=== PATIENT | female | born 1965 | race Caucasian/White ===

== ENCOUNTER 2018-03-17 14:06 | Observation (INO) | payer OTHER, SELFPAY ==
[2018-03-17] VITALS (10 sets, daily range): BP systolic 113–127; BP diastolic 68–92; PULSE 62–658; RESP 16–23; TEMP 36.7–36.9; O2SAT 95–100; BMI 34.1; BMI 33.5
--- NOTE | 2018-03-17 14:37 | EKG12_ITS ---
Test Reason : NEURO Blood Pressure : / mmHG Vent. Rate : 066 BPM Atrial Rate : 066 BPM P-R Int : 174 ms QRS Dur : 080 ms QT Int : 436 ms P-R-T Axes : 068 025 052 degrees QTc Int : 457 ms Sinus rhythm with occasional Premature ventricular complexes Otherwise normal ECG Confirmed by HUMA JENKINS, MARKIE ([id number]), senior technical editor KARIS CONTRERAS ([id number]) on 03/20/2018 12:54:19 PM Referred By: KENDRICK Confirmed By:MARKIE FINN MD
--- NOTE | 2018-03-17 14:37 | CT_ITS ---
STUDY: CT BRAIN WITHOUT CONTRAST REASON FOR EXAM: Female, 52 years old. Paresthesia and numbness of the left face. RADIATION DOSAGE (If Supplied By Facility): CTDIvol = ( 44.99 ) mGy, DLP = ( 745.49 ) mGycm TECHNIQUE: Transaxial CT imaging of the brain was performed without administration of intravenous contrast material. Individualized dose optimization techniques were used for this CT. COMPARISON: None. FINDINGS: Normal soft tissue structures. Normal calvarium. Normal size ventricles and extra-axial spaces for the patient's age. Normal white matter tracts of the cerebral hemispheres. Normal basal ganglia and thalami. Normal brainstem. Normal cerebellum. There is no intracranial hemorrhage. There are no findings of an acute ischemic infarction. Normal visualized paranasal sinuses. CT/Brain/Head without Contrast IMPRESSION: Normal unenhanced CT scan of the brain. Electronically Signed: Trip Barnhart MD at 15:14 EDT , Service support ,
--- NOTE | 2018-03-17 14:41 | NURSING ---
NO OLD EKGS
--- NOTE | 2018-03-17 14:54 | ED.VISSUMM ---
- ER Visit Summary Date of Service: 03/17/18 Chief Complaint: Paresthesia left side History of Present Illness: The patient is a 52 F who presents with left-sided numbness that started 1 hour prior to presentation. Total duration 10 minutes. She states the top her foot began to tingle then her entire left side began to tingle. She was concerned she may follow walk to a chair. She states her leg felt large. She did not use her left arm to determine if there was problems with coordination or weakness. She does not believe she had a foot drop or was dragging her left leg. There was no change in her voice. She had no difficulty swallowing or breathing. She denied headache. She does have history of migraine headaches. She had no nausea or vomiting. She denied double vision, blurred vision or loss of vision. She denies any cardiac respiratory symptoms. She denies any urologic symptoms. Past history of hypertension and migraine headaches Physical Examination: Vital signs are essentially unremarkable. BMI is 34.1. Head is atraumatic normocephalic. Pupils are equal round reactive. Extraocular muscles are intact. TMs are pearly white with landmarks noted. Nares patent with no drainage. Posterior pharynx without erythema or exudate. Uvula is midline. There is no dysphonia or dysphasia. Trachea is midline. There is no stridor with auscultation of the neck. Heart is regular without murmur, gallop or rub. S1 and S2 are normal. Lungs are clear to auscultation with good movement of air bilaterally. Abdomen is soft nontender. Patient is alert and oriented ?3. Motor is 5 over 5. Sensory is intact. DTRs are symmetric with no clonus or Babinski sign. Cranial 2 through 12 are intact. Cerebellar testing is normal. NIH is 0. Test Results: EEG revealed a sinus rhythm rate of 66 with premature ventricular beats. CT of the head reviewed by me interpreted radiologist as negative. CBC electro panel unremarkable. Coags are pending. Emergency Department Course and Treatment: Stroke alert was not activated since patient's symptoms are resolved and NIH is 0. Stroke order set was initiated. This may represent an atypical migraine versus a TIA. Patient was informed inpatient hospitalization for would initiate workup and she will require expedited workup to determine cause of her numbness. Treatment Plan: The hospitalist was paged for 23 observation for further workup to determine if this is a TIA versus atypical migraine. Disposition: 23 hour observation PCU Impression: Left-sided paresthesia uncertain etiology This note was generated with [employer] dictation software. It may contain incorrect words, spelling, and punctuation that were not noted in review of the chart prior to signing ED Disposition - Plan for ED Patient: Chief Complaint: Neuro S/Sx Referrals: Avel Temple MD [NON-STAFF] -
[2018-03-17 15:04] LABS: Anion Gap 7 (5-15); BUN 16 mg/dL (7-18); BUN/Creat Ratio 16.8 RATIO (10-20); Calcium,Total 9.5 mg/dL (8.5-10.1); Chloride 103 mmol/L (98-107); Creatinine, Serum 0.95 mg/dL (0.55-1.02); EST Glomerular Filtration Rate 66 mL/min (>60); Est Glom Filt Rate - Afr Amer 80 mL/min (>60); Estimated Creatinine Clearance 53.46 ml/min; Glucose 86 mg/dL (74-106); Potassium 3.6 mmol/L (3.5-5.1); Sodium Level 140 mmol/L (136-145)
[2018-03-17 15:09] LABS: Absolute Lymphocyte Count 3.05 X10^3/ul (0.83-4.51); Absolute Neutrophil Count 5.6 X10^3/uL (2.0-7.7); Basophil# 0.07 X10^3/uL; Basophil% 0.7 % (0-1); Hematocrit 41.5 % (37-47); Hemoglobin 13.8 g/dl (12.0-15.0); Lymphocyte # 3.05 X10^3/ul (4.0); Lymphocyte % 31.8 % (19-41); Mean Corp Hgb Conc 33.3 g/gl (32-36); Mean Corpuscular Hgb 30.3 pg (27.0-32.0); Mean Corpuscular Volume 91.2 fL (81-99); Mean Platelet Vol. 11.2 fl (6.2-12.0); Monocyte# 0.76 X10^3/uL; Monocyte% 7.9 % (0-10); Neutrophil % 58.5 % (47-70); Platelet Count 229 K/mm3 (150-450); RBC Distribution Width CV 12.8 % (11.6-14.6); RBC Distribution Width SD 42.1 fl (35.1-43.9); Red Blood Count 4.55 M/mm3 (4.2-5.4); White Blood Count 9.6 K/mm3 (4.4-11.0)
[2018-03-17 15:10] LABS: POSITIVE COUNT NO; POSITIVE DIFFERENTIAL NO; POSITIVE MORPHOLOGY NO
[2018-03-17 15:26] LABS: Bedside Glucose 84 mg/dL (70-110)
[2018-03-17 15:28] LABS: Prothrombin Time (Protime)PT. 13.2 SECONDS (11.7-14.9)
[2018-03-17 15:29] LABS: Partial Thromboplast Time 30.3 Seconds (24.1-36.2)
--- NOTE | 2018-03-17 15:31 | NURSING ---
DR MARKS STATES TO DISCONTINUE NIH'S. NIH SCORE IS 0, PT HAS NOT HAD SYMPTOMS SINCE BEFORE ARRIVAL.
--- NOTE | 2018-03-17 15:32 | NURSING ---
DR ENEIDA MARKS
--- NOTE | 2018-03-17 15:52 | PCM.HP.STD ---
Problem List (1) Left sided numbness Status: Acute (2) Migraine Status: Chronic (3) HTN (hypertension) Status: Chronic (4) Mitral valve prolapse Status: Chronic History of Present Illness Date of Admission: 03/17/18 Chief Complaint: left sided numbness The patient is a 52 year old F who was in her normal state of health today and then experienced left-sided numbness. The numbness involved her left arm leg. Sat down on a bench and felt that she could not sense her left buttocks on the bench. Last about an hour resolved completely. Patient does have a history of migraines but was having no headache when this occurred. Patient has never had any symptoms such as this in the past. Patient presented to the emergency room and was evaluated. Patient had an NIH score of 0. Patient is being admitted for further neurologic evaluation to see if this was a stroke or TIA. 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: No pertinent DEPUTY INSURANCE COMMISSIONER history Smoking Status: Never smoker Tobacco Use: Non-smoker Alcohol: Occasional Drugs: None - *Family History Maternal History Items: Stroke Paternal History Items: Heart Disease Review of Systems Constitutional: Denies: Anorexia, Chills, Fever Eyes: Denies: Blurred vision, Double vision HEENT: Denies: Head Aches, Sinus Congestion, Sinus Drainage Cardiovascular: Denies: Chest Pain, Palpitations Respiratory: Denies: Cough, Shortness of breath at rest, Sputum production Gastrointestinal: Denies: Abdominal Pain, Nausea, Vomiting Musculoskeletal: Denies: Joint Pain, Joint Tenderness Skin: Denies: Rash, Wounds Neurological: Reports: Numbness - on left, now resolved.. Denies: Focal weakness, Tingling Psychiatric: Denies: Anxiety, Depression Hematologic/ Lymphatic: Denies: Easy Bruising, Easy Bleeding, Hx of blood clot VTE Information - Inpt Only VTE Present on Admission: No VTE Pharm Prophylaxis ordered?: Yes Patient Problems: Active and Suspected Problems Left sided numbness (Acute) - Physical Exam General: Alert, Cooperative, No apparent distress HEENT: Atraumatic, PERRLA, EOMI, Normocephalic Oral: Moist Mucosa, No Gingival or Mucosal Lesions/ Ulcerations Neck: No Nodes, Thyroid Normal Size and Texture Lungs: Clear to auscultation, Normal air movement, No rhonchi, No wheeze Cardiovascular: Regular rate, Regular Rhythm, Normal S1, Normal S2, - - 2/6 HSM at apex Abdomen: Bowel Sounds Present, Soft, Non Tender, Non-Distended Extremities: No edema, No Calf Tenderness Skin: No rashes, No breakdown Musculoskeletal: No Tenderness to Palpation of Joints or Extremities, No Muscle Wasting Neurological: Cranial nerves II-XII grossly intact, Neuro grossly intact, Motor Exam 5/5 strength throughout Psych/Mental Status: Normal Affect, Appropriate, - - did become tearful Vital Signs Temp Pulse Resp BP Pulse Ox 36.9 C 65 20 H 123/92 H 97 03/17/18 14:08 03/17/18 15:07 03/17/18 15:07 03/17/18 15:07 03/17/18 15:07 Oxygen Delivery Method Room Air Weight: 82.6 kg Body Mass Index (BMI) 34.1 Finger Stick Blood Glucose 84 Laboratory Tests Past 24 Hrs 03/17/18 03/17/18 03/17/18 14:45 14:45 14:45 WBC 9.6 RBC 4.55 Hgb 13.8 Hct 41.5 MCV 91.2 MCH 30.3 MCHC 33.3 RDW 12.8 RDW Differential 42.1 Plt Count 229 MPV 11.2 Immature Gran % (Auto) 0.100 Neut % (Auto) 58.5 Lymph % (Auto) 31.8 [place] % (Auto) 7.9 Eos % (Auto) 1.0 Baso % (Auto) 0.7 Absolute Neuts (auto) 5.6 Absolute Lymphs (auto) 3.05 Total Counted Not Reportable PT Pending INR Pending APTT Pending Sodium 140 Potassium 3.6 Chloride 103 Carbon Dioxide 30.0 Anion Gap 7 BUN 16 Creatinine 0.95 Estim Creat Clear Calc 53.46 Est GFR (MDRD) Af Amer 80 Est GFR (MDRD) Non-Af 66 BUN/Creatinine Ratio 16.8 Glucose 86 Calcium 9.5 POC Glucose 03/17/18 14:46 POC Glucose 84 Clinical Impression(s) from Imaging Studies Brain CT 03/17/18 14:37 IMPRESSION: Normal unenhanced CT scan of the brain. Electronically Signed: Trip Barnhart MD at 15:14 EDT , Service support , Assessment/Plan Active and Suspected Problems Left sided numbness (Acute) 1. Left-sided weakness Concern is to rule out a TIA or stroke and patient will be admitted to have an MRI of the brain, MRA of the head neck, echocardiogram and neurology evaluation. Patient will additionally have a bedside swallow evaluation when she passes that the patient may resume a diet at this point. Patient does have a history of migraines the patient was having no headache at this time. Patient never had any atypical features such as this either with her migraines. 2. DVT prophylaxis with Lovenox Code Visit OBSV E&M: 62519 Initial observation care L3
--- NOTE | 2018-03-17 15:55 | NURSING ---
Sumeet LT SIDED NUMBNESS ENEIDA
--- NOTE | 2018-03-17 15:58 | HP.PCM_ITS ---
Problem List (1) Left sided numbness Status: Acute (2) Migraine Status: Chronic (3) HTN (hypertension) Status: Chronic (4) Mitral valve prolapse Status: Chronic History of Present Illness Date of Admission: 03/17/18 Chief Complaint: left sided numbness The patient is a 52 year old F who was in her normal state of health today and then experienced left-sided numbness. The numbness involved her left arm leg. Sat down on a bench and felt that she could not sense her left buttocks on the bench. Last about an hour resolved completely. Patient does have a history of migraines but was having no headache when this occurred. Patient has never had any symptoms such as this in the past. Patient presented to the emergency room and was evaluated. Patient had an NIH score of 0. Patient is being admitted for further neurologic evaluation to see if this was a stroke or TIA. [] Past Medical History Past Medical History (Chronic Problems): Chronic Problems Migraine (Chronic) HTN (hypertension) (Chronic) Mitral valve prolapse (Chronic) Allergies amoxicillin Allergy (Verified 03/17/18 14:30) Itching Home Medications: Ambulatory Orders Medication Instructions Recorded Ascorbic Acid [Vitamin C] 500 mg PO DAILY 03/17/18 Butalbital/Aspirin/Caffeine 1 cap PO BID PRN 03/17/18 [Cicjqsitzh-YCH-Zcycwtvd Cap] Losartan Potassium [Losartan 25 mg DAILY 03/17/18 Potassium] Psychiatric History: No pertinent psych hx MANAGER ACTION History: No pertinent MANAGER ACTION history Smoking Status: Never smoker Tobacco Use: Non-smoker Alcohol: Occasional Drugs: None - *Family History Maternal History Items: Stroke Paternal History Items: Heart Disease Review of Systems Constitutional: Denies: Anorexia, Chills, Fever Eyes: Denies: Blurred vision, Double vision HEENT: Denies: Head Aches, Sinus Congestion, Sinus Drainage Cardiovascular: Denies: Chest Pain, Palpitations Respiratory: Denies: Cough, Shortness of breath at rest, Sputum production Gastrointestinal: Denies: Abdominal Pain, Nausea, Vomiting Musculoskeletal: Denies: Joint Pain, Joint Tenderness Skin: Denies: Rash, Wounds Neurological: Reports: Numbness - on left, now resolved.. Denies: Focal weakness, Tingling Psychiatric: Denies: Anxiety, Depression Hematologic/ Lymphatic: Denies: Easy Bruising, Easy Bleeding, Hx of blood clot VTE Information - Inpt Only VTE Present on Admission: No VTE Pharm Prophylaxis ordered?: Yes Patient Problems: Active and Suspected Problems Left sided numbness (Acute) - Physical Exam General: Alert, Cooperative, No apparent distress HEENT: Atraumatic, PERRLA, EOMI, Normocephalic Oral: Moist Mucosa, No Gingival or Mucosal Lesions/ Ulcerations Neck: No Nodes, Thyroid Normal Size and Texture Lungs: Clear to auscultation, Normal air movement, No rhonchi, No wheeze Cardiovascular: Regular rate, Regular Rhythm, Normal S1, Normal S2, - - 2/6 HSM at apex Abdomen: Bowel Sounds Present, Soft, Non Tender, Non-Distended Extremities: No edema, No Calf Tenderness Skin: No rashes, No breakdown Musculoskeletal: No Tenderness to Palpation of Joints or Extremities, No Muscle Wasting Neurological: Cranial nerves II-XII grossly intact, Neuro grossly intact, Motor Exam 5/5 strength throughout Psych/Mental Status: Normal Affect, Appropriate, - - did become tearful Vital Signs Temp Pulse Resp BP Pulse Ox 36.9 C 65 20 H 123/92 H 97 03/17/18 14:08 03/17/18 15:07 03/17/18 15:07 03/17/18 15:07 03/17/18 15:07 Oxygen Delivery Method Room Air Weight: 82.6 kg Body Mass Index (BMI) 34.1 Finger Stick Blood Glucose 84 Laboratory Tests Past 24 Hrs 03/17/18 03/17/18 03/17/18 14:45 14:45 14:45 WBC 9.6 RBC 4.55 Hgb 13.8 Hct 41.5 MCV 91.2 MCH 30.3 MCHC 33.3 RDW 12.8 RDW Differential 42.1 Plt Count 229 MPV 11.2 Immature Gran % (Auto) 0.100 Neut % (Auto) 58.5 Lymph % (Auto) 31.8 [place] % (Auto) 7.9 Eos % (Auto) 1.0 Baso % (Auto) 0.7 Absolute Neuts (auto) 5.6 Absolute Lymphs (auto) 3.05 Total Counted Not Reportable PT Pending INR Pending APTT Pending Sodium 140 Potassium 3.6 Chloride 103 Carbon Dioxide 30.0 Anion Gap 7 BUN 16 Creatinine 0.95 Estim Creat Clear Calc 53.46 Est GFR (MDRD) Af Amer 80 Est GFR (MDRD) Non-Af 66 BUN/Creatinine Ratio 16.8 Glucose 86 Calcium 9.5 POC Glucose 03/17/18 14:46 POC Glucose 84 Clinical Impression(s) from Imaging Studies Brain CT 03/17/18 14:37 IMPRESSION: Normal unenhanced CT scan of the brain. Electronically Signed: Trip Barnhart MD at 15:14 EDT , Service support , Assessment/Plan Active and Suspected Problems Left sided numbness (Acute) 1. Left-sided weakness * Concern is to rule out a TIA or stroke and patient will be admitted to have an MRI of the brain, MRA of the head neck, echocardiogram and neurology evaluation. Patient will additionally have a bedside swallow evaluation when she passes that the patient may resume a diet at this point. Patient does have a history of migraines the patient was having no headache at this time. Patient never had any atypical features such as this either with her migraines. 2. DVT prophylaxis with Lovenox Code Visit OBSV E&M: 16385 Initial observation care L3
--- NOTE | 2018-03-17 16:01 | CHAPLAIN ---
Type of Pastoral Visit ___ Initial Visit ___ Follow-up Visit ___ On-call Visit ___ General Patient Visit ___ Spiritual Assessment ___ Family Conference ___ Bereavement ___ Rapid Response ___ Code Blue _x__ Other (describe below) Pastoral Care Referral From _x__ Patient ___ Family ___ Nurse ___ Physician ___ Roll Forming Machine Set Up Operator ___ Poundmaster ___ Other (describe below) Sacrament/Intervention ___ Active listening ___ Anointing ___ Taoism ___ Bereavement ___ Communion ___ Gloria exploration ___ ___ Life review _x__ Prayer ___ Reconciliation ___ Sacrament of Sick _x__ Supportive presence ___ Wedding ___ Other (describe below) Pastoral Comments while rounding in the ED, 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
--- NOTE | 2018-03-17 16:38 | MRI_ITS ---
STUDY: MRI BRAIN WITH AND WITHOUT CONTRAST REASON FOR EXAM: Female, 52 years old. Numbness and tingling of left side TECHNIQUE: Standardized multiplanar fat and water weighted pulse sequences were obtained. 7 ml of Gadavist contrast material was administered intravenously for the contrast portion of the examination. COMPARISON: None. FINDINGS: Normal size of the ventricles and extra-axial spaces for the patient's age. There are a couple of tiny punctate white matter densities but no significant white matter ischemic changes or evidence for acute infarct.. Normal bilateral basal ganglia. Normal thalami. There is no extra-axial fluid accumulation. Normal flow voids within the major intracranial circulation suggesting patency by spin echo criteria. Normal venous enhancement. There is no enhancing intra-axial or extra-axial abnormality. Normal sella turcica, pituitary gland, infundibular stalk, optic chiasm and hypothalamus. Normal tectal plate and pineal gland. Normal midbrain, dominguez and medulla. Normal cerebellum. Normal basal cisterns. Normal bilateral temporal bones. Normal bilateral internal auditory canals. No demonstrated orbital abnormality, within the constraints of a routine brain study. Mild bilateral mucosal thickening greater on the left Normal calvarium and skull base. Normal visualized soft tissue structures. Normal visualized upper cervical spine. MRI/Brain W/WO Contrast IMPRESSION: Minimal nonspecific white matter changes. No evidence for acute infarct No abnormal enhancing lesion Electronically Signed: Basil Pillai MD at 20:22 EDT , Service support ,
--- NOTE | 2018-03-17 16:38 | MRI_ITS ---
STUDY: MRA NECK WITH AND WITHOUT CONTRAST REASON FOR EXAM: Female, 52 years old. Numbness and tingling in left foot TECHNIQUE: 3-D iyai-rd-vklqek (TOF) imaging was performed in an 1.5 T MRI scanner. 7 ml of Gadavist was administered for the contrast enhanced images. COMPARISON: None. FINDINGS: RIGHT CAROTID ARTERIES: Normal right common carotid artery (CCA). Normal right common carotid bulb. Normal origin of the right internal carotid (ICA) artery without a hemodynamically significant stenosis. Normal visualized cervical portion of the right internal carotid artery. Normal origin of the right external carotid artery (ECA). LEFT CAROTID ARTERIES: Normal left common carotid artery (CCA). Normal left common carotid bulb. Normal origin of the left internal carotid (ICA) artery without a hemodynamically significant stenosis. Normal visualized cervical portion of the left internal carotid artery. Normal origin of the left external carotid artery (ECA). VERTEBRAL ARTERIES: Right vertebral is dominant and normal in caliber There is diffuse narrowing of the left vertebral consistent with normal variant MRI/MRA Neck WITH and W/O Contrast IMPRESSION: Normal bilateral cervical carotid and vertebral arteries. Electronically Signed: Basil Pillai MD at 20:09 EDT , Service support ,
--- NOTE | 2018-03-17 16:38 | MRI_ITS ---
STUDY: MRA OF THE HEAD WITHOUT CONTRAST REASON FOR EXAM: Female, 52 years old. Numbness and tingling in left foot TECHNIQUE: 3-D wvhz-gd-ivjaly (TOF) imaging was performed with MIPs. The study was performed unenhanced. COMPARISON: None. FINDINGS: Normal bilateral petrous carotid arteries. Normal right cavernous carotid artery with a normal supraclinoid bifurcation. Normal left cavernous carotid artery with a normal supraclinoid bifurcation. Normal right A1 segments of the anterior cerebral artery. Normal left A1 segments of the anterior cerebral artery. Normal intact anterior communicating artery (ACOM). Normal bilateral A2 segments of the anterior cerebral arteries. Normal right M1 and M2 segments of the middle cerebral arteries, with a normal M1 bifurcation. Normal left M1 and M2 segments of the middle cerebral arteries, with a normal M1 bifurcation. Normal right posterior communicating artery (PCOM). Left posterior communicating artery not visualized consistent with normal variant. The right vertebral is dominant and normal caliber. There is diffuse narrowing of the distal left vertebral. Normal basilar artery with a normal basilar bifurcation. The visualized bilateral superior cerebellar (SCA) arteries are normal. Normal bilateral P1, P2 and visualized P3 segments of the posterior cerebral arteries. There is no demonstrated aneurysm of the [place]. There is no major vessel occlusion or hemodynamically significant stenosis. There is no demonstrated abnormality of the visualized brain. MRI/MRA Head ONLY without Contrast IMPRESSION: Diffusely narrowed left vertebral. No significant stenosis or occlusive thrombus in the vessels comprising the [place] Electronically Signed: Basil Pillai MD at 20:07 EDT , Service support ,
--- NOTE | 2018-03-17 16:38 | ECHOD_ITS ---
Reason For Study: TIA/CVA Procedure This was a 2D Doppler, Color Flow transthoracic echocardiogram. Exam performed portable in patient room. Left Ventricle Normal size and thickness. The estimated ejection fraction is 65 %. Normal diastology for age. No regional wall motion abnormalities noted. Right Ventricle Normal size and thickness. Normal systolic function. Atria Normal left atrium. Normal right atrium. Normal atrial septum. Mitral Valve The mitral valve is structurally normal. No prolapse or stenosis seen. Tricuspid Valve Normal tricuspid valve. Trivial tricuspid valve insufficiency. Right ventricular systolic pressure estimated to be 44 mmHg. Mild pulmonary hypertension. Aortic Valve Trisinus/trileaflet aortic valve. Moderate focal aortic valve thickening. Moderate diffuse aortic valve thickening. Moderate restriction of the aortic valve. Moderate aortic stenosis. Peak aortic valve gradient 57 mmHg. Mean aortic valve gradient 31 mmHg. Calculated aortic valve area (continuity equation) is 0.84 cm2. Trivial aortic valve insufficiency. Pulmonic Valve Normal pulmonic valve. Great Vessels Normal aortic root. Normal arch. Normal inferior vena cava. Inferior vena cava collapse with sniff. Pericardium/Pleural No pericardial effusion. Medication Performed a rapid injection of agitated mix of 9 cc saline and 1cc air to assess for atrial septal defect. MMode/2D Measurements & Calculations LVIDd: 4.8 cm IVSd: 1.1 cm LVOT diam: 2.0 cm LVIDs: 3.0 cm LVPWd: 1.0 cm LVOT area: 3.0 cm2 RVDd: 3.0 cm FS: 37.7 % Ao root diam: 3.0 cm LAV(MOD-bp): 52.9 ml LA A4 area: 18.0 cm2 LA dimension: 3.7 cm LAV(MOD-bp) Indexed: 29.4 ml/m2 LAV(MOD-sp2): 50.6 ml LAV(MOD-sp4): 53.9 ml RA A4 area: 14.7 cm2 Doppler Measurements & Calculations MV E max art: 90.4 cm/sec Lat Peak E' Art: 11.7 cm/sec Med Peak E' Art: 9.1 cm/sec MV A max art: 64.7 cm/sec E/E' lat: 7.7 E/E' med: 9.9 MV E/A: 1.4 Ao V2 max: 376.6 cm/sec AI max art: 373.1 cm/sec LV V1 max: 105.8 cm/sec Ao max P.7 mmHg AI max P.8 mmHg LV V1 max P.5 mmHg Ao V2 mean: 263.8 cm/sec AI dec slope: 210.1 cm/sec2 LV V1 mean P.2 mmHg Ao mean P.6 mmHg AI P1/2t: 520.2 msec LV V1 mean: 70.5 cm/sec Ao V2 VTI: 83.7 cm LV V1 VTI: 23.0 cm DULCE(I,D): 0.83 cm2 DULCE(V,D): 0.85 cm2 SV(LVOT): 69.6 ml PA V2 max: 116.6 cm/sec TR max art: 271.8 cm/sec TR max P.5 mmHg Interpretation Summary The estimated ejection fraction is 65 %. Normal diastology for age. Right ventricular systolic pressure estimated to be 44 mmHg. Mild pulmonary hypertension. Trivial aortic valve insufficiency. Moderate aortic stenosis. Compared to echo report dated 05/16/2016, LV function has remained the same, Aortic gradient and stenosis have slightly worsened and RVSP has increased from 28 to 44 mm Hg. Ordering Physician: Mars Kapoor Performed By: Telma Tran RDCS, RVT
[2018-03-17] MEDS: Aspirin 325 MG Tablet PO (17:58)
--- NOTE | 2018-03-17 22:47 | NURSING ---
Pt refusing loxenox. SCD's applied.
[2018-03-18] VITALS (7 sets, daily range): BP systolic 103–120; BP diastolic 63–84; PULSE 63–83; RESP 16–18; TEMP 36.6–36.9; O2SAT 95–97
[2018-03-18 05:39] LABS: Cholesterol 148 mg/dL (200); High Density Lipoprotein 50 mg/dL; Triglycerides 56 mg/dL; Very Low Density Lipoprotein 11 mg/dL (5-40)
[2018-03-18 09:50] LABS: Erythrocyte Sedimentation Rate 6 mm/hr (0-30)
[2018-03-18] MEDS: Aspirin 81 MG TAB.CHEW PO (10:21)
[2018-03-18] MEDS: Losartan Potassium 25 MG Tablet PO (10:21)
[2018-03-18] MEDS: 0.9% NaCl Peripheral Flush Adult/Peds IV (10:22)
--- NOTE | 2018-03-18 11:33 | PCM.DC ---
- Discharge Diagnoses Current Active Problems: Current Active and Chronic Problems Left sided numbness (Acute) Migraine (Chronic) HTN (hypertension) (Chronic) Mitral valve prolapse (Chronic) You will use the following diet at home:: Calorie/Carbohydrate Controlled (specify 1200, 1400, etc) - 1800 helena / day, Cardiac - <2 g sodium Your food should be the consistency of: Regular Your liquids should be the consistency of: Regular/Thin Discharge Activity: Return to Normal Activity Allergies/Adverse Reactions: Allergies amoxicillin Allergy (Verified 03/17/18 14:30) Itching Medications to take at Discharge Ascorbic Acid [Vitamin C] 500 mg PO DAILY 03/17/18 Butalbital/Aspirin/Caffeine [Vgjqczuwws-MLU-Akbkpeyb Cap] 1 cap PO BID PRN 03/17/18 Losartan Potassium 25 mg PO DAILY 03/17/18 Aspirin [Aspirin, Baby] 81 mg PO DAILY@0800 tab.chew 03/18/18 Atorvastatin Calcium 40 mg PO DAILY #30 tab 03/18/18 The following prescriptions were given: Atorvastatin Calcium 40 mg PO DAILY #30 tab Primary Care Physician: Avel Temple MD [NON-STAFF] - Please follow up with your Primary Care Physician in: 1-2 weeks Please Follow Up With: Viviane Khan MD When: 2 weeks Proposed Discharge Date: 03/18/18
--- NOTE | 2018-03-18 12:37 | PCM.DC.SUM ---
Discharge Date and Diagnosis - Problem List Patient Problems: Active and Suspected Problems Left sided numbness (Acute) Date of Admission: 03/17/18 Date of Discharge: 03/18/18 - Primary Discharge Diagnosis Active and Suspected Problems TIA moderate aortic stenosis mild pulmonary htn hx migraine HTN Obesity - Secondary Discharge Diagnosis Chronic Problems Migraine (Chronic) HTN (hypertension) (Chronic) Mitral valve prolapse (Chronic) Hospital Course and Treatment Imaging Results: Echo: Interpretation Summary The estimated ejection fraction is 65 %. Normal diastology for age. Right ventricular systolic pressure estimated to be 44 mmHg. Mild pulmonary hypertension. Trivial aortic valve insufficiency. Moderate aortic stenosis. Compared to echo report dated 05/16/2016, LV function has remained the same, Aortic gradient and stenosis have slightly worsened and RVSP has increased from [address]/Brain/Head without Contrast IMPRESSION: Normal unenhanced CT scan of the brain. MRI/Brain W/WO Contrast IMPRESSION: Minimal nonspecific white matter changes. No evidence for acute infarct No abnormal enhancing lesion MRI/MRA Head ONLY without Contrast IMPRESSION: Diffusely narrowed left vertebral. No significant stenosis or occlusive thrombus in the vessels comprising the [place] MRI/MRA Neck WITH and W/O Contrast IMPRESSION: Normal bilateral cervical carotid and vertebral arteries. Eveline/Erin -neuro Operations: None Procedures: 2-D Echocardiogram Summary of Care Provided: Physical exam on day of discharge: General: Resting comfortably NAD Psych: A/Ox3 normal affect HEENT: PEARRLA AT NC Neck: Supple NT CV: RRR no t/r/g/h, 3 out of 6 systolic murmur best heard over the left sternal border position to radiating loudly into the left side of the neck. Resp: CTA Abd: [id number] Soft NT no guarding or rigidity Ext: DP2+= no edema Skin: W/D normal turgor Lymph/Heme: No active bleeding or adenopathy Neuro: CN2-12 intact Hospital course: The patient is a 52 year old F with a hx of HTN, MVP, obesity, and migraine who presented to the ER with left sided numbness suddenly down the left aimee numbness in the left side of the buttocks. The symptoms lasted for about an hour and then spontaneously resolved. No headache reported. She was admitted with concern for TIA/Stroke. CT brain was negative, followed by negative MRI brain, MRA head and neck. Neuro was consulted. Echo showed moderate , mild pulmonary HTN. Mitral valve was reported normal. She had no further symptoms after discharge. she was placed on Asa and statin, and advised to follow up with her PCP and with neurology. She was discharged home in stable condition. This patient was seen by Dionisio Frank PA-C under the supervision of Doctor Kareem. [] Discharge Diet: Low fat/ Low Cholesterol, 1800 Calorie Control Diet, 2000 mg Sodium Diet Discharge Activity: Return to Normal Activity Home Medications: Medications to take at Discharge Ascorbic Acid [Vitamin C] 500 mg PO DAILY 03/17/18 Butalbital/Aspirin/Caffeine [Pblyfmabgo-QYJ-Xjmjydjk Cap] 1 cap PO BID PRN 03/17/18 Losartan Potassium 25 mg PO DAILY 03/17/18 Aspirin [Aspirin, Baby] 81 mg PO DAILY@0800 tab.chew 03/18/18 Atorvastatin Calcium 40 mg PO DAILY #30 tab 03/18/18 Following Prescrptions Were Given to Patient: Atorvastatin Calcium 40 mg PO DAILY #30 tab Primary Care Physician: Avel Temple MD [NON-STAFF] - Please follow up with your Primary Care Physician in: 1-2 weeks Please Follow Up With: Viviane Khan MD When: 2 weeks Disposition: Home Minutes spent on discharge:: 35 Patient Condition:: Stable Medical Necessity - Tobacco Use Smoking Status: Never smoker Tobacco Use: Non-smoker Meaningful Use Info Meaningful Use Diagnoses (Choose all that apply): None applicable
--- NOTE | 2018-03-18 12:44 | DS.PCM_ITS ---
Discharge Date and Diagnosis - Problem List Patient Problems: Active and Suspected Problems Left sided numbness (Acute) Date of Admission: 03/17/18 Date of Discharge: 03/18/18 - Primary Discharge Diagnosis Active and Suspected Problems TIA moderate aortic stenosis mild pulmonary htn hx migraine HTN Obesity - Secondary Discharge Diagnosis Chronic Problems Migraine (Chronic) HTN (hypertension) (Chronic) Mitral valve prolapse (Chronic) Hospital Course and Treatment Imaging Results: Echo: Interpretation Summary The estimated ejection fraction is 65 %. Normal diastology for age. Right ventricular systolic pressure estimated to be 44 mmHg. Mild pulmonary hypertension. Trivial aortic valve insufficiency. Moderate aortic stenosis. Compared to echo report dated 05/16/2016, LV function has remained the same, Aortic gradient and stenosis have slightly worsened and RVSP has increased from [address]/Brain/Head without Contrast IMPRESSION: Normal unenhanced CT scan of the brain. MRI/Brain W/WO Contrast IMPRESSION: Minimal nonspecific white matter changes. No evidence for acute infarct No abnormal enhancing lesion MRI/MRA Head ONLY without Contrast IMPRESSION: Diffusely narrowed left vertebral. No significant stenosis or occlusive thrombus in the vessels comprising the [place] MRI/MRA Neck WITH and W/O Contrast IMPRESSION: Normal bilateral cervical carotid and vertebral arteries. Eveline/Erni -neuro Operations: None Procedures: 2-D Echocardiogram Summary of Care Provided: Physical exam on day of discharge: General: Resting comfortably NAD Psych: A/Ox3 normal affect HEENT: [place] AT NC Neck: Supple NT CV: RRR no t/r/g/h, 3 out of 6 systolic murmur best heard over the left sternal border position to radiating loudly into the left side of the neck. Resp: CTA Abd: [id number] Soft NT no guarding or rigidity Ext: DP2+= no edema Skin: W/D normal turgor Lymph/Heme: No active bleeding or adenopathy Neuro: CN2-12 intact Hospital course: The patient is a 52 year old F with a hx of HTN, MVP, obesity, and migraine who presented to the ER with left sided numbness suddenly down the left aimee numbness in the left side of the buttocks. The symptoms lasted for about an hour and then spontaneously resolved. No headache reported. She was admitted with concern for TIA/Stroke. CT brain was negative, followed by negative MRI brain, MRA head and neck. Neuro was consulted. Echo showed moderate , mild pulmonary HTN. Mitral valve was reported normal. She had no further symptoms after discharge. she was placed on Asa and statin, and advised to follow up with her PCP and with neurology. She was discharged home in stable condition. This patient was seen by Dionisio Frank PA-C under the supervision of Doctor Kareem. [] Discharge Diet: Low fat/ Low Cholesterol, 1800 Calorie Control Diet, 2000 mg Sodium Diet Discharge Activity: Return to Normal Activity Home Medications: Medications to take at Discharge Ascorbic Acid [Vitamin C] 500 mg PO DAILY 03/17/18 Butalbital/Aspirin/Caffeine [Ezlmxedxne-TFJ-Bzmfcioo Cap] 1 cap PO BID PRN 03/17 Losartan Potassium 25 mg PO DAILY 03/17/18 Aspirin [Aspirin, Baby] 81 mg PO DAILY@0800 tab.chew 03/18/18 Atorvastatin Calcium 40 mg PO DAILY #30 tab 03/18/18 Following Prescrptions Were Given to Patient: Atorvastatin Calcium 40 mg PO DAILY #30 tab Primary Care Physician: Avel Temple MD [NON-STAFF] - Please follow up with your Primary Care Physician in: 1-2 weeks Please Follow Up With: Viviane Khan MD When: 2 weeks Disposition: Home Minutes spent on discharge:: 35 Patient Condition:: Stable Medical Necessity - Tobacco Use Smoking Status: Never smoker Tobacco Use: Non-smoker Meaningful Use Info Meaningful Use Diagnoses (Choose all that apply): None applicable
--- NOTE | 2018-03-18 12:45 | PCM.CONS.GEN ---
Problem List (1) Left sided numbness Status: Acute (2) Migraine Status: Chronic Qualifiers: Migraine type: with aura Status migrainosus presence: without status migrainosus Intractability: not intractable Qualified Code(s): G43.109 - Migraine with aura, not intractable, without status migrainosus Reason for Consult Date of Consultation: 03/18/18 Reason for Consultation: Left sided numbness History of Present Illness: The patient is a 52 year old CF with PMH HTN, Migraine admitted with left sided numbness. Per patient she was at work yesterday (03/17/18), then developed sudden onset left sided numbness, started with feeling that left leg was numb then it extended to the whole left side including arm and face, lasted for about 10 minutes, without any speech disturbances, or facial droop, focal motor weakness. Denies any BEASLEY. Per patient she does have infrequent migraine BEASLEY, which are generalized, may last hours if she does not take ibuprofen, may need analgesics about 3-4 times a month (takes Fioricet), has associated visual floaters and flash of bright light in front of the eyes, usually gets her migraine HAs during the first day of her period but may get migraine HAs otherwise also, gets it about 1-2 times a month. MRI brain and MRA head/neck done on admission reported normal. LDL 87, TTE-showed EF 65%, normal LA size. Was not on ASA at home. [] Past Medical History Past Medical History (Chronic Problems): Chronic Problems Migraine (Chronic) HTN (hypertension) (Chronic) Mitral valve prolapse (Chronic) Allergies amoxicillin Allergy (Verified 03/17/18 14:30) Itching Home Medications: Ambulatory Orders Medication Instructions Recorded Ascorbic Acid [Vitamin C] 500 mg PO DAILY 03/17/18 Butalbital/Aspirin/Caffeine 1 cap PO BID PRN 03/17/18 [Mlahridbkz-HXO-Livbgtwr Cap] Losartan Potassium 25 mg PO DAILY 03/17/18 Aspirin [Aspirin, Baby] 81 mg PO DAILY@0800 tab.chew 03/18/18 Atorvastatin Calcium 40 mg PO DAILY #30 tab 03/18/18 Psychiatric History: No pertinent psych 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 Smoking Status: Never smoker Tobacco Use: Non-smoker Alcohol: Occasional Drugs: None - *Family History Maternal History Items: Stroke Paternal History Items: Heart Disease Review of Systems Constitutional: Reports: - - complete ROS negative except as documented in HPI Patient Problems: Active and Suspected Problems Left sided numbness (Acute) - Physical Exam General: Alert, Oriented x3, Cooperative HEENT: Atraumatic, PERRLA, EOMI, Normocephalic Neck: Supple, No JVD, Negative Carotid Bruits Lungs: Clear to auscultation, Normal air movement Cardiovascular: Regular rate, No murmurs Abdomen: Bowel Sounds Present, Soft, Non Tender Extremities: No edema, Capillary Refill Less than 3 Seconds Skin: No rashes, No breakdown Musculoskeletal: No Tenderness to Palpation of Joints or Extremities Neurological: Cranial nerves II-XII grossly intact, Deep Tendon Reflexes 2+/4 and Symmetrical, Neuro grossly intact, Motor Exam 5/5 strength throughout, Sensory exam intact to light touch and pain, Coordination normal, - - Fundus not visualized, NIHSS 0 Psych/Mental Status: Normal Affect, Appropriate Vital Signs Temp Pulse Resp BP Pulse Ox 98.3 F 72 16 120/84 H 97 03/18/18 08:00 03/18/18 08:00 03/18/18 08:00 03/18/18 08:00 03/18/18 08:00 Oxygen Delivery Method Room Air Weight: 81.2 kg Body Mass Index (BMI) 33.5 Intake and Output for Last 24 Hours 03/16/18 03/17/18 03/18/18 23:59 23:59 23:59 Intake Total 180 / 180 480 / 480 Balance 180 / 180 480 / 480 Laboratory Tests Past 24 Hrs 03/18/18 03/18/18 05:05 05:05 ESR 6 Triglycerides 56 Cholesterol 148 LDL Cholesterol 87 VLDL Cholesterol 11 HDL Cholesterol 50 Assessment/Plan Active and Suspected Problems Left sided numbness (Acute) The patient is a 52 year old CF with PMH HTN, Migraine admitted with left sided numbness. Per patient she was at work yesterday (03/17/18), then developed sudden onset left sided numbness, started with feeling that left leg was numb then it extended to the whole left side including arm and face, lasted for about 10 minutes, without any speech disturbances, or facial droop, focal motor weakness. Denies any BEASLEY. Per patient she does have infrequent migraine BEASLEY, which are generalized, may last hours if she does not take ibuprofen, may need analgesics about 3-4 times a month (takes Fioricet), has associated visual floaters and flash of bright light in front of the eyes, usually gets her migraine HAs during the first day of her period but may get migraine HAs otherwise also, gets it about 1-2 times a month. MRI brain and MRA head/neck done on admission reported normal. LDL 87, TTE-showed EF 65%, normal LA size. Was not on ASA at home. Impression Possible Complicated Migraine vs ? TIA Plan -MRI brain and MRA head/neck reviewed -On ASA -TTE-EF 65%, normal LA size, -LDL-87, started on statins -Await Hba1c -Avoid triptans for BEASLEY -Stroke risk factors discussed, stroke education provided -GI/DVT prophylaxis -PT/OT -Follow up with Neurology as outpatient in 2 weeks. -Please call with questions if any -Thank you for allowing us to participate in patient's care and management I spent 60 minutes taking history, doing physical examination, reviewing medical records, coordinating care and counseling the patient. Code Visit Inpatient E&M: 02063 Init Hosp L3
--- NOTE | 2018-03-18 12:56 | CON.PCM_ITS ---
Problem List (1) Left sided numbness Status: Acute (2) Migraine Status: Chronic Qualifiers: Migraine type: with aura Status migrainosus presence: without status migrainosus Intractability: not intractable Qualified Code(s): G43.109 - Migraine with aura, not intractable, without status migrainosus Reason for Consult Date of Consultation: 03/18/18 Reason for Consultation: Left sided numbness History of Present Illness: The patient is a 52 year old CF with PMH HTN, Migraine admitted with left sided numbness. Per patient she was at work yesterday (03/17/18), then developed sudden onset left sided numbness, started with feeling that left leg was numb then it extended to the whole left side including arm and face, lasted for about 10 minutes, without any speech disturbances, or facial droop, focal motor weakness. Denies any BEASLEY. Per patient she does have infrequent migraine BEASLEY, which are generalized, may last hours if she does not take ibuprofen, may need analgesics about 3-4 times a month (takes Fioricet), has associated visual floaters and flash of bright light in front of the eyes, usually gets her migraine HAs during the first day of her period but may get migraine HAs otherwise also, gets it about 1-2 times a month. MRI brain and MRA head/neck done on admission reported normal. LDL 87, TTE-showed EF 65%, normal LA size. Was not on ASA at home. [] Past Medical History Past Medical History (Chronic Problems): Chronic Problems Migraine (Chronic) HTN (hypertension) (Chronic) Mitral valve prolapse (Chronic) Allergies amoxicillin Allergy (Verified 03/17/18 14:30) Itching Home Medications: Ambulatory Orders Medication Instructions Recorded Ascorbic Acid [Vitamin C] 500 mg PO DAILY 03/17/18 Butalbital/Aspirin/Caffeine 1 cap PO BID PRN 03/17/18 [Tndveprael-OUX-Kxbfdqgl Cap] Losartan Potassium 25 mg PO DAILY 03/17/18 Aspirin [Aspirin, Baby] 81 mg PO DAILY@0800 tab.chew 03/18/18 Atorvastatin Calcium 40 mg PO DAILY #30 tab 03/18/18 Psychiatric History: No pertinent psych 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 Smoking Status: Never smoker Tobacco Use: Non-smoker Alcohol: Occasional Drugs: None - *Family History Maternal History Items: Stroke Paternal History Items: Heart Disease Review of Systems Constitutional: Reports: - - complete ROS negative except as documented in HPI Patient Problems: Active and Suspected Problems Left sided numbness (Acute) - Physical Exam General: Alert, Oriented x3, Cooperative HEENT: Atraumatic, PERRLA, EOMI, Normocephalic Neck: Supple, No JVD, Negative Carotid Bruits Lungs: Clear to auscultation, Normal air movement Cardiovascular: Regular rate, No murmurs Abdomen: Bowel Sounds Present, Soft, Non Tender Extremities: No edema, Capillary Refill Less than 3 Seconds Skin: No rashes, No breakdown Musculoskeletal: No Tenderness to Palpation of Joints or Extremities Neurological: Cranial nerves II-XII grossly intact, Deep Tendon Reflexes 2+/4 and Symmetrical, Neuro grossly intact, Motor Exam 5/5 strength throughout, Sensory exam intact to light touch and pain, Coordination normal, - - Fundus not visualized, NIHSS 0 Psych/Mental Status: Normal Affect, Appropriate Vital Signs Temp Pulse Resp BP Pulse Ox 98.3 F 72 16 120/84 H 97 03/18/18 08:00 03/18/18 08:00 03/18/18 08:00 03/18/18 08:00 03/18/18 08:00 Oxygen Delivery Method Room Air Weight: 81.2 kg Body Mass Index (BMI) 33.5 Intake and Output for Last 24 Hours 03/16/18 03/17/18 03/18/18 23:59 23:59 23:59 Intake Total 180 / 180 480 / 480 Balance 180 / 180 480 / 480 Laboratory Tests Past 24 Hrs 03/18/18 03/18/18 05:05 05:05 ESR 6 Triglycerides 56 Cholesterol 148 LDL Cholesterol 87 VLDL Cholesterol 11 HDL Cholesterol 50 Assessment/Plan Active and Suspected Problems Left sided numbness (Acute) The patient is a 52 year old CF with PMH HTN, Migraine admitted with left sided numbness. Per patient she was at work yesterday (03/17/18), then developed sudden onset left sided numbness, started with feeling that left leg was numb then it extended to the whole left side including arm and face, lasted for about 10 minutes, without any speech disturbances, or facial droop, focal motor weakness. Denies any BEASLEY. Per patient she does have infrequent migraine BEASLEY, which are generalized, may last hours if she does not take ibuprofen, may need analgesics about 3-4 times a month (takes Fioricet), has associated visual floaters and flash of bright light in front of the eyes, usually gets her migraine HAs during the first day of her period but may get migraine HAs otherwise also, gets it about 1-2 times a month. MRI brain and MRA head/neck done on admission reported normal. LDL 87, TTE-showed EF 65%, normal LA size. Was not on ASA at home. Impression Possible Complicated Migraine vs ? TIA Plan -MRI brain and MRA head/neck reviewed -On ASA -TTE-EF 65%, normal LA size, -LDL-87, started on statins -Await Hba1c -Avoid triptans for BEASLEY -Stroke risk factors discussed, stroke education provided -GI/DVT prophylaxis -PT/OT -Follow up with Neurology as outpatient in 2 weeks. -Please call with questions if any -Thank you for allowing us to participate in patient's care and management I spent 60 minutes taking history, doing physical examination, reviewing medical records, coordinating care and counseling the patient. Code Visit Inpatient E&M: 11777 Init Hosp L3
[2018-03-18 13:11] LABS: Hemoglobin A1c 5.1 % (4.2-6.3)
== END 2018-03-18 11:33 | disposition home or self-care (01) ==
LOC: ED 15:07 → PCU 15:59
PROVIDERS: Psychiatry & Neurology Neurology; Emergency Provider Emergency Medicine; Family Provider Student in an Organized Health Care Education/Training Program; PCP Student in an Organized Health Care Education/Training Program; Visit Provider Family Medicine
DX: R20.2 Paresthesia of skin (principal); R20.0 Anesthesia of skin; I10 Essential (primary) hypertension; E66.9 Obesity, unspecified; Z68.33 Body mass index [BMI] 33.0-33.9, adult; Z71.3 Dietary counseling and surveillance; G43.909 Migraine, unspecified, not intractable, without status migrainosus; I27.20 Pulmonary hypertension, unspecified; I35.0 Nonrheumatic aortic (valve) stenosis; Z79.899 Other long term (current) drug therapy; R53.1 Weakness
CPT/HCPCS: 36415; 70450; 70544; 70549; 70553; 80048; 80061; 82962; 83036; 85025; 85610; 85652; 85730; 93005; 93306; 99218; 99285; A9585; A4216; G0378

== ENCOUNTER 2020-05-22 06:36 | Day surgery (SDC) | payer OTHER, SELFPAY ==
[2020-05-11 13:48] VITALS: BMI 33.5
[2020-05-17 19:06] LABS: Probe Check PASS; Specimen Processing Control PASS
[2020-05-22] VITALS (7 sets, daily range): BP systolic 94–123; BP diastolic 63–71; PULSE 41–57; RESP 16–18; TEMP 36.1–36.7; O2SAT 95–100; BMI 35.6
--- NOTE | 2020-05-22 | EGD_PTH ---
PATIENT: CAROLIN BRITO LOC: EN U#:[id number] AGE/SX: 55/F ROOM: RE05/22/[address]: Dr. J Luis Messer MD : 1965 BED: DIS: 05/22/2020 SPEC #: [id number] RECD: 05/22/20 10:44 STATUS: BRENT REWale #: [id number] RODRIGUEZ: 05/22/20 00:[address]: J Luis Messer DEPT: SURGICAL PATHOLOGY RECD BY: Ellis Ricsk ENTERED: 05/22/20 10:44 SP TYPE: EGD BIOPSY OT DR: Dr. Yani Kemp, DO Tissues: A - Duodenum, NOS B - Gastric mucous membrane C - COLON BIOPSY D - Ileum, NOS Procedures: Surgery Specimen Level IV HEADER OPERATION: Colonoscopy, EGD ([facility] [place]) PRE-OP DIAGNOSIS: Abdomen pain, bloating, heartburn TISSUE SUBMITTED: A - Duodenum biopsy, B - Antrum biopsy for histo and H. pylori, C - Random colonic biopsy, D - Terminal ileum biopsy MICROSCOPIC DIAGNOSIS A. Duodenal biopsy: A fragment of small intestinal mucosa, no pathologic diagnosis. B. Antrum, biopsy: A fragment of gastric mucosa with minimal chronic inflammation. See comment. C. Colon, random biopsy: Fragments of colonic mucosa, no pathologic diagnosis. D. Terminal ileum, biopsy: Fragments of small intestinal mucosa, no pathologic diagnosis. SJ:nicanor 05/23/20 COMMENT B. The results of immunohistochemistry for Helicobacter pylori will be reported separately ([id number]). MICROSCOPIC DESCRIPTION Slides are reviewed. GROSS DESCRIPTION A - Received in fixative is one container labeled with the patient's name and designated duodenal biopsy. The specimen consists of one irregular fragment of light rojas soft tissue that measures 0.4 x 0.2 x 0.1 cm. The specimen is totally submitted in one cassette. B - Received in fixative is one container labeled with the patient's name and designated antrum biopsy. The specimen consists of one irregular fragment of light rojas soft tissue that measures 0.4 x 0.2 x 0.1 cm. The specimen is totally submitted in one cassette. C - Received in fixative is one container labeled with the patient's name and designated random colonic biopsy. The specimen consists of multiple irregular fragments of light rojas soft tissue that in aggregate measure 1.2 x 0.7 x 0.1 cm. The specimen is totally submitted in one cassette. D - Received in fixative is one container labeled with the patient's name and designated terminal ileum biopsy. The specimen consists of two irregular fragments of light rojas soft tissue that in aggregate measure 1 x 0.5 x 0.1 cm. The specimen is totally submitted in one cassette. / SJ:rg 05/22/20 TC:3 CPT: 29634 x4
[2020-05-22] MEDS: Lactated Ringers 1,000 ML 100 ML IV (07:28)
--- NOTE | 2020-05-22 07:30 | IMM_PTH ---
PATIENT: CAROLIN BRITO LOC: EN U#:[id number] AGE/SX: 55/F ROOM: RE05/22/[address]: Dr. J Luis Messer MD : 1965 BED: DIS: 05/22/2020 SPEC #: [id number] RECD: 05/22/20 11:15 STATUS: BRENT REQ #: [id number] RODRIGUEZ: 05/22/20 07:[address]: J Luis Messer DEPT: IMMUNOHISTOCHEMISTRY RECD BY: Mariah Santo ENTERED: 05/22/20 11:15 SP TYPE: IMMUNO OTHR DR: Dr. Yani Kemp, DO Tissues: B - Stomach, NOS Procedures: H Pylori (initial) PHYSICIAN & INSTITUTION [place] [id number] SPECIMEN INFORMATION: Tissue Source: B - Antrum biopsy Clinical Info: Abdomen pain, diarrhea, bloating, heartburn Specimen Number: [id number] CPT code: 54398 METHODOLOGY: Deparaffinized sections of prefer/formalin-fixed tissue or PAP/DQ stained slides are incubated with monoclonal/polyclonal antibodies/oligonucleotide probes. Localization is made via biotin free immunoperoxidase method. Appropriate controls are performed and reacted as expected. Results on target cell population are indicated in the following table: RESULTS: ANTIBODY / CLONE RESULT Block B H Pylori (polyclonal) negative These tests were developed and their performance characteristics determined by [facility]. They may not have been cleared or approved by the U.S. Food and Drug Administration. The FDA has determined that such clearance or approval is not necessary. INTERPRETATION: B. Antrum biopsy: Negative for Helicobacter pylori organisms. SJ:nicanor 05/23/20
--- NOTE | 2020-05-22 07:34 | PCM.HP.BLA ---
History and Physical Date of Admission: 05/22/20 [facility] [address] [place], [place] [id number] Date of Service: 05/22/20 MR#: [id number] Acct: [id number] Name: CAROLIN BRITO Rep #: [id number] : 1965 Provider: Dr. 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[employer] Required: No Is patient in pain?: No (LUQ pain on and off) Allergies amoxicillin Allergy (Verified 05/11/20 13:46) Itching Medications Ascorbic Acid [Vitamin C] 500 mg PO DAILY 03/17/18 [History Confirmed 05/11/20] Losartan Potassium 25 mg PO DAILY 03/17/18 [History Confirmed 05/11/20] famotidine 20 mg tablet 20 mg PO ONCE tab 05/11/20 [History Confirmed 05/11/20] rizatriptan 5 mg disintegrating tablet 5 mg TRANSLINGUAL tab 05/11/20 [History Confirmed 05/11/20] [facility] Medical History Indigestion (Acute) Nausea (Acute) Diarrhea (Acute) Acid reflux (Acute) Suspected sleep apnea (Acute) Abdominal bloating (Acute) LUQ abdominal pain (Acute) Surgical History Hx of tubal ligation (Acute) Family History Mother Arthritis Osteoporosis CVA (cerebral vascular accident) Father Lung cancer Heart disease Sister Lung cancer Bleeding disorder Social History (Updated 05/11/20 @ 15:[address] J Luis Messer MD) Smoking Status: Never smoker HPI HPI HPI: CAROLIN BRITO, is a 55 F who presents to the office today for Evaluation of abdominal pain and bloating. Patient has been experiencing left upper quadrant abdominal pain for quite some time. She is also been having abdominal bloating and some looser stools. She has been having difficulty with heartburn and has been placed on Pepcid with improvement in both the heartburn and the looser stools. She feels as if there is a mass in her left upper quadrant of her abdomen. She has not noticed any rectal bleeding she has not had any coffee-ground emesis. She has had no imaging other than an ultrasound which showed a dental mild ptosis of the gallbladder itself. The common bile duct measured 5 mm. And there was no cholelithiasis and otherwise no wall thickening. She has had a sister who had either ovarian or uterine cancer and of metastatic disease rather rapidly. To date she has not had any imaging such as a CT scan or HIDA scan and she has had no endoscopies.She is not experiencing any fevers or chills. 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 She does not smoke herself. ROS General General: Yes weight change; no appetite, fatigue, colon cancer, breast cancer or weakness HEENT HEENT: No difficulty swallowing, eye injury, eye surgery, swollen glands or hoarseness Endo Endocrine: No thyroid disease, diabetes mellitus, thyroid cancer, Hair loss, heat intolerance or cold intolerance Skin Skin: No rash or changing moles Musc Musculoskeletal: No back problems, arthritis, rheumatoid arthritis, gout or joint pain Cardio Cardiovascular: Yes murmur and high blood pressure; no pacemaker, heart disease, atrial fibrillation, heart attack, heart stent, palpitations, shortness of breat with exertion or chest pain Psych Psychiatric: No depression, anxiety or hearing voices Resp Respiratory: No shortness of breath, Yes sleep apnea, No cough, No COPD, No asthma, No emphysema, No wheezing Gastro Gastrointestinal: Yes abdominal pain, Yes nausea or vomiting, Yes diarrhea, No constipation, No blood in stool, No acid reflux, No hemorrhoids, No ulcers, No gallbladder problem, No black,tarry stools Jah Hematologic: No blood thinners, No blood disorders, No bleeding, No anemia, No blood clots Neuro Neurologic: No weakness Exam Const General: no acute distress, well developed, well hydrated Orientation: oriented to person, oriented to place, oriented to time [facility] Head: normocephalic, atraumatic Ears: external ears normal Mouth: moist mucous membranes Eyes Sclera: sclerae normal Pupils: normal by confrontation Neck Neck: no lymphadenopathy noted Neck mass: No Thyroid: thyroid normal, symmetrical Chest Chest palpation & inspection: normal inspection of the chest Resp Effort & Inspection: normal respiratory effort Auscultation: clear to auscultation bilaterally Percussion: percussion normal Cardio Rate: regular rate Rhythm: regular rhythm Heart Sounds: murmur GI Inspection: obesity Palpation: soft, no hepatosplenomegaly, no masses, nontender Rectal Exam: other Other: Rectal exam deferred. Extrem General: normal to inspection, no clubbing, cyanosis or edema Assessment & Plan Problems 1. Left upper quadrant abdominal pain R10.12 2. Abdominal bloating R14.0 3. Diarrhea, unspecified type R19.7 4. Heartburn R12 Plan Believe the patient needs to have a CAT scan of the abdomen and pelvis with both IV and p.o. contrast. This would be primarily to make sure she does not have anything obvious either in her spleen or something significant like metastatic ovarian or uterine cancer. After this she will need to have both an upper and lower endoscopy with random colon biopsies as well as biopsies in the stomach for H. pylori. If all of these exams are negative and at some point we can have to think about removal of her gallbladder with regards to her abdominal bloating. Orders Orders: Abdomen/Pelvis WITH Contrast Today R10.9 Coding Level of Care Code Off vis,new,level 3 Diagnoses Left upper quadrant abdominal pain R10.12 Abdominal bloating R14.0 Diarrhea, unspecified type R19.7 ??Diarrhea type: unspecified type Heartburn R12 I have re-examined the patient. There are no clinical changes since date of exam.
--- NOTE | 2020-05-22 08:12 | OP.CCLET_ITS ---
05/22/2020 Yani Kemp Re : Upper GI endoscopy procedure for Jia Pickett Dear Justo This procedure was performed on Friday, May 22, 2020. My impressions and recommendations are as follows: Impressions : - Normal esophagus. - Gastritis. Biopsied. - Normal examined duodenum. Biopsied. Recommendations : - Await pathology results. - Repeat upper endoscopy in 1 year for surveillance. - Return to my office in 1 week. - Continue present medications. My findings are described in the full procedure note, which is enclosed. If I can be of further assistance, please feel free to contact me at Doctor phone number(s): , Fax: [phone], Work: . Sincerely, MD J Luis Pulliam MD 05/22/2020 8:11:40 AM This report has been signed electronically.
--- NOTE | 2020-05-22 08:12 | OP.EGD_ITS ---
Patient Name: Jia Pickett Procedure Date: 05/22/2020 7:10 AM Date of : 1965 Age: 55 Procedure: Upper GI endoscopy Indications: Abdominal pain in the left upper quadrant, Heartburn, Abdominal bloating, Diarrhea Providers: J Luis Messer MD Referring MD: Yani Kemp Medicines: See the Anesthesia note for documentation of the administered medications Patient Profile: This is a 55 year old female. Refer to note in patient chart for documentation of history and physical. Complications: No immediate complications. Procedure: Pre-Anesthesia Assessment: - Prior to the procedure, a History and Physical was performed, and patient medications and allergies were reviewed. The patient's tolerance of previous anesthesia was also reviewed. The risks and benefits of the procedure and the sedation options and risks were discussed with the patient. All questions were answered, and informed consent was obtained. Prior Anticoagulants: The patient has taken no previous anticoagulant or antiplatelet agents. ASA Grade Assessment: II - A patient with mild systemic disease. After reviewing the risks and benefits, the patient was deemed in satisfactory condition to undergo the procedure. After obtaining informed consent, the endoscope was passed under direct vision. Throughout the procedure, the patient's blood pressure, pulse, and oxygen saturations were monitored continuously. The Endoscope was introduced through the mouth, and advanced to the second part of duodenum. The upper GI endoscopy was accomplished without difficulty. The patient tolerated the procedure well. Scope In: 7:48:04 AM Scope Out: 7:50:32 AM Total Procedure Duration Time 0 hours 2 minutes 28 seconds Findings: The examined esophagus was normal. Localized minimal inflammation characterized by erythema was found in the prepyloric region of the stomach. Biopsies were taken with a cold forceps for Helicobacter pylori testing. The examined duodenum was normal. Biopsies for histology were taken with a cold forceps for evaluation of celiac disease. Impression: - Normal esophagus. - Gastritis. Biopsied. - Normal examined duodenum. Biopsied. Recommendation: - Await pathology results. - Repeat upper endoscopy in 1 year for surveillance. - Return to my office in 1 week. - Continue present medications. Procedure Code(s): --- Professional --- 61782, Esophagogastroduodenoscopy, flexible, transoral; with biopsy, single or multiple Diagnosis Code(s): --- Professional --- K29.70, Gastritis, unspecified, without bleeding R10.12, Left upper quadrant pain R12, Heartburn R14.0, Abdominal distension (gaseous) R19.7, Diarrhea, unspecified CPT copyright 2017 [employer]. All rights reserved. The codes documented in this report are preliminary and upon cupola charger review may be revised to meet current compliance requirements. MD J Luis Pulliam MD 05/22/2020 8:11:40 AM This report has been signed electronically. Number of Addenda: 0 Note Initiated On: 05/22/2020 7:10 AM
--- NOTE | 2020-05-22 08:17 | OP.COLON_ITS ---
Patient Name: Jia Pickett Procedure Date: 05/22/2020 7:51 AM Date of : 1965 Age: 55 Procedure: Colonoscopy Indications: Abdominal pain in the left upper quadrant, Clinically significant diarrhea of unexplained origin Providers: J Luis Messer MD Referring MD: Yani Kemp Medicines: See the Anesthesia note for documentation of the administered medications Patient Profile: This is a 55 year old female. Refer to note in patient chart for documentation of history and physical. Last Colonoscopy: none. The patient's first colonoscopy is today. Complications: No immediate complications. Procedure: Pre-Anesthesia Assessment: - Prior to the procedure, a History and Physical was performed, and patient medications and allergies were reviewed. The patient's tolerance of previous anesthesia was also reviewed. The risks and benefits of the procedure and the sedation options and risks were discussed with the patient. All questions were answered, and informed consent was obtained. Prior Anticoagulants: The patient has taken no previous anticoagulant or antiplatelet agents. ASA Grade Assessment: II - A patient with mild systemic disease. After reviewing the risks and benefits, the patient was deemed in satisfactory condition to undergo the procedure. After I obtained informed consent, the scope was passed under direct vision. Throughout the procedure, the patient's blood pressure, pulse, and oxygen saturations were monitored continuously. The adult colonoscope was introduced through the anus and advanced to 5 cm into the ileum. The colonoscopy was technically difficult and complex due to a tortuous colon. Successful completion of the procedure was aided by withdrawing and reinserting the scope. The patient tolerated the procedure well. The quality of the bowel preparation was good. Scope In: 7:53:04 AM Scope Withdrawal Time 0 hours 7 minutes 14 seconds Scope Out: 8:07:58 AM Total Procedure Duration Time 0 hours 14 minutes 54 seconds Findings: The terminal ileum appeared normal. Biopsies were taken with a cold forceps for histology. The colon (entire examined portion) appeared normal. Biopsies for histology were taken with a cold forceps from the entire colon for evaluation of microscopic colitis. The exam was otherwise without abnormality on direct and retroflexion views. Impression: - The examined portion of the ileum was normal. Biopsied. - The entire examined colon is normal. Biopsied. - The examination was otherwise normal on direct and retroflexion views. Patient did have an extremely tortuous sigmoid colon. It took quite a bit of time to get through this area. Recommendation: - Discharge patient to home. - Resume previous diet. - Continue present medications. - Await pathology results. - Repeat colonoscopy in 10 years for surveillance. - Return to my office in 1 week. Procedure Code(s): --- Professional --- 26675, Colonoscopy, flexible; with biopsy, single or multiple Diagnosis Code(s): --- Professional --- R10.12, Left upper quadrant pain R19.7, Diarrhea, unspecified CPT copyright 2017 [employer]. All rights reserved. The codes documented in this report are preliminary and upon gaming investigator review may be revised to meet current compliance requirements. MD J Luis Pulliam MD 05/22/2020 8:17:07 AM This report has been signed electronically. Number of Addenda: 0 Note Initiated On: 05/22/2020 7:51 AM
--- NOTE | 2020-05-22 08:17 | OP.CCLET_ITS ---
05/22/2020 Yani Kemp Re : Colonoscopy procedure for Jia Pickett Dear Sheets This procedure was performed on Friday, May 22, 2020. My impressions and recommendations are as follows: Impressions : - The examined portion of the ileum was normal. Biopsied. - The entire examined colon is normal. Biopsied. - The examination was otherwise normal on direct and retroflexion views. Patient did have an extremely tortuous sigmoid colon. It took quite a bit of time to get through this area. Recommendations : - Discharge patient to home. - Resume previous diet. - Continue present medications. - Await pathology results. - Repeat colonoscopy in 10 years for surveillance. - Return to my office in 1 week. My findings are described in the full procedure note, which is enclosed. If I can be of further assistance, please feel free to contact me at Doctor phone number(s): , Fax: [phone], Work: . Sincerely, MD J Luis Pulliam MD 05/22/2020 8:17:07 AM This report has been signed electronically.
== END 2020-05-22 09:39 | disposition home or self-care (01) ==
LOC: EN 06:37 → AC 06:38
PROVIDERS: Anesthesiology; PCP Family Medicine; Referring Provider Family Medicine; Visit Provider Surgery
PROC: 0DJD8ZZ Inspection of Lower Intestinal Tract, Via Natural or Artificial Opening Endoscopic (ICD-10-PCS; CPT 45378; principal; 2020-05-22 07:25)
DX: K29.70 Gastritis, unspecified, without bleeding (principal); Z11.59 Encounter for screening for other viral diseases; I10 Essential (primary) hypertension; K21.9 Gastro-esophageal reflux disease without esophagitis; G43.909 Migraine, unspecified, not intractable, without status migrainosus; Z79.899 Other long term (current) drug therapy
CPT/HCPCS: 43239; 45380; 87635; 88305; 88342; G2023; J7120; J1610; U0003

== ENCOUNTER → 2020-05-24 12:56 | Outpatient (CLI) | payer OTHER, SELFPAY ==
[2020-05-11 13:48] VITALS: BMI 33.5
[2020-05-22 07:12] VITALS: BMI 35.6
--- NOTE | 2020-05-24 12:57 | CT_ITS ---
STUDY: CT ABDOMEN AND PELVIS WITH CONTRAST REASON FOR EXAM: Female, 55 years old. EPIGASTRIC PAIN, INDIGESTION X 6-7 MO. NO N/V/D/C. RADIATION DOSAGE (If Supplied By Facility): CTDIvol = ( 14.04 ) mGy, DLP = ( 1086.23 ) mGycm TECHNIQUE: Transaxial images were obtained from the dome of the diaphragm to the symphysis pubis with oral contrast. Oral and amp; IV Readi-CAT and amp; 100mL Isovue-300 was administered. Sagittal and coronal images were reconstructed. Individualized dose optimization techniques were used for this CT. COMPARISON: None. FINDINGS: Minimal increased linear markings at the lung bases suggestive of atelectasis. The visualized portions of the heart are within normal limits. Normal liver. Normal gallbladder and extrahepatic biliary system. Normal spleen. Normal pancreas. Normal bilateral adrenal glands. Normal right kidney. Normal left kidney. Normal visualized stomach. Normal small intestine. Small lymph nodes are seen in the mesentery in the right lower quadrant is suggestive of mesenteric adenitis. Normal colon. The appendix is visualized and appears normal. Normal abdominal aorta. Normal inferior vena cava. There is borderline retroperitoneal lymphadenopathy with enlarged nodes no greater than 10mm in the short axis diameter. Normal urinary bladder. There is a 2.4 cm x 2.7 cm cyst in the right ovary. A dominant follicle measuring 8.5 mm is seen in the left ovary. There is a small umbilical hernia containing fat. Normal osseous structures. CT/Abdomen/Pelvis WITH Contrast IMPRESSION: Right ovarian cyst. Findings suggestive of mesenteric adenitis. Electronically Signed: Bruce Patiño, at 15:43 EDT , Service support ,
== END ==
PROVIDERS: PCP Family Medicine; Referring Provider Physician Assistant; Visit Provider Physician Assistant
DX: R10.9 Unspecified abdominal pain (principal)
CPT/HCPCS: 74177; Q9967

== ENCOUNTER → 2023-05-22 | Outpatient (CLI) | payer OTHER, SELFPAY ==
[2023-05-22 10:06] LABS: ALB/GLOB Ratio 0.8 RATIO (0.9-2.4); AST(SGOT) 27 U/L (15-37); Alanine Aminotransfer ALT/SGPT 39 U/L (13-56); Albumin, Serum 3.6 g/dL (3.2-5.0); Alkaline Phosphatase 87 U/L (45-117); Anion Gap 3 (5-15); BUN 16 mg/dL (7-18); BUN/Creat Ratio 15.2 RATIO (10-20); Calcium,Total 9.7 mg/dL (8.5-10.1); Chloride 108 mmol/L (98-107); Creatinine, Serum 1.05 mg/dL (0.55-1.02); EST Glomerular Filtration Rate 58 mL/min (>60); Est Glom Filt Rate - Afr Amer 70 mL/min (>60); Globulin 4.3 g/dL (2.2-4.2); Glucose 98 mg/dL (74-106); Lipase 37 U/L (13-75); Potassium 4.5 mmol/L (3.5-5.1); Protein, Total 7.9 g/dL (6.4-8.2); Sodium Level 139 mmol/L (136-145)
[2023-05-22 10:27] LABS: Insulin 12.3 mU/L (2.6-37.6)
[2023-05-22 10:41] LABS: Hemoglobin A1c 5.2 % (3.8-5.6)
== END | disposition home or self-care (01) ==
LOC: LAB 08:59
PROVIDERS: PCP Nurse Practitioner Family; Referring Provider Nurse Practitioner Family; Visit Provider Nurse Practitioner Family
DX: R63.8 Other symptoms and signs concerning food and fluid intake (principal); R73.9 Hyperglycemia, unspecified
CPT/HCPCS: 36415; 80053; 83036; 83525; 83690

== ENCOUNTER → 2023-10-01 | Outpatient (CLI) | payer OTHER, SELFPAY ==
[2023-10-01 09:37] LABS: Bacteria 0 SEEN /hpf (None Seen); Mucous, Urine 0 SEEN /hpf (<or=2+); Red Blood Cells-Urine 0 SEEN /hpf (0-5); Squamous Epithelial Cells - UA 0 SEEN /hpf (5-10)
[2023-10-01 09:52] LABS: Color, Urine Yellow (Yellow); Glucose, Dipstick Normal (Normal); Ketone-Dipstick Negative (Negative); Leukocyte Esterase-Dipstick 25 /ul (Negative); Nitrite-Dipstick Negative (Negative); Occult Blood-Urine Negative /ul (Negative); Protein-Dipstick 15 mg/dl (Negative); Urine Bilirubin Dipstick Negative (Negative); Urine Clarity Sl. Cloudy (Clear); Urine Urobilinogen Normal (Normal)
[2023-10-01 10:02] LABS: White Blood Cells 0-5 SEEN /hpf (0-5)
== END | disposition home or self-care (01) ==
LOC: LAB 09:34
PROVIDERS: PCP Nurse Practitioner Family; Visit Provider Nurse Practitioner Family
DX: R35.0 Frequency of micturition (principal)
CPT/HCPCS: 36415; 81001

== ENCOUNTER → 2024-01-17 | Outpatient (CLI) | payer OTHER, SELFPAY ==
--- OUTSIDE RECORDS SUMMARY | 2024-01-17 10:02 | XMS RPT_ITS | CCD ---
Author Name Unknown Address [address] [place] [address] Organization [facility] Care Team Providers Care Driver Name Role Phone Queden SALES WAREHOUSE DRIVER.Usha ARAGON Primary Care Provider Stanton, Alexandro Caballero Attending Unavaila ble Queden, Usha Caballero Primary Care Unavaila ble Queden SALES WAREHOUSE DRIVER.Usha ARAGON Primary Care Provider MATTHEW THIBODEAUXTNY CHELITA Referring Unavailable QUEDEN, USHA CHELITA Primary Care Unavailable QUEDEN, USHA CHELITA Referring Unavailable QUEDEN, USHA CHELITA Primary Care Unavailable Queden SALES WAREHOUSE DRIVER-Usha ARAGON Primary Care Provid er DIANNA NARANJO Attending Unavailable QUEDEN, USHA A Primary Care Unavailable HERNANOURSOHAIL RAY Attending Unavail able QUEDEN, USHA A Referring Unavailable QUEDEN, USHA A Primary Care Unavailable QUEDEN, USHA A Referring Unavailable QUEDEN, USHA A Primary Care Unavailable SOHAIL SCHERER Attending Unavail able QUEDEN, USHA A Primary Care Unavailable QUEDEN, USHA A Referring Unavailable QUEDEN, USHA A Primary Care Unavailable JS PINEDA Attending Unavailable QUEDEN, USHA A Referring Unavailable QUEDEN, USHA A Primary Care Unavailable QUEDEN, USHA A Attending Unavailable QUEDEN, USHA A Referring Unavailable GERALDO MATIAS Attending Unavailable SELF Referring Unavailable QUEDEN, USHA A Primary Care Unavailable QUEDEN, USHA A Primary Care Unavailable QUEDEN, USHA A Referring Unavailable Allergies Allergy Classification Reported Allergen(s) Allergy Type Date of Onset Reaction(s) Facility (20 sources) Amoxicillin; Translations: [AMOXICILLIN] Drug Allergy 7 Itching [facility] Work Phone: (1 source) ALLERGIES NOT ON FILE; Translations: [ALLERGIES NOT ON FILE] Propensity to adverse reactions (disorder) [facility] Medications Current Medications Medication Drug Class(es) Dates Sig (Normalized) Sig (Original) perflutren lipid microspheres 1.3 mL in NaCl (PF) 0.9% 10 mL injection (DEFINITY) (17 sources) Start: 12-10-2022 End: 03-10-2024 perflutren lipid microspheres 1.3 mL in NaCl (PF) 0.9% 10 mL injection (DEFINITY) 125 ml sodium chloride 9 mg/ml prefilled syringe (17 sources) Start: 12-10-2022 End: 03-10-2024 sodium chloride 0.9 % (flush) 10 mL (BD POSIFLUSH) traMADol hydrochloride 50 mg oral tablet (3 sources) Opioid Agonist Start: 05-19-2023 End: 05-26-2023 take 1 tablet by mouth every eight hours as needed for pain traMADol (ULTRAM) 50 mg tablet Indications: RUQ pain Take 1 tablet by mouth every 8 hours as needed for pain for up to 7 days. 21 tablet 0 05/19/2023 05/26/2023 Active Completed/Discontinued Medications Medication Drug Class(es) Dates Sig (Normalized) Sig (Original) Apple Cider Vinegar (20 sources) Start: 02-22-2023 APPLE CIDER VINEGAR ORAL Problems Active Problems Problem Classification Problem Date Documented Date Episodic/Chronic Administrative/social admission (1 source) Dietary counseling and surveillance; Translations: [Dietary counseling and surveillance] Onset: 12-29-2023 Episodic Biliary tract disease (20 sources) Cholangiectasis; Translations: [Other specified diseases of biliary tract] Onset: 10-01-2020 10-02-2020 Chronic Cardiac and circulatory congenital anomalies (11 sources) Bicuspid aortic valve; Translations: [Congenital insufficiency of aortic valve] Onset: 07-11-2023 07-11-2023 Chronic Conditions associated with dizziness or vertigo (20 sources) Meniere's disease; Translations: [Meniere's disease, unspecified ear] 05-13-2017 Chronic Disorders of lipid metabolism (20 sources) Hypercholesterolemia; Translations: [Pure hypercholesterolemia, unspecified] Onset: 06-27-2015 04-14-2020 Chronic Essential hypertension (20 sources) Essential hypertension; Translations: [Essential (primary) hypertension] Onset: 01-13-2017 Chronic Genitourinary symptoms and ill-defined conditions (3 sources) Increased frequency of urination; Translations: [Frequency of micturition] Onset: 12-31-2023 09-23-2023 Episodic Headache; including migraine (20 sources) Migraine; Translations: [Migraine, unspecified, not intractable, without status migrainosus] Onset: 04-14-2020 10-02-2020 Chronic Heart valve disorders (20 sources) Aortic stenosis, non-rheumatic ; Translations: [Nonrheumatic aortic (valve) stenosis] Onset: 05-13-2017 05-13-2017 Chronic Nonspecific chest pain (13 sources) Chest pain; Translations: [Chest pain, unspecified] Onset: 12-12-2022 Episodic Nutritional deficiencies (20 sources) Vitamin D deficiency; Translations: [Vitamin D deficiency, unspecified] Onset: 10-12-2021 10-12-2021 Chronic Other nervous system disorders (20 sources) H/O: migraine; Translations: [Personal history of other diseases of the nervous system and sense organs] 03-12-2019 Episodic Other nutritional; endocrine; and metabolic disorders (20 sources) Obese class I; Translations: [Obesity, unspecified] Onset: 03-27-2018 10-02-2020 Chronic Other nutritional; endocrine; and metabolic disorders (20 sources) Obese class II; Translations: [Obesity, unspecified] Onset: 10-12-2021 10-12-2021 Chronic Other nutritional; endocrine; and metabolic disorders (1 source) Body mass index 30+ - obesity; Translations: [Body mass index (BMI) 35.0-35.9, adult] 12-29-2023 Chronic Other nutritional; endocrine; and metabolic disorders (2 sources) Obesity, unspecified; Translations: [Class 2 obesity] Onset: 10-12-2021 Chronic Other nutritional; endocrine; and metabolic disorders (1 source) Body mass index (BMI) 35.0-35.9, adult; Translations: [Body mass index (BMI) of 35.0-35.9 in adult] Onset: 12-29-2023 Chronic Other nutritional; endocrine; and metabolic disorders (1 source) Failure to lose weight; Translations: [Other symptoms and signs concerning food and fluid intake] Episodic Other screening for suspected conditions (not mental disorders or infectious disease) (2 sources) Encounter for screening mammogram for malignant neoplasm of breast; Translations: [Encounter for screening mammogram for malignant neoplasm of breast] Onset: 08-25-2023 Episodic Residual codes; unclassified (2 sources) Family history of malignant neoplasm of ovary; Translations: [Family history of malignant neoplasm of ovary] Episodic Residual codes; unclassified (1 source) Postmenopausal state; Translations: [Asymptomatic menopausal state] Episodic Residual codes; unclassified (1 source) Viral syndrome; Translations: [Other general symptoms and signs] 12-31-2023 Episodic Residual codes; unclassified (1 source) Generalized aches and pains; Translations: [Pain, unspecified] 12-31-2023 Episodic Residual codes; unclassified (1 source) Pain, unspecified; Translations: [Body aches] Onset: 12-31-2023 Episodic Residual codes; unclassified (1 source) Other general symptoms and signs; Translations: [Flu-like symptoms] Onset: 12-31-2023 Episodic Past or Other Problems Problem Classification Problem Date Documented Date Episodic/Chronic Abdominal pain (4 sources) Right upper quadrant pain; Translations: [Right upper quadrant pain] Onset: 07-16-2023 Episodic Allergic reactions (20 sources) Inflammatory dermatosis; Translations: [Dermatitis, unspecified] Onset: 03-27-2018 03-27-2018 Episodic Biliary tract disease (5 sources) Polyp of gallbladder; Translations: [Cholesterolosis of gallbladder] Onset: 08-07-2023 07-16-2023 Episodic Calculus of urinary tract (20 sources) Kidney stone; Translations: [Calculus of kidney] Onset: 11-14-2022 11-14-2022 Episodic Cancer of cervix (20 sources) Atypical squamous cells of undetermined significance on cervical Papanicolaou smear; Translations: [Atypical squamous cells of undetermined significance on cytologic smear of cervix (ASC-US)] Onset: 06-27-2015 04-14-2020 Episodic Diabetes mellitus without complication (2 sources) Hyperglycemia; Translations: [Hyperglycemia, unspecified] Onset: 05-19-2023 Episodic Heart valve disorders (20 sources) Heart murmur; Translations: [Cardiac murmur, unspecified] Onset: 06-27-2015 04-14-2020 Episodic Other aftercare (20 sources) Patient encounter status; Translations: [Other long wall mining machine helper (current) drug therapy] Onset: 06-27-2015 04-14-2020 Episodic Other circulatory disease (20 sources) History of clinical finding in subject; Translations: [Personal history of other diseases of the circulatory system] Onset: 01-13-2017 01-13-2017 Episodic Other nervous system disorders (20 sources) Numbness; Translations: [Anesthesia of skin] Onset: 04-14-2020 04-14-2020 Episodic Other nutritional; endocrine; and metabolic disorders (1 source) Other symptoms and signs concerning food and fluid intake; Translations: [Unable to lose weight] Onset: 05-19-2023 Episodic Other skin disorders (20 sources) Disseminated superficial actinic porokeratosis; Translations: [Disseminated superficial actinic porokeratosis (DSAP)] Onset: 10-12-2021 10-12-2021 Episodic Viral infection (20 sources) Disease caused by 2019-nCoV; Translations: [COVID-19] Onset: 10-02-2020 10-02-2020 Episodic Results Test Name Value Interpretation Reference Range Facil ity Vital Signs Date Time Vital Sign Value Performing Clinician Faci lity 12-31-2023 14:05-0500 Body height 154.9 cm Geraldo Matias APRN.CNP Work Phone: [facility] 12-31-2023 14:05-0500 Body temperature 100.9 [degF] Geraldo Matias APRN.CNP Work Phone: [facility] 12-31-2023 14:05-0500 Body weight 85.28 kg Geraldo Matias APRN.CNP Work Phone: [facility] 12-31-2023 14:05-0500 Diastolic blood pressure 70 mm[Hg] Geraldo Matias APRN.CNP Work Phone: [facility] 12-31-2023 14:05-0500 Heart rate 89 /min Geraldo Matias APRN.CNP Work Phone: [facility] 12-31-2023 14:05-0500 Respiratory rate 18 /min Geraldo Matias APRN.CNP Work Phone: [facility] 12-31-2023 14:05-0500 SaO2% (BldA) [Mass fraction] 95 % Geraldo Matias SALES WAREHOUSE DRIVER.SURFACE GRINDER Work Phone: [facility] 12-31-2023 14:05-0500 Systolic blood pressure 110 mm[Hg] Geraldo Matias SALES WAREHOUSE DRIVER.SURFACE GRINDER Work Phone: [facility] 12-29-2023 13:45-0500 Body height 154.9 cm Dianna Naranjo MD Work Phone: [facility] 12-29-2023 13:45-0500 Body weight 86.18 kg Dianna Naranjo MD Work Phone: [facility] 07-16-2023 10:46-0400 Body height 154.9 cm Sohail Scherer MD Work Phone: [facility] 07-16-2023 10:46-0400 Body weight 83.46 kg Sohail Scherer MD Work Phone: [facility] 07-16-2023 10:46-0400 Diastolic blood pressure 67 mm[Hg] Sohail Scherer MD Work Phone: [facility] 07-16-2023 10:46-0400 Heart rate 75 /min Sohail Scherer MD Work Phone: [facility] 07-16-2023 10:46-0400 Respiratory rate 18 /min Sohail Scherer MD Work Phone: [facility] 07-16-2023 10:46-0400 Systolic blood pressure 120 mm[Hg] Sohail Scherer MD Work Phone: [facility] 07-11-2023 09:20-0400 Body height 154.9 cm Js Pineda MD Work Phone: [facility] 07-11-2023 09:20-0400 Body weight 84.37 kg Js Pineda MD Work Phone: [facility] 07-11-2023 09:20-0400 Diastolic blood pressure 82 mm[Hg] Js Pineda MD Work Phone: [facility] 07-11-2023 09:20-0400 Heart rate 63 /min Js Pineda MD Work Phone: [facility] 07-11-2023 09:20-0400 Respiratory rate 18 /min Js Pineda MD Work Phone: [facility] 07-11-2023 09:20-0400 SaO2% (BldA) [Mass fraction] 99 % Js Pineda MD Work Phone: [facility] 07-11-2023 09:20-0400 Systolic blood pressure 122 mm[Hg] Js Pineda MD Work Phone: [facility] 05-19-2023 15:58-0400 Body height 156.2 cm Usha Queden SALES WAREHOUSE DRIVER.SURFACE GRINDER Work Phone: [facility] 05-19-2023 15:58-0400 Body temperature 98.2 [degF] Usha Queden SALES WAREHOUSE DRIVER.SURFACE GRINDER Work Phone: [facility] 05-19-2023 15:58-0400 Body weight 87.09 kg Usha Queden SALES WAREHOUSE DRIVER.SURFACE GRINDER Work Phone: [facility] 05-19-2023 15:58-0400 Diastolic blood pressure 74 mm[Hg] Usha Queden SALES WAREHOUSE DRIVER.SURFACE GRINDER Work Phone: [facility] 05-19-2023 15:58-0400 Heart rate 74 /min Usha Queden SALES WAREHOUSE DRIVER.SURFACE GRINDER Work Phone: [facility] 05-19-2023 15:58-0400 Respiratory rate 18 /min Usha Queden SALES WAREHOUSE DRIVER.SURFACE GRINDER Work Phone: [facility] 05-19-2023 15:58-0400 SaO2% (BldA) [Mass fraction] 94 % Usha Queden SALES WAREHOUSE DRIVER.SURFACE GRINDER Work Phone: [facility] 05-19-2023 15:58-0400 Systolic blood pressure 120 mm[Hg] Usha Queden SALES WAREHOUSE DRIVER.SURFACE GRINDER Work Phone: [facility] 12-10-2022 10:18-0500 Body height 156.2 cm Usha Queden SALES WAREHOUSE DRIVER.SURFACE GRINDER Work Phone: [facility] 12-10-2022 10:18-0500 Body temperature 98.2 [degF] Usha Queden SALES WAREHOUSE DRIVER.SURFACE GRINDER Work Phone: [facility] 12-10-2022 10:18-0500 Body weight 87.09 kg Usha Queden SALES WAREHOUSE DRIVER.SURFACE GRINDER Work Phone: [facility] 12-10-2022 10:18-0500 Diastolic blood pressure 70 mm[Hg] Usha Queden SALES WAREHOUSE DRIVER.SURFACE GRINDER Work Phone: [facility] 12-10-2022 10:18-0500 Heart rate 64 /min Usha Queden SALES WAREHOUSE DRIVER.SURFACE GRINDER Work Phone: [facility] 12-10-2022 10:18-0500 Respiratory rate 18 /min Usha Queden SALES WAREHOUSE DRIVER.SURFACE GRINDER Work Phone: [facility] 12-10-2022 10:18-0500 SaO2% (BldA) [Mass fraction] 95 % Usha Queden SALES WAREHOUSE DRIVER.SURFACE GRINDER Work Phone: [facility] 12-10-2022 10:18-0500 Systolic blood pressure 126 mm[Hg] Usha Queden SALES WAREHOUSE DRIVER.SURFACE GRINDER Work Phone: [facility] 12-06-2022 11:32-0500 Body height 156.2 cm Harman Lopez MD Work Phone: [facility] 12-06-2022 11:32-0500 Body weight 83.92 kg Harman Lopez MD Work Phone: [facility] 12-06-2022 11:32-0500 Diastolic blood pressure 82 mm[Hg] Harman Lopez MD Work Phone: [facility] 12-06-2022 11:32-0500 Systolic blood pressure 134 mm[Hg] Harman Lopez MD Work Phone: [facility] 06-17-2022 09:44-0400 Body height 155.6 cm Live Short MD Work Phone: [facility] 06-17-2022 09:44-0400 Body temperature 97.3 [degF] Live Short MD Work Phone: [facility] 06-17-2022 09:44-0400 Body weight 83.92 kg Live Short MD Work Phone: [facility] 06-17-2022 09:44-0400 Diastolic blood pressure 76 mm[Hg] Live Short MD Work Phone: [facility] 06-17-2022 09:44-0400 Heart rate 76 /min Live Short MD Work Phone: [facility] 06-17-2022 09:44-0400 Respiratory rate 16 /min Live Short MD Work Phone: [facility] 06-17-2022 09:44-0400 SaO2% (BldA) [Mass fraction] 97 % Live Short MD Work Phone: [facility] 06-17-2022 09:44-0400 Systolic blood pressure 133 mm[Hg] Live Short MD Work Phone: [facility] Encounters Encounter Date Encounter Type Care Provider Facility Start: 01-01-2024 Telephone encounter Usha Thibodeaux SALES WAREHOUSE DRIVER.SURFACE GRINDER Work Phone: [facility] Procedures Date Procedure Procedure Detail Performing Clinician Start: 12-31-2023 Urnls dip stick/tabl et rgnt auto w/o microscopy Geraldo Matias SALES WAREHOUSE DRIVER.SURFACE GRINDER Work Phone: Start: 09-09-2023 BI TRANSFER OF OUTSI DE FILMS USHA THIBODEAUX Start: 09-09-2023 End: 09-09-2023 Study Interpretation of outside study Usha Thibodeaux SALES WAREHOUSE DRIVER-SURFACE GRINDER Work Phone: Start: 08-25-2023 BI MAMMO BILATERAL SCREENING TOMOSYNTHESIS USHA THIBODEAUX Start: 08-25-2023 End: 08-25-2023 Mammography Usha Thibodeaux APRN-SURFACE GRINDER Work Phone: Start: 08-07-2023 Hepatobil syst imag inc gb w/pharma intervenj Sohail Scherer MD Work Phone: Start: 07-11-2023 Ecg routine ecg w/le ast 12 lds w/i&r Js Pineda MD Work Phone: Start: 12-18-2022 Echo tthrc r-t 2d w/wom-mode compl spec&colr d Usha Thibodeaux APRN.SURFACE GRINDER Work Phone: Start: 12-06-2022 Urnls dip stick/tabl et rgnt auto w/o microscopy Harman Lopez MD Work Phone: Start: 05-14-2022 End: 05-14-2022 Screening mammography bi 2-view breast inc cad Live Short MD Work Phone: Start: 10-13-2021 Lipid 1996 panel - S janee or Plasma [facility] Work Phone: Start: 03-14-2021 Adult depression scr eening assessment Usha Thibodeaux APRN.SURFACE GRINDER Work Phone: Start: 04-13-2019 Mammography Usha medel APRN.SURFACE GRINDER Work Phone: Plan of Treatment Date Care Activity Detail Author Start: 06-17-2027 HPV TESTING HPV TESTING [facility] Start: 06-17-2027 PAP TESTING PAP TESTING [facility] Start: 06-17-2027 Screening for malign ant neoplasm of cervix [facility] Start: 10-13-2026 Lipid 1996 panel - S janee or Plasma Lipid Screening [facility] Start: 10-13-2026 Lipid panel Lipid Screening [facility] Start: 10-13-2026 LIPID SCREEN LIPID SCREEN [facility] Start: 05-13-2026 DTaP/Tdap/Td Vaccine s (3 - Td or Tdap) DTaP/Tdap/Td Vaccines (3 - Td or Tdap) [facility] Start: 05-13-2026 Urine microalbumin profile [facility] Start: 12-10-2025 DIABETES SCREEN DIABETES SCREEN [facility] Start: 12-10-2025 Diabetes Screening Diabetes Screenin g [facility] Start: 11-15-2025 DIABETES SCREEN DIABETES SCREEN [facility] Start: 05-02-2025 COLORECTAL CANCER SCREENING COLORECTAL CANCER SCREENING [facility] Immunizations Immunization Date Immunization Notes Care Provider Fa cility 05-13-2016 tetanus toxoid, redu la diphtheria toxoid, and acellular pertussis vaccine, adsorbed Usha Queden SALES WAREHOUSE DRIVER.SURFACE GRINDER Work Phone: [facility] 11-24-2013 tetanus toxoid, redu la diphtheria toxoid, and acellular pertussis vaccine, adsorbed Usha Queden SALES WAREHOUSE DRIVER.SURFACE GRINDER Work Phone: [facility] Payers Date Payer Category Payer Unknown RACQUEL GUERRA OSIEL [id number] 2020-Present [phone] [address] [place] [address] [facility] [id number] 2020 Unknown [id number] 2020 Unknown [id number] 1967 Unknown [id number] 1967 Unknown [id number] 1967 Unknown [id number] 1967 Unknown [id number] Social History Date Type Detail Facility Start: 01-13-2017 End: 11-14-2022 Tobacco smoking status NHIS Never smoked tobacco [facility] Work Phone: Start: 01-13-2017 End: 11-14-2022 Tobacco use and exposure Smokeless tobacco non-user [facility] Work Phone: Start: 10-12-2021 End: 12-31-2023 Alcohol intake Current drinker of alcohol (finding) [facility] Start: 10-29-2020 End: 10-12-2021 Alcohol intake [facility] Work Phone: Start: 03-14-2021 History SDOH Alcohol Frequency 4 [facility] Start: 03-14-2021 History SDOH Alcohol Std Drinks 1 [facility] Start: 03-14-2021 History SDOH Social Connections Phone 3 [facility] Start: 03-14-2021 History SDOH Physical Activity MPS 2 [facility] Start: 03-14-2021 History SDOH Financial 5 [facility] Start: 03-14-2021 Education 16 [facility] Start: 1965 Sex Assigned At Not on file [facility] Start: 04-02-2022 End: 08-25-2023 Exposure to SARS-CoV-2 (event) Not sure [facility] Start: 11-14-2022 Alcohol Comment daily, a glass of red wine [facility] Start: 10-29-2020 End: 05-19-2023 Tobacco use panel [facility] Work Phone: Adult Depression Screening Assessment 0 [facility] Work Phone: Do you belong to any clubs or organizations such as mosque groups, unions, fraternal or athletic groups, or school groups? Yes [facility] Are you now , , , , never or living with a partner? [facility] How often to you hav e a drink containing alcohol? 2-3 time sa week [facility] How many standard dr inks containing alcohol do you have on a typical day? 1 or 2 [facility] How often do you hav e 6 or more drinks on 1 occasion? Never [facility] Do you feel stress - tense, restless, nervous, or anxious, or unable to sleep at night because your mind is troubled all the time - these days [OSQ] Only a little [facility] (I/We) worried wheth er (my/our) food would run out before (I/we) got money to buy more. Never true [facility] In the past 12 month s, was there a time when you were not able to pay the mortgage or rent on time? No [facility] Tobacco smoking stat us COIS Tobacco smoking consumption unknown [facility] Work Phone: Medical Equipment Procedure Code Equipment Code Equipment Origin al Text Equipment Identifier Dates Stent Bard Inlay 6fr 2 Pigtail Curve Blue Hydrophilic 24cm Ureteral - [id number] Start: 11-29-2022 Clinical Notes 04-06-2018 to 01-01-2024 Telephone Encounter - Huong Anders MA - 01/01/2024 4:17 PM ESTTelephone Encounter - Huong Anders MA - 01/01/2024 4:16 PM ESTPatient Geraldo Basilio APRN.CNP - 12/31/2023 2:27 PM EST Note Date & Type Note Facility 01-01-2024 Miscellaneous Notes Called pt let her know the results and to make sure she stays well hydrated. Huong Anders MA ----- Message from Geraldo Matias APRN.SURFACE GRINDER sent at 01/01/2024 4:11 PM EST ----- Pt tested positive for flu A Please review symptom relief measures and to stay hydrated. If worsening symptoms go to ER. documented in this encounter [facility] 12-31-2023 Note HNO ID: [id number] Author: GERALDO MATIAS APRN.MAHESH Service: ? Author Type: Nurse Practitioner Type: Progress Notes Filed: 12/31/2023 15:00 Note Text: This note was created using NoteWriter. Subjective Jia Pickett is a 58 year old female patient of RECEIVING [employer] Queden here today for acute visit for complaints of fever, body aches, cough, loss of appetite. PMH HTN, HLD, migraines, meniere's, fatigue. Pt reports symptoms started Friday with body aches, fatigue, and coughing. Reports fever, chills since Friday. Reports her hips hurt. Dry heaves Friday and this am. She reports taking tylenol 2-3x/yesterday and once so far today. She is drinking 40+ oz of water a day. She has not been eating. Decreased appetite. Denies sick contacts. She has not had flu or RSV vaccines. ALLERGIES Allergen Reactions Amoxicillin Itching Current Outpatient Medications Medication Sig Dispense Refill Milk Thistle 500 mg cap aspirin 325 mg cap VITAMIN B COMPLEX ORAL Take by mouth once daily. APPLE CIDER VINEGAR ORAL losartan (COZAAR) 25 mg tablet Take 1 tablet by mouth once daily. 30 tablet 11 folic acid 800 mcg tablet rizatriptan (MAXALT SECURITY OFFICER SUPERVISOR) 5 mg disintegrating tablet Take 1 tablet by mouth once daily as needed for migraine headache (see administration instructions). May repeat in 2 hours if needed 12 tablet 0 FISH OIL-DHA-EPA ORAL Take by mouth. Current Facility-Administered Medications Medication Dose Route Frequency Provider Last Rate Last Admin perflutren lipid microspheres 1.3 mL in NaCl (PF) 0.9% 10 mL injection (DEFINITY) INTRAVENOUS DIRECTED PRN Usha Thibodeaux, SALES WAREHOUSE DRIVER.MAHESH sodium chloride 0.9 % (flush) 10 mL (BD POSIFLUSH) 10 mL INTRAVENOUS DIRECTED PRN Usha Thibodeaux, SALES WAREHOUSE DRIVER.SURFACE GRINDER ACTIVE PROBLEM LIST History of Cardiac Murmur History of Migraine Meniere Disease Nonrheumatic Aortic (Valve) Stenosis Essential Hypertension Dermatitis Atypical Squamous Cells of Undetermined Significance (Ascus) On Papanicolaou Smear of Cervix Encounter for Long-Term (Current) Use of Medications Hypercholesteremia Migraine Numbness Mitral Valve Prolapse Common Bile Duct Dilatation Covid-19 Obesity, Class II, Bmi 35-39.9 Dsap (Disseminated Superficial Actinic Porokeratosis) Vitamin D Deficiency Kidney Stone Bicuspid Aortic Valve PAST MEDICAL HISTORY Diagnosis Date Aortic valve stenosis, etiology of cardiac valve disease unspecified Cardiac murmur DSAP (disseminated superficial actinic porokeratosis) Gallbladder polyp Hypertension Meniere disease history of Migraine menstrual influenced PAST SURGICAL HISTORY Procedure Laterality Date REMOVE KIDNEY STONE 11/2022 TUBAL LIGATION HX Social History Tobacco Use Smoking status: Never Smokeless tobacco: Never Vaping Use Vaping Use: Never used Substance Use Topics Alcohol use: Yes Alcohol/week: 3.0 standard drinks of alcohol Types: 2 Standard drinks or equivalent, 1 Glasses of Wine (5oz) per week Comment: daily, a glass of red wine Drug use: No Family History Problem Relation Age of Onset Cancer Mother COPD Mother Heart Father 55 4 vessel CABG Cancer Father lung, mets to spine Cancer Sister 58 ovarian with mets to liver, kidney, lung Diabetes Paternal Grandmother Review of Systems Constitutional: Positive for activity change, appetite change, chills, fatigue and fever. HENT: Negative for congestion, ear pain, postnasal drip, sinus pressure, sinus pain, sore throat, tinnitus and trouble swallowing. Crackling right ear Respiratory: Positive for cough and wheezing. Negative for chest tightness and shortness of breath. Occasional wheezing Rib cage hurts. Cardiovascular: Negative for chest pain and palpitations. Gastrointestinal: Positive for vomiting. Negative for abdominal pain, diarrhea and nausea. Dry heaves Genitourinary: Positive for frequency. Negative for difficulty urinating, dyspareunia and hematuria. Musculoskeletal: Positive for arthralgias and myalgias. See HPI Skin: Negative for rash. Neurological: Positive for headaches. Negative for dizziness. Objective BP 110/70 (BP Site: Left Arm, BP Position: Sitting, BP Cuff Size: Regular Adult) Pulse 89 Temp (!) 38.3 ?C (100.9 ?F) (Oral) Resp 18 Ht 154.9 cm (5' 1 ) Wt 85.3 kg (188 lb) LMP 05/07/2021 (Within Weeks) SpO2 95% BMI 35.52 kg/m? Physical Exam Vitals and nursing note reviewed. Constitutional: General: She is not in acute distress. Appearance: Normal appearance. She is not ill-appearing, toxic-appearing or diaphoretic. HENT: Head: Normocephalic and atraumatic. Right Ear: Tympanic membrane, ear canal and external ear normal. Left Ear: Tympanic membrane, ear canal and external ear normal. Nose: No congestion or rhinorrhea. Mouth/Throat: Mouth: Mucous membranes are moist. Pharynx: No oropharyngeal exudate or posterior oropharyngeal erythema. Eyes: Conjunctiva/s (more content not included)... [facility] 12-31-2023 Instructions Geraldo Matias APRN.SURFACE GRINDER - 12/31/2023 2:48 PM EST Patient information: Flu (The Basics) What is the flu? -- The flu is an infection that can cause fever, cough, body aches, and other symptoms. There are different forms of the flu, including the seasonal flu, the [id number] pandemic H1N1 flu (also called the swine flu), and the bird flu. All forms of the flu are caused by viruses. The medical term for the flu is influenza. What is a flu pandemic? -- A flu pandemic is when a new strain of a flu virus spreads to many people in different parts of the world. Pandemic flu strains sometimes cause more severe symptoms than seasonal flu viruses (which infect some people every year). The most recent flu pandemic was in and was caused by an H1N1 flu or swine flu virus. In the past, flu pandemics have been caused by other flu strains, such as strains of the bird flu. Bird flu (also known as kolby flu ) is a severe form of the flu that is caused by a strain of a flu virus that first infected birds. What are the most common flu symptoms? -- All forms of the flu can cause: ?Fever (temperature higher than 100 F or 37.8 C) ?Cough ?Headache or body aches Less common symptoms are sore throat and a runny nose. Is the flu dangerous? -- It can be. Most people get over the flu on their own, without any lasting problems. But some people need to go to the hospital because of the flu. And some people even from it. This is because the flu can cause a serious lung infection called pneumonia. That's why it's important to keep from getting the flu in the first place. Is there a test for flu? -- Yes. There are tests for the flu. In most cases, your doctor can tell if you have the flu by your symptoms. But in some cases - for example, if you are at risk for having other problems caused by the flu - your doctor might do a test for flu. How can I protect myself from the flu? -- You can: ?Wash your hands often with soap and water, or use alcohol hand rubs ?Stay away from people you know are sick ?Get the flu vaccine every year - There are a few different kinds of flu vaccine. Your doctor can help you decide which vaccine is best for you. What should I do if I get the flu? -- If you think you have the flu, stay home, rest, and drink plenty of fluids. You can also take acetaminophen (sample brand name: Tylenol) to relieve fever and aches. Do not give aspirin or medicines that contain aspirin to children younger than 18. In children, aspirin can cause a serious problem called Shira syndrome. Most people with the flu get better on their own within 1 to 2 weeks. But you should call your doctor or nurse if you: ?Have trouble breathing or are short of breath ?Feel pain or pressure in your chest or belly ?Get suddenly dizzy ?Feel confused ?Have severe vomiting Take your child to the doctor if he or she: ?Starts breathing fast or has trouble breathing ?Starts to turn blue or purple ?Is not drinking enough fluids ?Will not wake up or will not interact with you ?Is so unhappy that he or she does not want to be held ?Gets better from the flu but then gets sick again with a fever or cough ?Has a fever with a rash If you decide to go to a walk-in clinic or a hospital because of the flu, tell someone right away why you are there. The staff might ask you to wear a mask or to wait someplace where you are less likely to spread your infection. Whether or not you see a doctor or nurse, you should stay home while you are sick with the flu. Do not go to work or school until your fever has been gone for at least 24 hours, without taking fever-reducing medicine, such as acetaminophen. If you work in a healthcare setting taking care of patients, you might need to stay home longer if you are still coughing. Also, always cover your mouth and nose with the inside of your elbow when you cough or sneeze. Can the flu be treated? -- Yes, people with the flu can get medicines called antiviral medicines. These medicines can help people avoid some of the problems caused by the flu. Not every person with the flu needs an antiviral medicine, but some people do. Your doctor or nurse will decide if you need an antiviral medicine. Antibiotics DO NOT WORK on the flu. What if I am ? -- The flu can be very dangerous for women. If you are , it is very important that you get the flu vaccine. You should also avoid taking care of anyone who has the flu. If you are , call your doctor or nurse right away if: ?You might have been near someone with the flu. ?You think you might be coming down with the flu. In women, the symptoms of the flu can get worse very quickly. The flu can even cause trouble breathing or lead to of the woman or her baby. That is why it is so important that you talk to doctor or nurse as soon as you notice any of the flu symptoms listed above. You will need an antiviral medicine if you are and have the flu. Information obtained from [employer] documented in this encounter [facility] 12-31-2023 History of Presen t illness Narrative This note was created using [employer]. Subjective Jia Pickett is a 58 year old female patient of [facility] here today for acute visit for complaints of fever, body aches, cough, loss of appetite. PMH HTN, HLD, migraines, meniere's, fatigue. Pt reports symptoms started Friday with body aches, fatigue, and coughing. Reports fever, chills since Friday. Reports her hips hurt. Dry heaves Friday and this am. She reports taking tylenol 2-3x/yesterday and once so far today. She is drinking 40+ oz of water a day. She has not been eating. Decreased appetite. Denies sick contacts. She has not had flu or RSV vaccines. ALLERGIES Allergen Reactions Amoxicillin Itching Current Outpatient Medications Medication Sig Dispense Refill Milk Thistle 500 mg cap aspirin 325 mg cap VITAMIN B COMPLEX ORAL Take by mouth once daily. APPLE CIDER VINEGAR ORAL losartan (COZAAR) 25 mg tablet Take 1 tablet by mouth once daily. 30 tablet 11 folic acid 800 mcg tablet rizatriptan (MAXALT SECURITY OFFICER SUPERVISOR) 5 mg disintegrating tablet Take 1 tablet by mouth once daily as needed for migraine headache (see administration instructions). May repeat in 2 hours if needed 12 tablet 0 FISH OIL-DHA-EPA ORAL Take by mouth. 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) On Papanicolaou Smear of Cervix Encounter for Long-Term (Current) Use of Medications Hypercholesteremia Migraine Numbness Mitral Valve Prolapse Common Bile Duct Dilatation Covid-19 Obesity, Class II, Bmi 35-39.9 Dsap (Disseminated Superficial Actinic Porokeratosis) Vitamin D Deficiency Kidney Stone Bicuspid Aortic Valve PAST MEDICAL HISTORY Diagnosis Date Aortic valve stenosis, etiology of cardiac valve disease unspecified Cardiac murmur DSAP (disseminated superficial actinic porokeratosis) Gallbladder polyp Hypertension Meniere disease history of Migraine menstrual influenced PAST SURGICAL HISTORY Procedure Laterality Date REMOVE KIDNEY STONE 11/2022 TUBAL LIGATION HX Social History Tobacco Use Smoking status: Never Smokeless tobacco: Never Vaping Use Vaping Use: Never used Substance Use Topics Alcohol use: Yes Alcohol/week: 3.0 standard drinks of alcohol Types: 2 Standard drinks or equivalent, 1 Glasses of Wine (5oz) per week Comment: daily, a glass of red wine Drug use: No Family History Problem Relation Age of Onset Cancer Mother COPD Mother Heart Father 55 4 vessel CABG Cancer Father lung, mets to spine Cancer Sister 58 ovarian with mets to liver, kidney, lung Diabetes Paternal Grandmother Review of Systems Constitutional: Positive for activity change, appetite change, chills, fatigue and fever. HENT: Negative for congestion, ear pain, postnasal drip, sinus pressure, sinus pain, sore throat, tinnitus and trouble swallowing. Crackling right ear Respiratory: Positive for cough and wheezing. Negative for chest tightness and shortness of breath. Occasional wheezing Rib cage hurts. Cardiovascular: Negative for chest pain and palpitations. Gastrointestinal: Positive for vomiting. Negative for abdominal pain, diarrhea and nausea. Dry heaves Genitourinary: Positive for frequency. Negative for difficulty urinating, dyspareunia and hematuria. Musculoskeletal: Positive for arthralgias and myalgias. See HPI Skin: Negative for rash. Neurological: Positive for headaches. Negative for dizziness. Objective BP 110/70 (BP Site: Left Arm, BP Position: Sitting, BP Cuff Size: Regular Adult) Pulse 89 Temp (!) 38.3 C (100.9 F) (Oral) Resp 18 Ht 154.9 cm (5' 1 ) Wt 85.3 kg (188 lb) LMP 05/07/2021 (Within Weeks) SpO2 95% BMI 35.52 kg/m Physical Exam Vitals and nursing note reviewed. Constitutional: General: She is not in acute distress. Appearance: Normal appearance. She is not ill-appearing, toxic-appearing or diaphoretic. HENT: Head: Normocephalic and atraumatic. Right Ear: Tympanic membrane, ear canal and external ear normal. Left Ear: Tympanic membrane, ear canal and external ear normal. Nose: No congestion or rhinorrhea. Mouth/Throat: Mouth: Mucous membranes are moist. Pharynx: No oropharyngeal exudate or posterior oropharyngeal erythema. Eyes: Conjunctiva/sclera: Conjunctivae normal. Cardiovascular: Rate and Rhythm: Normal rate and regular rhythm. Pulses: Normal pulses. Heart sounds: Murmur heard. Pulmonary: Effort: Pulmonary effort is normal. No accessory muscle usage or respiratory distress. Breath sounds: Normal breath sounds. No decreased air movement. No decreased breath sounds, wheezing, rhonchi or rales. Abdominal: General: Bowel sounds are normal. Palpations: Abdomen is soft. Tenderness: There is no abdominal tenderness. Musculoskeletal: Right lower leg: No edema. Left lower leg: No edema. Neurological: Mental Status: She is alert and oriented to person, place, and time. Psychiatric: Mood and Affect: Mood normal. Behavior: Behavior normal. Thought Content: Thought content normal. Judgment: Judgment normal. Office Visit on 12/31/2023 Component Date Value Ref Range Status GLUCOSE UA (POCT) 12/31/2023 Negative Negative mg/dL Final BILIRUBIN UA (POCT) 12/31/2023 Negative Negative Final KETONE UA (POCT) 12/31/2023 40 (A) Negative mg/dL Final SPECIFIC GRAVITY UA (POCT) 12/31/2023 1.020 1.005 - 1.030 Final HEMOGLOBIN/BLOOD UA (POCT) 12/31/2023 Trace-intact (A) Negative Final PH UA (POCT) 12/31/2023 5.5 4.5 - 8.0 Final PROTEIN UA (POCT) 12/31/2023 Trace (A) Negative mg/dL Final UROBILINOGEN UA (POCT) 12/31/2023 0.2 Normal E.U./dL Final NITRITE UA (POCT) 12/31/2023 Negative Negative Final LEUKOCYTES UA (POCT) 12/31/2023 Negative Negative Final COLOR UA (POCT) 12/31/2023 Yellow Final CLARITY UA (POCT) 12/31/2023 Clear Final ASSESSMENT/PLAN: 1. Flu-like symptoms - ICD9: 780.99, ICD10: R68.89 (primary diagnosis) - acute, probable Flu. Exam unremarkable. No concerning findings. Swab obtained for FLU, RSV and COVID. Instructed to drink Pedialyte or Gatorade for electrolyte replacements. Continue tylenol as needed for body aches and fever. - call or go to ER if symptoms persist or worsen - COVID & INFLUENZA A/B & RSV NAAT, ROUTINE 2. Body aches - ICD9: 780.96, ICD10: R52 - See above - COVID & INFLUENZA A/B & RSV NAAT, ROUTINE 3. Urinary frequency - ICD9: 788.41, ICD10: R35.0 acute - UA positive for hematuria and proteinuria - Patient education for prevention given - UA DIP B/O - UA DIP, URINE (POC) Geraldo Matias APRN.SURFACE GRINDER documented in this encounter [facility] 12-29-2023 Note HNO ID: [id number] Author: DIANNA NARANJO MD Service: ? Author Type: Physician Type: Progress Notes Filed: 12/30/2023 08:31 Note Text: Dianna Naranjo MD [address], [address] Operations Manager Assistant Center - Fourth Floor [place] [phone] This Team Access Model visit is a virtual visit. It required patient-provider interaction for the medical decision making as documented below. Consent was obtained to complete today's distance health visit. I have communicated my name and active licensure. The patient's identity and physical location were verified at the time of this visit. Either the patient or their legal district sales representative has been informed of the risks and benefits of -- and alternatives to -- treatment through a remote evaluation and consents to proceed with the evaluation remotely. SUBJECTIVE: Jia Pickett is a 58 year old female with has a past medical history of Aortic valve stenosis, etiology of cardiac valve disease unspecified, Cardiac murmur, DSAP (disseminated superficial actinic porokeratosis), Gallbladder polyp, Hypertension, Meniere disease, and Migraine. of presents on December 29, 2023 for medical evaluation of Non-Surgical Metabolic Weight Management . Discussed extensively regarding bariatric surgery option but patient is [id number]} interested in bariatric surgery. Age at onset - mid adult years. Rate of weight gain is described as gradual over years. -- since monopause (53) She has gained 20 lbs or so --Family history positive for obesity in the patient?s patient. She considers ideal weight to be 170 lbs Previous treatments include self-directed dieting. Detox meals: veg /and rice Lifestyle Factors: Diet: Do you think that you have a healthy diet? No. Overall characterization of present diet:Structured. How have you tried to lose weight in the past? Yes. Exercise: Do you exercise ? Yes/ treadmill : 2-3.2 speed Are you able to walk up a flight of stairs or a small hill? Yes Patient's functional capacity is >4 METS. The composite complication rate of , unstable angina, ND, DVT, PE, renal failure, and stroke occurred in 16.6% of severely obese patients whose peak oxygen consumption was < 15.8 mL/kg/min but in only 2.8% of those whose cardiorespiratory fitness was >/= 15.8 mL/kg/min. By convention, 1 MET is considered equivalent to the consumption of 3.5 ml O2?kg-1?min-1 (or 3.5 ml of oxygen per kilogram of body mass per minute) and is roughly equivalent to the expenditure of 1 kcal per kilogram of body weight per hour. Eating Pattern: Water : with lemon Breakfast: 7:15 am fruits/ toast / 2 eggs 4 oz of grape fruits juice Coffee / with milk Snacks:10:30 am : apple / tortilla with humus Lunch:12:30-1 spinach salad /tuna/ hard boiled eggs Snack: home made oatmeal bars Dinner: 6 pm : roasted sweet potatoes/ veggies Snack:denies Alcohol :keep it to minimum Bedtime Sleeps: Wake up: Sleep: Duration: > 6 hours:Yes Falls asleep like a champ Wakes up to urinate : 2-3 times Sleep apnea screen: S-snore:Yes. T-feel tired, fatigued, daytime sleepiness: No. O-observed patient stop breathing during sleep:No. P-does patient have, or being treated for high blood pressure:Yes. B-is BMI >35:Yes. A-Age >50: Yes N-Neck circumference >15.75 inches:No G-Male gender:No Stop Bang score: 4. Recommended getting sleep study Chest pain, SOB, or [place]: No Stress test: no History of eating disorders: denies Associated medical conditions: hypertension Associated medications: none Cardiovascular risk factors: obesity and sedentary life style Current Outpatient Medications on File Prior to Visit Medication Sig aspirin 325 mg cap fluocinonide-emollient (LIDEX-E) 0.05 % cream Apply to affected area once daily. VITAMIN B COMPLEX ORAL Take by mouth once daily. APPLE CIDER VINEGAR ORAL cholesterol 2% lovastatin 2% topical cream (CPD) Apply to affected area three times daily. losartan (COZAAR) 25 mg tablet Take 1 tablet by mouth once daily. BIOTIN ORAL (Patient not taking: Reported on 07/11/2023) cyanocobalamin, vitamin B-12, (B-12 COMPLIANCE) 1,000 mcg/mL kit folic acid 800 mcg tablet multivitamin (DAILY VITAMIN ORAL) VITAMIN D3-VITAMIN K2, MK4, ORAL (Patient not taking: Reported on 07/11/2023) rizatriptan (MAXALT SECURITY OFFICER SUPERVISOR) 5 mg disintegrating tablet Take 1 tablet by mouth once daily as needed for migraine headache (see administration instructions). May repeat in 2 hours if needed FISH OIL-DHA-EPA ORAL Take by mouth. phenazopyridine (PYRIDIUM) 200 mg tablet Take 1 tablet by mouth three times daily as needed. tamsulosin (FLOMAX) 0.4 mg Take 1 capsule by mouth daily at bedtime. dicyclomine (BENTYL) 10 mg capsule Take 1 capsule by mouth four times daily as needed (abdominal cramping). for fourteen(14) days (Patient not taking: Reported on 08/25/2023) (more content not included)... [facility] 12-29-2023 Instructions Dianna Naranjo MD - 12/29/2023 2:39 PM EST Images from the original note were not included. TRYING TO LOSE WEIGHT? Your Body mass index is 35.9 kg/m . (Target BMI: 19-25) A person with a BMI between 25 and 29.9 is considered overweight A person with a BMI of 30 or greater is considered to be obese SETTING A WEIGHT LOSS GOAL: Last 5 Encounter Wt Readings: Date: Wt: 12/29/2023 86.2 kg (190 lb) 08/25/2023 86.6 kg (191 lb) 07/16/2023 83.5 kg (184 lb) 07/11/2023 84.4 kg (186 lb) 05/19/2023 87.1 kg (192 lb) Lose 10% of body weight over six months, about 1-2 lbs per week LIFESTYLE CHANGES -- The goals of lifestyle changes are to help you change your eating habits, become more active, and be more aware of how much you eat and exercise, helping you to make healthier choices. This can be broken down into three steps: 1. Triggers to eat -- Determining what triggers you to eat involves figuring out what foods you eat and where and when you eat. To figure out what triggers you to eat, keep a record for a few days of everything you eat, the places where you eat, how often you eat, and the emotions you were feeling when you ate. For some people, the trigger is related to a certain time of day or night. For others, the trigger is related to a certain place, like sitting at a desk working. 2. Eating -- You can change your eating habits by breaking the chain of events between the trigger for eating and eating itself. There are many ways to do this. For instance, you can: Limit where you eat to a few places (eg, dining room) Restrict the number of utensils (eg, only a fork) used for eating Drink a sip of water between each bite Chew your food a certain number of times Get up and stop eating every few minutes 3. What happens after you eat -- Rewarding yourself for good eating behaviors can help you to develop better habits. This is not a reward for weight loss; instead, it is a reward for changing unhealthy behaviors. Do not use food as a reward. Some people find money, clothing, or personal care (eg, a hair cut, manicure, or massage) to be effective rewards. Treat yourself immediately after making better eating choices to reinforce the value of the good behavior. You need to have clear behavior goals, and you must have a time frame for reaching your goals. Reward small changes along the way to your final goal. Other factors that contribute to successful weight loss -- Establish a mattie system -- Having a friend or family member available to provide support and reinforce good behavior is very helpful. The support person needs to understand your goals. Learn to be strong -- Learning to be strong when tempted by food is an important part of losing weight. As an example, you will need to learn how to say no and continue to say no when urged to eat at parties and social gatherings. Develop strategies for events before you go, such as eating before you go or taking low-calorie snacks and drinks with you. Develop a support system -- Having a support system is helpful when losing weight. This is why many commercial groups are successful. Family support is also essential; if your family does not support your efforts to lose weight, this can slow your progress or even keep you from losing weight. Positive thinking -- People often have conversations with themselves in their head; these conversations can be positive or negative. If you eat a piece of cake that was not planned, you may respond by thinking, Oh, you stupid idiot, you've blown your diet! and as a result, you may eat more cake. A positive thought for the same event could be, Well, I ate cake when it was not on my plan. Now I should do something to get back on track. A positive approach is much more likely to be successful than a negative one. Reduce stress -- Although stress is a part of everyday life, it can trigger uncontrolled eating in some people. It is important to find a way to get through these difficult times without eating or by eating low-calorie food, like raw vegetables. It may be helpful to imagine a relaxing place that allows you to temporarily escape from stress. With deep breaths and closed eyes, you can imagine this relaxing place for a few minutes. Self-help programs -- Self-help programs like Weight Watchers , Overeaters Anonymous , and Take Off Pounds Sensibly (TOPS) work for some people. As with all weight loss programs, you are most likely to be successful with these plans if you make long-term changes in how you eat. CHOOSING A DIET -- A calorie is a unit of energy found in food. Your body needs calories to function. The goal of any diet is to burn up more calories than you eat. How quickly you lose weight depends upon several factors, such as your age, gender, and starting weight. Older people have a slower metabolism than young people, so they lose weight more slowly. Men lose more weight than women of similar height and weight when dieting because they use more energy. People who are extremely overweight lose weight more quickly than those who are only mildly overweight. How many calories do I need? -- You can estimate the number of calories you need per day based upon your current (or target) weight, gender, and activity level for women and for men. In general, it is best to choose foods that contain enough protein, carbohydrates, essential fatty acids, and vitamins. Try not to drink alcohol or drinks with added sugar, and most sweets (candy, cakes, cookies), since they rarely contain important nutrients. Portion-controlled diets -- One simple way to diet is to buy packaged foods, like frozen low-calorie meals or meal-replacement canned drinks. A typical meal plan for 1000 to 1500 calories per day may include: A meal-replacement drink or breakfast bar for breakfast A meal-replacement drink or a frozen low-calorie (250 to 350 calories) meal for lunch A frozen low-calorie meal or other prepackaged, calorie-controlled meal, along with extra vegetables for dinner Low-fat diet -- To reduce the amount of fat in your diet, you can: Eat low-fat foods. Low-fat foods are those that contain less than 30 percent of calories from fat. Fat is listed on the food facts label Count fat grams. For a 1500 calorie diet, this would mean about 45 g or fewer of fat per day. Low-carbohydrate diet -- Low- and ufpy-ahw-eyhtcgydxeun diets (eg, Atkins diet, Kwanji diet) have become popular ways to lose weight quickly. With a mcin-rwx-bjiujnvlhrve diet, you eat between 0 and 60 grams of carbohydrates per day (a standard diet contains 200 to 300 grams of carbohydrates) With a low-carbohydrate diet, you eat between 60 and 130 grams of carbohydrates per day Carbohydrates are found in fruits, vegetables, and grains (including breads, rice, pasta, and cereal), alcoholic beverages, and in dairy products. Meat and fish do not contain carbohydrates. Side effects of lxnd-wke-fotbagebvwgq diets can include constipation, headache, bad breath, muscle cramps, diarrhea, and weakness. Mediterranean diet -- The term Mediterranean diet refers to a way of eating that is common in olive-growing regions around the [place] Sea. Although there is some variation in Mediterranean diets, there are some similarities. Most Mediterranean diets include: A high level of monounsaturated fats (from olive or canola oil, walnuts, pecans, almonds) and a low level of saturated fats (from butter) A high amount of vegetables, fruits, legumes, and grains (7 to 10 servings of fruits and vegetables per day) A moderate amount of milk and dairy products, mostly in the form of cheese. Use low-fat dairy products (skim milk, fat-free yogurt, low-fat cheese). A relatively low amount of red meat and meat products. Substitute fish or poultry for red meat. For those who drink alcohol, a modest amount (mainly as red wine) may help to protect against cardiovascular disease. A modest amount is up to one (4 ounce) glass per day for women and up to two glasses per day for men. Which diet is best? -- No one diet is best for weight loss. Any diet will help you to lose weight if you stick with the diet. Therefore, it is important to choose a diet that includes foods you like. Fad diets -- Fad diets often promise quick weight loss (more than 1 to 2 pounds per week) and may claim that you do not need to exercise or give up favorite foods. Some fad diets cost a lot of money, because you have to pay for seminars or pills. Fad diets generally lack any scientific evidence that they are safe and effective, but instead rely on before and after photos or testimonials. Diets that sound too good to be true usually are. These plans are a waste of time and money and are not recommended. A doctor, nurse, or metals analyst can help you find a safe and effective way to lose weight and keep it off. Adapted from [facility] My opinion 3 hour Rule: -last meal /snack 3 hours before sleeping ,but mostly try to be done by 7 pm --eat Rich Breakfast, high in protein hard boiled eggs/protein drinks - At least 3 hours break between each meals ,except water --sleep 7 hours at night , that means going to bed early -- drink only water ( no soda or juices) /no Alcohol consumption --cut down on coffee consumption if consuming high amounts Website :You can visit to web site for low carb recipe information as well as visual guide to low carb food: Https://www.dietdoctor.[employer]/ ( visual guide for low carb diet) Limit carb consumption to 80- 100 grams per day. Goals: formal exercise 2-5 x/week as tolerated, start with 10 mins/day to goal of 30 minutes ( -- for exercise, you should shoot for a goal of >150 min per week initially. Depending at what level you are starting, that may seem like an unachievable task. However, the best plan is to just begin to walk or bike or do another activity that you like and track your steps per day. You do not need to pay attention to the time, but you do need to try to increase your exercise every 3 weeks. Other strength exercises, using light weights or training bands may also be useful, especially when combined with regular aerobic exercise. Studies have shown that >200min per week is best to maintain weight loss, so that would be the overall end goal.) Have 3 meals a day-protein source with each meal (structured meal planning) Food journal daily and bring it to all appointments If you want you can REPLACE one of your meals with a liquid meal or frozen meal. This is easy to start and may help with your weight. 1. Liquid meal replacement (Boost, Ensure) 2. Frozen meal (Healthy Choice, Lean Cuisine - sodium under 650mg, can always add veggies to the meal) 3. Powdered protein (Premier Protein) or meal replacement (I like a plant based meal replacement called [employer] Nutrition - can mix w froz berries and almond milk) -- IN GENERAL - suggestions based on important of our sleep cycle called circadian rhythm and its influence on our gut microbiota and overall health tragetory 1) EAT MOST OF YOUR FOOD IN AM AND EARLY PM 2) NO EATING AT NIGHT 3) EXERCISE DURING DAY 4) BE CONSISTENT WITH MEAL STRUCTURE ie Meals at same time during the day. -- keep record of your food intake - it is easier for us to understand your eating habits and food preferences, looking into the amounts of protein, carbs, and fat in your diet. Good examples of apps to track calories are Manifest, LOSE IT. Some patient have found FOODUCATE to help with decisions around food, however choose apps that best suits you. Topiramate (toe pyre a mate) - Please start topiramate as discussed. Take one tablet (25mg) every night and increase to 2 tablets at night (50MG) after 2 weeks if there is no change in your appetite, cravings or weight. -- You can take it at night at first (because of potential sleepiness side effects), but earlier around dinner after you have started the medication for a few days. You also may be able to take it in the morning if easier. -- We may increase the dose to 3 tablets (75mg) a few weeks later if there is no change with 50mg and continue to increase the medication in this way (usually no more than 150mg). But it is best to contact me after 1 month to discuss continued increases of the medication. -- Please see the handout to review the potential side effects and to explain this further -Also discussed that when on topiramate , I would recommend using 2 different kind if control methods, Due to several anomaly( if female in reproductive age group) --no while on this medications --pt Agrees and verbalizes understanding. What are the common names? Topamax Why is this medication prescribed? Topiramate is an anti-epileptic medications which has been approved by the FDA for patients 10 years of age or older for treatment of seizures. However, topiramate also has other uses such as the treatment of migraines. It also causes decrease in appetite and weight loss. The mechanism of weight loss is thought to be through inhibition of mitochondrial enzymes involved in energy expenditure and metabolism. Topiramate may work by helping you feel less hungry, less driven to eat, more satisfied with less food. However while phentermine and topiramate in combination are approved by FDA for long-term treatment of obesity, topiramate as stand alone pharmacotherapy has not been approved for this purpose. Has been used in treatment of obesity as an off label, as discussed during your visit. What special precautions should I follow? --Recommended appropriate and consistent control method in women to prevent conception while taking topiramate.(recommended at least 2 methods of contraception as at times it can decrease the effectiveness of oral control pills) --(women in child bearing age ) I strongly recommend discontinue the use of medication prior to conception as the medication may be linked to anomalies and not safe to utilize during . Before having topiramate prescribed, tell your doctor and pharmacist: If you have allergies to any component of topiramate If you are , plan to become , are breast-feeding, or if you become while taking topiramate What are the warnings and precautions for this medication? Immediately discontinue the medicine and seek medical help if you have severe cognitive/neuropsychiatric adverse symptoms or eye symptoms. Cognitive/neuropsychiatric adverse events: symptoms may include confusion, psychomotor slowing, difficulty with concentration/attention, difficulty with memory, speech or language problems, particularily word-finding difficulties, somnolence or fatigue Acute myopia and secondary angle closure glaucoma, usually within 1 month of starting treatment: symptoms may include blurred vision, redness and/or pain in the eye Oligohydrosis (decrease sweating) and hyperthermia (elevation in body temperature) Increase in suicidal behavior or ideation Metabolic acidosis, non-gap hyperchloremic (decreased serum bicarbonate below normal levels) resulting in hyperventilation or fatigue Kidney stones Paresthesias (numbness or tingling in hands or feet) Ataxia Dizziness Increase in urination frequency Drug interactions. Use of monamine oxidase inhibitors (MAOI s), valproic acid, Caution use with dehydration or diarrheal illness, hepatic or renal impairment In case of emergency/overdose In case of overdose, call your local poison control center at or call local emergency services at [phone]. What other information should I know? Keep all appointments with your doctor and the laboratory. Do not let anyone else take your medication. Topiramate use needs to be monitored closely. Prescriptions may be refilled only a limited number of times. Keep a written list of all of your prescription and nonprescription (sxrw-uxa-xmnvxnf) medicines, in addition to vitamins, minerals, or other dietary supplements. How should I monitor while on this medication? Your doctor will check your baseline kidney function and electrolytes prior to starting this medication, then periodically. Continue to improve your dietary and physical activity habits as the combination works best while on this medication. Start out by taking the medication at bedtime as it can cause fatigue and sleepiness. Be sure to eat regular meals. Less hunger does not make it appropriate to skip meals. Make sure to have an eye exam, including the pressure in your eyes (intra-ocular pressure), once a year. What should I do if I forget a dose? Skip the missed dose and continue your regular dosing schedule the next day. Do not take a double dose to make up for a missed one. 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 Monthly visits will no longer be required. -- Please start phentermine low dose (1/2 tablet) in the morning everyday as discussed. We can adjust the dose if needed, that is if you are feeling some side effects you can either stop all together or decrease to 1/4 tablet. But we can review its effect when you return. Per [place] Medical Board: patient need to demonstrate 5% weight loss over 12 weeks and to monitor her blood pressure closely and report any elevations of 140/90 and to keep a log of her blood pressure. -- Please monitor your blood pressure (either purchase BP cuff, or go to pharmacy to check your BP at a local pharmacy). Please avoid any stimulants (in the form of caffeinated beverages like coffee, tea, sports drinks) and caution with decongestants. -- -- Phentermine is not safe during . ? Phentermine (fen ter meen) What are the common names? Adipex-P, Ionamin Why is this medication prescribed? Phentermine was approved by the FDA in 1959 for short term weight loss. It works by decreasing appetite. Phentermine is absorbed by the body and travels to the appetite center of the brain. It works by helping you feel less hungry, less driven to eat, more satisfied with less food. I ve heard about fen-phen. Will phentermine affect my heart? The two drug combination fenfluramine/phentermine, usually called fen-phen, became popular in the early as a diet pill. However, it was withdrawn by the FDA in late 1996 after studies which showed that fenfluramine can cause fatal pulmonary hypertension and heart valve problems. Phentermine is not a combination medication and does not contain the compound fenfluramine. What special precautions should I follow? Before having phentermine prescribed, tell your doctor and pharmacist: If you have allergies to any component of phentermine If you are , plan to become , are breast-feeding, or if you become while taking phentermine What are the absolute contraindications? Stroke or Transient Ischemic Attacks Cardiac arrhythmias or Atrial fibrillation Coronary artery disease Seizure Disorder Uncontrolled blood pressure Angina Congestive Heart Failure Valvular Heart Disease or primary pulmonary hypertension Drug interactions. Use of monamine oxidase inhibitors (MAOI s) What are the side effects of phentermine? Immediately discontinue the medicine and seek medical help if you have severe symptoms such as chest pain, shortness of breath, feeling faint, ability to think clearly, eye pain or other visual symptoms: Palpitations (strong or rapid heartbeat) Difficulty sleeping or falling asleep Elevated blood pressure Dry mouth Anxiety or agitation Getting a stimulant/or hyper effect or jitteriness-(Usually goes away after a few days or weeks) Glaucoma In case of emergency/overdose In case of overdose, call your local poison control center at or call local emergency services at [phone]. What other information should I know? Keep all appointments with your doctor and the laboratory. Do not let anyone else take your medication. Phentermine is a controlled substance. It is FDA approved for up to 3 months. Prescriptions may be refilled only a limited number of times. Keep a written list of all of your prescription and nonprescription (htyx-znj-blobwnn) medicines, in addition to vitamins, minerals, or other dietary supplements. If you are taking the extended-release (long-acting) tablets, do not split, chew, or crush them tablet. There are some tablets that can be crushed and mixed with food Alcohol can make the side effects of phentermine worse How should I monitor while on this medication? Please check your blood pressure (BP) and resting pulse weekly (twice a week in the first 2 weeks). If the BP is over 140/90 (either one), or if the resting pulse is over 96 per minute (count for 10 seconds and multiply by 6), then stop the medication and call your doctor. Continue to improve your dietary and physical activity habits as the combination works best while on this medication. Start out by taking the medication in the morning at least 30 minutes prior to meals. If the effect seems to wear off by dinner time, try taking it later in the morning, but taking too late may result in trouble falling asleep. Be sure to eat regular meals. Less hunger does not make it appropriate to skip meals. Monitor your caffeine intake and use of decongestants as they may worsen the effects of phentermine Make sure to have an eye exam, including the pressure in your eyes (intra-ocular pressure), once a year. What should I do if I forget a dose? Skip the missed dose and continue your regular dosing schedule the next day. Do not take a double dose to make up for a missed one. Sources [facility] Consumer Medication Info: http://www.ncbi.nlm.nih.gov/pubm edhealth/UBV3615626/ AMA patient handouts: http://www.amaassn.org/ama1/pub/ upload/mm/433/phrxsurgery.pdf Drugs.com: http://www.drugs.com/pro/phenter mine.html documented in this encounter [facility] 12-29-2023 History of Presen t illness Narrative Images from the original note were not included. Dianna Naranjo MD [facility] [address], [address] Operations Manager Assistant Center [facility] [place], [place] [address] This Team Access Model visit is a virtual visit. It required patient-provider interaction for the medical decision making as documented below. Consent was obtained to complete today's distance health visit. I have communicated my name and active licensure. The patient's identity and physical location were verified at the time of this visit. Either the patient or their legal district sales representative has been informed of the risks and benefits of -- and alternatives to -- treatment through a remote evaluation and consents to proceed with the evaluation remotely. SUBJECTIVE: Jia Pickett is a 58 year old female with has a past medical history of Aortic valve stenosis, etiology of cardiac valve disease unspecified, Cardiac murmur, DSAP (disseminated superficial actinic porokeratosis), Gallbladder polyp, Hypertension, Meniere disease, and Migraine. of presents on December 29, 2023 for medical evaluation of Non-Surgical Metabolic Weight Management . Discussed extensively regarding bariatric surgery option but patient is [id number]} interested in bariatric surgery. Age at onset - mid adult years. Rate of weight gain is described as gradual over years. -- since monopause (53) She has gained 20 lbs or so --Family history positive for obesity in the patient s patient. She considers ideal weight to be 170 lbs Previous treatments include self-directed dieting. Detox meals: veg /and rice Lifestyle Factors: Diet: Do you think that you have a healthy diet? No. Overall characterization of present diet:Structured. How have you tried to lose weight in the past? Yes. Exercise: Do you exercise ? Yes/ treadmill : 2-3.2 speed Are you able to walk up a flight of stairs or a small hill? Yes Patient's functional capacity is >4 METS. The composite complication rate of , unstable angina, ND, DVT, PE, renal failure, and stroke occurred in 16.6% of severely obese patients whose peak oxygen consumption was < 15.8 mL/kg/min but in only 2.8% of those whose cardiorespiratory fitness was >/= 15.8 mL/kg/min. By convention, 1 MET is considered equivalent to the consumption of 3.5 ml O2 kg-1 min-1 (or 3.5 ml of oxygen per kilogram of body mass per minute) and is roughly equivalent to the expenditure of 1 kcal per kilogram of body weight per hour. Eating Pattern: Water : with lemon Breakfast: 7:15 am fruits/ toast / 2 eggs 4 oz of grape fruits juice Coffee / with milk Snacks:10:30 am : apple / tortilla with humus Lunch:12:30-1 spinach salad /tuna/ hard boiled eggs Snack: home made oatmeal bars Dinner: 6 pm : roasted sweet potatoes/ veggies Snack:denies Alcohol :keep it to minimum Bedtime Sleeps: Wake up: Sleep: Duration: > 6 hours:Yes Falls asleep like a champ Wakes up to urinate : 2-3 times Sleep apnea screen: S-snore:Yes. T-feel tired, fatigued, daytime sleepiness: No. O-observed patient stop breathing during sleep:No. P-does patient have, or being treated for high blood pressure:Yes. B-is BMI >35:Yes. A-Age >50: Yes N-Neck circumference >15.75 inches:No G-Male gender:No Stop Bang score: 4. Recommended getting sleep study Chest pain, SOB, or [place]: No Stress test: no History of eating disorders: denies Associated medical conditions: hypertension Associated medications: none Cardiovascular risk factors: obesity and sedentary life style Current Outpatient Medications on File Prior to Visit Medication Sig aspirin 325 mg cap fluocinonide-emollient (LIDEX-E) 0.05 % cream Apply to affected area once daily. VITAMIN B COMPLEX ORAL Take by mouth once daily. APPLE CIDER VINEGAR ORAL cholesterol 2% lovastatin 2% topical cream (CPD) Apply to affected area three times daily. losartan (COZAAR) 25 mg tablet Take 1 tablet by mouth once daily. BIOTIN ORAL (Patient not taking: Reported on 07/11/2023) cyanocobalamin, vitamin B-12, (B-12 COMPLIANCE) 1,000 mcg/mL kit folic acid 800 mcg tablet multivitamin (DAILY VITAMIN ORAL) VITAMIN D3-VITAMIN K2, MK4, ORAL (Patient not taking: Reported on 07/11/2023) rizatriptan (MAXALT SECURITY OFFICER SUPERVISOR) 5 mg disintegrating tablet Take 1 tablet by mouth once daily as needed for migraine headache (see administration instructions). May repeat in 2 hours if needed FISH OIL-DHA-EPA ORAL Take by mouth. phenazopyridine (PYRIDIUM) 200 mg tablet Take 1 tablet by mouth three times daily as needed. tamsulosin (FLOMAX) 0.4 mg Take 1 capsule by mouth daily at bedtime. dicyclomine (BENTYL) 10 mg capsule Take 1 capsule by mouth four times daily as needed (abdominal cramping). for fourteen(14) days (Patient not taking: Reported on 08/25/2023) ascorbic acid (VITAMIN C ORAL) Take by mouth. (Patient not taking: Reported on 07/11/2023) Current Facility-Administered Medications on File Prior to Visit Medication perflutren lipid microspheres 1.3 mL in NaCl (PF) 0.9% 10 mL injection (DEFINITY) sodium chloride 0.9 % (flush) 10 mL (BD POSIFLUSH) ALLERGIES Allergen Reactions Amoxicillin Itching PAST MEDICAL HISTORY Diagnosis Date Aortic valve stenosis, etiology of cardiac valve disease unspecified Cardiac murmur DSAP (disseminated superficial actinic porokeratosis) Gallbladder polyp Hypertension Meniere disease history of Migraine menstrual influenced PAST SURGICAL HISTORY Procedure Laterality Date REMOVE KIDNEY STONE 11/2022 TUBAL LIGATION HX Any problems with anesthesia with the above surgeries: NA FAMILY HISTORY Problem Relation Age of Onset Cancer Mother COPD Mother Heart Father 55 4 vessel CABG Cancer Father lung, mets to spine Cancer Sister 58 ovarian with mets to liver, kidney, lung Diabetes Paternal Grandmother Social History Tobacco Use Smoking status: Never Smokeless tobacco: Never Vaping Use Vaping Use: Never used Substance Use Topics Alcohol use: Yes Alcohol/week: 3.0 standard drinks of alcohol Types: 2 Standard drinks or equivalent, 1 Glasses of Wine (5oz) per week Comment: daily, a glass of red wine Drug use: No Review of Systems Constitutional: Positive for malaise/fatigue. HENT: Negative for congestion and tinnitus. Eyes: Negative for blurred vision. Respiratory: Negative for cough and shortness of breath. Cardiovascular: Negative for chest pain, palpitations, orthopnea and leg swelling. Gastrointestinal: Negative for heartburn, nausea and vomiting. Genitourinary: Negative for dysuria and frequency. Kidney stone once in oct 2022 Musculoskeletal: Positive for joint pain. Negative for back pain. Neurological: Negative for weakness. Psychiatric/Behavioral: The patient is nervous/anxious. The patient does not have insomnia. Has done counseling for anxiety that has helped No previous history of pancreatitis No personal or family history of medullary thyroid cancer No Family history of MEN syndrome Father : [address]pass 56 OBJECTIVE: Ht 154.9 cm (5' 1 ) Wt 86.2 kg (190 lb) LMP 05/07/2021 (Within Weeks) BMI 35.90 kg/m BMI = Body mass index is 35.9 kg/m . Physical Exam Constitutional:. --no issues with communication during visit and demonstrates understanding via appropriate interaction, verbalizing understanding ans she consented for this visit visit encounter HEENT: Normocephalic and atraumatic. Eyes: Conjunctiva appear normal. No scleral icterus. Hearing: Is grossly intact. Neck: Range of motion appears normal. Thyroid: appears symmetric and not enlarged. Pulmonary/Chest: Effort normal. Psychiatric: Mood, memory, affect and judgment normal. Neurological: alert and oriented to person, place, and time. ASSESSMENT/PLAN: 1. Class 2 obesity - ICD9: 278.00, ICD10: E66.9 (primary diagnosis) -Weight is increasing Discussed behavior and pharmacological interventions. Jia has been struggling with increasing weight gain despite making positive changes. Today we discussed several medication options. Due to recent kidney stones I am holding off on topiramate. She does have a history of bicuspid valve with aortic stenosis has seen finance business partner and has been cleared. She has METS over 4. We may consider small dose of phentermine in near future. Also recommended labs. She refuses to be on metformin --May consider Wellbutrin with naltrexone for craving control. 2. Vitamin D deficiency - ICD9: 268.9, ICD10: E55.9 Continue supplement 3. Essential hypertension - ICD9: 401.9, ICD10: I10 - Improving control - Recommend home blood pressure monitoring, to bring results to next visit - Encouraged sodium restriction, DASH or Mediterranean diet - Recommend regular aerobic exercise 4. Dietary counseling and surveillance - ICD9: V65.3, ICD10: Z71.3 Reviewed principles of energy metabolism, caloric intake and expenditure, and rationale for treatment program. Also reinforced need for reduced calorie, low fat diet and increased physical activity. 5. Body mass index (BMI) of 35.0-35.9 in adult - ICD9: V85.35, ICD10: Z68.35 -- counseled in length ,recommended Low carb /low sugar diet --managing maladaptive eating behaviors and adding resistance exercise. Continue low carb diet, weights/cardio exercise and increase NEAT. 6. Bicuspid aortic valve - ICD9: 746.4, ICD10: Q23.1 Has seen finance business partner. Recommend follow-up with them. Dianna Naranjo MD Reviewed principles of energy metabolism, caloric intake and expenditure, and rationale for treatment program. Also reinforced need for reduced calorie, low fat diet and increased physical activity. Dianna Naranjo MD History Review: I have reviewed and modified as needed, the following during this visit: Allergies, Past Medical History, Past Surgical History, Past Family History, Past Social History. Counseling Visit 32 minutes for preventive counseling/IBT : including reviewing chart and finishing my notes Screening for obesity completed during initial plan of care. Patient was competent and alert at the time that counseling was provided. 5a's reviewed: Assess- I assessed behavioral health risk/factors affecting --- Asked about/assess behavioral health risk(s) and factors affecting choice of behavior change goals Discussed today in length regarding avoiding sweetened beverages including juice. Recommended to avoid snacking and grazing in between meals. Discussed increasing protein and fiber intake with each meals. --Sugary drinks Advise: clear, specific, personalized behavior change advice. -I gave very clear, specific, and personalized behavior change adviced, including information about personal health harms and benefits. Recommended add 60 to 70 ounces of plain water or lemon water Advised to get at least 60-80 g of protein daily. Next Agree: Agree: Patient agrees with selected appropriate treatment goals and methods to change behavior Assist:provided IBT w self-help, handouts, teaching skills and support Using behavior change techniques with self-help and Counseling in achieving Goals. Also discussed supplementing with adjunctive medical treatments when appropriate. Arrange- follow up scheduled, Handouts given to patient My opinion -- 3 hour Rule -last meal /snack 3 hours before sleeping ,try to be done by 7 pm --eat Rich Breakfast - At Least 3 hours break between each meals ,except water --sleep 7 hours at night , that means going to bed early -- drink only water ( no soda or juices) /no Alcohol consumption --cut down on coffee consumption if consuming high amounts Website :You can visit to web site for low carb recipe information as well as visual guide to low carb food: [employer] Limit carb consumption to 80- 100 grams per day. Goals: formal exercise 2-5 x/week as tolerated, start with 10 mins/day to goal of 30 minutes Have 3 meals a day-protein source with each meal (structured meal planning) Food journal daily and bring it to all appointments -- IN GENERAL - suggestions based on important of our sleep cycle called circadian rhythm and its influence on our gut microbiota and overall health tragetory 1) EAT MOST OF YOUR FOOD IN AM AND EARLY PM 2) NO EATING AT NIGHT 3) EXERCISE DURING DAY 4) BE CONSISTENT WITH MEAL STRUCTURE ie Meals at same time during the day. -- keep record of your food intake - it is easier for us to understand your eating habits and food preferences, looking into the amounts of protein, carbs, and fat in your diet. Good examples of apps to track calories are [employer], LOSE IT. Some patient have found FOODUCATE to help with decisions around food, however choose apps that best suits you. -- for exercise, you should shoot for a goal of >150 min per week initially. Depending at what level you are starting, that may seem like an unachievable task. However, the best plan is to just begin to walk or bike or do another activity that you like and track your steps per day. You do not need to pay attention to the time, but you do need to try to increase your exercise every 3 weeks. Other strength exercises, using light weights or training bands may also be useful, especially when combined with regular aerobic exercise. Studies have shown that >200min per week is best to maintain weight loss, so that would be the overall end goal. -- One option we discussed is to REPLACE one of your meals with a liquid meal or frozen meal. This is easy to start and may help with your weight. 1. Liquid meal replacement (Boost, Ensure) 2. Frozen meal (Healthy Choice, Lean Cuisine - sodium under 650mg, can always add veggies to the meal) 3. Powdered protein (Premier Protein) or meal replacement (I like a plant based meal replacement called [employer] Nutrition - can mix w froz berries and almond milk) This note was partially generated using M-Audio voice recognition system, and there may be some incorrect words, spellings, and punctuation that were not noted in checking the note before saving documented in this encounter [facility] 10-14-2023 Miscellaneous Notes Patient is requesting results from her blood work that she completed at [facility], she is having them fax it. I will keep an eye out for the fax Joel Servin MA documented in this encounter [facility] 08-25-2023 Note HNO ID: [id number] Author: Sohail Scherer MD Service: ? Author Type: Physician Type: Progress Notes Filed: 08/25/2023 5:48 PM Note Text: Jia Pickett is a 58 year old female who is here for evaluation after recent HIDA scan. She is doing well. She has not had any abdominal pain. Her HIDA scan showed a normal ejection fraction of 68%. ALLERGIES Allergen Reactions Amoxicillin Itching Current Outpatient Medications Medication Sig aspirin 325 mg cap fluocinonide-emollient (LIDEX-E) 0.05 % cream Apply to affected area once daily. VITAMIN B COMPLEX ORAL Take by mouth once daily. APPLE CIDER VINEGAR ORAL cholesterol 2% lovastatin 2% topical cream (CPD) Apply to affected area three times daily. losartan (COZAAR) 25 mg tablet Take 1 tablet by mouth once daily. cyanocobalamin, vitamin B-12, (B-12 COMPLIANCE) 1,000 mcg/mL kit folic acid 800 mcg tablet multivitamin (DAILY VITAMIN ORAL) rizatriptan (MAXALT SECURITY OFFICER SUPERVISOR) 5 mg disintegrating tablet Take 1 tablet by mouth once daily as needed for migraine headache (see administration instructions). May repeat in 2 hours if needed FISH OIL-DHA-EPA ORAL Take by mouth. phenazopyridine (PYRIDIUM) 200 mg tablet Take 1 tablet by mouth three times daily as needed. tamsulosin (FLOMAX) 0.4 mg Take 1 capsule by mouth daily at bedtime. BIOTIN ORAL (Patient not taking: Reported on 07/11/2023) VITAMIN D3-VITAMIN K2, MK4, ORAL (Patient not taking: Reported on 07/11/2023) dicyclomine (BENTYL) 10 mg capsule Take 1 capsule by mouth four times daily as needed (abdominal cramping). for fourteen(14) days (Patient not taking: Reported on 08/25/2023) ascorbic acid (VITAMIN C ORAL) Take by mouth. (Patient not taking: Reported on 07/11/2023) Current Facility-Administered Medications Medication Dose Route Frequency perflutren lipid microspheres 1.3 mL in NaCl (PF) 0.9% 10 mL injection (DEFINITY) INTRAVENOUS DIRECTED PRN sodium chloride 0.9 % (flush) 10 mL (BD POSIFLUSH) 10 mL INTRAVENOUS DIRECTED PRN PHYSICAL EXAM: BP 109/75 Pulse 73 Ht 5' 1 (1.55m) Wt 191 lb (86.6kg) LMP 05/07/2021 BMI 36.11 kg/(m2). General Appearance: Well appearing, alert, in no acute distress, well-hydrated, well nourished.. Assessment: Gallbladder polyp (primary encounter diagnosis) Obesity, class ii, bmi 35-39.9 Plan: ASSESSMENT/PLAN: 1. Gallbladder polyp - ICD9: 575.6, ICD10: K82.4 (primary diagnosis) No surgical intervention necessary for the gallbladder at this time. Follow-up the polyp with a repeat ultrasound in 6 months. Call sooner for any issues or concerns. - US ABD RIGHT UPPER QUADRANT 2. Obesity, Class II, BMI 35-39.9 - ICD9: 278.00, ICD10: E66.9 Patient expressed interest in weight loss. - CONSULT TO [facility]ESITY MEDIC[facility] Medical Decision Making: Problems: Low: Stable chronic illness Data: Unique test result(s) reviewed: 1 Unique test(s) ordered: 1 Risk: Low: Low risk from testing/treatment Medical Decision Making Level: 3 - Low Sohail Scherer M.D., F.A.C.S. [facility] 07-16-2023 Note HNO ID: [id number] Author: Sohail Scherer MD Service: ? Author Type: Physician Type: Progress Notes Filed: 07/17/2023 12:44 PM Note Text: Jia Pickett is a 58 year old White female who presents with complaints of gallbladder polyp. Possible biliary disease. She has been having some abdominal pain which happens every other day. She states the pain does go to her back at times. When she had COVID she states that the pain fairly significantly but it resolves. She recently had a ultrasound which revealed a 4 mm polyp. She denies any food making the pain worse. She states sometimes she will just wake up with the pain. She states she does not eat a whole lot of fatty foods does not really noted any correlation with food intake. She is taking supplements such as super enzymes and ox bile to help. PAST MEDICAL HISTORY Diagnosis Date Aortic valve stenosis, etiology of cardiac valve disease unspecified Cardiac murmur DSAP (disseminated superficial actinic porokeratosis) Gallbladder polyp Hypertension Meniere disease history of Migraine menstrual influenced PAST SURGICAL HISTORY Procedure Laterality Date REMOVE KIDNEY STONE 11/2022 TUBAL LIGATION HX Social History Tobacco Use Smoking status: Never Smokeless tobacco: Never Vaping Use Vaping Use: Never used Substance Use Topics Alcohol use: Yes Alcohol/week: 2.5 standard drinks of alcohol Types: 2 Standard drinks or equivalent, 1 Glasses of Wine (5oz) per week Comment: daily, a glass of red wine Drug use: No FAMILY HISTORY Problem Relation Age of Onset Cancer Mother COPD Mother Heart Father 55 4 vessel CABG Cancer Father lung, mets to spine Cancer Sister 58 ovarian with mets to liver, kidney, lung Diabetes Paternal Grandmother ALLERGIES Allergen Reactions Amoxicillin Itching Current Outpatient Medications Medication Sig fluocinonide-emollient (LIDEX-E) 0.05 % cream Apply to affected area once daily. VITAMIN B COMPLEX ORAL Take by mouth once daily. APPLE CIDER VINEGAR ORAL cholesterol 2% lovastatin 2% topical cream (CPD) Apply to affected area three times daily. losartan (COZAAR) 25 mg tablet Take 1 tablet by mouth once daily. cyanocobalamin, vitamin B-12, (B-12 COMPLIANCE) 1,000 mcg/mL kit multivitamin (DAILY VITAMIN ORAL) rizatriptan (MAXALT SECURITY OFFICER SUPERVISOR) 5 mg disintegrating tablet Take 1 tablet by mouth once daily as needed for migraine headache (see administration instructions). May repeat in 2 hours if needed FISH OIL-DHA-EPA ORAL Take by mouth. phenazopyridine (PYRIDIUM) 200 mg tablet Take 1 tablet by mouth three times daily as needed. tamsulosin (FLOMAX) 0.4 mg Take 1 capsule by mouth daily at bedtime. dicyclomine (BENTYL) 10 mg capsule Take 1 capsule by mouth four times daily as needed (abdominal cramping). for fourteen(14) days (Patient taking differently: Take 10 mg by mouth four times daily as needed (abdominal cramping). PRN) BIOTIN ORAL (Patient not taking: Reported on 07/11/2023) folic acid 800 mcg tablet VITAMIN D3-VITAMIN K2, MK4, ORAL (Patient not taking: Reported on 07/11/2023) ascorbic acid (VITAMIN C ORAL) Take by mouth. (Patient not taking: Reported on 07/11/2023) Current Facility-Administered Medications Medication Dose Route Frequency perflutren lipid microspheres 1.3 mL in NaCl (PF) 0.9% 10 mL injection (DEFINITY) INTRAVENOUS DIRECTED PRN sodium chloride 0.9 % (flush) 10 mL (BD POSIFLUSH) 10 mL INTRAVENOUS DIRECTED PRN REVIEW OF SYSTEMS PAIN ASSESSMENT: Negative for pain, history of chronic pain, or current treatment for a chronic pain condition. GENERAL: No weight loss, malaise or fevers NECK: Negative for lumps, goiter, pain and significant neck swelling RESPIRATORY: Negative for cough, hemoptysis, wheezing, COPD, dyspnea or shortness of breath CARDIOVASCULAR: Negative for chest pain, leg swelling, hypertension, CHF or palpitations GI: See HPI : No history of dysuria, frequency or incontinence MUSCULOSKELETAL: Negative for joint pain or swelling, back pain or muscle pain HEMATOLOGY/LYMPHOLOGY: Negative for prolonged bleeding, bruising easily or swollen nodes ENDOCRINE: Negative for cold or heat intolerance, polyuria, polydipsia and goiter PHYSICAL EXAM: BP 120/67 Pulse 75 Resp 18 Ht 5' 1 (1.55m) Wt 184 lb (83.5kg) LMP 05/07/2021 BMI 34.78 kg/(m2). General Appearance: Well appearing, alert, in no acute distress, well-hydrated, well nourished. and Obese. Abdomen: Normal abdominal exam, Abdomen soft, non-tender. Bowel sounds normal. No masses, organomegaly. Assessment: Gallbladder polyp (primary encounter diagnosis) Ruq pain Obesity, class ii, bmi 35-39.9 Cholecystitis Plan: ASSESSMENT/PLAN: 1. Gallbladder polyp - ICD9: 575.6, ICD10: K82.4 (primary diagnosis) Symptoms do not appear to be consistent with biliary disease. However, we will obtain a HIDA scan with CCK to evaluate eje (more content not included)... [facility] 07-16-2023 History of Presen t illness Narrative Jia Pickett is a 58 year old White female who presents with complaints of gallbladder polyp. Possible biliary disease. She has been having some abdominal pain which happens every other day. She states the pain does go to her back at times. When she had COVID she states that the pain fairly significantly but it resolves. She recently had a ultrasound which revealed a 4 mm polyp. She denies any food making the pain worse. She states sometimes she will just wake up with the pain. She states she does not eat a whole lot of fatty foods does not really noted any correlation with food intake. She is taking supplements such as super enzymes and ox bile to help. PAST MEDICAL HISTORY Diagnosis Date Aortic valve stenosis, etiology of cardiac valve disease unspecified Cardiac murmur DSAP (disseminated superficial actinic porokeratosis) Gallbladder polyp Hypertension Meniere disease history of Migraine menstrual influenced PAST SURGICAL HISTORY Procedure Laterality Date REMOVE KIDNEY STONE 11/2022 TUBAL LIGATION HX Social History Tobacco Use Smoking status: Never Smokeless tobacco: Never Vaping Use Vaping Use: Never used Substance Use Topics Alcohol use: Yes Alcohol/week: 2.5 standard drinks of alcohol Types: 2 Standard drinks or equivalent, 1 Glasses of Wine (5oz) per week Comment: daily, a glass of red wine Drug use: No FAMILY HISTORY Problem Relation Age of Onset Cancer Mother COPD Mother Heart Father 55 4 vessel CABG Cancer Father lung, mets to spine Cancer Sister 58 ovarian with mets to liver, kidney, lung Diabetes Paternal Grandmother ALLERGIES Allergen Reactions Amoxicillin Itching Current Outpatient Medications Medication Sig fluocinonide-emollient (LIDEX-E) 0.05 % cream Apply to affected area once daily. VITAMIN B COMPLEX ORAL Take by mouth once daily. APPLE CIDER VINEGAR ORAL cholesterol 2% lovastatin 2% topical cream (CPD) Apply to affected area three times daily. losartan (COZAAR) 25 mg tablet Take 1 tablet by mouth once daily. cyanocobalamin, vitamin B-12, (B-12 COMPLIANCE) 1,000 mcg/mL kit multivitamin (DAILY VITAMIN ORAL) rizatriptan (MAXALT SECURITY OFFICER SUPERVISOR) 5 mg disintegrating tablet Take 1 tablet by mouth once daily as needed for migraine headache (see administration instructions). May repeat in 2 hours if needed FISH OIL-DHA-EPA ORAL Take by mouth. phenazopyridine (PYRIDIUM) 200 mg tablet Take 1 tablet by mouth three times daily as needed. tamsulosin (FLOMAX) 0.4 mg Take 1 capsule by mouth daily at bedtime. dicyclomine (BENTYL) 10 mg capsule Take 1 capsule by mouth four times daily as needed (abdominal cramping). for fourteen(14) days (Patient taking differently: Take 10 mg by mouth four times daily as needed (abdominal cramping). PRN) BIOTIN ORAL (Patient not taking: Reported on 07/11/2023) folic acid 800 mcg tablet VITAMIN D3-VITAMIN K2, MK4, ORAL (Patient not taking: Reported on 07/11/2023) ascorbic acid (VITAMIN C ORAL) Take by mouth. (Patient not taking: Reported on 07/11/2023) Current Facility-Administered Medications Medication Dose Route Frequency perflutren lipid microspheres 1.3 mL in NaCl (PF) 0.9% 10 mL injection (DEFINITY) INTRAVENOUS DIRECTED PRN sodium chloride 0.9 % (flush) 10 mL (BD POSIFLUSH) 10 mL INTRAVENOUS DIRECTED PRN REVIEW OF SYSTEMS PAIN ASSESSMENT: Negative for pain, history of chronic pain, or current treatment for a chronic pain condition. GENERAL: No weight loss, malaise or fevers NECK: Negative for lumps, goiter, pain and significant neck swelling RESPIRATORY: Negative for cough, hemoptysis, wheezing, COPD, dyspnea or shortness of breath CARDIOVASCULAR: Negative for chest pain, leg swelling, hypertension, CHF or palpitations GI: See HPI : No history of dysuria, frequency or incontinence MUSCULOSKELETAL: Negative for joint pain or swelling, back pain or muscle pain HEMATOLOGY/LYMPHOLOGY: Negative for prolonged bleeding, bruising easily or swollen nodes ENDOCRINE: Negative for cold or heat intolerance, polyuria, polydipsia and goiter PHYSICAL EXAM: BP 120/67 Pulse 75 Resp 18 Ht 5' 1 (1.55m) Wt 184 lb (83.5kg) LMP 05/07/2021 BMI 34.78 kg/(m^2). General Appearance: Well appearing, alert, in no acute distress, well-hydrated, well nourished. and Obese. Abdomen: Normal abdominal exam, Abdomen soft, non-tender. Bowel sounds normal. No masses, organomegaly. Assessment: Gallbladder polyp (primary encounter diagnosis) Ruq pain Obesity, class ii, bmi 35-39.9 Cholecystitis Plan: ASSESSMENT/PLAN: 1. Gallbladder polyp - ICD9: 575.6, ICD10: K82.4 (primary diagnosis) Symptoms do not appear to be consistent with biliary disease. However, we will obtain a HIDA scan with CCK to evaluate ejection fraction and response to the CCK. Follow-up after study. 2. RUQ pain - ICD9: 789.01, ICD10: R10.11 As above 3. Obesity, Class II, BMI 35-39.9 - ICD9: 278.00, ICD10: E66.9 Stable 4. Cholecystitis - ICD9: 575.10, ICD10: K81.9 - NM HEPATOBILIARY W EF AND/OR RX Medical Decision Making: Problems: Moderate: New problem with uncertain prognosis Data: Unique test result(s) reviewed: 1 Unique test(s) ordered: 1 Risk: Low: Low risk from testing/treatment Medical Decision Making Level: 3 - Low Sohail Scherer M.D., F.A.C.S. documented in this encounter [facility] 07-16-2023 Instructions Sohail Scherer MD - 07/16/2023 11:33 AM EDT Thank you for coming to see me today. It is my pleasure to take care of you. If you have any questions regarding your visit, please don't hesitate to contact us. documented in this encounter [facility] 07-11-2023 Note HNO ID: [id number] Author: Js Pineda MD Service: ? Author Type: Physician Type: Progress Notes Filed: 07/11/2023 1:23 PM Note Text: Cardiology Ambulatory Clinic Note PCP: Usha Thibodeaux APRN.SURFACE GRINDER Chief Complaint Patient presents with: CARD New Patient Consult: Aortic valve stenosis HISTORY OF PRESENT ILLNESS: Ms. Pickett is a 58 year old female referred to cardiology clinic for aortic valve stenosis Pertinent medical history Bicuspid aortic valve with moderate to severe stenosis Hypertension Obesity BMI 35 Jia was found to have cardiac murmur long time ago. She had an echo in 2016 that showed bicuspid valve with mild to moderate stenosis. 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 Most recent echo in November 2022 showed preserved LVEF with severe aortic stenosis, DULCE 0.6, PG 86, MG 49, DI 0.26, visually valve seems to be moderately stenosed. Jia is asymptomatic from cardiac standpoint. She is without any anginal pain or dyspnea with exertion. She walks regularly for 3 miles without any issues. She is without leg swelling, orthopnea or PND. Is without lightheadedness or dizziness. PAST MEDICAL HISTORY Diagnosis Date Aortic valve stenosis, etiology of cardiac valve disease unspecified Cardiac murmur DSAP (disseminated superficial actinic porokeratosis) Gallbladder polyp Hypertension Meniere disease history of Migraine menstrual influenced PAST SURGICAL HISTORY Procedure Laterality Date REMOVE KIDNEY STONE 11/2022 TUBAL LIGATION HX FAMILY HISTORY Problem Relation Age of Onset Cancer Mother COPD Mother Heart Father 55 4 vessel CABG Cancer Father lung, mets to spine Cancer Sister 58 ovarian with mets to liver, kidney, lung Diabetes Paternal Grandmother Social History Tobacco Use Smoking status: Never Smokeless tobacco: Never Vaping Use Vaping Use: Never used Substance Use Topics Alcohol use: Yes Alcohol/week: 2.5 standard drinks of alcohol Types: 2 Standard drinks or equivalent, 1 Glasses of Wine (5oz) per week Comment: daily, a glass of red wine Drug use: No ALLERGIES Allergen Reactions Amoxicillin Itching Medications: Current Outpatient Medications Medication Sig Dispense Refill fluocinonide-emollient (LIDEX-E) 0.05 % cream Apply to affected area once daily. VITAMIN B COMPLEX ORAL Take by mouth once daily. APPLE CIDER VINEGAR ORAL cholesterol 2% lovastatin 2% topical cream (CPD) Apply to affected area three times daily. losartan (COZAAR) 25 mg tablet Take 1 tablet by mouth once daily. 30 tablet 11 cyanocobalamin, vitamin B-12, (B-12 COMPLIANCE) 1,000 mcg/mL kit multivitamin (DAILY VITAMIN ORAL) rizatriptan (MAXALT SECURITY OFFICER SUPERVISOR) 5 mg disintegrating tablet Take 1 tablet by mouth once daily as needed for migraine headache (see administration instructions). May repeat in 2 hours if needed 12 tablet 0 FISH OIL-DHA-EPA ORAL Take by mouth. phenazopyridine (PYRIDIUM) 200 mg tablet Take 1 tablet by mouth three times daily as needed. 9 tablet 0 tamsulosin (FLOMAX) 0.4 mg Take 1 capsule by mouth daily at bedtime. 30 capsule 0 dicyclomine (BENTYL) 10 mg capsule Take 1 capsule by mouth four times daily as needed (abdominal cramping). for fourteen(14) days (Patient taking differently: Take 10 mg by mouth four times daily as needed (abdominal cramping). PRN) 30 capsule 0 BIOTIN ORAL (Patient not taking: Reported on 07/11/2023) folic acid 800 mcg tablet VITAMIN D3-VITAMIN K2, MK4, ORAL (Patient not taking: Reported on 07/11/2023) ascorbic acid (VITAMIN C ORAL) Take by mouth. (Patient not taking: Reported on 07/11/2023) Current Facility-Administered Medications Medication Dose Route Frequency Provider Last Rate Last Admin perflutren lipid microspheres 1.3 mL in NaCl (PF) 0.9% 10 mL injection (DEFINITY) INTRAVENOUS DIRECTED PRN Usha Thibodeaux APRN.CNP sodium chloride 0.9 % (flush) 10 mL (BD POSIFLUSH) 10 mL INTRAVENOUS DIRECTED PRN Usha Thibodeaux APRN.CNP REVIEW OF SYSTEMS: GENERAL: Negative for:Weight loss and Weight gain HEENT: Negative for:Nosebleeds RESPIRATORY: Negative for:Shortness of breath GASTROINTESTINAL: Negative for:Blood in stool MUSCULOSKELETAL: Negtive for: Muscle or joint pain, stiffness, Joint swelling SKIN: No rash HEMATOLOGICAL/LYMPHATIC: Negative for: Easy bruising and Easy bleeding CARDIOVASCULAR: As stated in HPI. 10 system review negative except as stated in HPI Physical Examination: Vitals:BP 122/82 Pulse 63 Resp 18 Ht 5' 1 (1.55m) Wt 186 lb (84.4kg) SpO2 99[room air]% LMP 05/07/2021 BMI 35.16 kg/(m2). BP w/Orthostatic Vitals Date and Time Orthostatic BP Orthostatic Pulse BP Pulse BP Position BP Site BP Cuff Size 07/11/23919 -- -- 122/82 63 Sitting Left Arm Large Adult Peak Flow Date and Time PF Resp 07/11/23919 -- 18 Last 2 Encounter Wt Readings: Date: Wt: (more content not included)... [facility] 07-11-2023 History of Presen t illness Narrative Cardiology Ambulatory Clinic Note PCP: Usha Thibodeaux APRN.CNP Chief Complaint Patient presents with: CARD New Patient Consult: Aortic valve stenosis HISTORY OF PRESENT ILLNESS: Ms. Pickett is a 58 year old female referred to cardiology clinic for aortic valve stenosis Pertinent medical history Bicuspid aortic valve with moderate to severe stenosis Hypertension Obesity BMI 35 Jia was found to have cardiac murmur long time ago. She had an echo in 2016 that showed bicuspid valve with mild to moderate stenosis. 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 Most recent echo in November 2022 showed preserved LVEF with severe aortic stenosis, DULCE 0.6, PG 86, MG 49, DI 0.26, visually valve seems to be moderately stenosed. Jia is asymptomatic from cardiac standpoint. She is without any anginal pain or dyspnea with exertion. She walks regularly for 3 miles without any issues. She is without leg swelling, orthopnea or PND. Is without lightheadedness or dizziness. PAST MEDICAL HISTORY Diagnosis Date Aortic valve stenosis, etiology of cardiac valve disease unspecified Cardiac murmur DSAP (disseminated superficial actinic porokeratosis) Gallbladder polyp Hypertension Meniere disease history of Migraine menstrual influenced PAST SURGICAL HISTORY Procedure Laterality Date REMOVE KIDNEY STONE 11/2022 TUBAL LIGATION HX FAMILY HISTORY Problem Relation Age of Onset Cancer Mother COPD Mother Heart Father 55 4 vessel CABG Cancer Father lung, mets to spine Cancer Sister 58 ovarian with mets to liver, kidney, lung Diabetes Paternal Grandmother Social History Tobacco Use Smoking status: Never Smokeless tobacco: Never Vaping Use Vaping Use: Never used Substance Use Topics Alcohol use: Yes Alcohol/week: 2.5 standard drinks of alcohol Types: 2 Standard drinks or equivalent, 1 Glasses of Wine (5oz) per week Comment: daily, a glass of red wine Drug use: No ALLERGIES Allergen Reactions Amoxicillin Itching Medications: Current Outpatient Medications Medication Sig Dispense Refill fluocinonide-emollient (LIDEX-E) 0.05 % cream Apply to affected area once daily. VITAMIN B COMPLEX ORAL Take by mouth once daily. APPLE CIDER VINEGAR ORAL cholesterol 2% lovastatin 2% topical cream (CPD) Apply to affected area three times daily. losartan (COZAAR) 25 mg tablet Take 1 tablet by mouth once daily. 30 tablet 11 cyanocobalamin, vitamin B-12, (B-12 COMPLIANCE) 1,000 mcg/mL kit multivitamin (DAILY VITAMIN ORAL) rizatriptan (MAXALT SECURITY OFFICER SUPERVISOR) 5 mg disintegrating tablet Take 1 tablet by mouth once daily as needed for migraine headache (see administration instructions). May repeat in 2 hours if needed 12 tablet 0 FISH OIL-DHA-EPA ORAL Take by mouth. phenazopyridine (PYRIDIUM) 200 mg tablet Take 1 tablet by mouth three times daily as needed. 9 tablet 0 tamsulosin (FLOMAX) 0.4 mg Take 1 capsule by mouth daily at bedtime. 30 capsule 0 dicyclomine (BENTYL) 10 mg capsule Take 1 capsule by mouth four times daily as needed (abdominal cramping). for fourteen(14) days (Patient taking differently: Take 10 mg by mouth four times daily as needed (abdominal cramping). PRN) 30 capsule 0 BIOTIN ORAL (Patient not taking: Reported on 07/11/2023) folic acid 800 mcg tablet VITAMIN D3-VITAMIN K2, MK4, ORAL (Patient not taking: Reported on 07/11/2023) ascorbic acid (VITAMIN C ORAL) Take by mouth. (Patient not taking: Reported on 07/11/2023) Current Facility-Administered Medications Medication Dose Route Frequency Provider Last Rate Last Admin perflutren lipid microspheres 1.3 mL in NaCl (PF) 0.9% 10 mL injection (DEFINITY) INTRAVENOUS DIRECTED PRN Usha Thibodeaux, SALES WAREHOUSE DRIVER.SURFACE GRINDER sodium chloride 0.9 % (flush) 10 mL (BD POSIFLUSH) 10 mL INTRAVENOUS DIRECTED PRN Usha Thibodeaux, SALES WAREHOUSE DRIVER.SURFACE GRINDER REVIEW OF SYSTEMS: GENERAL: Negative for:Weight loss and Weight gain HEENT: Negative for:Nosebleeds RESPIRATORY: Negative for:Shortness of breath GASTROINTESTINAL: Negative for:Blood in stool MUSCULOSKELETAL: Negtive for: Muscle or joint pain, stiffness, Joint swelling SKIN: No rash HEMATOLOGICAL/LYMPHATIC: Negative for: Easy bruising and Easy bleeding CARDIOVASCULAR: As stated in HPI. 10 system review negative except as stated in HPI Physical Examination: Vitals:BP 122/82 Pulse 63 Resp 18 Ht 5' 1 (1.55m) Wt 186 lb (84.4kg) SpO2 99[room air]% LMP 05/07/2021 BMI 35.16 kg/(m^2). BP w/Orthostatic Vitals Date and Time Orthostatic BP Orthostatic Pulse BP Pulse BP Position BP Site BP Cuff Size 08919 -- -- 122/82 63 Sitting Left Arm Large Adult Peak Flow Date and Time PF Resp 07/11/23919 -- 18 Last 2 Encounter Wt Readings: Date: Wt: 07/11/2023 186 lb (84.4 kg) 05/19/2023 192 lb (87.1 kg) General: Well appearing, appears stated age and in no acute distress. Psych: Normal Affect Eyes: No subconjunctival hemorrhage Skin: No rash, bruising Oropharynx: Mucous membranes normal Neck: no jugular venous distention, no carotid bruits. Lymph: No cervical lymphadenopathy Lungs: Clear to auscultation bilaterally, no wheezing or rhonchi. Heart: S1, S2 normal, systolic murmur over aortic area, distinctly hear S1 and S2 Extremities: No peripheral edema Neuro: Grossly nonfocal LABS: TSH 1.630 10/13/2021 Triglyceride 41 10/13/2021 HDL Cholesterol 59 10/13/2021 LDL Cholesterol 115 10/13/2021 Cholesterol, Total 182 10/13/2021 CBC: Hemoglobin (g/dL) Date Value 11/15/2022 12.6 10/03/2020 14.9 Hematocrit (%) Date Value 11/15/2022 38.4 10/03/2020 45.3 WBC (k/uL) Date Value 11/15/2022 16.49 10/03/2020 5.14 Platelet Count (k/uL) Date Value 11/15/2022 174 10/03/2020 161 BMP: Potassium (mmol/L) Date Value 12/10/2022 4.3 10/03/2020 3.8 Sodium (mmol/L) Date Value 12/10/2022 141 10/03/2020 140 Chloride (mmol/L) Date Value 12/10/2022 105 10/03/2020 106 CO2 (mmol/L) Date Value 12/10/2022 27 10/03/2020 22 Creatinine (mg/dL) Date Value 12/10/2022 1.00 10/03/2020 0.97 BUN (mg/dL) Date Value 12/10/2022 18 10/03/2020 10 Anion Gap (mmol/L) Date Value 12/10/2022 9 10/03/2020 12 Calcium (mg/dL) Date Value 10/03/2020 9.2 Calcium, Total (mg/dL) Date Value 12/10/2022 9.8 TSH: No results found for: TSHREFL Prior Cardiac Testing EK07/11/2023 Sinus rhythm with a PVC Otherwise normal EKG Echo: 11/2022 LVEF 64%, moderate LVH Severe aortic stenosis, AV 0.66, PG 86, MG 49, DI 0.26, visually moderate to severe Stress test: 1. Nondiagnostic stress EKG for ischemia due to chronotropic incompetence. 2. Below average functional capacity for age. 3. No exercise associated cardiac symptoms were noted. ASSESSMENT Bicuspid aortic valve with moderate to severe stenosis Hypertension Obesity BMI 35 I have personally reviewed prior records including images of echo from November 2022 and discussed with the patient and her . PLAN Jia is fairly asymptomatic from aortic stenosis standpoint, visually valve seems to be moderate to severely stenosed. She is walking over 3 miles regularly without issues. Recently had treadmill stress test at which was nondiagnostic due to submaximal heart rate and poor functional capacity. Mentions she is just not used to running on treadmill and could not keep up and denied any angina or dyspnea with exercise. Detailed discussion with the patient and her regarding echo findings, her symptoms and future plan of care. Since she is relatively asymptomatic at this point shared decision making was performed and she decided for watchful waiting unless she becomes symptomatic or aortic stenosis further progresses at which point I will consider further work-up and referral to CT surgery for valve replacement I will see her back in 1 year and will order repeat echo at that time to monitor for cardiac structure and function as well as valvular stenosis Return in about 1 year (around 07/11/2024). Electronically signed by Js Pineda MD. The above note was partially created using a dictation recognition software. A reasonable attempt has been made to correct any errors. documented in this encounter [facility] 07-11-2023 Nurse Note Patient complains of palpitations, and pain in her (R) arms that travel up and down at random times. documented in this encounter [facility] 06-04-2023 Miscellaneous Notes All information has been faxed. Yolanda Taylor MA cardiac testing RN Mariaa called about stress test orders. Diagnosis code was aortic stenosis. The order was for regular exercise stress test. Patient had ECHO done Usha ordered regular stress test, looks like it was for chest pain. Will change code to chest pain Please fax new orders along with last OV note to [phone] Mariaa's direct number - [phone] Gogo Hunt APRN.SURFACE GRINDER documented in this encounter [facility] 05-22-2023 Miscellaneous Notes Patient called and left a message that they need to know exactly what type of stress test this is Joel Servin MA documented in this encounter [facility] 05-20-2023 Note HNO ID: [id number] Author: RT Jessica(Ba) Service: ? Author Type: Technologist Type: Progress Notes Filed: 05/20/2023 11:32 AM Note Text: Radiology Service Progress Note PATIENT NAME: Jia Pickett DATE OF SERVICE: May 20, 2023 TIME: 11:32 AM PATIENT IDENTITY VERIFICATION COMPLETED USING TWO (2) IDENTIFIERS: Name and Date of confirmed by patient verbally. FALL SCREENING: Has the patient had 2 falls in the last year or 1 fall with injury or currently using an Ambulatory Assistive Device (Walker, Cane, Wheelchair, Crutches, etc.)? No PATIENT GENDER DATA: Female. status: : No status: NO. PATIENT RELEVANT IMPLANT DATA REVIEWED: Not Applicable RADIOLOGY DEPARTMENT: Ultrasound PERIPHERAL IV DATA: Not applicable SIGNED BY: Morelia Mccrary RDMS, GARDENIA May 20, 2023 11:32 AM [facility] 05-20-2023 History of Presen t illness Narrative Radiology Service Progress Note PATIENT NAME: Jia Pickett DATE OF SERVICE: May 20, 2023 TIME: 11:32 AM PATIENT IDENTITY VERIFICATION COMPLETED USING TWO (2) IDENTIFIERS: Name and Date of confirmed by patient verbally. FALL SCREENING: Has the patient had 2 falls in the last year or 1 fall with injury or currently using an Ambulatory Assistive Device (Walker, Cane, Wheelchair, Crutches, etc.)? No PATIENT GENDER DATA: Female. status: : No status: NO. PATIENT RELEVANT IMPLANT DATA REVIEWED: Not Applicable RADIOLOGY DEPARTMENT: Ultrasound PERIPHERAL IV DATA: Not applicable SIGNED BY: Morelia Mccrary RDMS, GARDENIA May 20, 2023 11:32 AM documented in this encounter [facility] 05-19-2023 Note HNO ID: [id number] Author: Usha Thibodeaux APRN.SURFACE GRINDER Service: ? Author Type: Nurse Practitioner Type: Progress Notes Filed: 05/20/2023 5:46 PM Note Text: CHIEF COMPLAINT: Jia Pickett is a 58 year old female who presents for abdominal pain in her RUQ that radiates around to her back on the right side that started yesterday morning. She rates it at a 5/10 currently (10/10 during an attack) and describes it as a sharp, shooting, nagging pain. She has tried taking Tylenol for her pain. She does still have her gallbladder. I reviewed past medical, surgical, social, and family histories today and updated chart. Allergies, chronic medications, and supplements were also reviewed. She reports she is having a very difficult time losing weight. She has been tracking her foods to keep her calories <1,900 a day and has been walking for an hour 5-6 times a week and hasn't lost a pound. She is very frustrated and feels there is something wrong. The history is provided by the patient. No relays draftsperson was used. Abdominal Pain This is a new problem. The current episode started yesterday. The problem occurs constantly. The problem has not changed since onset.The pain is associated with an unknown factor. The pain is located in the RUQ. The pain is at a severity of 5/10. The pain is moderate. Associated symptoms include nausea (2 weeks ago). Pertinent negatives include anorexia, fever, belching, diarrhea, flatus, hematochezia, melena, vomiting, constipation, dysuria, frequency, headaches, arthralgias and myalgias. The symptoms are aggravated by palpation and certain positions. The symptoms are relieved by sitting up and OTC medications. Past workup does not include GI consult, CT scan, ultrasound, surgery or barium enema. Her past medical history does not include PUD, gallstones, GERD, ulcerative colitis, Crohn's disease or irritable bowel syndrome. PAST MEDICAL HISTORY Diagnosis Date Cardiac murmur DSAP (disseminated superficial actinic porokeratosis) Hypertension Meniere disease history of Migraine menstrual influenced PAST SURGICAL HISTORY Procedure Laterality Date TUBAL LIGATION HX Social History Tobacco Use Smoking status: Never Smokeless tobacco: Never Vaping Use Vaping Use: Never used Substance Use Topics Alcohol use: Yes Alcohol/week: 2.5 standard drinks Types: 2 Standard drinks or equivalent, 1 Glasses of Wine (5oz) per week Comment: daily, a glass of red wine Drug use: No ALLERGIES Allergen Reactions Amoxicillin Itching Family History Problem Relation Age of Onset Cancer Mother COPD Mother Heart Father 55 4 vessel CABG Cancer Father lung, mets to spine Cancer Sister 58 ovarian with mets to liver, kidney, lung Diabetes Paternal Grandmother Current Outpatient Medications Medication Sig Dispense Refill APPLE CIDER VINEGAR ORAL cholesterol 2% lovastatin 2% topical cream (CPD) Apply to affected area three times daily. losartan (COZAAR) 25 mg tablet Take 1 tablet by mouth once daily. 30 tablet 11 BIOTIN ORAL cyanocobalamin, vitamin B-12, (B-12 COMPLIANCE) 1,000 mcg/mL kit folic acid 800 mcg tablet multivitamin (DAILY VITAMIN ORAL) VITAMIN D3-VITAMIN K2, MK4, ORAL rizatriptan (MAXALT SECURITY OFFICER SUPERVISOR) 5 mg disintegrating tablet Take 1 tablet by mouth once daily as needed for migraine headache (see administration instructions). May repeat in 2 hours if needed 12 tablet 0 FISH OIL-DHA-EPA ORAL Take by mouth. phenazopyridine (PYRIDIUM) 200 mg tablet Take 1 tablet by mouth three times daily as needed. 9 tablet 0 tamsulosin (FLOMAX) 0.4 mg Take 1 capsule by mouth daily at bedtime. 30 capsule 0 dicyclomine (BENTYL) 10 mg capsule Take 1 capsule by mouth four times daily as needed (abdominal cramping). for fourteen(14) days (Patient taking differently: Take 10 mg by mouth four times daily as needed (abdominal cramping). PRN) 30 capsule 0 ascorbic acid (VITAMIN C ORAL) Take by mouth. Current Facility-Administered Medications Medication Dose Route Frequency Provider Last Rate Last Admin perflutren lipid microspheres 1.3 mL in NaCl (PF) 0.9% 10 mL injection (DEFINITY) INTRAVENOUS DIRECTED PRN Usha Thibodeaux APRN.CNP sodium chloride 0.9 % (flush) 10 mL (BD POSIFLUSH) 10 mL INTRAVENOUS DIRECTED PRN Usha Thibodeaux APRN.MAHESH Review of Systems Constitutional: Positive for diaphoresis (2 weeks ago). Negative for appetite change, chills, fatigue, fever and unexpected weight change. Respiratory: Positive for shortness of breath (due to the pain). Negative for cough, chest tightness and wheezing. Cardiovascular: Negative for chest pain, palpitations and leg swelling. Gastrointestinal: Positive for abdominal distention, abdominal pain (RUQ) and nausea (2 weeks ago). Negative for anorexia, blood in stool, constipation, diarrhea, flatus, hematochezia, melena, rectal pain and vomiting. Genitourinary: Negative for (more content not included)... [facility] 05-19-2023 Instructions Usha Thibodeaux APRN.MAHESH - 05/19/2023 4:[address] Lynn Lanza [facility] [address] [place] [address] Appointment:[phone] [place] [address] Appointment:[phone] [place] [address] Appointment:[phone] documented in this encounter [facility] 05-19-2023 History of Presen t illness Narrative CHIEF COMPLAINT: Jia Pickett is a 58 year old female who presents for abdominal pain in her RUQ that radiates around to her back on the right side that started yesterday morning. She rates it at a 5/10 currently (10/10 during an attack) and describes it as a sharp, shooting, nagging pain. She has tried taking Tylenol for her pain. She does still have her gallbladder. I reviewed past medical, surgical, social, and family histories today and updated chart. Allergies, chronic medications, and supplements were also reviewed. She reports she is having a very difficult time losing weight. She has been tracking her foods to keep her calories <1,900 a day and has been walking for an hour 5-6 times a week and hasn't lost a pound. She is very frustrated and feels there is something wrong. The history is provided by the patient. No relays draftsperson was used. Abdominal Pain This is a new problem. The current episode started yesterday. The problem occurs constantly. The problem has not changed since onset.The pain is associated with an unknown factor. The pain is located in the RUQ. The pain is at a severity of 5/10. The pain is moderate. Associated symptoms include nausea (2 weeks ago). Pertinent negatives include anorexia, fever, belching, diarrhea, flatus, hematochezia, melena, vomiting, constipation, dysuria, frequency, headaches, arthralgias and myalgias. The symptoms are aggravated by palpation and certain positions. The symptoms are relieved by sitting up and OTC medications. Past workup does not include GI consult, CT scan, ultrasound, surgery or barium enema. Her past medical history does not include PUD, gallstones, GERD, ulcerative colitis, Crohn's disease or irritable bowel syndrome. PAST MEDICAL HISTORY Diagnosis Date Cardiac murmur DSAP (disseminated superficial actinic porokeratosis) Hypertension Meniere disease history of Migraine menstrual influenced PAST SURGICAL HISTORY Procedure Laterality Date TUBAL LIGATION HX Social History Tobacco Use Smoking status: Never Smokeless tobacco: Never Vaping Use Vaping Use: Never used Substance Use Topics Alcohol use: Yes Alcohol/week: 2.5 standard drinks Types: 2 Standard drinks or equivalent, 1 Glasses of Wine (5oz) per week Comment: daily, a glass of red wine Drug use: No ALLERGIES Allergen Reactions Amoxicillin Itching Family History Problem Relation Age of Onset Cancer Mother COPD Mother Heart Father 55 4 vessel CABG Cancer Father lung, mets to spine Cancer Sister 58 ovarian with mets to liver, kidney, lung Diabetes Paternal Grandmother Current Outpatient Medications Medication Sig Dispense Refill APPLE CIDER VINEGAR ORAL cholesterol 2% lovastatin 2% topical cream (CPD) Apply to affected area three times daily. losartan (COZAAR) 25 mg tablet Take 1 tablet by mouth once daily. 30 tablet 11 BIOTIN ORAL cyanocobalamin, vitamin B-12, (B-12 COMPLIANCE) 1,000 mcg/mL kit folic acid 800 mcg tablet multivitamin (DAILY VITAMIN ORAL) VITAMIN D3-VITAMIN K2, MK4, ORAL rizatriptan (MAXALT SECURITY OFFICER SUPERVISOR) 5 mg disintegrating tablet Take 1 tablet by mouth once daily as needed for migraine headache (see administration instructions). May repeat in 2 hours if needed 12 tablet 0 FISH OIL-DHA-EPA ORAL Take by mouth. phenazopyridine (PYRIDIUM) 200 mg tablet Take 1 tablet by mouth three times daily as needed. 9 tablet 0 tamsulosin (FLOMAX) 0.4 mg Take 1 capsule by mouth daily at bedtime. 30 capsule 0 dicyclomine (BENTYL) 10 mg capsule Take 1 capsule by mouth four times daily as needed (abdominal cramping). for fourteen(14) days (Patient taking differently: Take 10 mg by mouth four times daily as needed (abdominal cramping). PRN) 30 capsule 0 ascorbic acid (VITAMIN C ORAL) Take by mouth. Current Facility-Administered Medications Medication Dose Route Frequency Provider Last Rate Last Admin perflutren lipid microspheres 1.3 mL in NaCl (PF) 0.9% 10 mL injection (DEFINITY) INTRAVENOUS DIRECTED PRN Usha Thibodeaux APRN.MAHESH sodium chloride 0.9 % (flush) 10 mL (BD POSIFLUSH) 10 mL INTRAVENOUS DIRECTED PRN Uhsa Thibodeaux APRN.MAHESH Review of Systems Constitutional: Positive for diaphoresis (2 weeks ago). Negative for appetite change, chills, fatigue, fever and unexpected weight change. Respiratory: Positive for shortness of breath (due to the pain). Negative for cough, chest tightness and wheezing. Cardiovascular: Negative for chest pain, palpitations and leg swelling. Gastrointestinal: Positive for abdominal distention, abdominal pain (RUQ) and nausea (2 weeks ago). Negative for anorexia, blood in stool, constipation, diarrhea, flatus, hematochezia, melena, rectal pain and vomiting. Genitourinary: Negative for dysuria, frequency and urgency. Musculoskeletal: Negative for arthralgias, back pain, myalgias and neck pain. Skin: Negative for rash. Neurological: Negative for dizziness, light-headedness and headaches. BP 120/74 Pulse 74 Temp 98.2 Resp 18 Ht 5' 1.5 (1.56m) Wt 192 lb (87.1kg) SpO2 94% LMP 05/07/2021 BMI 35.70 kg/(m^2). Physical Exam Vitals and nursing note reviewed. Constitutional: General: She is in acute distress (appears uncomfortable). Appearance: She is obese. HENT: Mouth/Throat: Mouth: Mucous membranes are moist. Eyes: Pupils: Pupils are equal, round, and reactive to light. Cardiovascular: Rate and Rhythm: Normal rate and regular rhythm. Heart sounds: Normal heart sounds. Pulmonary: Effort: Pulmonary effort is normal. Breath sounds: Normal breath sounds and air entry. Abdominal: General: Bowel sounds are normal. Palpations: Abdomen is soft. There is no splenomegaly or mass. Tenderness: There is abdominal tenderness in the right upper quadrant and epigastric area. There is no guarding. Negative signs include Mohr's sign and McBurney's sign. Musculoskeletal: Cervical back: Neck supple. Skin: General: Skin is warm and dry. Findings: No rash. Neurological: Mental Status: She is alert and oriented to person, place, and time. Psychiatric: Mood and Affect: Mood is anxious. Speech: Speech is tangential. ASSESSMENT/PLAN: 1. RUQ pain - ICD9: 789.01, ICD10: R10.11 (primary diagnosis) Etiology unclear Differential Diagnosis includes GERD, PUD, Gastritis, and Gall bladder colic/cholelithiasis - Labs of CBC with Diff, CMP, and Lipase - Work up with RUQ ultrasound - Increase fiber in diet - Timbo low-fat diet - Follow up in 2 weeks or sooner if worsening of symptoms - COMP METABOLIC PANEL - LIPASE BLD - CONSULT TO GENERAL SURGERY - US ABD RIGHT UPPER QUADRANT - TRAMADOL 50 MG TABLET PDMP website checked and validated. All prescriptions have been APPROPRIATELY filled. No suspicious activity was identified. 05/19/2023 by Usha Thibodeaux APRN.CNP 2. Common bile duct dilatation - ICD9: 576.8, ICD10: K83.8 - Noted on MRI panc/christina in 2019 - CT abd in 2021 did not show any dilation 3. Unable to lose weight - ICD9: 783.9, ICD10: R63.8 - Checked TSH in November that was normal - INSULIN ASSAY BLOOD - HGB A1C 4. Elevated blood sugar - ICD9: 790.29, ICD10: R73.9 - INSULIN ASSAY BLOOD - HGB A1C New medication(s) prescribed today: Yes: Tramadol. Discussed new medication dosage, usage, goals of therapy, and side effects. Patient has been apprised of any potential drug interactions to be aware of. Patient expresses understanding. Counseling completed in adopting health behaviors such as avoiding excessive alcohol use, avoid tobacco use, improve nutrition, and engage in physical activities. Copy of written care plan, clinical summary, treatment plan, new medications, goals, and self management requirements were given to patient. Usha Thibodeaux APRN.MAHESH documented in this encounter [facility] 04-07-2023 Miscellaneous Notes Pharmacy requesting refills as follows: Last Office Visit 12/10/22. Last Refill 03/20/22. Requested Prescriptions Pending Prescriptions Disp Refills losartan (COZAAR) 25 mg tablet [Pharmacy Med Name: losartan 25 mg tablet] 30 tablet 11 Sig: Take 1 tablet by mouth once daily. Please review and advise. Joel Servin MA documented in this encounter [facility] 12-23-2022 Miscellaneous Notes Tired contacting patient NA. My chart message sent. Eva Carrera MA Please let the patient know that her Echo was abnormal. There is severe aortic stenosis (narrowing) which has advanced from her previous echo in 2017. I'm placing a referral for cardiology. I am also ordering an exercise stress test that she will have to complete at [place]. Cardiology: Dr. Guru Hathaway DO or Dr. Nick Patel [facility] [address] [place] [address] documented in this encounter [facility] documented as of this encounter (statuses as of 07/11/2023) [facility] [facility]01-19-2023 History of Past illness Narrative* Problem Noted Date Diagnosed Date Resolved Date Chest pain 12/12/2022 07/11/2023 Dermatophytosis 04/06/2018 03/12/2019 Obesity, Class I, BMI 30-34.9 E66.9 03/27/2018 07/11/2023 Viral URI with cough 03/27/2018 019 Recurrent UTI (urinary tract infection) 05/13/2017 03/12/2019 Malassezia furfur causing tinea 05/13/2017 03/12/2019 Breast lump on right side at 6 o'clock position 05/13/2017 03/12/2019 Breast pain, left 05/13/2017 03/12/2019 Irritation of left eye 05/13/201704/27 Persistent dry cough 05/13/2017 019 Hypertension, essential 05/13/2017 05/0 02/2018 Hypertension 01/13/2017 07/11/2023 Undiagnosed cardiac murmurs 06/27/2015 07/11/2023 documented as of this encounter (statuses as of 07/17/2023) [facility] History of Past illness Narrative* Problem Noted Date Diagnosed Date Resolved Date Chest pain 12/12/2022 07/11/2023 Dermatophytosis 04/06/2018 03/12/2019 Obesity, Class I, BMI 30-34.9 E66.9 03/27/2018 07/11/2023 Viral URI with cough 03/27/2018 019 Recurrent UTI (urinary tract infection) 05/13/2017 03/12/2019 Malassezia furfur causing tinea 05/13/2017 03/12/2019 Breast lump on right side at 6 o'clock position 05/13/2017 03/12/2019 Breast pain, left 05/13/2017 03/12/2019 Irritation of left eye 05/13/201704/27 Persistent dry cough 05/13/2017 019 Hypertension, essential 05/13/2017 05/0 02/2018 Hypertension 01/13/2017 07/11/2023 Undiagnosed cardiac murmurs 06/27/2015 07/11/2023 documented as of this encounter (statuses as of 08/08/2023) [facility] History of Past illness Narrative* Problem Noted Date Diagnosed Date Resolved Date Chest pain 12/12/2022 07/11/2023 Dermatophytosis 04/06/2018 03/12/2019 Obesity, Class I, BMI 30-34.9 E66.9 03/27/2018 07/11/2023 Viral URI with cough 03/27/2018 019 Recurrent UTI (urinary tract infection) 05/13/2017 03/12/2019 Malassezia furfur causing tinea 05/13/2017 03/12/2019 Breast lump on right side at 6 o'clock position 05/13/2017 03/12/2019 Breast pain, left 05/13/2017 03/12/2019 Irritation of left eye 05/13/201704/27 Persistent dry cough 05/13/2017 019 Hypertension, essential 05/13/2017 05/0 02/2018 Hypertension 01/13/2017 07/11/2023 Undiagnosed cardiac murmurs 06/27/2015 07/11/2023 documented as of this encounter (statuses as of 09/24/2023) [facility]-19[facility] History of Past illness Narrative* Problem Noted Date Diagnosed Date Resolved Date Chest pain 12/12/2022 07/11/2023 Dermatophytosis 04/06/2018 03/12/2019 Obesity, Class I, BMI 30-34.9 E66.9 03/27/2018 07/11/2023 Viral URI with cough 03/27/2018 019 Recurrent UTI (urinary tract infection) 05/13/2017 03/12/2019 Malassezia furfur causing tinea 05/13/2017 03/12/2019 Breast lump on right side at 6 o'clock position 05/13/2017 03/12/2019 Breast pain, left 05/13/2017 03/12/2019 Irritation of left eye 05/13/201704/27 Persistent dry cough 05/13/2017 019 Hypertension, essential 05/13/2017 05/0 02/2018 Hypertension 01/13/2017 07/11/2023 Undiagnosed cardiac murmurs 06/27/2015 07/11/2023 documented as of this encounter (statuses as of 10/15/2023) [facility] History of Past illness Narrative* Problem Noted Date Diagnosed Date Resolved Date Chest pain 12/12/2022 07/11/2023 Dermatophytosis 04/06/2018 03/12/2019 Obesity, Class I, BMI 30-34.9 E66.9 03/27/2018 07/11/2023 Viral URI with cough 03/27/2018 019 Recurrent UTI (urinary tract infection) 05/13/2017 03/12/2019 Malassezia furfur causing tinea 05/13/2017 03/12/2019 Breast lump on right side at 6 o'clock position 05/13/2017 03/12/2019 Breast pain, left 05/13/2017 03/12/2019 Irritation of left eye 05/13/201704/27 Persistent dry cough 05/13/2017 019 Hypertension, essential 05/13/2017 05/0 02/2018 Hypertension 01/13/2017 07/11/2023 Undiagnosed cardiac murmurs 06/27/2015 07/11/2023 documented as of this encounter (statuses as of 12/30/2023) [facility] History of Past illness Narrative* Problem Noted Date Diagnosed Date Resolved Date Chest pain 12/12/2022 07/11/2023 Dermatophytosis 04/06/2018 03/12/2019 Obesity, Class I, BMI 30-34.9 E66.9 03/27/2018 07/11/2023 Viral URI with cough 03/27/2018 019 Recurrent UTI (urinary tract infection) 05/13/2017 03/12/2019 Malassezia furfur causing tinea 05/13/2017 03/12/2019 Breast lump on right side at 6 o'clock position 05/13/2017 03/12/2019 Breast pain, left 05/13/2017 03/12/2019 Irritation of left eye 05/13/201704/27 Persistent dry cough 05/13/2017 019 Hypertension, essential 05/13/2017 05/0 02/2018 Hypertension 01/13/2017 07/11/2023 Undiagnosed cardiac murmurs 06/27/2015 07/11/2023 documented as of this encounter (statuses as of 01/01/2024) [facility]-19[facility] History of Past illness Narrative* Problem Noted Date Diagnosed Date Resolved Date Chest pain 12/12/2022 07/11/2023 Dermatophytosis 04/06/2018 03/12/2019 Obesity, Class I, BMI 30-34.9 E66.9 03/27/2018 07/11/2023 Viral URI with cough 03/27/2018 019 Recurrent UTI (urinary tract infection) 05/13/2017 03/12/2019 Malassezia furfur causing tinea 05/13/2017 03/12/2019 Breast lump on right side at 6 o'clock position 05/13/2017 03/12/2019 Breast pain, left 05/13/2017 03/12/2019 Irritation of left eye 05/13/201704/27 Persistent dry cough 05/13/2017 019 Hypertension, essential 05/13/2017 05/0 02/2018 Hypertension 01/13/2017 07/11/2023 Undiagnosed cardiac murmurs 06/27/2015 07/11/2023 documented as of this encounter (statuses as of 01/02/2024) [facility]01-17-[facility]23 Instructions* Patient Instructions* Usha Thibodeaux APRN.SURFACE GRINDER - 12/10/2022 10:32 AM EST DIETARY MANAGEMENT KIDNEY STONES URIC ACID STONES: Animal proteins: Meat, chicken, seafood Helpful foods: Fruit, vegetables CALCIUM OXALATE: Salt: Reduce salt in the diet No added salt. Calcium supplements: with meals to bind oxalate taken in the meal. Oxalate: See table below. AVOID greater than 500 mg vitamin C a day and TAKE vitamin B6 50 mg a day. FLUID: 3 to 4 quarts a day. AVOID grapefruit juice. PARTIAL LIST OF OXALATE CONTENT OF FOODS FOOD MG OF OXALATE (Serving Size in Parentheses) Spinach cooked 608 (1/2 cup) Rhubarb, frozen 570 (1/2 cup) Spinach, chopped raw 361 (1 cup) Green beans, steamed 45 (1 cup) Bran flakes 40 (1/2 cup) Peanuts 27 (1 oz) Potato, microwave 25 (1 medium) Celery 25 (1 stalk) Tea, brewed 18 (1 cup) Chocolate 16 (1 oz bar) Peanut butter 15 (1 Tbsp) White bread 4 (1 slice) Carrots raw 4 (1 carrot) Potato chips 3 (1 serving bag) White rice, steamed 3 (1 cup) Peaches, canned 1 (1/2 cup) Broccoli, steamed 1 (1/2 cup) [place] jelly 1 (1 Tbsp) Apple, raw 0.7 (1 fruit) [place] flakes 0.6 (1 cup) BONE MINERAL DENSITY PATIENT INSTRUCTIONS Bone mineral density testing measures the amount of calcium in certain parts of your bones. This information determines how strong your bones are. The test is used to detect osteoporosis, a disease in which the bone's mineral content and density are low, increasing a person's risk of fractures. Thelumbar spine (lower back) and the hip are the skeletal sites usually examined. For the test, remember that: 1. You cannot take this test if you are . 2. Eat a normal diet on the day of the test. 3. Take your medications as you normally would. 4. DO NOT take calcium supplements (such as Tums) for 24 hours before the test. 5. On the day of the test, leave valuables (jewelry or credit cards) at home. 6. The test should be performed prior to oral, rectal or IV contrast studies, or at least 7 days after any of these studies. For the test, you may be asked to wear a hospital gown. You will lie on your back, on a padded table, in a comfortable position. Generally, you can resume your usual activities immediately. documented in this encounterU[facility] Health01-17-[facility]23 History of Present illness Narrative* Usha Thibodeaux APRN.CNP - 12/10/2022 10:21 AM EST CHIEF COMPLAINT: Jia Pickett is a 57 year old female who presents for follow up for urethral stent removal. I reviewed past medical, surgical, social, and family histories today and updated chart. Allergies, chronic medications, and supplements were also reviewed. Came to the ER for flank pain on 10/25/23 and was transferred to [facility] and had lithotripsy and stent placement. She was discharged home the next day. She then had her second stent placed on 11/29/22. While she was at the surgery center the anesthesiologist asked her about her aortic stenosis and suggested she has an updated echo. She notes that recently on vacation she was walking and had pain all down the right side of her body. She sat down and it resolved in 20 minutes. Hasn't had any since then. She had a follow up with urology on 12/06/22 and had the stent removed in office. She has been doingwell since then. She has a follow up with urology again in January. Denies drinking alcohol or a lot of caffeine. She has never had a kidney stone in the past. Admits to not drinking enough water. She was also taking an OTC supplement that had calcium and magnesium in it but she has since stopped this. She is asking if she can get a bone density exam. The history is provided by the patient. No relays draftsperson was used. PAST MEDICAL HISTORY Diagnosis Date Cardiac murmur Hypertension Meniere disease history of Migraine menstrual influenced PAST SURGICAL HISTORY Procedure Laterality Date TUBAL LIGATION HX Social History Tobacco Use Smoking status: Never Smokeless tobacco: Never Vaping Use Vaping Use: Never used Substance Use Topics Alcohol use: Yes Alcohol/week: 2.5 standard drinks Types: 2 Standard drinks or equivalent, 1 Glasses of Wine (5oz) per week Comment: daily, a glass of red wine Drug use: No ALLERGIES Allergen Reactions Amoxicillin Itching Family History Problem Relation Age of Onset Cancer Mother COPD Mother Heart Father 55 4 vessel CABG Cancer Father lung, mets to spine Cancer Sister 58 ovarian with mets to liver, kidney, lung Diabetes Paternal Grandmother Current Outpatient Medications Medication Sig Dispense Refill BIOTIN ORAL cyanocobalamin, vitamin B-12, (B-12 COMPLIANCE) 1,000 mcg/mL kit folic acid 800 mcg tablet multivitamin (DAILY VITAMIN ORAL) VITAMIN D3-VITAMIN K2, MK4, ORAL FISH OIL-DHA-EPA ORAL Take by mouth. tamsulosin (FLOMAX) 0.4 mg Take 1 capsule by mouth daily at bedtime. 30 capsule 0 losartan (COZAAR) 25 mg tablet Take 1 tablet by mouth once daily. 30 tablet 11 dicyclomine (BENTYL) 10 mg capsule Take 1 capsule by mouth four times daily as needed (abdominal cramping). for fourteen(14) days (Patient taking differently: Take 10 mg by mouth four times daily as needed (abdominal cramping). PRN) 30 capsule 0 ascorbic acid (VITAMIN C ORAL) Take by mouth. TURMERIC ORAL Take by mouth. rizatriptan (MAXALT SECURITY OFFICER SUPERVISOR) 5 mg disintegrating tablet Take 1 tablet by mouth once daily as needed formigraine headache (see administration instructions). May repeat in 2 hours if needed 12 tablet 0 phenazopyridine (PYRIDIUM) 200 mg tablet Take 1 tablet by mouth three times daily as needed. (Patient not taking: Reported on 12/10/2022) 9 tablet 0 Current Facility-Administered Medications Medication Dose Route Frequency Provider Last Rate Last Admin perflutren lipid microspheres 1.3 mL in NaCl (PF) 0.9% 10 mL injection (DEFINITY) INTRAVENOUS DIRECTED PRN Usha Thibodeaux APRN.SURFACE GRINDER sodium chloride 0.9 % (flush) 10 mL (BD POSIFLUSH) 10 mL INTRAVENOUS DIRECTED PRN Usha Thibodeaux APRN.SURFACE GRINDER hydrocortisone topical cream 2.5% TOPICAL BID Yani Kemp, DO Review of Systems Constitutional: Negative for appetite change, chills, diaphoresis, fatigue, fever and unexpected weight change. HENT: Negative. Eyes: Negative for visual disturbance. Respiratory: Positive for shortness of breath. Negative for cough, chest tightness and wheezing. Cardiovascular: Positive for chest pain. Negative for palpitations and leg swelling. Gastrointestinal: Negative for abdominal pain, constipation, diarrhea, nausea and vomiting. Endocrine: Negative. Genitourinary: Negative for decreased urine volume, dysuria, flank pain, hematuria, pelvic pain andurgency. Musculoskeletal: Negative for back pain. Skin: Negative. Allergic/Immunologic: Negative. Neurological: Positive for dizziness and light-headedness. Negative for headaches. Hematological: Negative. Psychiatric/Behavioral: Negative. BP 126/70 Pulse 64 Temp 98.2 Resp 18 Ht 5' 1.5 (1.56m) Wt 192 lb (87.1kg) SpO2 95% LMP 05/07/2021 BMI 35.70 kg/(m^2). Physical Exam Vitals and nursing note reviewed. Constitutional: General: She is not in acute distress. Appearance: She is obese. HENT: Mouth/Throat: Mouth: Mucous membranes are moist. Eyes: Pupils: Pupils are equal, round, and reactive to light. Cardiovascular: Rate and Rhythm: Normal rate and regular rhythm. Heart sounds: S1 normal and S2 normal. Murmur heard. Crescendo systolic murmur is present with a grade of 1/6. Pulmonary: Effort: Pulmonary effort is normal. Breath sounds: Normal breath sounds and air entry. No decreased breath sounds, wheezing, rhonchi orrales. Musculoskeletal: Cervical back: Neck supple. Skin: General: Skin is warm and dry. Neurological: Mental Status: She is alert and oriented to person, place, and time. Psychiatric: Mood and Affect: Mood normal. Behavior: Behavior is cooperative. Cognition and Memory: Cognition normal. No visits with results within 1 Day(s) from this visit. Latest known visit with results is: Office Visit on 12/06/2022 Component Date Value Ref Range Status GLUCOSE UA (POCT) 12/06/2022 Negative Negative mg/dL Final BILIRUBIN UA (POCT) 12/06/2022 Negative Negative Final KETONE UA (POCT) 12/06/2022 Negative Negative mg/dL Final SPECIFIC GRAVITY UA (POCT) 12/06/2022 1.015 1.005 - 1.030 Final HEMOGLOBIN/BLOOD UA (POCT) 12/06/2022 Large (A) Negative Final PH UA (POCT) 12/06/2022 6.0 4.5 - 8.0 Final PROTEIN UA (POCT) 12/06/2022 100 (A) Negative mg/dL Final UROBILINOGEN UA (POCT) 12/06/2022 0.2 Normal E.U./dL Final NITRITE UA (POCT) 12/06/2022 Negative Negative Final LEUKOCYTES UA (POCT) 12/06/2022 Small (A) Negative Final COLOR UA (POCT) 12/06/2022 Yellow Final CLARITY UA (POCT) 12/06/2022 Clear Final ASSESSMENT/PLAN: 1. Calculus of kidney - ICD9: 592.0, ICD10: N20.0 (primary diagnosis) - Following urology. We discussed diet changes in office today. Increase water intake. - Check bone density - DXA-AXIAL SKELETON - PTH INTACT BLD 2. Aortic valve stenosis, etiology of cardiac valve disease unspecified - ICD9: 424.1, ICD10: I35.0 - ECHO 3. Mitral valve prolapse - ICD9: 424.0, ICD10: I34.1 - ECHO 4. History of cardiac murmur - ICD9: V12.59, ICD10: Z86.79 - ECHO 5. Chest pain, unspecified type - ICD9: 786.50, ICD10: R07.9 Chest pain of unclear etiology, patient with significant risk factor(s) of Hypertension and aortic stenosis - Reviewed previous EKG from 11/14/22 - Lab evaluation CMP and TSH - Stress testing- see orders - NM CARDIAC PERF STRESS/EXERCISE - VITAMIN D 25 HYDROXY - COMP METABOLIC PANEL - T4/THYROXINE BLOOD - T4 FREE/FREE THYROX - T3 BLD 6. Migraine without status migrainosus, not intractable, unspecified migraine type - ICD9: 346.90, ICD10: G43.909 - Med refill - RIZATRIPTAN 5 MG DISINTEGRATING TABLET 7. Asymptomatic postmenopausal status - ICD9: V49.81, ICD10: Z78.0 - DXA-AXIAL SKELETON - VITAMIN D 25 HYDROXY 8. Screening for depression - ICD9: V79.0, ICD10: Z13.31 - No risk - DEPRESSION SCREENING/ASSESSMENT New medication(s) prescribed today: None. Counseling completed in adopting health behaviors such as avoiding excessive alcohol use, avoid tobacco use, improve nutrition, and engage in physical activities. Copy of written care plan, clinical summary, treatment plan, new medications, goals, and self management requirements were given to patient. Usha Thibodeaux APRN.MAHESH documented in this encounterUc Health01-13-2023 Instructions* Patient Instructions* Harman Lopez MD - 12/06/2022 11:52 AM EST INSTRUCTIONS FROM DR. LOPEZ: Perform the Litholink/24-hour urine study when you get it in the mail and send it back in as it cantake time to get the results, so try to have it in at least 4 weeks prior to follow-up for appointment PATIENT INFORMATION: [facility] Department of Urology After your Cystoscopy You have undergone a cystoscopy. Your doctor has inserted a telescope into your urinary bladder through your urethra to view the inside of your bladder. WHAT TO EXPECT: Possible burning during urination and /or blood tinged urine. WHAT TO DO: Resume normal activity and medications. Drink 6-8 glasses of fluid each day for 3 days to help flush your urinary system. MEDICATIONS: You were given, a preventative antibiotic, prior to the procedure. WHEN TO CALL DOCTOR: IF you have a fever over 100 degrees Farenheit. IF you are unable to urinate IF your urine becomes very bloody and does not clear with drinking extra fluids. documented in this encounterUc Health01-13-2023 Procedure note* Harman Lopez MD - 12/06/2022 11:47 AM ESTProcedure(s): CYSTO W/SIMPLE REMOVAL STONE & STENT Pre-Procedure Diagnose(s): Encounter for removal of ureteral stent Post-Procedure Diagnose(s): Encounter for removal of ureteral stent CYSTOSCOPY/stent removal- PROCEDURE NOTE: Cysto/stent remove-[id number] Dx:[id number] Jia Pickett is a 57 year old female who presents for a cystoscopy and stent removal Pt ID verified with patient: yes Procedure verified with patient: cystoscopy/stent remove-yes Procedure confirmed with physician and learning support aide: yes Special equipment-cystoscope and grasping forceps UNIVERSAL PROTOCOL / SAFETY CHECKLIST Procedure to be Performed: cysto, stent remove Sign In: A Moment of CARE was completed. Personnel directly involved with the procedure wore the appropriate PPE (Personal Protective Equipment). Patient/Surrogate Stated/Verified: PATIENT VERIFIED(optional for EMERGENT procedures): Patient name, Date of , Relevant allergies, and The intended procedure Time Out Communication: Intended patient and procedure match the source documents. Consent documented and matches the intended procedure. Relevant labs, photos, and/or imaging studies have been reviewed. Correct side/site marked and visible. Medications required for procedure verified. Fire risk assessed and interventions discussed. No implant(s) inserted. Sign Out: SIGN OUT (optional for EMERGENT procedures): All specimen containers correctly labeled. All instruments, equipment, possible retained foreign bodies accounted for. Post-procedure follow-up management communicated and Plan of Care Visit completed when applicable. Harman Lopez MD The benefits, risks, alternatives of the cystoscopy procedure and personnel were discussed with thepatient. The verbal consent was obtained and the patient agrees to proceed. Procedure: The patient was placed on the procedure table in the supine/lithotomy position and prepped in the usual sterile fashion. Antibiotic was- Bactrim The cystoscope was carefully placed into the urethra. ---URETHRA: with no evidence of stricture into the bladder. ---BLADDER: The posterior, superior and lateral winters and dome of the bladder were all well visualized and the scope was retroflexed upon itself. The findings were consistent with no evidence of bladder mucosal pathology. The stent was visualized and removed from the lt side At the conclusion of the procedure, the cystoscope was removed atraumatically. The patient tolerated the procedure without complications. Patient was given standard post-procedure instructions, and was directed to complete the course of oral antibiotics and increase oral fluid intake as directed. Harman Lopez MD See progress note for plans Harman Lopez MD documented in this encounterUc Health01-13-2023 History of Present illness Narrative* Harman Lopez MD - 12/06/2022 11:33 AM EST ESTABLISHED PATIENT OFFICE VISIT PATIENT INFO: Jia Pickett 57 year old HPI 12/06/2022 CC: stone Had left ureteroscopy with laser of the stone and seen on fluoroscopy Stent removed in the office today We will do Litholink and see her back in about 8 weeks Past Urology Hx: November 14, 2022-admitted to [facility]- 57 year old female presenting as a direct admit from [place] for 1cm left proximal ureteral stone withhydronephrosis. Pt endorses left sided flank pain that began yesterday. Endorses nausea/vomiting, decreased appetite, fevers/chills. Denies dysuria, hematuria, or other significant urinary symptoms. Denies past hx of kidney stones. Work up: Febrile 100.6F, tachy 106, BP 120/72 WBC 13 LA 1.3 Cr 1.02 (BL 0.90) UA +LE, WBC, RBC, mod sarah, Hb Ucx - pending CT - 1cm left proximal urteral stone with hydronephorsis. RADS: December 06, 2022-cystoscopy with stent removal November 29, 2022-Left ureteroscopy with laser and stent-stone seen on fluoroscopy November 14, 2022-left stent with Scott November 14 2022-1.1 cm left proximal ureteral calculus Creatinine Date Value Ref Range Status 11/15/2022 0.99 (H) 0.58 - 0.96 mg/dL Final No results found for: PSA Color (no units) Date Value 11/14/2022 Yellow Clarity (no units) Date Value 11/14/2022 Cloudy Glucose, Urine Date Value 11/14/2022 Negative 05/13/2017 neg mg/dL Bilirubin, Urine (no units) Date Value 11/14/2022 Negative 05/13/2017 neg Ketones, Urine (no units) Date Value 11/14/2022 1+ 05/13/2017 neg Specific [place], Ur (no units) Date Value 11/14/2022 1.015 05/13/2017 1.000 Hemoglobin/Blood,Ur (no units) Date Value 11/14/2022 2+ 05/13/2017 mod pH, Urine (no units) Date Value 11/14/2022 7.0 05/13/2017 8.5 Protein, Urine Date Value 11/14/2022 Negative 05/13/2017 neg mg/dL Urobilinogen (no units) Date Value 11/14/2022 0.2 EU/dL Nitrites (no units) Date Value 11/14/2022 Negative 05/13/2017 neg Leuk Esterase (no units) Date Value 11/14/2022 3+ Review of Systems Constitutional: Negative. HENT: Negative. Eyes: Negative. Respiratory: Negative. Cardiovascular: Negative. Gastrointestinal: Negative. Endocrine: Negative. Genitourinary: See HPI Musculoskeletal: Negative. Skin: Negative. Allergic/Immunologic: Negative. Neurological: Negative. Hematological: Negative. Psychiatric/Behavioral: Negative. I reviewed and confirmed ROS obtained by [facility] HISTORIES PAST MEDICAL HISTORY Diagnosis Date Cardiac murmur Hypertension Meniere disease history of Migraine menstrual influenced FAMILY HISTORY Problem Relation Age of Onset Cancer Mother COPD Mother Heart Father 55 4 vessel CABG Cancer Father lung, mets to spine Cancer Sister 58 ovarian with mets to liver, kidney, lung Diabetes Paternal Grandmother SOCIAL HISTORY Social History Tobacco Use Smoking status: Never Smokeless tobacco: Never Vaping Use Vaping Use: Never used Substance Use Topics Alcohol use: Yes Alcohol/week: 2.5 standard drinks Types: 2 Standard drinks or equivalent, 1 Glasses of Wine (5oz) per week Comment: daily, a glass of red wine Drug use: No MEDICATIONS: FISH OIL-DHA-EPA ORAL^Take by mouth.^Disp: ^Rfl: losartan (COZAAR) 25 mg tablet^Take 1 tablet by mouth once daily.^Disp: 30 tablet^Rfl: 11 rizatriptan (MAXALT SECURITY OFFICER SUPERVISOR) 5 mg disintegrating tablet^Take 1 tablet by mouth once daily as needed formigraine headache (see administration instructions). May repeat in 2 hours if needed^Disp: 12 tablet^Rfl: 0 TURMERIC ORAL^Take by mouth. ^Disp: ^Rfl: phenazopyridine (PYRIDIUM) 200 mg tablet^Take 1 tablet by mouth three times daily as needed.^Disp: 9 tablet^Rfl: 0 tamsulosin (FLOMAX) 0.4 mg^Take 1 capsule by mouth daily at bedtime.^Disp: 30 capsule^Rfl: 0 atorvastatin (LIPITOR) 40 mg tablet^40 mg.^Disp: ^Rfl: htzwnln-anhzbxwx-bajkmzebbs (FIORINAL) capsule^Take by mouth.^Disp: ^Rfl: inulin-chromium picolinate (FIBER SELECT GUMMIES) 2-100 gram-mcg chew^Take by mouth.^Disp: ^Rfl: dicyclomine (BENTYL) 10 mg capsule^Take 1 capsule by mouth four times daily as needed (abdominal cramping). for fourteen(14) days^Disp: 30 capsule^Rfl: 0 (Patient taking differently: Take 10 mg by mouth four times daily as needed (abdominal cramping). PRN) APPLE CIDER VINEGAR ORAL^Take 900 mg (dosed on ampicillin) by mouth.^Disp: ^Rfl: ascorbic acid (VITAMIN C ORAL)^Take by mouth. ^Disp: ^Rfl: VITAMIN B COMPLEX ORAL^Take by mouth. ^Disp: ^Rfl: COMPOUNDED PRESCRIPTION^Apple cider vinegar with the mother - with Honey (tea) ^Disp: ^Rfl: Physical Exam Neurological: Mental Status: She is alert and oriented to person, place, and time. Risk/Benefit Discussion: I explained the options concerning surgery. I specifically explained to him the procedure, the reason for doing this, the possible complications, I explained the options . Discussed removal of stent and if still some stone present. Possibility stones may not pass and may need intervention. I advised the patient about the possible outcome and the possibility of infection post operatively. The patient expressed an understanding with regard to possible complications and outcome. FOLLOW UP (1s&1w; 3s): Return in about 8 weeks (around 01/31/2023). ASSESSMENT/PLAN: 1. Renal calculi - ICD9: 592.0, ICD10: N20.0 - SULFAMETHOXAZOLE 800 MG-TRIMETHOPRIM 160 MG TABLET - LITHOLINK CKD PROGRAM - CYSTO W/URETER STENT EXTRACT Harman Lopez Please note: This note has been produced using speech recognition software and may contain errors related to that system including grammar, punctuation, spelling, gender and words and phrases that may be inappropriate. documented in this encounterUc Health01-09-2023 Miscellaneous Notes* Telephone Encounter - Jenny Fraga - 12/02/2022 9:32 AM EST Pt was called and scheduled * Telephone Encounter - Harman Lopez MD - 11/29/2022 3:04 PM EST /p Cystoscopy, retrograde pyelograms, left ureteroscopy, laser lithotripsy, left ureteral stent placement P: cysto, stent remove next fri documented in this encounterUc Health12-30-2022 Miscellaneous Notes* Telephone Encounter - Rosamaria Rushing Cma - 11/22/2022 9:16 AM EST Patient advised, and agreed. Rosamaria Сергей Mchugh * Telephone Encounter - Rosamaria Rushing Cma - 11/22/2022 8:25 AM EST Left message for patient to return call to office. Rosamaria Сергей Mchugh * Telephone Encounter - Harman Lopez MD - 11/21/2022 1:33 PM EST Nothing else Hydration/fiber for bowels * Telephone Encounter - Rosamaria Rushing Cma - 11/20/2022 1:18 PM EST Patient c/o bloating in the abdomen. Per patient she was feeling constipated and took OTC medication, and since has had a healthy BM. Patient inquiring if bloating is common after surgery? Patient denies any other symptoms. I advised patient what to expect with stent placement. Please advise? Anything else I should be doing? Rosamaria Rushing Cma * Telephone Encounter - Harman Lopez MD - 11/20/2022 12:30 PM EST Can have blood in urine if that is what mean * Telephone Encounter - Manuel Bal MA - 11/20/2022 10:33 AM EST Pt called in saying her stomatch is blooded, she went to bathroom this morning also, she is feelingblooded Pt asking is this normal after stent put on ? Please advise Manuel Bal MA documented in this encounterUc Health12-27-2022 Miscellaneous Notes* Telephone Encounter - Joel MARTINEZ - 11/19/2022 11:04 AM EST Pt is scheduled for C&P, Lt ULL and stent with Dr Lopez at [facility] on 11/29/22 @ 1:30 (11:30 arrival). Pt given date, time, prep and arrival instructions over the phone on 11/19/22. Doculynx message Chilltimealso. Joel MARTINEZ documented in this encounterUc Health12-27-2022 History of Present illness Narrative* Shruthi Valenzuela LPN - 11/19/2022 10:25 AM EST TRANSITIONAL CARE MANAGEMENT (TCM) COMMUNITY MONITORING PROGRAM - [place] Provider Action/FYI: SUMMARY: Pt discharged from [facility] on 11/15/2022. Admitted for: abdominal pain, kidney stones Risk score: 8 Spoke with patient via telephone to discuss the following: General: overall patient is doing well, concerns with constipation. Reviewed symptom management with patient. Kidney stone: Stone remains 1cm in size, pt is aware of upcoming appointment on 11/29. Pain is manageable. Pt is ambulating and staying busy for distraction purpose. AVS: Reviewed, no further questions. Medications: taking medications without adverse reactions. Denies refills at this time. Social: Pt is able to met all needs independently. Appointment: Pt will continue with urology services and follow up with PCP as needed. Instructed pt to call the office with any questions or concerns that are not managed by urologist. Pt is thankful for call. Contact made with patient: Yes Hi my name is Shruthi Silvadori and I am calling from the [facility] on behalf of your PCP, Usha Thibodeaux APRN.SURFACE GRINDER I understand you were recently in the hospital so I am calling to check in with you to ensure you are feeling well now that you re home. Do you mind if I ask you a few questions related to your hospital stay and well-being Yes Contact with patient post discharge, spoke to patient. Patient identified by name and . Do you feel your health is BETTER, WORSE, or the SAME since leaving the hospital? Better ACTION TAKEN: Patient indicated symptoms are better or same, no action required. Continue outreach. MEDICATIONS: Many patients have questions or concerns about their medications once they are home. Do you have any questions about taking your medications or which medication you should be on? No Do you need any medication refills at this time, including any of the medications you might take only when needed? No ACTION TAKEN: No action required For RNs or Pharmacy completing outreach ONLY, was a medication review completed? N/A SOCIAL: We would like to make sure you have what you need so that your basics needs are met - including your personal safety, food, housing and medications. Would you like to speak with a social work steam plant records clerk to help give you support for any of these needs? No It can be normal to feel anxious or down during a time like this. Would you like to talk to a mental health professional about how you have been feeling? No ACTION TAKEN: No action taken DISCHARGE INTRUCTIONS: Your discharge instructions / After Visit Summary (AVS) are important in guiding you through the recovery process. Do you have any questions related to your discharge instructions? No Do you have all the necessary equipment and supplies at home? Yes ACTION TAKEN: No action required Thank you for talking with me today. I would like to help you schedule a hospital follow-up virtualor telephone visit with your PCP. This is a great way for you to connect with your provider to ensure you have safely transitioned home. If you are agreeable, I will send your request to a laboratory technologist who will contact and assist you with that appointment. This will give you an opportunity to ask any questions or address any concerns you may have with your PCP. Inform the patient that if they have any questions or concerns prior to that appointment, to call their PCP's office right away. ACTION TAKEN: No action required, patient declines appointment. Your doctor would like us to remind you of the recommendations regarding the coronavirus (Covid19) outbreak: Avoid public places as much as possible. Avoid close contact (within 6 feet) with others you don't live with, especially if they are sick. Stay home if you are sick. Wash your hands regularly for at least 20 seconds with soap and water. Wear a cloth mask in public places to help reduce community spread. Do not go to your Doctor's office unless instructed to do so. For any non- emergency symptoms, call your Doctor's office to get instructions on how to manage (we might recommend a telephone or virtualvisit). For emergency symptoms, proceed to Emergency Department as usual but inform them of cough and fever symptoms KE if present (or call on the way if possible). Shruthi Valenzuela LPN documented in this encounterUc Health12-23-2022 Miscellaneous Notes* Telephone Encounter - Joel MARTINEZ - 11/15/2022 12:12 PM EST Pt still admitted. Surgery planned for 11/29/22 due to OR availability. Will call pt once she is discharged. Joel MARTINEZ * Telephone Encounter - Harman Lopez MD - 11/14/2022 8:39 PM EST S/p cysto, lt stent P: joel Cystoscopy, retrograde pyelograms, left ureteroscopy, laser lithotripsy, left ureteral stent placement 12/04/22 at documented in this encounterUc Health12-22-2022 Miscellaneous Notes* Telephone Encounter - Yolanda Taylor MA - 11/14/2022 3:06 PM EST Patient in ER. Yolanda Taylor MA * Telephone Encounter - Yani Kemp DO - 11/14/2022 10:52 AM EST Please call pt - she may have a viral gastroenteritis, but it also may be something more serious. If she is not better by this afternoon, she may need to go to the ED Yani Kemp DO * Telephone Encounter - Joel Servin MA - 11/14/2022 9:09 AM EST Patient called stating that she is having abdominal pain that started at 2 o'clock this morning. She states that it feel like her intestine is inflamed. Its her left lower quadrant. Patient states that she has vomited once, and patient denies any change in bowel movements. Patient also hasn't takenanything. Joel Servin MA documented in this encounterUc Health07-25-2022 History and physical note * Live Short MD - 06/17/2022 9:46 AM EDT Jia Pickett is a 57 year old female who presents for annual exam. Seeing Usha Thibodeaux for routine exams. 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 Pap 3 years ago showed ASCUS with negative HPV. Repeat pap negative. Recent mammogram normal. Patient worried about family history of ovarian cancer. Patient's sister had it. Discussed lack of good screening but will add pelvic ultrasound for baseline.2 ALLERGIES Allergen Reactions Amoxicillin Itching Current Outpatient Medications Medication Sig losartan (COZAAR) 25 mg tablet Take 1 tablet by mouth once daily. atorvastatin (LIPITOR) 40 mg tablet 40 mg. mqkimsk-dgeruhcq-wywpqkxmhd (FIORINAL) capsule Take by mouth. inulin-chromium picolinate (FIBER SELECT GUMMIES) 2-100 gram-mcg chew Take by mouth. rizatriptan (MAXALT SECURITY OFFICER SUPERVISOR) 5 mg disintegrating tablet Take 1 tablet by mouth once daily as needed formigraine headache (see administration instructions). May repeat in 2 hours if needed dicyclomine (BENTYL) 10 mg capsule Take 1 capsule by mouth four times daily as needed (abdominal cramping). for fourteen(14) days (Patient taking differently: Take 10 mg by mouth four times daily as needed (abdominal cramping). PRN ) APPLE CIDER VINEGAR ORAL Take 900 mg (dosed on ampicillin) by mouth. ascorbic acid (VITAMIN C ORAL) Take by mouth. TURMERIC ORAL Take by mouth. VITAMIN B COMPLEX ORAL Take by mouth. COMPOUNDED PRESCRIPTION Apple cider vinegar with the mother - with Honey (tea) Current Facility-Administered Medications Medication Dose Route Frequency hydrocortisone topical cream 2.5% TOPICAL BID Subjective OB History No obstetric history on file. Past Gynecological History: negative PAST MEDICAL HISTORY Diagnosis Date Cardiac murmur Hypertension Meniere disease history of Migraine menstrual influenced PAST SURGICAL HISTORY Procedure Laterality Date TUBAL LIGATION HX Social History Tobacco Use Smoking status: Never Smoker Smokeless tobacco: Never Used Vaping Use Vaping Use: Never used Substance Use Topics Alcohol use: Yes Alcohol/week: 2.5 standard drinks Types: 1 Glasses of Wine (5oz) per week Drug use: No FAMILY HISTORY Problem Relation Age of Onset COPD Mother Heart Father 55 4 vessel CABG Cancer Father lung, mets to spine Diabetes Paternal Grandmother Cancer Sister 58 ovarian with mets to liver, kidney, lung Review of Symptoms Negative Objective BP 133/76 Pulse 76 Temp (Src) 97.3 (Temporal) Resp 16 Ht 5' 1.25 (1.56m) Wt 185 lb (83.9kg) SpO2 97% LMP 05/07/2021 BMI 34.66 kg/(m^2). Physical Exam - restricted to breast and pelvic exam BREAST - without masses. KENO WRITER / RUNNER: Vulva - normal, Vagina - normal - cervix parous, Pap done, Uterus - midplane, adnexa neg ASSESSMENT/PLAN: 1. Encounter for annual routine gynecological examination - ICD9: V72.31, ICD10: Z01.419 (primary diagnosis) - Completed pelvic and breast exam - Encouraged monthly BSE - Follow up for annual exam in one year. 2. Encounter for Papanicolaou smear for cervical cancer screening - ICD9: V76.2, ICD10: Z12.4 - Completed pelvic and breast exam - Encouraged monthly BSE - Follow up for annual exam in one year. 3. Family history of ovarian cancer - Pelvic ultrasound for baseline Live Short MD documented in this encounterUc Health06-21-2022 Miscellaneous Notes* Letter - Mammography Coordinator - 05/14/2022 12:31 PM EDT [address] [address] May 14, 2022 PID: [id number] Jia Pickett [address] [place] [address] Dear Alexandro HaganNieves, We are pleased to inform you that the results of your recent breast imaging exam on 05/14/2022 are normal. Early detection of cancer is very important. We also understand recommendations regarding breast cancer screening are controversial. Please discuss with your primary care provider which strategy is best for you and whether a mammogram is right for you. Your imaging studies and report will [facility] at [facility] medical [facility] and are available for your continuing care. Thank you for allowing us to help in meeting your health care needs. Sincerely, Dr. Duldey Interpreting Radiologist [facility] (Normal over 40) documented in this encounterUc Health06-21-2022 NoteHNO ID: [id number] Author: RT Becky(Ba) Service: ? Author Type: Technologist Type: Progress Notes Filed: 05/14/2022 9:38 AM Note Text: Radiology Service Progress Note PATIENT NAME: Jia Pickett DATE OF SERVICE: May 14, 2022 TIME: 9:38 AM PATIENT IDENTITY VERIFICATION COMPLETED USING TWO (2) IDENTIFIERS: Name and Date of confirmed by patient verbally. FALL SCREENING: Has the patient had 2 falls in the last year or 1 fall with injury or currently using an Ambulatory Assistive Device (Walker, Cane, Wheelchair, Crutches, etc.)? No PATIENT GENDER DATA: Female. status: : No status: N/A PATIENT RELEVANT IMPLANT DATA REVIEWED: Not Applicable RADIOLOGY DEPARTMENT: Mammography PERIPHERAL IV DATA: Not applicable SIGNED BY: JAYDEN Pena) May 14, 2022 9:38 [facility]06-21-2022 History of Present illness Narrative* RT Becky(R) - 05/14/2022 9:30 AM EDT Radiology Service Progress Note PATIENT NAME: Jia Pickett DATE OF SERVICE: May 14, 2022 TIME: 9:38 AM PATIENT IDENTITY VERIFICATION COMPLETED USING TWO (2) IDENTIFIERS: Name and Date of confirmedby patient verbally. FALL SCREENING: Has the patient had 2 falls in the last year or 1 fall with injury or currently using an Ambulatory Assistive Device (Walker, Cane, Wheelchair, Crutches, etc.)? No PATIENT GENDER DATA: Female. status: : No status: N/A PATIENT RELEVANT IMPLANT DATA REVIEWED: Not Applicable RADIOLOGY DEPARTMENT: Mammography PERIPHERAL IV DATA: Not applicable SIGNED BY: RT Becky(R) May 14, 2022 9:38 AM documented in this encounterUc Health06-13-2022 Miscellaneous Notes* Telephone Encounter - Maddy Garces RN - 05/06/2022 1:[address] Short ordered elver himself. Maddy Garces RN * Telephone Encounter - Maddy Garces RN - 05/01/2022 9:51 AM EDT Called for elver order-pended. Thanks, Maddy Garces RN documented in this encounterUc Health04-27-2022 Miscellaneous Notes* Telephone Encounter - Eva Carrera MA - 03/20/2022 8:34 AM EDT Patient requesting refills for today . She states she is going out of town Last office visit 10/12/2021 . Last refill 03/16/2021 nov none Pending Prescriptions Disp Refills LOSARTAN 25 MG TABLET 30 tablet 11 Sig: Take 1 tablet by mouth once daily. JASMIN: No Please review and advise. Eva Carrera MA documented in this encounterUc Health11-19-2021 NoteHNO ID: [id number] Author: Usha Thibodeaux APRN.SURFACE GRINDER Service: ? Author Type: Nurse Practitioner Type: Progress Notes Filed: 10/12/2021 2:16 PM Note Text: [address] [address] Date of Evaluation: 10/12/2021 Patient Name: Jia Pickett : 1965 Chief Complaint: Patient presents with: Medication Follow-up Subjective Ms. Pickett is a 56 year old female who presents with the following complaint(s): routine follow up and labs Last OV was in 2019 but she has had a few virtual visits. I reviewed past medical, surgical, social, and family histories today and updated chart. Allergies, chronic medications, and supplements were also reviewed. She reports having nagging sensation in her right flank area but it is not a pain. She noticed initially a few months ago. She denies history of kidney stones or hematuria. She would like to have her urine checked today. She isn't really having any dysuria or frequency. She also reports she was given a cream, Fluorouracil, from dermatology for spots on her arms and legs . She used it for the 2 weeks and hasn't noticed a difference. She states that dermatology is no longer under her insurance and would like to be referred to another location. Difficulty losing weight despite walking for an hour daily and eating a well rounded diet and avoiding carbs. The history is provided by the patient. No relays draftsperson was used. PAST MEDICAL HISTORY Diagnosis Date - Cardiac murmur - Hypertension - Meniere disease history of - Migraine menstrual influenced PAST SURGICAL HISTORY Procedure Laterality Date - TUBAL LIGATION HX FAMILY HISTORY Problem Relation Age of Onset - COPD Mother - Heart Father 55 4 vessel CABG - Cancer Father lung, mets to spine - Diabetes Paternal Grandmother - Cancer Sister 58 ovarian with mets to liver, kidney, lung Social History Tobacco Use - Smoking status: Never Smoker - Smokeless tobacco: Never Used Vaping Use - Vaping Use: Never used Substance Use Topics - Alcohol use: Yes Alcohol/week: 2.5 standard drinks Types: 1 Glasses of Wine (5oz) per week - Drug use: No Current Meds atorvastatin (LIPITOR) 40 mg tablet 40 mg. vzgcrxe-mmrxedgk-egdhangnwm (FIORINAL) capsule Take by mouth. inulin-chromium picolinate (FIBER SELECT GUMMIES) 2-100 gram-mcg chew Take by mouth. rizatriptan (MAXALT SECURITY OFFICER SUPERVISOR) 5 mg disintegrating tablet Take 1 tablet by mouth once daily as needed for migraine headache (see administration instructions). May repeat in 2 hours if needed losartan (COZAAR) 25 mg tablet Take 1 tablet by mouth once daily. dicyclomine (BENTYL) 10 mg capsule Take 1 capsule by mouth four times daily as needed (abdominal cramping). for fourteen(14) days APPLE CIDER VINEGAR ORAL Take 900 mg (dosed on ampicillin) by mouth. ascorbic acid (VITAMIN C ORAL) Take by mouth. TURMERIC ORAL Take by mouth. VITAMIN B COMPLEX ORAL Take by mouth. COMPOUNDED PRESCRIPTION Apple cider vinegar with the mother - with Honey (tea) Review of Systems Constitutional: Negative for appetite change, chills, diaphoresis, fatigue, fever and unexpected weight change. Respiratory: Negative for cough, chest tightness, shortness of breath and wheezing. Cardiovascular: Negative for chest pain, palpitations and leg swelling. Gastrointestinal: Positive for abdominal pain (LUQ weird feeling , not pain). Negative for constipation, diarrhea, nausea and vomiting. Genitourinary: Positive for flank pain (right side). Negative for difficulty urinating, dysuria, frequency and urgency. Musculoskeletal: Positive for arthralgias (bilateral hip pain). Negative for back pain, joint swelling, myalgias and neck pain. Skin: Positive for color change. Neurological: Positive for headaches (migraines). Negative for dizziness, syncope and light-headedness. I have confirmed and edited as necessary the chief complaint, medications, past medical, family and social histories. Objective BP 126/76 (BP Site: Right Arm, BP Position: Sitting, BP Cuff Size: Regular Adult) Pulse 69 Temp 36.7 ?C (98.1 ?F) (Oral) Ht 155.2 cm (5' 1.1 ) Wt 85.7 kg (189 lb) LMP 02/24/2020 (Exact Date) SpO2 96% BMI 35.59 kg/m? Body mass index is 35.59 kg/m?. Physical Exam Vitals and nursing note reviewed. Constitutional: Appearance: Normal appearance. She is overweight. HENT: Head: Normocephalic. Nose: Nose normal. Mouth/Throat: Mouth: Mucous membranes are moist. Pharynx: Oropharynx is clear. Eyes: General: Vision grossly intact. Conjunctiva/sclera: Conjunctivae normal. Pupils: Pupils are equal, round, and reactive to light. Neck: Thyroid: No thyromegaly. Cardiovascular: Rate and Rhythm: Normal rate and regular rhythm. Pulses: Normal pulses. Heart sounds: Normal heart sounds, S1 normal and S2 normal. N (more content not included)...[facility]07-27-2021 NoteHNO ID: [id number] Author: Jocelynn Short APRN.SURFACE GRINDER Service: ? Author Type: Nurse Practitioner Type: Progress Notes Filed: 07/03/2021 8:02 AM Note Text: Department of Dermatology Jocelynn Short APRN.SURFACE GRINDER 06/19/2021 Last visit in Dermatology: Visit date not found Objective/Assessment/Plan Achrochordon Objective Right Axilla: Fleshy, skin-colored sessile and pedunculated papules. Discussed cosmetic removal Benign nevus Objective Right Submental Area: hyperpigmented papules, with generally good symmetry and internal consistency. Overall benign-appearing. Discussed removal with plastic surgery Magallon angioma Objective Mid Back: Cheery red papules on torso Benign and observe DSAP (disseminated superficial actinic porokeratosis) (4) Objective Left Forearm - Posterior, Left Lower Leg - Anterior, Right Forearm - Posterior, Right Lower Leg - Anterior: Annular pink papules with a sharp rim of scale on bilateral upper extremities and bilateral lower extremities Recommend Efudex twice daily x2 weeks to all affected areas (bilateral arms and bilateral legs) Patient can wait until fall to start treatment Discussed treating one location at a time to decrease excessive skin irritation. Patient verbalized understanding. R/b/a for the medication(s) including possible side effects discussed and reviewed with patient. Ephelides Objective Mid Back: Densely scattered light rojas macules and small patches on all sun exposed areas. Benign and observe Multiple benign nevi Objective Mid Back: Scattered variably hyperpigmented macules and papules, with generally good symmetry and internal consistency, one to another. Overall benign-appearing. Distributed widely on the trunk and extremities. Benign and observe Onychomycosis of great toe Objective Right Foot - Anterior: Mild yellow-brown discoloration with subungual thickening. Start OTC Kersal to nail daily Keep nails trimmed and wipe with alcohol wipe once weekly. R/b/a for the medication(s) including possible side effects discussed and reviewed with patient. The nature of sun-induced photo-aging and skin cancers is discussed. Sun avoidance, protective clothing, and the use of 30-SPF sunscreens is advised. Patient is instructed to perform regular self exams. Observe for changing, symptomatic, or new skin lesions and seek care with the patient's primary care provider or with dermatology if any lesions of concern are noted. Follow-up as noted below or as needed. Jocelynn Short APRN.MAHESH Chief Complaint: Patient presents with: Full Body Skin Check Subjective and Objective HPI: Jia Pickett is a 56 year old female who presents for: Skin check. Desires: Total body skin check History of skin cancer?: No Areas of particular concern?: Yes: bilateral upper extremities and bilateral lower extremities Lesion(s): Red bumps Location(s): Bilateral arms and legs Duration: Years Symptoms: none Severity: mild Inciting factors: none Associated symptoms/previous treatments: none, just not healing Past medical history is reviewed. Medication list is reviewed. Physical Exam included: Scalp, face, ears, neck, chest, back, abdomen, bilateral upper extremities, bilateral lower extremities, buttocks, hands, feet, nails and hair The documentation for this note was completed by Kathe Hunt LPN acting as scribe for Jocelynn Short APRN.CNP. June 19, 2021 4:30 PM I agree with the Chief Complaint, ROS, and Past Histories independently gathered by the clinical learning support aide and the remaining scribed note accurately describes my personal service to the patient. Jocelynn Short APRN.CNPWayne Healthcare Main Campus05-14-2018 History of Past illness Narrative* Problem Noted Date Resolved Date Dermatophytosis 04/06/2018 03/12/2019 Viral URI with cough 03/27/2018 03/12/2019 Recurrent UTI (urinary tract infection) 05/13/20 17 03/12/2019 Malassezia furfur causing tinea 05/13/2017 03/12/2019 Breast lump on right side at 6 o'clock position 05/13/2017 03/12/2019 Breast pain, left 05/13/2017 03/12/2019 Irritation of left eye 05/13/2017 8 Persistent dry cough 05/13/2017 03/12/2019 Hypertension, essential 05/13/2017 03/27/20 18 documented as of this encounter (statuses as of 03/20/2022) [facility] History of Past illness Narrative* Problem Noted Date Resolved Date Dermatophytosis 04/06/2018 03/12/2019 Viral URI with cough 03/27/2018 03/12/2019 Recurrent UTI (urinary tract infection) 05/13/20 17 03/12/2019 Malassezia furfur causing tinea 05/13/2017 03/12/2019 Breast lump on right side at 6 o'clock position 05/13/2017 03/12/2019 Breast pain, left 05/13/2017 03/12/2019 Irritation of left eye 05/13/2017 8 Persistent dry cough 05/13/2017 03/12/2019 Hypertension, essential 05/13/2017 03/27/20 18 documented as of this encounter (statuses as of 04/19/2022) [facility] History of Past illness Narrative* Problem Noted Date Resolved Date Dermatophytosis 04/06/2018 03/12/2019 Viral URI with cough 03/27/2018 03/12/2019 Recurrent UTI (urinary tract infection) 05/13/20 17 03/12/2019 Malassezia furfur causing tinea 05/13/2017 03/12/2019 Breast lump on right side at 6 o'clock position 05/13/2017 03/12/2019 Breast pain, left 05/13/2017 03/12/2019 Irritation of left eye 05/13/2017 8 Persistent dry cough 05/13/2017 03/12/2019 Hypertension, essential 05/13/2017 03/27/20 18 documented as of this encounter (statuses as of 05/06/2022) [facility] History of Past illness Narrative* Problem Noted Date Resolved Date Dermatophytosis 04/06/2018 03/12/2019 Viral URI with cough 03/27/2018 03/12/2019 Recurrent UTI (urinary tract infection) 05/13/20 17 03/12/2019 Malassezia furfur causing tinea 05/13/2017 03/12/2019 Breast lump on right side at 6 o'clock position 05/13/2017 03/12/2019 Breast pain, left 05/13/2017 03/12/2019 Irritation of left eye 05/13/2017 8 Persistent dry cough 05/13/2017 03/12/2019 Hypertension, essential 05/13/2017 03/27/20 18 documented as of this encounter (statuses as of 05/06/2022) [facility] History of Past illness Narrative* Problem Noted Date Resolved Date Dermatophytosis 04/06/2018 03/12/2019 Viral URI with cough 03/27/2018 03/12/2019 Recurrent UTI (urinary tract infection) 05/13/20 17 03/12/2019 Malassezia furfur causing tinea 05/13/2017 03/12/2019 Breast lump on right side at 6 o'clock position 05/13/2017 03/12/2019 Breast pain, left 05/13/2017 03/12/2019 Irritation of left eye 05/13/2017 8 Persistent dry cough 05/13/2017 03/12/2019 Hypertension, essential 05/13/2017 03/27/20 18 documented as of this encounter (statuses as of 05/15/2022) [facility] History of Past illness Narrative* Problem Noted Date Resolved Date Dermatophytosis 04/06/2018 03/12/2019 Viral URI with cough 03/27/2018 03/12/2019 Recurrent UTI (urinary tract infection) 05/13/20 17 03/12/2019 Malassezia furfur causing tinea 05/13/2017 03/12/2019 Breast lump on right side at 6 o'clock position 05/13/2017 03/12/2019 Breast pain, left 05/13/2017 03/12/2019 Irritation of left eye 05/13/2017 8 Persistent dry cough 05/13/2017 03/12/2019 Hypertension, essential 05/13/2017 03/27/20 18 documented as of this encounter (statuses as of 05/16/2022) [facility] History of Past illness Narrative* Problem Noted Date Resolved Date Dermatophytosis 04/06/2018 03/12/2019 Viral URI with cough 03/27/2018 03/12/2019 Recurrent UTI (urinary tract infection) 05/13/20 17 03/12/2019 Malassezia furfur causing tinea 05/13/2017 03/12/2019 Breast lump on right side at 6 o'clock position 05/13/2017 03/12/2019 Breast pain, left 05/13/2017 03/12/2019 Irritation of left eye 05/13/2017 8 Persistent dry cough 05/13/2017 03/12/2019 Hypertension, essential 05/13/2017 03/27/20 18 documented as of this encounter (statuses as of 06/17/2022) [facility] History of Past illness Narrative* Problem Noted Date Resolved Date Dermatophytosis 04/06/2018 03/12/2019 Viral URI with cough 03/27/2018 03/12/2019 Recurrent UTI (urinary tract infection) 05/13/20 17 03/12/2019 Malassezia furfur causing tinea 05/13/2017 03/12/2019 Breast lump on right side at 6 o'clock position 05/13/2017 03/12/2019 Breast pain, left 05/13/2017 03/12/2019 Irritation of left eye 05/13/2017 8 Persistent dry cough 05/13/2017 03/12/2019 Hypertension, essential 05/13/2017 03/27/20 18 documented as of this encounter (statuses as of 07/03/2022) [facility] History of Past illness Narrative* Problem Noted Date Resolved Date Dermatophytosis 04/06/2018 03/12/2019 Viral URI with cough 03/27/2018 03/12/2019 Recurrent UTI (urinary tract infection) 05/13/20 17 03/12/2019 Malassezia furfur causing tinea 05/13/2017 03/12/2019 Breast lump on right side at 6 o'clock position 05/13/2017 03/12/2019 Breast pain, left 05/13/2017 03/12/2019 Irritation of left eye 05/13/2017 8 Persistent dry cough 05/13/2017 03/12/2019 Hypertension, essential 05/13/2017 03/27/20 18 documented as of this encounter (statuses as of 11/15/2022) [facility] History of Past illness Narrative* Problem Noted Date Resolved Date Dermatophytosis 04/06/2018 03/12/2019 Viral URI with cough 03/27/2018 03/12/2019 Recurrent UTI (urinary tract infection) 05/13/20 17 03/12/2019 Malassezia furfur causing tinea 05/13/2017 03/12/2019 Breast lump on right side at 6 o'clock position 05/13/2017 03/12/2019 Breast pain, left 05/13/2017 03/12/2019 Irritation of left eye 05/13/2017 8 Persistent dry cough 05/13/2017 03/12/2019 Hypertension, essential 05/13/2017 03/27/20 18 documented as of this encounter (statuses as of 11/17/2022) [facility] History of Past illness Narrative* Problem Noted Date Resolved Date Dermatophytosis 04/06/2018 03/12/2019 Viral URI with cough 03/27/2018 03/12/2019 Recurrent UTI (urinary tract infection) 05/13/20 17 03/12/2019 Malassezia furfur causing tinea 05/13/2017 03/12/2019 Breast lump on right side at 6 o'clock position 05/13/2017 03/12/2019 Breast pain, left 05/13/2017 03/12/2019 Irritation of left eye 05/13/2017 8 Persistent dry cough 05/13/2017 03/12/2019 Hypertension, essential 05/13/2017 03/27/20 18 documented as of this encounter (statuses as of 11/24/2022) [facility] History of Past illness Narrative* Problem Noted Date Resolved Date Dermatophytosis 04/06/2018 03/12/2019 Viral URI with cough 03/27/2018 03/12/2019 Recurrent UTI (urinary tract infection) 05/13/20 17 03/12/2019 Malassezia furfur causing tinea 05/13/2017 03/12/2019 Breast lump on right side at 6 o'clock position 05/13/2017 03/12/2019 Breast pain, left 05/13/2017 03/12/2019 Irritation of left eye 05/13/2017 8 Persistent dry cough 05/13/2017 03/12/2019 Hypertension, essential 05/13/2017 03/27/20 18 documented as of this encounter (statuses as of 11/25/2022) [facility] History of Past illness Narrative* Problem Noted Date Resolved Date Dermatophytosis 04/06/2018 03/12/2019 Viral URI with cough 03/27/2018 03/12/2019 Recurrent UTI (urinary tract infection) 05/13/20 17 03/12/2019 Malassezia furfur causing tinea 05/13/2017 03/12/2019 Breast lump on right side at 6 o'clock position 05/13/2017 03/12/2019 Breast pain, left 05/13/2017 03/12/2019 Irritation of left eye 05/13/2017 8 Persistent dry cough 05/13/2017 03/12/2019 Hypertension, essential 05/13/2017 03/27/20 18 documented as of this encounter (statuses as of 11/27/2022) [facility] History of Past illness Narrative* Problem Noted Date Resolved Date Dermatophytosis 04/06/2018 03/12/2019 Viral URI with cough 03/27/2018 03/12/2019 Recurrent UTI (urinary tract infection) 05/13/20 17 03/12/2019 Malassezia furfur causing tinea 05/13/2017 03/12/2019 Breast lump on right side at 6 o'clock position 05/13/2017 03/12/2019 Breast pain, left 05/13/2017 03/12/2019 Irritation of left eye 05/13/2017 8 Persistent dry cough 05/13/2017 03/12/2019 Hypertension, essential 05/13/2017 03/27/20 18 documented as of this encounter (statuses as of 12/06/2022) [facility] History of Past illness Narrative* Problem Noted Date Resolved Date Dermatophytosis 04/06/2018 03/12/2019 Viral URI with cough 03/27/2018 03/12/2019 Recurrent UTI (urinary tract infection) 05/13/20 17 03/12/2019 Malassezia furfur causing tinea 05/13/2017 03/12/2019 Breast lump on right side at 6 o'clock position 05/13/2017 03/12/2019 Breast pain, left 05/13/2017 03/12/2019 Irritation of left eye 05/13/2017 8 Persistent dry cough 05/13/2017 03/12/2019 Hypertension, essential 05/13/2017 03/27/20 18 documented as of this encounter (statuses as of 12/12/2022) [facility] History of Past illness Narrative* Problem Noted Date Resolved Date Dermatophytosis 04/06/2018 03/12/2019 Viral URI with cough 03/27/2018 03/12/2019 Recurrent UTI (urinary tract infection) 05/13/20 17 03/12/2019 Malassezia furfur causing tinea 05/13/2017 03/12/2019 Breast lump on right side at 6 o'clock position 05/13/2017 03/12/2019 Breast pain, left 05/13/2017 03/12/2019 Irritation of left eye 05/13/2017 8 Persistent dry cough 05/13/2017 03/12/2019 Hypertension, essential 05/13/2017 03/27/20 18 documented as of this encounter (statuses as of 12/19/2022) [facility] History of Past illness Narrative* Problem Noted Date Resolved Date Dermatophytosis 04/06/2018 03/12/2019 Viral URI with cough 03/27/2018 03/12/2019 Recurrent UTI (urinary tract infection) 05/13/20 17 03/12/2019 Malassezia furfur causing tinea 05/13/2017 03/12/2019 Breast lump on right side at 6 o'clock position 05/13/2017 03/12/2019 Breast pain, left 05/13/2017 03/12/2019 Irritation of left eye 05/13/2017 8 Persistent dry cough 05/13/2017 03/12/2019 Hypertension, essential 05/13/2017 03/27/20 18 documented as of this encounter (statuses as of 12/22/2022) [facility] History of Past illness Narrative* Problem Noted Date Resolved Date Dermatophytosis 04/06/2018 03/12/2019 Viral URI with cough 03/27/2018 03/12/2019 Recurrent UTI (urinary tract infection) 05/13/20 17 03/12/2019 Malassezia furfur causing tinea 05/13/2017 03/12/2019 Breast lump on right side at 6 o'clock position 05/13/2017 03/12/2019 Breast pain, left 05/13/2017 03/12/2019 Irritation of left eye 05/13/2017 8 Persistent dry cough 05/13/2017 03/12/2019 Hypertension, essential 05/13/2017 03/27/20 18 documented as of this encounter (statuses as of 12/23/2022) [facility] History of Past illness Narrative* Problem Noted Date Resolved Date Dermatophytosis 04/06/2018 03/12/2019 Viral URI with cough 03/27/2018 03/12/2019 Recurrent UTI (urinary tract infection) 05/13/20 17 03/12/2019 Malassezia furfur causing tinea 05/13/2017 03/12/2019 Breast lump on right side at 6 o'clock position 05/13/2017 03/12/2019 Breast pain, left 05/13/2017 03/12/2019 Irritation of left eye 05/13/2017 8 Persistent dry cough 05/13/2017 03/12/2019 Hypertension, essential 05/13/2017 03/27/20 18 documented as of this encounter (statuses as of 04/07/2023) [facility] History of Past illness Narrative* Problem Noted Date Resolved Date Dermatophytosis 04/06/2018 03/12/2019 Viral URI with cough 03/27/2018 03/12/2019 Recurrent UTI (urinary tract infection) 05/13/20 17 03/12/2019 Malassezia furfur causing tinea 05/13/2017 03/12/2019 Breast lump on right side at 6 o'clock position 05/13/2017 03/12/2019 Breast pain, left 05/13/2017 03/12/2019 Irritation of left eye 05/13/2017 8 Persistent dry cough 05/13/2017 03/12/2019 Hypertension, essential 05/13/2017 03/27/20 18 documented as of this encounter (statuses as of 05/21/2023) [facility] History of Past illness Narrative* Problem Noted Date Resolved Date Dermatophytosis 04/06/2018 03/12/2019 Viral URI with cough 03/27/2018 03/12/2019 Recurrent UTI (urinary tract infection) 05/13/20 17 03/12/2019 Malassezia furfur causing tinea 05/13/2017 03/12/2019 Breast lump on right side at 6 o'clock position 05/13/2017 03/12/2019 Breast pain, left 05/13/2017 03/12/2019 Irritation of left eye 05/13/2017 8 Persistent dry cough 05/13/2017 03/12/2019 Hypertension, essential 05/13/2017 03/27/20 18 documented as of this encounter (statuses as of 05/21/2023) [facility] History of Past illness Narrative* Problem Noted Date Resolved Date Dermatophytosis 04/06/2018 03/12/2019 Viral URI with cough 03/27/2018 03/12/2019 Recurrent UTI (urinary tract infection) 05/13/20 17 03/12/2019 Malassezia furfur causing tinea 05/13/2017 03/12/2019 Breast lump on right side at 6 o'clock position 05/13/2017 03/12/2019 Breast pain, left 05/13/2017 03/12/2019 Irritation of left eye 05/13/2017 8 Persistent dry cough 05/13/2017 03/12/2019 Hypertension, essential 05/13/2017 03/27/20 18 documented as of this encounter (statuses as of 05/23/2023) [facility] History of Past illness Narrative* Problem Noted Date Resolved Date Dermatophytosis 04/06/2018 03/12/2019 Viral URI with cough 03/27/2018 03/12/2019 Recurrent UTI (urinary tract infection) 05/13/20 17 03/12/2019 Malassezia furfur causing tinea 05/13/2017 03/12/2019 Breast lump on right side at 6 o'clock position 05/13/2017 03/12/2019 Breast pain, left 05/13/2017 03/12/2019 Irritation of left eye 05/13/2017 8 Persistent dry cough 05/13/2017 03/12/2019 Hypertension, essential 05/13/2017 03/27/20 18 documented as of this encounter (statuses as of 05/30/2023) [facility] History of Past illness Narrative* Problem Noted Date Diagnosed Date Resolved Date Dermatophytosis 04/06/2018 03/12/2019 Viral URI with cough 03/27/2018 019 Recurrent UTI (urinary tract infection) 05/13/2017 03/12/2019 Malassezia furfur causing tinea 05/13/2017 03/12/2019 Breast lump on right side at 6 o'clock position 05/13/2017 03/12/2019 Breast pain, left 05/13/2017 03/12/2019 Irritation of left eye 05/13/201704/27 Persistent dry cough 05/13/2017 019 Hypertension, essential 05/13/2017 05/0 02/2018 documented as of this encounter (statuses as of 06/05/2023) [facility] Essential hypertension Unspecified essential hypertension [facility]* Diagnosis Breast screening- Primary Breast screening, unspecified [facility] Diagnosis Encounter for screening mammogram for malignant neoplasm of breast- Primary Other screening mammogram [facility]* Diagnosis Breast screening Breast screening, unspecified [facility]* Diagnosis Encounter for annual routine gynecological examination- Primary Encounter for Papanicolaou smear for cervical cancer screening Family history of ovarian cancer Family history of malignant neoplasm of ovary [facility] Diagnosis Family history of ovarian cancer Family history of malignant neoplasm of ovary [facility] Diagnosis Renal calculi- Primary Calculus of kidney [facility] Diagnosis Calculus of kidney- Primary Aortic valve stenosis, etiology of cardiac valve disease unspecified Mitral valve prolapse Mitral valve disorders History of cardiac murmur Personal history of other diseases of circulatory system Chest pain, unspecified type Migraine without status migrainosus, not intractable, unspecified migraine type Asymptomatic postmenopausal status Screening for depression [facility] Diagnosis Aortic valve stenosis, etiology of cardiac valve disease unspecified Mitral valve prolapse Mitral valve disorders History of cardiac murmur Personal history of other diseases of circulatory system [facility] Diagnosis Aortic valve stenosis, etiology of cardiac valve disease unspecified- Primary [facility] Diagnosis Essential hypertension Unspecified essential hypertension [facility]* Diagnosis RUQ pain- Primary Abdominal pain, right upper quadrant Common bile duct dilatation Other specified disorders of biliary tract Unable to lose weight Other symptoms concerning nutrition, metabolism, and development Elevated blood sugar Other abnormal glucose [facility]* Diagnosis RUQ pain Abdominal pain, right upper quadrant [facility]* Diagnosis Chest pain, unspecified type- Primary [facility] Diagnosis Nonrheumatic aortic (valve) stenosis- Primary Essential hypertension Unspecified essential hypertension Hypercholesteremia Pure hypercholesterolemia History of cardiac murmur Personal history of other diseases of circulatory system Obesity, Class II, BMI 35-39.9 Obesity, unspecified Bicuspid aortic valve Congenital insufficiency of aortic valve [facility] Diagnosis Gallbladder polyp- Primary Cholesterolosis of gallbladder RUQ pain Abdominal pain, right upper quadrant Obesity, Class II, BMI 35-39.9 Obesity, unspecified Cholecystitis Cholecystitis, unspecified [facility] Diagnosis Cholecystitis Cholecystitis, unspecified [facility] Diagnosis Urinary frequency- Primary [facility] Diagnosis Encounter for screening mammogram for malignant neoplasm of breast documented in this encounter [facility] Work Phone: Evaluation note* Diagnosis Class 2 obesity- Primary Vitamin D deficiency Unspecified vitamin D deficiency Essential hypertension Unspecified essential hypertension Dietary counseling and surveillance Dietary surveillance and counseling Body mass index (BMI) of 35.0-35.9 in adult Body Mass Index 35.0-35.9, adult Bicuspid aortic valve Congenital insufficiency of aortic valve [facility] Diagnosis Flu-like symptoms- Primary Other general symptoms Body aches Generalized pain Urinary frequency documented in this encounter [facility] for referral (narrative)* Diagnostic Procedure Only (Routine) - Pending Review Specialty Diagnoses / Procedures Referred By Contac t Referred To Contact [facility] Diagnoses Breast screening Procedures ELVER SCREENING SCREENING MAMMOGRAPHY BI 2-VIEW BREAST INC CAD Pap, Live Garvey MD [address] [place] [address] [facility] [address] [place] [address] Referral ID Status Reason Start Date Expiration Date Visits Requested Visits Authorized [id number] Pending Review Auto-Generat ed Referral 05/06/2022 06/05/2023 1 1 [facility] for referral (narrative)* Diagnostic Procedure Only (Routine) - Closed Specialty Diagnoses / Procedures [facility] Diagnoses Breast screening Procedures ELVER SCREENING SCREENING MAMMOGRAPHY BI 2-VIEW BREAST INC CAD Pap, Live Garvey MD [address] [place] [address] [facility] [address] [place] [address] Referral ID Status Reason Start Date Expiration Date V isits Requested Visits Authorized [id number] Closed Auto-Generate d Referral 05/06/2022 06/05/2023 1 1 [facility] for referral (narrative)* Diagnostic Procedure Only (Routine) - Pending Review Specialty Diagnoses / Procedures Referred By Contac t Referred To Contact [facility] Diagnoses Family history of ovarian cancer Procedures US FEMALE PELVIS TRANSVAG US TRANSVAGINAL Pap, Live Garvey MD [address] [place] [address] [facility] Referral ID Status Reason Start Date Expiration Date Visits Requested Visits Authorized [id number] Pending Review Auto-Generat ed Referral 06/17/2022 07/17/2023 1 1 [facility] for referral (narrative)* Diagnostic Procedure Only (Routine) - Closed Specialty Diagnoses / Procedures Referred By Contac t Referred To Contact [facility] Diagnoses Family history of ovarian cancer Procedures US FEMALE PELVIS TRANSVAG US TRANSVAGINAL Live Short MD [address] [place] [address] [facility] Referral ID Status Reason Start Date Expiration Date V isits Requested Visits Authorized [id number] Closed Auto-Generate d Referral 06/17/2022 07/17/2023 1 1 [facility] for referral (narrative)* Diagnostic Procedure Only (Routine) - Pending Review Specialty Diagnoses / Procedures [facility] To [facility] Diagnoses Chest pain, unspecified type Procedures NM CARDIAC PERF STRESS/EXERCISE MYOCARDIAL SPECT MULTIPLE STUDIES Usha Thibodeaux APRN.SURFACE GRINDER [address] [place] [address] [facility] [address] [place] [address] Referral ID Status Reason Start Date Expiration Date Visits Requested Visits Authorized [id number] Pending Review Auto-Generat ed Referral 12/10/2022 01/09/2024 1 1 * Outpatient Procedure (Routine) - Open Specialty Diagnoses / Procedures [facility] Diagnoses Aortic valve stenosis, etiology of cardiac valve disease unspecified Mitral valve prolapse History of cardiac murmur Procedures ECHO ECHO TTHRC R-T 2D W/WOM-MODE COMPL SPEC&COLR D Usha Thibodeaux APRN.SURFACE GRINDER [address] [place] [address] [place] [id number] Referral ID Status Reason Start Date Expiration Date V isits Requested Visits Authorized [id number] Open Auto-Generate d Referral 12/10/2022 12/10/2023 1 1 [facility] for referral (narrative)* Outpatient Procedure (Routine) - Closed Specialty Diagnoses / Procedures Referred By Contac t Referred To Contact [facility] [place] Diagnoses Aortic valve stenosis, etiology of cardiac valve disease unspecified Mitral valve prolapse History of cardiac murmur Procedures ECHO ECHO TTHRC R-T 2D W/WOM-MODE COMPL SPEC&COLR D Usha Thibodeaux APRN.SURFACE GRINDER [address] [place] [address] [place] [id number] Referral ID Status Reason Start Date Expiration Date V isits Requested Visits Authorized [id number] Closed Auto-Generate d Referral 12/13/2022 02/11/2023 1 1 [facility] for referral (narrative)* Diagnostic Procedure Only (Routine) - Closed Specialty Diagnoses / Procedures Referred By Contac t Referred To Contact [facility] Diagnoses RUQ pain Procedures US ABD RIGHT UPPER QUADRANT US ABDOMINAL REAL TIME W/IMAGE LIMITED Usha Thibodeaux APRN.SURFACE GRINDER [address] [place] [address] [facility] Referral ID Status Reason Start Date Expiration Date V isits Requested Visits Authorized [id number] Closed Auto-Generate d Referral 11/24/2022 11/23/2023 1 1 [facility] for referral (narrative)* Diagnostic Procedure Only (Routine) - Pending Review Specialty Diagnoses / Procedures Referred By Contac t Referred To Contact [facility] Diagnoses Cholecystitis Procedures NM HEPATOBILIARY W EF AND/OR RX HEPATOBIL SYST IMAG INC GB W/PHARMA Sohail Montanez MD [facility] [address] [place] [address] [facility] [address] [place], [place] [id number] Referral ID Status Reason Start Date Expiration Date Visits Requested Visits Authorized [id number] Pending Review Auto-Generat ed Referral 07/16/2023 08/14/2024 1 1 [facility] for referral (narrative)* Diagnostic Procedure Only (Routine) - Closed Specialty Diagnoses / Procedures Referred By Contac t Referred To Contact [facility] Diagnoses Cholecystitis Procedures NM HEPATOBILIARY W EF AND/OR RX HEPATOBIL SYST IMAG INC GB W/PHARMA Sohail Montanez MD [address] [facility] [address] [place] [address] [facility] [address] [place], [place] [id number] Referral ID Status Reason Start Date Expiration Date V isits Requested Visits Authorized [id number] Closed Auto-Generate d Referral 11/24/2022 11/23/2023 1 1 [facility] for visit Narrative* Diagnostic Procedure Only (Routine) - Closed Specialty Diagnoses / Procedures Referred By Contac t Referred To Contact [facility] Diagnoses Breast screening [Z12.39] Procedures SCREENING MAMMOGRAPHY BI 2-VIEW BREAST INC CAD [place] SCREENING [[id number]] Pap, Live Garvey MD [address] [place] [address] [facility] [address] [place] [address] Referral ID Status Reason Start Date Expiration Date V isits Requested Visits Authorized [id number] Closed OON/Self Pay Override Financial Clearance Required - OON Payor Patient Cleared - INN Insurance Found 11/24/2021 11/23/2022 1 1 [facility] for visit Narrative* (Routine) - Open Specialty Diagnoses / Procedures Referred By Nabeel kong Referred To Contact [facility] IMAG[facility] Diagnoses Family history of ovarian cancer Procedures US TRANSVAGINAL Pap, Live Garvey MD [address] [place] [address] Us Imaging Referral ID Status Reason Start Date Expiration Date V isits Requested Visits Authorized [id number] Open OON/Self Pay Override 06/17/2022 08/16/2022 1 1 [facility] for visit Narrative* Outpatient Procedure (Routine) - Closed Specialty Diagnoses / Procedures Referred By Nabeel kong Ref[facility] Diagnoses Aortic valve stenosis, etiology of cardiac valve disease unspecified Mitral valve prolapse History of cardiac murmur Procedures ECHO ECHO TTHRC R-T 2D W/WOM-MODE COMPL SPEC&COLR D Usha Thibodeaux, SALES WAREHOUSE DRIVER.SURFACE GRINDER [address] [place] [address] [facility] [place] [id number] [place] [address] Referral ID Status Reason Start Date Expiration Date V isits Requested Visits Authorized [id number] Closed Auto-Generate d Referral 12/13/2022 02/11/2023 1 1 [facility] for visit Narrative* Outpatient Procedure (Routine) - Closed Specialty Diagnoses / Procedures Referred By Nabeel Referred To Contact [facility] Diagnoses Right upper quadrant pain Procedures ULTRASOUND-ABDOMINAL PC US ABDOMINAL REAL TIME W/IMAGE LIMITED Usha Thibodeaux, SALES WAREHOUSE DRIVER.SURFACE GRINDER [address] [place] [address] [facility] [address] [place] [address] Referral ID Status Reason Start Date Expiration Date V isits Requested Visits Authorized [id number] Closed OON/Self Pay Override 11/24/2022 11/23/2023 1 1 [facility] for visit Narrative* Diagnostic Procedure Only (Routine) - Closed Specialty Diagnoses / Procedures Referred By Nabeel kong Referred To Contact [facility] Diagnoses Cholecystitis, unspecified Cholecystitis [K81.9] Procedures RADIOLOGIC EXAM ESOPHAGUS SINGLE CONTRAST STUDY Usha Thibodeaux, SALES WAREHOUSE DRIVER.SURFACE GRINDER [address] [place] [address] [place] [id number] Referral ID Status Reason Start Date Expiration Date V isits Requested Visits Authorized [id number] Closed OON/Self Pay Override Financial Clearance Not Required 07/16/2023 01/12/2024 1 1 [facility] Advance Directives No Advanced Directives Records FoundDocuments on File Type Date Recorded Patient Event Host Expl anation Advance Directive(s) 10/01/2020 6:59 PM Advance Directive(s) 09/30/2020 11:54 PM Documents on File Type Date Recorded Patient Event Host Expl anation Advance Directive(s) 10/01/2020 6:59 PM Advance Directive(s) 09/30/2020 11:54 PM Summary Purpose Family History No Family History Records FoundNo Family History Records FoundNo Family History Records FoundNo Family History Records Found Health Concerns Infection Onset Date Last Indicated Resolved Time COVID-19 Rule-Out 11/14/2022 11/14/2022 11/14/2022 2:25 PM EST Infection Onset Date Last Indicated Resolved Time COVID-19 Rule-Out 11/14/2022 11/14/2022 11/14/2022 2:25 PM EST COVID-19 Rule-Out 11/14/2022 11/14/2022 11/15/2022 6:38 AM EST Infection Onset Date Last Indicated Resolved Time Influenza 12/31/2023 12/31/2023 Medications Administered Section Inactive Administered Medications - up to 3 most recent administrations Medication Order MAR Action Action Date Dose Rate Site sulfamethoxazole-trimethoprim 800-160 mg 1 tablet (BACTRIM DS,SEPTRA DS) 1 tablet, ORAL, ONCE, 1 dose, On Fri12/06/22 at 1200, One tab prior to procedure, Please document the antimicrobial indication: Prophylaxis Given 12/06/2022 1:54 PM EST 1 tablet Oral Reason for Referral Specialty Diagnoses / Procedures Referred By Nabeel kong Referred To Contact Cardiology Diagnoses Aortic valve stenosis, etiology of cardiac valve disease unspecified Procedures CONSULT TO CARDIOLOGY OFFICE/OUTPATIENT [facility] 60-74 MINUTES Usha Thibodeaux APRN.SURFACE GRINDER [address] [place] [address] Referral ID Status Reason Start Date Expiration Date Visits Requested Visits Authorized [id number] Pending Review PCP Requested Referral 12/21/2022 12/21/2023 1 1 Specialty Diagnoses / Procedures Referred By Contac t Referred To Contact Diagnoses RUQ pain Usha Thibodeaux APRN.CNP [address] [place] [address] Referral ID Status Reason Start Date Expiration Date Visits Re quested Visits Authorized [id number] Closed 1 1 Specialty Diagnoses / Procedures Referred By Contac t Referred To Contact [facility] Diagnoses RUQ pain Procedures US ABD RIGHT UPPER QUADRANT US ABDOMINAL REAL TIME W/IMAGE LIMITED Usha Thibodeaux APRN.SURFACE GRINDER [address] [place] [address] Us Imaging Referral ID Status Reason Start Date Expiration Date V isits Requested Visits Authorized [id number] Closed Auto-Generate d Referral 11/24/2022 11/23/2023 1 1 Specialty Diagnoses / Procedures Referred By Contac t Referred To Contact General Surgery / [facility] Department Diagnoses RUQ pain Procedures CONSULT TO GENERAL SURGERY OFFICE/OUTPATIENT [facility] 60-74 MINUTES Usha Thibodeaux APRN.SURFACE GRINDER [address] [place] [address] Lynn Lanza MD [address] [address] Referral ID Status Reason Start Date Expiration Date Visits Requested Visits Authorized [id number] Pending Review PCP Requested Referral 05/19/2023 05/18/2024 1 1 Specialty Diagnoses / Procedures Referred By Contac t Referred To Contact Radiology Diagnoses Encounter for screening mammogram for malignant neoplasm of breast Procedures BI mammo bilateral screening tomosynthesis Usha Thibodeaux APRN-SURFACE GRINDER [address] [place] [address] Referral ID Status Reason Start Date Expiration Date Visits Requested Visits Authorized [id number] Authorized Perform Procedure 08/07/2023 02/03/2024 1 1 Additional Source Comments Source Comments (unrecognize d section and content) In the event this informatio n is protected by the Federal Confidentiality of Alcohol and Drug Abuse Patient Records regulations: The Federal rules restrict any use of the information to criminally investigate or prosecute any alcohol or drug abuse patient.[facility] HealthIn the event this information is protected by the Federal Confidentiality of Alcohol and Drug Abuse Patient Records regulations: The Federal rules restrict any use of the information to criminally investigate or prosecute any alcohol or drug abuse patient.[facility] HealthIn the event this information is protected by the Federal Confidentiality of Alcohol and Drug Abuse Patient Records regulations: The Federal rules restrict any use of the information to criminally investigate or prosecute any alcohol or drug abuse patient.[facility] HealthIn the event this information is protected by the Federal Confidentiality of Alcohol and Drug Abuse Patient Records regulations: The Federal rules restrict any use of the information to criminally investigate or prosecute any alcohol or drug abuse patient.[facility] HealthIn the event this information is protected by the Federal Confidentiality of Alcohol and Drug Abuse Patient Records regulations: The Federal rules restrict any use of the information to criminally investigate or prosecute any alcohol or drug abuse patient.[facility] HealthIn the event this information is protected by the Federal Confidentiality of Alcohol and Drug Abuse Patient Records regulations: The Federal rules restrict any use of the information to criminally investigate or prosecute any alcohol or drug abuse patient.[facility] HealthIn the event this information is protected by the Federal Confidentiality of Alcohol and Drug Abuse Patient Records regulations: The Federal rules restrict any use of the information to criminally investigate or prosecute any alcohol or drug abuse patient.[facility] HealthIn the event this information is protected by the Federal Confidentiality of Alcohol and Drug Abuse Patient Records regulations: The Federal rules restrict any use of the information to criminally investigate or prosecute any alcohol or drug abuse patient.[facility] HealthIn the event this information is protected by the Federal Confidentiality of Alcohol and Drug Abuse Patient Records regulations: The Federal rules restrict any use of the information to criminally investigate or prosecute any alcohol or drug abuse patient.[facility] HealthIn the event this information is protected by the Federal Confidentiality of Alcohol and Drug Abuse Patient Records regulations: The Federal rules restrict any use of the information to criminally investigate or prosecute any alcohol or drug abuse patient.[facility] HealthIn the event this information is protected by the Federal Confidentiality of Alcohol and Drug Abuse Patient Records regulations: The Federal rules restrict any use of the information to criminally investigate or prosecute any alcohol or drug abuse patient.[facility] HealthIn the event this information is protected by the Federal Confidentiality of Alcohol and Drug Abuse Patient Records regulations: The Federal rules restrict any use of the information to criminally investigate or prosecute any alcohol or drug abuse patient.[facility] HealthIn the event this information is protected by the Federal Confidentiality of Alcohol and Drug Abuse Patient Records regulations: The Federal rules restrict any use of the information to criminally investigate or prosecute any alcohol or drug abuse patient.[facility] HealthIn the event this information is protected by the Federal Confidentiality of Alcohol and Drug Abuse Patient Records regulations: The Federal rules restrict any use of the information to criminally investigate or prosecute any alcohol or drug abuse patient.[facility] HealthIn the event this information is protected by the Federal Confidentiality of Alcohol and Drug Abuse Patient Records regulations: The Federal rules restrict any use of the information to criminally investigate or prosecute any alcohol or drug abuse patient.[facility] HealthIn the event this information is protected by the Federal Confidentiality of Alcohol and Drug Abuse Patient Records regulations: The Federal rules restrict any use of the information to criminally investigate or prosecute any alcohol or drug abuse patient.[facility] HealthIn the event this information is protected by the Federal Confidentiality of Alcohol and Drug Abuse Patient Records regulations: The Federal rules restrict any use of the information to criminally investigate or prosecute any alcohol or drug abuse patient.[facility] HealthIn the event this information is protected by the Federal Confidentiality of Alcohol and Drug Abuse Patient Records regulations: The Federal rules restrict any use of the information to criminally investigate or prosecute any alcohol or drug abuse patient.[facility] HealthIn the event this information is protected by the Federal Confidentiality of Alcohol and Drug Abuse Patient Records regulations: The Federal rules restrict any use of the information to criminally investigate or prosecute any alcohol or drug abuse patient.[facility] HealthIn the event this information is protected by the Federal Confidentiality of Alcohol and Drug Abuse Patient Records regulations: The Federal rules restrict any use of the information to criminally investigate or prosecute any alcohol or drug abuse patient.[facility] HealthIn the event this information is protected by the Federal Confidentiality of Alcohol and Drug Abuse Patient Records regulations: The Federal rules restrict any use of the information to criminally investigate or prosecute any alcohol or drug abuse patient.[facility] HealthIn the event this information is protected by the Federal Confidentiality of Alcohol and Drug Abuse Patient Records regulations: The Federal rules restrict any use of the information to criminally investigate or prosecute any alcohol or drug abuse patient.[facility] HealthIn the event this information is protected by the Federal Confidentiality of Alcohol and Drug Abuse Patient Records regulations: The Federal rules restrict any use of the information to criminally investigate or prosecute any alcohol or drug abuse patient.[facility] HealthIn the event this information is protected by the Federal Confidentiality of Alcohol and Drug Abuse Patient Records regulations: The Federal rules restrict any use of the information to criminally investigate or prosecute any alcohol or drug abuse patient.[facility] HealthIn the event this information is protected by the Federal Confidentiality of Alcohol and Drug Abuse Patient Records regulations: The Federal rules restrict any use of the information to criminally investigate or prosecute any alcohol or drug abuse patient.[facility] HealthIn the event this information is protected by the Federal Confidentiality of Alcohol and Drug Abuse Patient Records regulations: The Federal rules restrict any use of the information to criminally investigate or prosecute any alcohol or drug abuse patient.[facility] HealthIn the event this information is protected by the Federal Confidentiality of Alcohol and Drug Abuse Patient Records regulations: The Federal rules restrict any use of the information to criminally investigate or prosecute any alcohol or drug abuse patient.[facility] HealthIn the event this information is protected by the Federal Confidentiality of Alcohol and Drug Abuse Patient Records regulations: The Federal rules restrict any use of the information to criminally investigate or prosecute any alcohol or drug abuse patient.[facility] HealthIn the event this information is protected by the Federal Confidentiality of Alcohol and Drug Abuse Patient Records regulations: The Federal rules restrict any use of the information to criminally investigate or prosecute any alcohol or drug abuse patient.[facility] HealthIn the event this information is protected by the Federal Confidentiality of Alcohol and Drug Abuse Patient Records regulations: The Federal rules restrict any use of the information to criminally investigate or prosecute any alcohol or drug abuse patient.[facility] HealthIn the event this information is protected by the Federal Confidentiality of Alcohol and Drug Abuse Patient Records regulations: The Federal rules restrict any use of the information to criminally investigate or prosecute any alcohol or drug abuse patient.[facility] HealthIn the event this information is protected by the Federal Confidentiality of Alcohol and Drug Abuse Patient Records regulations: The Federal rules restrict any use of the information to criminally investigate or prosecute any alcohol or drug abuse patient.[facility] Reason for Visit (unrecogniz ed section and content) Specialty Diagnoses / Procedures Referred By Nabeel t Referred To Contact [facility] Diagnoses Encounter for screening mammogram for breast cancer screening elver Procedures SCREENING MAMMOGRAPHY BI 2-VIEW BREAST INC CAD mammogram Pap, Live Garvey MD [address] [place] [address] [facility] [address] [place] [address] Referral ID Status Reason Start Date Expiration Date V isits Requested Visits Authorized [id number] Denied OON/Self Pay Override 04/12/2022 06/11/2022 1 0 Reason Comments Orders Reason Comments Yearly Exam Pt presents for saira al exam. Denies any concerns. Specialty Diagnoses / Procedures Referred By Contac t Referred To Contact CIRCUIT BOARD REPAIR TECHNICIAN Diagnoses ANNUAL Procedures ANNUAL Pap, Live Garvey MD [address] [place] [address] Supervisor Coremaker [address] [address] Referral ID Status Reason Start Date Expiration Date Visits Requested Visits Authorized [id number] Pending Review OON/Self Pay Override 06/07/2022 08/06/2022 1 1 Reason Comments Abdominal Pain Reason Onset Date Comments Film Sound Coordinator - Hospital Follow Up 11/14/2022 Reason Comments Surgery Scheduled Reason Onset Date Comments Transition Of Care 11/19/2022 [facility] discharg e 11/15/2022 TCM encounter Reason Comments Patient Question Reason Comments Cystoscopy-1 Specialty Diagnoses / Procedures Referred By Contac t Referred To Contact UROLOGY Diagnoses S/P cystoscopy Procedures CYSTO W/SIMPLE REMOVAL STONE & STENT REFERRAL TO [facility] FINANCIAL COUNSELOR Harman Lopez MD [address] [place] [address] Urol Simms [address] [place] [address] Referral ID Status Reason Start Date Expiration Date Visits Requested Visits Authorized [id number] Pending Review OON/Self Pay Override Financial Clearance Required - OON Payor OON Notification Letter Patient Cleared - Admin/Music Therapy Specialist/D irector advise to proceed 03/05/2023 3 3 Reason Comments Follow up for stent removal Specialty Diagnoses / Procedures Referred By Contac t Referred To Contact FAMILY [facility]ICINE Diagnoses follow up appt Procedures est pt Self Usha Thibodeaux APRN.SURFACE GRINDER [address] [place] [address] Referral ID Status Reason Start Date Expiration Date Visits Requested Visits Authorized [id number] Outside PCP OON/Self Pay Override 12/02/2022 05/31/2023 1 1 Reason Onset Date Comments Film Sound Coordinator - Hospital Follow Up 11/29/2022 Reason Comments Results Consult Reason Comments Refill Request Reason Comments Abdominal Pain Location: right uppe r abdomen around to back. Gallbladder Pain scale: 5Duration: 9:00 yesterday morningDescription: Sharp shooting occ. And nagging painTreatment: tylenol Specialty Diagnoses / Procedures Referred By Contac t Referred To Contact [facility]ILY [facility]ICINE Diagnoses Follow-up exam Procedures OFFICE/OUTPATIENT ESTABLISHED MOD MDM 30-39 MIN Usha Thibodeaux APRN.SURFACE GRINDER [address] [place] [address] [facility] [address] [place] [address] Referral ID Status Reason Start Date Expiration Date Visits Requested Visits Authorized [id number] Pending Review OON/Self Pay Override 12/10/2022 11/15/2023 1 1 Reason Comments Orders Stress test Reason Comments CARD New Patient Consult Aortic valve st enosis Specialty Diagnoses / Procedures Referred By Contac t Referred To Contact [facility] Diagnoses Chest pain, unspecified type [R07.9] Procedures nm cardiac perf stress teest Usha Thibodeaux SALES WAREHOUSE DRIVER.SURFACE GRINDER [address] [place] [address] [facility] [place] [address] [place] [address] Referral ID Status Reason Start Date Expiration Date V isits Requested Visits Authorized [id number] Closed OON/Self Pay Override 12/13/2022 09/17/2023 1 1 Reason Comments New Patient GB Specialty Diagnoses / Procedures Referred By Contac t Referred To Contact GENERAL SURGERY Diagnoses Cholelithiasis Procedures OFFICE/OUTPATIENT NEW MODERATE MDM 45-59 MINUTES Usha Thibodeaux SALES WAREHOUSE DRIVER.SURFACE GRINDER [address] [place] [address] Sohail Scherer MD [address] [address] Referral ID Status Reason Start Date Expiration Date Visits Requested Visits Authorized [id number] Pending Review OON/Self Pay Override 05/21/2023 11/17/2023 1 1 Specialty Diagnoses / Procedures Referred By Contac t Referred To Contact Radiology Diagnoses Encounter for screening mammogram for malignant neoplasm of breast Procedures BI mammo bilateral screening tomosynthesis Usha Thibodeaux, SALES WAREHOUSE DRIVER-SURFACE GRINDER [address] [place] [address] Referral ID Status Reason Start Date Expiration Date Visits Requested Visits Authorized [id number] Authorized Perform Procedure 08/07/2023 02/03/2024 1 1 Reason Comments Results Reason Comments New Patient Specialty Diagnoses / Procedures Referred By Nabeel kong Referred To Contact INTERNAL MEDICINE Diagnoses headahce fever fatigue lost of appitite Procedures established pt Self [place] [address] [place] [address] Referral ID Status Reason Start Date Expiration Date Visits Requested Visits Authorized [id number] Outside PCP OON/Self Pay Override 12/31/2023 04/09/2025 1 1 Care Teams (unrecognized sec tion and content) Driver Relationship Specialty Start Date End Date Usha Thibodeaux, SALES WAREHOUSE DRIVER.SURFACE GRINDER [address] [place], [place] [id number] PCP - General Family Practice 10/04/20 Driver Relationship Specialty Start Date End Date Usha Thibodeaux, SALES WAREHOUSE DRIVER.SURFACE GRINDER [address] [place] [address] PCP - General Family Practice 10/04/20 Driver Relationship Specialty Start Date End Date Usha Thibodeaux, SALES WAREHOUSE DRIVER.SURFACE GRINDER [address] [place] [address] PCP - General Family Practice 10/04/20 Driver Relationship Specialty Start Date End Date Usha Thibodeaux, SALES WAREHOUSE DRIVER.SURFACE GRINDER [address] [place] [address] PCP - General Family Practice 10/04/20 Driver Relationship Specialty Start Date End Date Usha Thibodeaux, SALES WAREHOUSE DRIVER.SURFACE GRINDER [address] [place], [place] [id number] PCP - General Family Practice 10/04/20 Driver Relationship Specialty Start Date End Date Usha Thibodeaux, SALES WAREHOUSE DRIVER.SURFACE GRINDER [address] [place], [place] [id number] PCP - General Family Practice 10/04/20 Driver Relationship Specialty Start Date End Date Usha Thibodeaux, SALES WAREHOUSE DRIVER.SURFACE GRINDER [address] [place] [address] PCP - General Family Medicine 10/04/20 Driver Relationship Specialty Start Date End Date Usha Thibodeaux, SALES WAREHOUSE DRIVER.SURFACE GRINDER [address] [place] [address] PCP - General Family Medicine 10/04/20 Driver Relationship Specialty Start Date End Date Usha Thibodeaux, SALES WAREHOUSE DRIVER.SURFACE GRINDER [address] [place] [address] PCP - General Family Medicine 10/04/20 Driver Relationship Specialty Start Date End Date Usha Thibodeaux, SALES WAREHOUSE DRIVER.SURFACE GRINDER [address] [place] [address] PCP - General Family Medicine 10/04/20 Driver Relationship Specialty Start Date End Date Usha Thibodeaux, SALES WAREHOUSE DRIVER.SURFACE GRINDER [address] [place] [address] PCP - General Family Medicine 10/04/20 Driver Relationship Specialty Start Date End Date Usha Thibodeaux, SALES WAREHOUSE DRIVER.SURFACE GRINDER [address] [place] [address] PCP - General Family Medicine 10/04/20 Driver Relationship Specialty Start Date End Date Usha Thibodeaux, SALES WAREHOUSE DRIVER.SURFACE GRINDER [address] [facility] [place] [address] PCP - General Family Medicine 10/04/20 Driver Relationship Specialty Start Date End Date Usha Thibodeaux, SALES WAREHOUSE DRIVER.SURFACE GRINDER [address] [place] [address] PCP - General Family Medicine 10/04/20 Driver Relationship Specialty Start Date End Date Usha Thibodeaux, SALES WAREHOUSE DRIVER.SURFACE GRINDER [address] [place] [address] PCP - General Family Medicine 10/04/20 Driver Relationship Specialty Start Date End Date Usha Thibodeuax, SALES WAREHOUSE DRIVER.SURFACE GRINDER [address] [place] [address] PCP - General Family Medicine 10/04/20 Driver Relationship Specialty Start Date End Date Usha Thibodeaux, SALES WAREHOUSE DRIVER.SURFACE GRINDER [address] [place] [address] PCP - General Family Medicine 10/04/20 Driver Relationship Specialty Start Date End Date Usha Thibodeaux, SALES WAREHOUSE DRIVER.SURFACE GRINDER [address] [place] [address] PCP - General Family Medicine 10/04/20 Driver Relationship Specialty Start Date End Date Usha Thibodeaux, SALES WAREHOUSE DRIVER.SURFACE GRINDER [address] [place] [address] PCP - General Family Medicine 10/04/20 Driver Relationship Specialty Start Date End Date Usha Thibodeaux, SALES WAREHOUSE DRIVER.SURFACE GRINDER [address] [place] [address] PCP - General Family Medicine 10/04/20 Driver Relationship Specialty Start Date End Date Usha Thibodeaux, SALES WAREHOUSE DRIVER.SURFACE GRINDER [address] [place] [address] PCP - General Family Medicine 10/04/20 Driver Relationship Specialty Start Date End Date Usha Thibodeaux, SALES WAREHOUSE DRIVER.SURFACE GRINDER [address] [place] [address] PCP - General Family Medicine 10/04/20 Driver Relationship Specialty Start Date End Date Usha Thibodeaux SALES WAREHOUSE DRIVER.SURFACE GRINDER [address] [place] [address] PCP - General Family Medicine 10/04/20 Driver Relationship Specialty Start Date End Date Usha Thibodeaux, SALES WAREHOUSE DRIVER-SURFACE GR[employer]ER [address] [place] [address] PCP - General 06/05/23 Driver Relationship Specialty Start Date End Date Usha Thibodeaux SALES WAREHOUSE DRIVER-SURFACE GR[employer]ER [address] [place] [address] PCP - General 06/05/23 Driver Relationship Specialty Start Date End Date Usha Thibodeaux, SALES WAREHOUSE DRIVER.SURFACE [employer]ER [address] [place] [address] PCP - General Family Medicine 10/04/20 Driver Relationship Specialty Start Date End Date Usha Thibodeaux SALES WAREHOUSE DRIVER.SURFACE [employer] [address] [place] [address] PCP - General Family Medicine 10/04/20 Driver Relationship Specialty Start Date End Date Usha Thibodeaux, SALES WAREHOUSE DRIVER.SURFACE GR[employer] [address] [place] [address] PCP - General Family Medicine 10/04/20 Driver Relationship Specialty Start Date End Date Usha Thibodeaux SALES WAREHOUSE DRIVER.SURFACE GR[employer] [address] [place] [address] PCP - General Family Medicine 10/04/20 INFORMATION SOURCE (unrecogn ized section and content) DATE CREATED AUTHOR AUTHOR'S ORGANIZ ATION 06/07/2023 [facility] DATE CREATED AUTHOR AUTHOR'S ORGANIZ ATION 09/15/2023 [facility] DATE CREATED AUTHOR AUTHOR'S ORGANIZ ATION 01/02/2024 [facility] FOR RECORDS PERTAINING TO PATIENTS WHO ARE OR HAVE BEEN ENROLLED IN A CHEMICAL DEPENDENCY/SUBSTANCEABUSE PROGRAM, SOME INFORMATION MAY BE OMITTED. This clinical summary was aggregated from multiple sources. Caution should be exercised in using it in the provision of clinical care. This summary normalizes information from multiple sources, and as a consequence, information in this document may materially change the coding, format and clinical context of patient data. In addition, data may be omitted in some cases. CLINICAL DECISIONS SHOULD BE BASED ON THE PRIMARY CLINICAL RECORDS. [employer] provides no warranty or guarantee of the accuracy or completeness of information in this document.
[2024-01-17 10:39] LABS: AST(SGOT) 21 U/L (15-37); Alanine Aminotransfer ALT/SGPT 46 U/L (13-56); Albumin, Serum 3.7 g/dL (3.2-5.0); Alkaline Phosphatase 87 U/L (45-117); Anion Gap 4 (5-15); BUN 22 mg/dL (7-18); BUN/Creat Ratio 21.6 RATIO (10-20); Calcium,Total 9.5 mg/dL (8.5-10.1); Chloride 110 mmol/L (98-107); Creatinine, Serum 1.02 mg/dL (0.55-1.02); EST Glomerular Filtration Rate 59 mL/min (>60); Est Glom Filt Rate - Afr Amer 72 mL/min (>60); Globulin 3.8 g/dL (2.2-4.2); Glucose 99 mg/dL (74-106); Potassium 4.4 mmol/L (3.5-5.1); Protein, Total 7.5 g/dL (6.4-8.2); Sodium Level 142 mmol/L (136-145)
[2024-01-17 11:29] LABS: Hemoglobin A1c 5.6 % (3.8-5.6)
[2024-01-19 08:26] LABS: Insulin 8.9 mU/L (2.6-37.6); Vitamin B12 518 pg/mL (211-911); Vitamin D,25 Hydroxy 50.4 ng/mL
== END | disposition home or self-care (01) ==
LOC: LAB 10:00
PROVIDERS: PCP Nurse Practitioner Family
DX: Z71.3 Dietary counseling and surveillance (principal); Z68.35 Body mass index [BMI] 35.0-35.9, adult; E66.9 Obesity, unspecified
CPT/HCPCS: 36415; 80053; 82306; 82607; 83036; 83525

== ENCOUNTER → 2025-06-01 | Outpatient (CLI) | payer OTHER, SELFPAY ==
--- NOTE | 2025-06-01 11:15 | RAD_ITS ---
EXAM: XR Chest, 2 Views CLINICAL INDICATION: OTHER CP TECHNIQUE: Frontal and lateral views of the chest. COMPARISON: No relevant prior studies available. FINDINGS: LUNGS AND PLEURAL SPACES: Unremarkable. No consolidation. No pneumothorax. HEART: Unremarkable. No cardiomegaly. MEDIASTINUM: Unremarkable. Normal mediastinal contour. BONES/JOINTS: Unremarkable. No acute fracture. RAD/Chest PA and Lateral IMPRESSION: No acute cardiopulmonary process. Reading [facility]
== END | disposition home or self-care (01) ==
LOC: RAD 11:12
PROVIDERS: PCP Nurse Practitioner Family; Referring Provider Family Medicine; Visit Provider Family Medicine
DX: R07.89 Other chest pain (principal)
CPT/HCPCS: 71046

== ENCOUNTER 2025-06-13 07:16 | Day surgery (SDC) | payer OTHER, SELFPAY ==
[2025-06-10 07:52] VITALS: BMI 34.4
--- OUTSIDE RECORDS SUMMARY | 2025-06-13 07:22 | XMS RPT_ITS | CCD ---
Author Organization [facility] Care Team Providers Care Computer Programming Professor Name Role Phone Quequeta PSYCHOLOGIST.Usha ARAGON Primary Care Provider Stanton, Usha Merlos Attending Unavaila ble Queden, Usha Merlos Primary Care Unavaila ble Queden PSYCHOLOGIST.Usha ARAGON Primary Care Provider Stanton PSYCHOLOGIST-Usha ARAGON Primary Care Provid er Quequeta PSYCHOLOGIST.Usha ARAGON Primary Care Provider STANTON USHA CHELITA Referring Unavailable QUEDEN, USHA CHELITA Primary Care Unavailable QUEDEN, USHA CHELITA Referring Unavailable QUEDEN, USHA CHELITA Primary Care Unavailable QUEDEN, USHA A Primary Care Unavailable YANI SLOAN Referring Unavailable YANI SLOAN Attending Unavailable QUEDEN, USHA A Referring Unavailable QUEDEN, USHA A Primary Care Unavailable Queden LUG BREAKER AND WIRE PULLER-C, Usha Primary Care Provider [phone] Stanton LUG BREAKER AND WIRE PULLER-CNatividadUsha Referring Provider Dr. Fabio Wilburn MD Attending Provider Dr. Yani Sloan DO Attending Provider [phone] Dr. Yani Sloan DO Referring Provider Fabio Wilburn Attending Unavailable Cosmo, Fabio Referring Unavailable Queden LUG BREAKER AND WIRE PULLER, Usha Primary Care Unavailable Fabio Wilburn Attending Unavailable Cosmo, Fabio Referring Unavailable Queden LUG BREAKER AND WIRE PULLER, Usha Primary Care Unavailable Cosmo, Fabio Attending Unavailable Queden LUG BREAKER AND WIRE PULLER, Usha Primary Care Unavailable Queden LUG BREAKER AND WIRE PULLER, sUha Referring Unavailable Sheets, Yani Referring Unavailable Stanton LUG BREAKER AND WIRE PULLER, Usha Primary Care Unavailable Sheets, Yani Attending Unavailable CosmoFabio shay Attending Unavailable CosmoQamar shayril Referring Unavailable Stanton LUG BREAKER AND WIRE PULLER, Usha Primary Care Unavailable Sheets, Yani Referring Unavailable Stanton LUG BREAKER AND WIRE PULLER, Usha Primary Care Unavailable Sheets, Yani Attending Unavailable Allergies Allergy Classification Reported Allergen(s) Allergy Type Date of Onset Reaction(s) Facility Penicillins (antibiotic) (1 source) Amoxicillin Drug Allergy 7 Itching [facility] (20 sources) Amoxicillin; Translations: [AMOXICILLIN] Drug Allergy 7 Itching [facility] Work Phone: (1 source) ALLERGIES NOT ON FILE; Translations: [ALLERGIES NOT ON FILE] Propensity to adverse reactions (disorder) [facility] Repository (1 source) Amoxicillin Drug Allergy 5 [facility] Rep[facility] Medications Current Medications Medication Drug Class(es) Dates Sig (Normalized) Sig (Original) apple cider vinegar 500 mg oral tablet (20 sources) Start: 06-01-2025 take 1 tablet by mouth twice daily Apple Cider Vinegar 500 mg tablet Active mg PO TWICE A DAY June 01, 2025 12:00am Start: 02-22-2023 End: 04-29-2024 APPLE CIDER VINEGAR ORAL Start: 02-22-2023 APPLE CIDER TIAGO ORAL End: 12-10-2022 APPLE CIDER VINEGAR ORAL Conrado e 900 mg (dosed on ampicillin) by mouth. 0 12/10/2022 Discontinued APPLE CIDER VINE GAR ORAL Take 900 mg (dosed on ampicillin) by mouth. 0 Suspended APPLE CIDER VINE GAR ORAL Take 900 mg (dosed on ampicillin) by mouth. 0 Active Comment on above: Take 900 mg (dosed o n ampicillin) by mouth. [place] 0-Ika-Gzh-Fish Oil (Fish Oil) 60-90-500 mg capsule (2 sources) Start: 06-01-20 25 [place] 4-Uoe-Ygn-Fish Oil (Fish Oil) 60-90-500 mg capsule Active 1 NMA PO daily June 01, 2025 12:00am OTC PRODUCT (2 sources) OTC PRODUCT Live r Cleanse Active perflutren lipid microspheres 1.3 mL in NaCl (PF) 0.9% 10 mL injection (DEFINITY) (17 sources) Start: 12-10-19 End: 03-10-20 perflutren lipid microspheres 1.3 mL in NaCl (PF) 0.9% 10 mL injection (DEFINITY) rizatriptan 5 mg disintegrating oral tablet (20 sources) Serotonin-1b and Serotonin-1d Receptor Agonist Start: 05-11-20 End: 04-29-20 Rizatriptan 5 mg tablet,disintegrati ng Active 5 mg translingual NEEDED as needed for migraines May 11, 2020 12:00am Comment on above: Take 1 tablet by lesly th once daily as needed for migraine headache (see administration instructions). May repeat in 2 hours if needed 125 ml sodium chloride 9 mg/ml prefilled syringe (17 sources) Start: 12-10-19 End: 03-10-20 sodium chloride 0.9 % (flush) 10 mL (BD POSIFLUSH) traMADol hydrochloride 50 mg oral tablet (3 sources) Opioid Agonist Start: 05-19-20 End: 05-26-20 take 1 tablet by mouth every eight hours as needed for pain traMADol (ULTRAM) 50 mg tablet Indications: RUQ pain Take 1 tablet by mouth every 8 hours as needed for pain for up to 7 days. 21 tablet 0 05/19/2023 05/26/2023 Active Comment on above: Take 1 tablet by lesly th every 8 hours as needed for pain for up to 7 days. VITAMIN B COMPLEX ORAL (20 sources) VITAMIN B COMPLE X ORAL Take by mouth once daily. Active VITAMIN B COMPLE X ORAL Take by mouth once daily. 0 Active End: 12-10-2022 VITAMIN B COMPLEX ORAL Take by mouth. 0 12/10/2022 Discontinued VITAMIN B COMPLE X ORAL Take by mouth. 0 Suspended VITAMIN B COMPLE X ORAL Take by mouth. 0 Active Comment on above: Take by mouth. Take by mouth once d aily. Vitamin B Complex tablet (2 sources) Start: 06-01-2025 Vitamin B Complex tablet Active 1 {tbl} PO daily June 01, 2025 12:00am Completed/Discontinued Medications Medication Drug Class(es) Dates Sig (Normalized) Sig (Original) ascorbic acid 500 mg oral capsule (20 sources) Vitamin C Start: 03-17-2018 End: 06-01-2025 take 1 capsule by mouth once daily Ascorbic Acid (Vitamin C) 500 MG capsule Discontinued 500 mg PO DAILY March 17, 2018 12:00am June 01, 2025 10:11am supplement End: 12-29-2023 ascorbic acid (VITAMIN C ORA L) Take by mouth. 0 12/29/2023 Discontinued ascorbic acid (V ITAMIN C ORAL) Take by mouth. 0 Suspended ascorbic acid (V ITAMIN C ORAL) Take by mouth. 0 Active Comment on above: Take by mouth. Aspirin (11 sources) Platelet Aggregation Inhibitor, Nonsteroidal Anti-inflammatory Drug Start: 07-25-2023 End: 04-29-2024 aspirin 325 mg cap Start: 07-25-2023 aspirin 325 mg cap Start: 03-18-2018 End: 05-11-2020 take 1 tablet by mouth once daily Aspirin 81 MG tablet,chewable Discontinued 81 mg PO DAILY@0800 0 March 18, 2018 12:00am May 11, 2020 1:46pm aspirin 325 mg / butalbital 50 mg / caffeine 40 mg oral capsule (20 sources) Platelet Aggregation Inhibitor, Barbiturate, Nonsteroidal Anti-inflammatory Drug, Central Nervous System Stimulant, Methylxanthine Start: 03-17-2018 End: 12-10-2022 jhblwec-ymecrfsf-gflramlkcp (FIORINAL) capsule Take by mouth. 0 03/17/2018 12/10/2022 Discontinued Start: 03-17-2018 End: 05-11-2020 take 1 capsule by mouth twice daily as needed for headache Yrnvzlylmf-Twmpspd-Nnltozwn 1 EACH capsu le Discontinued 1 NMA PO TWICE A DAY as needed for Headache March 17, 2018 12:00am May 11, 2020 1:46pm TAKE 1 CAPSULE BY MOUTH TWICE DAILY NEEDED FOR HEADACHE FOR UP TO 30 DAYS Start: 03-17-2018 End: 05-11-2020 take 1 capsule by mouth twice daily as needed for headache Kawrnqnsqw-Ezhynew-Kunwuqfm Discontinued 1 CAP PO TWICE A DAY March 16, 2018 11:00pm May 11, 2020 12:46pm TAKE 1 CAPSULE BY MOUTH TWICE DAILY NEEDED FOR HEADACHE FOR UP TO 30 DAYS Comment on above: Take by mouth. atorvastatin 40 mg oral tablet (20 sources) HMG-CoA Reductase Inhibitor Start: 04-25-201 8 End: 3 take 1 tablet by mouth once daily Atorvastatin 40 MG tablet Discontinued 40 mg PO DAILY 30 0 March 18, 2018 12:00am May 11, 2020 1:46pm Comment on above: 40 mg. Biotin (15 sources) Start: 2 End: 4 BIOTIN ORAL Start: 11-24-2021 BIOTIN ORAL cholesterol 2% lovastatin 2% topical cream (CPD) (11 sources) End: 12-29-2023 cholesterol 2% lovastatin 2% topical cream (CPD) Apply to affected area three times daily. 0 12/29/2023 Discontinued cholesterol 2% l ovastatin 2% topical cream (CPD) Apply to affected area three times daily. 0 Active Comment on above: Apply to affected ar ea three times daily. chromium picolinate 0.1 mg / inulin 2000 mg chewable tablet (15 sources) End: 12-10-19 23 inulin-chromium picolinate (FIBER SELECT GUMMIES) 2-100 gram-mcg chew Take by mouth. 0 12/10/2022 Discontinued Comment on above: Take by mouth. ciprofloxacin 500 mg oral tablet (3 sources) Quinolone Antimicrobial Start: 11-15-20 End: 11-22-20 take 1 tablet by mouth twice daily ciprofloxacin HCl (CIPRO) 500 mg tablet Take 1 tablet by mouth twice daily for 7 days. 14 tablet 0 11/15/2022 11/22/2022 Comment on above: Take 1 tablet by [facility] twice daily for 7 days. COMPOUNDED PRESCRIPTION (15 sources) End: 12-10-19 23 COMPOUNDED PRESCRIPTION Apple cider vinegar with the mother - with Honey (tea) 0 12/10/2022 Discontinued COMPOUNDED PRESC RIPTION Apple cider vinegar with the mother - with Honey (tea) 0 Suspended COMPOUNDED PRESC RIPTION Apple cider vinegar with the mother - with Honey (tea) 0 Active Comment on above: Apple cider vinegar with the mother - with Honey (tea) dicyclomine hydrochloride 10 mg oral capsule (20 sources) Anticholinergic Start: 10-03-20 20 End: 12-29-19 24 take 1 capsule by mouth every six hours as needed dicyclomine (BENTYL) 10 mg capsule Take 1 capsule by mouth four times daily as needed (abdominal cramping). for fourteen(14) days 30 capsule 0 10/03/2020 12/29/2023 Discontinued Comment on above: Take 1 capsule by mo [facility] four times daily as needed (abdominal cramping). for fourteen(14) days FISH OIL-DHA-EPA ORAL (20 sources) End: 04-29-20 FISH OIL-DHA-EPA ORAL Take by mouth. 0 04/29/2024 Discontinued FISH OIL-DHA-EPA ORAL Take by mouth. 0 Active Comment on above: Take by mouth. emollient fluocinonide 0.5 mg/ml topical cream (6 sources) Corticosteroid Start: 023 End: fluocinonide-emollien t (LIDEX-E) 0.05 % cream Apply to affected area once daily. 0 06/03/2023 12/29/2023 Discontinued Comment on above: Apply to affected ar ea once daily. folic acid 0.8 mg oral tablet (18 sources) Start: 022 End: folic acid 800 mcg tablet hydrocortisone 25 mg/ml topical cream (18 sources) Corticosteroid Start: hydrocortisone topical cream 2.5% losartan potassium 25 mg oral tablet (20 sources) Angiotensin 2 Receptor Alexandr Start: End: take 1 tablet by mouth once daily Losartan 25 MG tablet Discontinued 25 mg PO DAILY March 17, 2018 12:00am May 23, 2025 10:40am BLOOD PRESSURE Comment on above: Take 1 tablet by lesly once daily. Milk thistle extract (4 sources) Start: End: Milk Thistle 500 mg cap Start: 12-06-2023 Milk Thistle 5 00 mg cap Multivitamin preparation (15 sources) Start: 11-24-2021 End: 12-29-2023 multivitamin (DAILY VITAMIN ORAL) Start: 11-24-2021 multivitamin ( DAILY VITAMIN ORAL) phenazopyridine hydrochloride 200 mg oral tablet (20 sources) Start: 11-15-2022 End: 12-29-2023 take 1 tablet by mouth every eight hours as needed phenazopyridine (PYRIDIUM) 200 mg tablet Take 1 tablet by mouth three times daily as needed. 9 tablet 0 11/15/2022 12/29/2023 Discontinued Comment on above: Take 1 tablet by lesly three times daily as needed. sulfamethoxazole 800 mg / trimethoprim 160 mg oral tablet (1 source) Dihydrofolate Reductase Inhibitor Antibacterial, Sulfonamide Antimicrobial Start: 12-06-2022 End: 12-06-2022 sulfamethoxazole-tr imethoprim 800-160 mg 1 tablet (BACTRIM DS,SEPTRA DS) tamsulosin hydrochloride 0.4 mg oral capsule (20 sources) alpha-Adrenergic Alexandr Start: 11-15-2022 End: 12-29-2023 take 1 capsule by mouth once daily at bedtime tamsulosin (FLOMAX) 0.4 mg Take 1 capsule by mouth daily at bedtime. 30 capsule 0 11/15/2022 12/29/2023 Discontinued Comment on above: Take 1 capsule by mo [facility] daily at bedtime. Turmeric extract (20 sources) End: 05-19-2023 TURMERIC ORAL Take by mouth. 0 05/19/2023 Discontinued TURMERIC ORAL Ta ke by mouth. 0 Suspended TURMERIC ORAL Ta ke by mouth. 0 Active Comment on above: Take by mouth. vitamin b12 1 mg/ml injectable solution (15 sources) Vitamin B12 Start: 11-24-2021 End: 12-29-2023 cyanocobalamin, vitamin B-12, (B-12 COMPLIANCE) 1,000 mcg/mL kit VITAMIN D3-VITAMIN K2, MK4, ORAL (15 sources) Start: 11-24-2021 End: 12-29-2023 VITAMIN D3-VITAMIN K2, MK4, ORAL Start: 11-24-2021 VITAMIN D3-VIT SCOTT K2, MK4, ORAL Problems Active Problems Problem Classification Problem Date Documented Da te Episodic/Chronic Abdominal pain (9 sources) Right upper quadrant pain; Translations: [Right upper quadrant pain] Episodic Biliary tract disease (20 sources) Cholangiectasis; Translations: [Other specified diseases of biliary tract] Onset: 0 10-02-2020 Chronic Biliary tract disease (3 sources) Polyp of gallbladder; Translations: [Cholesterolosis of gallbladder] 07-16-2023 Episodic Cardiac and circulatory congenital anomalies (20 sources) Bicuspid aortic valve; Translations: [Congenital insufficiency of aortic valve] Onset: 3 07-11-2023 Chronic Conditions associated with dizziness or vertigo (20 sources) Meniere's disease; Translations: [Meniere's disease, unspecified ear] 05-13-2017 Chronic Diabetes mellitus without complication (1 source) Hyperglycemia; Translations: [Hyperglycemia, unspecified] Episodic Disorders of lipid metabolism (20 sources) Hypercholesterolemia; Translations: [Pure hypercholesterolemia, unspecified] Onset: 5 04-14-2020 Chronic Esophageal disorders (5 sources) Gastroesophageal reflux disease; Translations: [Gastro-esophageal reflux disease without esophagitis] 05-22-2020 Chronic Essential hypertension (20 sources) Essential hypertension; Translations: [Essential (primary) hypertension] Onset: 7 Resolved: 3 Chronic Genitourinary symptoms and ill-defined conditions (3 sources) Increased frequency of urination; Translations: [Frequency of micturition] 09-23-2023 Episodic Headache; including migraine (20 sources) Migraine; Translations: [Migraine, unspecified, not intractable, without status migrainosus] Onset: 0 10-02-2020 Chronic Headache; including migraine (1 source) Headache; Translations: [Headaches at night] 04-29-2024 Episodic Heart valve disorders (20 sources) Aortic stenosis, non-rheumatic ; Translations: [Nonrheumatic aortic (valve) stenosis] Onset: 7 05-13-2017 Chronic Heart valve disorders (20 sources) Heart murmur; Translations: [Cardiac murmur, unspecified] Onset: 5 Resolved: 3 04-14-2020 Episodic Nausea and vomiting (5 sources) Nausea; Translations: [Nausea] 05-22-2020 Episodic Nonspecific chest pain (20 sources) Chest pain; Translations: [Chest pain, unspecified] Onset: 3 Resolved: 3 Episodic Nutritional deficiencies (20 sources) Vitamin D deficiency; Translations: [Vitamin D deficiency, unspecified] Onset: 1 10-12-2021 Chronic Other aftercare (20 sources) Patient encounter status; Translations: [Other penitentiary (current) drug therapy] Onset: 5 04-14-2020 Episodic Other connective tissue disease (3 sources) Disease suspected; Translations: [Other symptoms and signs involving the nervous system] 05-22-2020 Episodic Other connective tissue disease (2 sources) Suspected respiratory disease; Translations: [Other symptoms and signs involving the nervous system] 05-11-2020 Episodic Other disorders of stomach and duodenum (5 sources) Indigestion; Translations: [Functional dyspepsia] 05-22-2020 Episodic Other gastrointestinal disorders (5 sources) Diarrhea; Translations: [Diarrhea, unspecified] 05-22-2020 Episodic Other gastrointestinal disorders (5 sources) Abdominal bloating; Translations: [Abdominal distension (gaseous)] 05-22-2020 Episodic Other liver diseases (5 sources) Steatosis of liver; Translations: [Fatty (change of) liver, not elsewhere classified] Onset: 5 05-17-2025 Chronic Other liver diseases (1 source) Fatty (change of) liver, not elsewhere classified; Translations: [Fatty liver] Onset: 5 Chronic Other lower respiratory disease (2 sources) Dyspnea; Translations: [Dyspnea, unspecified] 05-23-2025 Episodic Other lower respiratory disease (1 source) Dyspnea, unspecified; Translations: [Dyspnea, unspecified] Onset: 5 Episodic Other nervous system disorders (20 sources) H/O: migraine; Translations: [Personal history of other diseases of the nervous system and sense organs] 03-12-2019 Episodic Other nervous system disorders (20 sources) Numbness; Translations: [Anesthesia of skin] Onset: 0 04-14-2020 Episodic Other nutritional; endocrine; and metabolic disorders (20 sources) Obese class II; Translations: [Obesity, unspecified] Onset: 1 10-12-2021 Chronic Other nutritional; endocrine; and metabolic disorders (1 source) Body mass index 30+ - obesity; Translations: [Body mass index (BMI) 35.0-35.9, adult] 12-29-2023 Chronic Other nutritional; endocrine; and metabolic disorders (5 sources) Obesity; Translations: [Class 1 obesity with body mass index (BMI) of 34.0 to 34.9 in adult, unspecified obesity type, unspecified whether serious comorbidity present] Onset: 8 05-17-2025 Chronic Other nutritional; endocrine; and metabolic disorders (1 source) Body mass index (BMI) 34.0-34.9, adult; Translations: [Class 1 obesity with body mass index (BMI) of 34.0 to 34.9 in adult, unspecified obesity type, unspecified whether serious comorbidity present] Onset: 5 Chronic Other nutritional; endocrine; and metabolic disorders (1 source) Failure to lose weight; Translations: [Other symptoms and signs concerning food and fluid intake] Episodic Residual codes; unclassified (2 sources) Family history of malignant neoplasm of ovary; Translations: [Family history of malignant neoplasm of ovary] Episodic Residual codes; unclassified (1 source) Postmenopausal state; Translations: [Asymptomatic menopausal state] Episodic Residual codes; unclassified (1 source) Viral syndrome; Translations: [Other general symptoms and signs] 12-31-2023 Episodic Residual codes; unclassified (1 source) Generalized aches and pains; Translations: [Pain, unspecified] 12-31-2023 Episodic Spondylosis; intervertebral disc disorders; other back problems (1 source) Thoracic back pain; Translations: [Dorsalgia, unspecified] 04-29-2024 Episodic Unclassified (1 source) Class 1 obesity with body mass index (BMI) of 34.0 to 34.9 in adult, unspecified obesity type, unspecified whether serious comorbidity present; Translations: [Class 1 obesity with body mass index (BMI) of 34.0 to 34.9 in adult, unspecified obesity type, unspecified whether serious comorbidity present] Onset: 5 Past or Other Problems Problem Classification Problem Date Documented Date Episodic/Chronic Allergic reactions (20 sources) Inflammatory dermatosis; Translations: [Dermatitis, unspecified] Onset: 03-27-2018 03-27-2018 Episodic Calculus of urinary tract (20 sources) Kidney stone; Translations: [Calculus of kidney] Onset: 11-14-2022 11-14-2022 Episodic Cancer of cervix (20 sources) Atypical squamous cells of undetermined significance on cervical Papanicolaou smear; Translations: [Atypical squamous cells of undetermined significance on cytologic smear of cervix (ASC-US)] Onset: 06-27-2015 04-14-2020 Episodic Mycoses (14 sources) Pityriasis versicolor; Translations: [Pityriasis versicolor] Onset: 05-13-2017 Resolved: 03-12-2019 03-12-2019 Episodic Nonmalignant breast conditions (14 sources) Breast lump; Translations: [Unspecified lump in the right breast, overlapping quadrants] Onset: 05-13-2017 Resolved: 03-12-2019 03-12-2019 Episodic Other aftercare (4 sources) Long-term current use of drug therapy; Translations: [Other predatory animal exterminator (current) drug therapy] Onset: 06-27-2015 04-14-2020 Episodic Other circulatory disease (20 sources) History of clinical finding in subject; Translations: [Personal history of other diseases of the circulatory system] Onset: 01-13-2017 01-13-2017 Episodic Other eye disorders (7 sources) Other specified disorders of eye and adnexa; Translations: [Other ill-defined disorders of eye] Onset: 05-13-2017 Resolved: 04-27-2018 04-27-2018 Episodic Other lower respiratory disease (7 sources) Dry cough; Translations: [Persistent dry cough] Onset: 05-13-2017 Resolved: 03-12-2019 03-12-2019 Episodic Other nutritional; endocrine; and metabolic disorders (20 sources) Obese class I; Translations: [Obesity, unspecified] Onset: 03-27-2018 Resolved: 07-11-2023 10-02-2020 Chronic Other screening for suspected conditions (not mental disorders or infectious disease) (2 sources) Encounter for screening mammogram for malignant neoplasm of breast; Translations: [Encounter for screening mammogram for malignant neoplasm of breast] Onset: 08-25-2023 Episodic Other skin disorders (20 sources) Disseminated superficial actinic porokeratosis; Translations: [Disseminated superficial actinic porokeratosis (DSAP)] Onset: 10-12-2021 10-12-2021 Episodic Other upper respiratory infections (7 sources) Viral upper respiratory tract infection; Translations: [Acute upper respiratory infection, unspecified] Onset: 03-27-2018 Resolved: 03-12-2019 03-12-2019 Episodic Urinary tract infections (7 sources) Recurrent urinary tract infection; Translations: [Urinary tract infection, site not specified] Onset: 05-13-2017 Resolved: 03-12-2019 03-12-2019 Episodic Viral infection (20 sources) Disease caused by 2019-nCoV; Translations: [COVID-19] Onset: 10-02-2020 10-02-2020 Episodic Results Test Name Value Interpretation Reference Range Facility Cardiology Visit Reporton Cardiology Visit Report [facility] [address] [place], [place] [address] OFFICE VISIT Date of Service: 06/01/25 MR#: [id number] Acct: [id number] Name: CAROLIN BRITO Rep #: [id number] Provider: Dr. Fabio Wilburn MD Age/Sex: 60/F Location: [email or web address] Status: Signed HPI HPI History of Present Illness Details: Pleasant 60-year-old lady with a history of a heart murmur and possible bicuspid aortic valve who says that she was told that she has a heart murmur and needs to see a car painter. Her last visit to the car painter was over 2 years ago at that time she had an echocardiogram as well as a stress EKG performed. She had exercised 7 minutes and 10 seconds attaining 8.8 METS on the treadmill. She had also obtained an echocardiogram at that time demonstrating preserved left ventricular systolic function with with an aortic valve demonstrating severe stenosis moderate calcification a peak gradient of 86 mmHg and a mean gradient of 49 mmHg. She says that she was told to follow-up as an outpatient. It was felt that she was asymptomatic. She tells me that there was shared decision making and it was decided that they will be watchful waiting until she becomes symptomatic or the aortic valve further progresses. She has had no dizziness or diaphoresis near syncope or syncope she walks a fair amount every day and her physical exam is significant for harsh systolic murmur noted left sternal border her EKG done May 17 demonstrates sinus rhythm with a rate of 70 bpm and no acute changes. 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: No Accompanied by: Self Is patient in pain?: No Allergies amoxicillin Allergy (Verified 06/01/25 10:10) Itching Medications ???Medication ???Instructions ???Recorded ???Confirmed ???Type rizatriptan 5 mg disintegrating 5 mg translingual PRN PRN migraine s 05/11/20 06/01/25 History tablet apple cider vinegar 500 mg tablet mg PO BID 06/01/25 06/01/25 Histo ry omega 3-yjk-dlr-fish oil 60 mg-90 1 cap PO QDAY 06/01/25 06/01/25 H istory mg-500 mg capsule (Fish Oil) vitamin B complex 1 tab PO QDAY 06/01/25 06/01/25 Hi story PFSH Medical History Aortic stenosis Fatty liver Vitamin D deficiency Obesity Hypercholesteremia Meniere disease Heart murmur Dyspnea Chest pain Bicuspid aortic valve Nausea Acid reflux Suspected sleep apnea Mitral valve prolapse HTN (hypertension) Surgical History Hx of tubal ligation Family History Mother Arthritis Osteoporosis CVA (cerebral vascular accident) Cancer COPD (chronic obstructive pulmonary disease) Father Lung cancer Heart disease Sister Lung cancer Bleeding disorder Social History Smoking Status: Never smoker alcohol intake: current alcohol intake frequency: a few times a week Alcohol type: wine substance use type: does not use ROS Const Const: Negative for fatigue, weakness, headache(s), daytime sleepiness or difficulty sleeping ENT ENT: Negative for headache(s), dizziness or Nosebleed/epistaxis Cardio Chest Pain: No Palpitations: No Edema: None Resp Respiratory: Negative for SOB with activity, SOB at rest, SOB orthopnea SOB lying down or Cough GI GI: Negative nausea, vomiting or heartburn Neuro Neuro: Negative for dizziness, lightheadedness, near syncope, headache(s) or weakness Endo Endo: Negative for fatigue Cardiology Exam Const Appearance: cooperative, healthy appearing, no acute distress, well developed and well groomed Nutritional Appearance: average body habitus and well nourished Orientation: alert, awake and oriented x3 Head Head: normal to inspection, normocephalic and atraumatic Ears: hearing grossly normal bilaterally and external ears normal Nose: external nose normal, nares normal, nasal mucous membranes and turbinates normal, septum normal and no nasal discharge Face and Sinus: face symmetric Mouth: oral mucosae normal, tongue normal, oropharynx normal and moist mucous membranes Teeth and gingiva: dentition normal Throat: posterior oropharynx normal, tonsils normal and uvula midline Eyes General: appearance normal, both eyes and all related structures Eyelids: eyelids normal Conjunctivae: conjunctivae normal Pupils: PERRL, normal by confrontation and accommodation normal EOM: EOM intact bilaterally Neck Neck: no (more content not included)... Normal [facility] Chest PA and Lateralon 06-01 Chest PA and Lateral [facility] Imaging Services [address] [place], [place] [address] Chest PA and Lateral MR#: [id number] Acct: [id number] Name: CAROLIN BRITO Rep #: [id number] : 1965 F 60 From: Sebastien Herrera MD PCP: NANCY Gomez Status: REG CLI Study: Chest PA and Lateral Date of Exam: 06/01/25 Exam# [id number] Ordering Dr: Yani Sloan DO EXAM: XR Chest, 2 Views CLINICAL INDICATION: OTHER CP TECHNIQUE: Frontal and lateral views of the chest. COMPARISON: No relevant prior studies available. FINDINGS: LUNGS AND PLEURAL SPACES: Unremarkable. No consolidation. No pneumothorax. HEART: Unremarkable. No cardiomegaly. MEDIASTINUM: Unremarkable. Normal mediastinal contour. BONES/JOINTS: Unremarkable. No acute fracture. RAD/Chest PA and Lateral IMPRESSION: No acute cardiopulmonary process. Reading [facility] CC: LUG BREAKER AND WIRE PULLER-C Usha Eid; Dr. Yani Sloan DO Art Specialist: Signed Normal [facility] CBC panel Auto (Bld)on 05-19 Erythrocyte distribution width (RBC) [Ratio] 13.1 % Normal 11.5-15.0 [facility] Comment on above: Order Comment: Speci men Type: BLOOD SPECIMEN [facility] Facility[facility] Address: [address] [place] [address] Performed By: #### 5 8410-2 #### [facility] [id number] [address] [place] [address] [place] Hematocrit (Bld) [Volume fraction] 42.4 % Normal 36.0-46.0 [facility] Comment on above: Order Comment: Speci men Type: BLOOD SPECIMEN Ordering Facility: [facility] Address: [address] [place] [address] Performed By: #### 5 8410-2 #### [facility] [id number] [address] [place] [address] [place] Hemoglobin (Bld) [Mass/Vol] 14.3 g/dL Normal 11.5-15.5 [facility] Comment on above: Order Comment: Speci men Type: BLOOD SPECIMEN Ordering Facility: [facility] Address: [address] [place] [address] Performed By: #### 5 8410-2 #### [facility] [id number] [address] [place] [address] [place] MCH (RBC) [Entitic mass] 29.5 pg Normal 26.0-34.0 [facility] Comment on above: Order Comment: Speci men Type: BLOOD SPECIMEN Ordering Facility: [facility] Address: [address] [place] [address] Performed By: #### 5 8410-2 #### [facility] [id number] [address] [place] [address] [place] MCHC (RBC) [Mass/Vol] 33.7 g/dL Normal 30.5-36.0 [facility] Comment on above: Order Comment: Speci men Type: BLOOD SPECIMEN Ordering Facility: [facility] Address: [address] [place] [address] Performed By: #### 5 8410-2 #### [facility] [id number] [address] [place] [address] [place] MCV (RBC) [Entitic vol] 87.4 fL Normal 80.0-100.0 [facility] Comment on above: Order Comment: Speci men Type: BLOOD SPECIMEN Ordering Facility: [facility] Address: [address] [place] [address] Performed By: #### 5 8410-2 #### [facility] CLIA [id number] [address] [place] [address] [place] Nucleated RBC (Bld) [#/Vol] 10*3/uL Normal <0.01 [facility] Comment on above: Order Comment: Speci men Type: BLOOD SPECIMEN Ordering Facility: [facility] Address: [address] [place] [address] Performed By: #### 5 8410-2 #### [facility] CLIA [id number] [address] [place] [address] [place] Platelet mean volume (Bld) [Entitic vol] 10.9 fL Normal 9.0-12.7 [facility] Comment on above: Order Comment: Speci men Type: BLOOD SPECIMEN Ordering Facility: [facility] Address: [address] [place] [address] Performed By: #### 5 8410-2 #### [facility] CLIA [id number] [address] [place] [address] [place] Platelets (Bld) [#/Vol] 200 10*3/uL Normal 150-400 [facility] Comment on above: Order Comment: Speci men Type: BLOOD SPECIMEN Ordering Facility: [facility] Address: [address] [place] [address] Performed By: #### 5 8410-2 #### [facility] CLIA [id number] [address] [place] [address] [place] RBC (Bld) [#/Vol] 4.85 10*6/uL Normal 3.90-5.20 [facility] Comment on above: Order Comment: Speci men Type: BLOOD SPECIMEN Ordering Facility: [facility] Address: [address] [place], [place] [address] Performed By: #### 5 8410-2 #### [facility] CLIA [id number] [address] [place] [address] [place] WBC (Bld) [#/Vol] 7.60 10*3/uL Normal 3.70-11.00 [facility] Comment on above: Order Comment: Speci men Type: BLOOD SPECIMEN Ordering Facility: [facility] Address: [address] [place], [place] [address] Performed By: #### 5 8410-2 #### [facility] CLIA [id number] [address] [place] [address] [place] Comprehensive metabolic 2000 panelon 05-19-2025 Albumin [Mass/Vol] 4.2 g/dL Normal 3.9-4.9 [facility] Comment on above: Order Comment: Speci men Type: BLOOD SPECIMEN Ordering Facility: [facility] Address: [address] [place], [place] [address] Performed By: #### 1 9123-9, 63891-7 #### [facility] CLIA [id number] [address] [place] [address] [place] ALP [Catalytic activity/Vol] 69 U/L Normal 34-123 [facility] Comment on above: Order Comment: Speci men Type: BLOOD SPECIMEN Ordering Facility: [facility] Address: [address] [place], [place] [address] Performed By: #### 1 9123-9, 31414-7 #### [facility] CLIA [id number] [address] [place] [address] [place] ALT [Catalytic activity/Vol] 20 U/L Normal 7-38 [facility] Comment on above: Order Comment: Speci men Type: BLOOD SPECIMEN Ordering Facility: [facility] Address: [address] [place] [address] Performed By: #### 1 9123-9, 78161-9 #### [facility] CLIA [id number] [address] [place] [address] [place] Anion gap [Moles/Vol] 10 mmol/L Normal 8-15 [facility] Comment on above: Order Comment: Speci men Type: BLOOD SPECIMEN [facility]ing Facility[facility] Address: [address] [place] [address] Performed By: #### 1 9123-9, 00529-7 #### [facility] CLIA [id number] [address] [place] [address] [place] AST [Catalytic activity/Vol] 20 U/L Normal 13-35 [facility] Comment on above: Order Comment: Speci men Type: BLOOD SPECIMEN [facility]ing Facility[facility] Address: [address] [place] [address] Performed By: #### 1 9123-9, 45988-1 #### [facility] CLIA [id number] [address] [place] [address] [place] Bilirubin [Mass/Vol] 0.3 mg/dL Normal 0.2-1.3 [facility] Comment on above: Order Comment: Speci men Type: BLOOD SPECIMEN [facility]ing Facility: [facility] Address: [address] [place] [address] Performed By: #### 1 9123-9, 92753-8 #### [facility] CLIA [id number] [address] [place] [address] [place] Calcium [Mass/Vol] 10.3 mg/dL High 8.5-10.2 [facility] Comment on above: Order Comment: Speci men Type: BLOOD SPECIMEN [facility]ing Facility[facility] Address: [address] [place] [address] Performed By: #### 1 9123-9, 40851-7 #### [facility] CLIA [id number] [address] [place] [address] [place] Chloride [Moles/Vol] 105 mmol/L Normal 98-107 [facility] Comment on above: Order Comment: Deneeni deshaun Type: BLOOD SPECIMEN [facility] Facility[facility] Address: [address] [place] [address] Performed By: #### 1 9123-9, 54590-5 #### [facility] CLIA [id number] [address] [place] [address] [place] CO2 [Moles/Vol] 24 mmol/L Normal 22-30 [facility] Comment on above: Order Comment: Deneeni men Type: BLOOD SPECIMEN Ordering Facility[facility] Address: [address] [place] [address] Performed By: #### 1 9123-9, 72285-8 #### [facility] CLIA [id number] [address] [place] [address] [place] Creatinine [Mass/Vol] 0.89 mg/dL Normal 0.58-0.96 [facility] Comment on above: Order Comment: Deneeni deshaun Type: BLOOD SPECIMEN [facility] Address: [address] [place] [address] Performed By: #### 1 9123-9, 82602-3 #### [facility] CLIA [id number] [address] [place] [address] [facility] Creatinine and Glomerular filtration rate.predicted panel (S/P/Bld) 75 mL/min/1.73m??? Normal >=60 [facility] Comment on above: Order Comment: Deneeni men Type: BLOOD SPECIMEN [facility] Facility[facility] Address: [address] [place] [address] Result Comment: Yara mated Glomerular Filtration Rate (eGFR) is calculated using the 2020 CKD-EPI creatinine equation. This equation utilizes serum creatinine, sex, and age as parameters. The creatinine assay has traceable calibration to isotope dilution-mass spectrometry. Refer to KDIGO guidelines for clinical interpretation. In patients with unstable renal function, e.g. those with acute kidney injury, the eGFR may not accurately reflect actual GFR. Performed By: #### 1 9123-9, 63965-1 #### [facility] CLIA [id number] [address] [place] [address] [place] Glucose [Mass/Vol] 93 mg/dL Normal 74-99 [facility] Comment on above: Order Comment: Jonny meade Type: BLOOD SPECIMEN [facility] Address: [address] [place] [address] Result Comment: The [place] Diabetes Association (ADA) provides guidance for cutoff values for fasting glucose and random glucose. The ADA defines fasting as no caloric intake for at least 8 hours. Fasting plasma glucose results between 100 to 125 mg/dL indicate increased risk for diabetes (prediabetes). Fasting plasma glucose results greater than or equal to 126 mg/dL meet the criteria for diagnosis of diabetes. In the absence of unequivocal hyperglycemia, results should be confirmed by repeat testing. In a patient with classic symptoms of hyperglycemia or hyperglycemic crisis, random plasma glucose results greater than or equal to 200 mg/dL meet the criteria for diagnosis of diabetes. Reference: Standards of Medical Care in Diabetes 2016, [place] Diabetes Association. Diabetes Care. 2016.39(Suppl 1). Performed By: #### 1 9123-9, 51168-0 #### [facility] [id number] [address] [place] [address] [place] Potassium [Moles/Vol] 5.0 mmol/L Normal 3.7-5.1 [facility] Comment on above: Order Comment: Jonny meade Type: BLOOD SPECIMEN [facility] Address: [address] [id number] Performed By: #### 1 9123-9, 43662-9 #### [facility] [id number] [address] [place] [address] [place] Protein [Mass/Vol] 7.3 g/dL Normal 6.3-8.0 [facility] Comment on above: Order Comment: Speci men Type: BLOOD SPECIMEN [facility]ing [facility] Address: [address] [place] [address] Performed By: #### 1 9123-9, 21056-7 #### [facility] CLIA [id number] [address] [place] [address] [place] Sodium [Moles/Vol] 139 mmol/L Normal 136-144 [facility] Comment on above: Order Comment: Speci men Type: BLOOD SPECIMEN [facility] Address: [address] [place] [address] Performed By: #### 1 9123-9, 38444-8 #### [facility] [id number] [address] [place] [address] [place] Urea nitrogen [Mass/Vol] 29 mg/dL High 7-21 [facility] Comment on above: Order Comment: Speci men Type: BLOOD SPECIMEN [facility] Facility[facility] Address: [address] [place] [address] Performed By: #### 1 9123-9, 98521-1 #### [facility] [id number] [address] [place] [address] [place] D dimer FEU PPP-mCncon 05-19 Fibrin D-dimer FEU (PPP) [Mass/Vol] 240 ng/mL FEU Normal <500 [facility] Comment on above: Order Comment: Speci men Type: BLOOD SPECIMEN [facility] Address: [address] [place] [address] Result Comment: Froz en Plasma Aliquot Performed By: #### 4 8065-7 #### [facility] CLIA [id number] [address] [place] [address] [place] [facility] CLIA [id number] [address] [place] [address] [place] Fibrin D-dimer FEU (PPP) [Ma ss/Vol]on 05-19-2025 D DIMER AGE-RELATED CUTOFF 580 ng/mL FEU Normal [facility] Comment on above: Order Comment: Speci men Type: BLOOD SPECIMEN [facility] Address: [address] [place] [address] Performed By: #### 4 8065-7 #### [facility] CLIA [id number] [address] [place] [address] STATES OF [facility] CLIA [id number] [address] [place] [address] [facility] Lipid 1996 panelon Cholesterol [Mass/Vol] 196 mg/dL Normal <200 [facility] Comment on above: Order Comment: Deneeni men Type: BLOOD SPECIMEN [facility] Facility[facility] Address: [address] [place] [address] Result Comment: <200 mg/dL, Desirable 200-239 mg/dL, Borderline high >239 mg/dL, High Performed By: #### 2 4331-1 #### [facility] CLIA [id number] [address] [place] [address] [place] [facility] CLIA [id number] [address] [place] [address] Cholesterol in HDL [Mass/Vol] 61 mg/dL Normal >39 [facility] Comment on above: Order Comment: Speci men Type: BLOOD SPECIMEN [facility] Address: [address] [place] [address] Result Comment: 40-5 9 mg/dL, Acceptable >59 mg/dL, High: Negative risk factor for coronary heart disease <40 mg/dL, Low: Positive risk factor for coronary heart disease Performed By: #### 2 4331-1 #### [facility] CLIA [id number] [address] [place] [address] [place] [facility] CLIA [id number] [address] [place] [address] [place] Cholesterol in LDL [Mass/Vol] 127 mg/dL High <100 [facility] Comment on above: Order Comment: Jonny meade Type: BLOOD SPECIMEN [facility] Address: [address] [place] [address] Result Comment: <100 mg/dL, Optimal 100-129 mg/dL, Near optimal/above optimal 130-159 mg/dL, Borderline high 160-189 mg/dL, High >189 mg/dL, Very high Secondary prevention optimal LDL Cholesterol levels are recommended to be <70 mg/dL LDL cholesterol is calculated using the Kc-NIH equation. Performed By: #### 2 4331-1 #### [facility] CLIA [id number] [address] [place] [address] STATES [facility] [id number] [address] [place] [address] [place] Cholesterol in LDL/Cholesterol in HDL [Mass ratio] 2.08 {ratio} Normal <2.54 [facility] Comment on above: Order Comment: Jonny meade Type: BLOOD SPECIMEN [facility] Address: [address] [place] [address] Result Comment: Sumit marina: 1. National Cholesterol Education Program ATP III Guideline At-A-Glance Quick Desk Reference: National Heart, Lung, and Blood Alexander. National Institutes of Health. 2001: NIH Publication No. 01-3305. 2. An International Atherosclerosis Society position paper: global recommendations for the management of dyslipidemia: executive summary, Atherosclerosis. 2014: 232(2):410-413. Performed By: #### 2 4331-1 #### [facility] CLIA [id number] [address] [place] [address] OF [facility] [id number] [address] [place] [address] [place] Cholesterol in VLDL [Mass/Vol] 8 mg/dL Normal <30 [facility] Comment on above: Order Comment: Jonny meade Type: BLOOD SPECIMEN [facility] Address: [address] [place] [address] Performed By: #### 2 4331-1 #### [facility] CLIA [id number] [address] [place] [address] [place] [facility] CLIA [id number] [address] [place] [address] [place] Cholesterol non HDL [Mass/Vol] 135 mg/dL High <130 [facility] Comment on above: Order Comment: Speci men Type: BLOOD SPECIMEN [facility] Address: [address] [place] [address] Result Comment: <130 mg/dL, Optimal 130-159 mg/dL, Near optimal/above optimal 160-189 mg/dL, Borderline high 190-219 mg/dL, High >219 mg/dL, Very high Secondary prevention optimal non HDL Cholesterol levels are recommended to be <100 mg/dL Performed By: #### 2 4331-1 #### [facility] CLIA [id number] [address] [place] [address] [place] [facility] [id number] [place] [address] [place] Cholesterol.total/Choles terol in HDL [Mass ratio] 3.21 {ratio} Normal <5.10 [facility] Comment on above: Order Comment: Speci men Type: BLOOD SPECIMEN [facility] Address: [address] [place] [address] Performed By: #### 2 4331-1 #### [facility] CLIA [id number] [address] [place] [address] [place] [id number] [place] [address] [place] FASTING TIME 12 hrs Normal [facility] Comment on above: Order Comment: Speci men Type: BLOOD SPECIMEN [facility] Address: [address] [place] [address] Performed By: #### 2 4331-1 #### [facility] CLIA [id number] [address] [place] [address] [place] [facility] CLIA [id number] [address] [place] [address] [place] Triglyceride [Mass/Vol] 45 mg/dL Normal <150 [facility] Comment on above: Order Comment: Speci men Type: BLOOD SPECIMEN [facility] Address: [address] [place] [address] Result Comment: <150 mg/dL, Normal 150-199 mg/dL, Borderline high 200-499 mg/dL, High >499 mg/dL, Very high Performed By: #### 2 4331-1 #### [facility] CLIA [id number] [address] [place] [address] [place] [facility] CLIA [id number] [address] [place] [address] [place] Magnesium SerPl-mCncon 05-19 Magnesium [Mass/Vol] 1.9 mg/dL Normal 1.7-2.3 [facility] Comment on above: Order Comment: Speci men Type: BLOOD SPECIMEN [facility] Address: [address] [place] [address] Performed By: #### 1 9123-9, 67701-8 #### [facility] CLIA [id number] [address] [place] [address] [place] CNOVon 05-17-2025 CNOV Office Visit (AASHISH) ---- CAROLIN [id number]) 1965 F Date Time Provider Department 05/17/25 3:40 PM YANI SLOAN During your visit today, we recorded the following information about you: Temperature Pulse Respiration Blood pressure 98.5 degrees 67/minute 16/minute 114/72 Weight Height 83 kg 1.549 m Yani Sloan, 05/20/2025 1:45 PM Addendum Subjective HPI Carolin Brito is a 60-year-old female with a history of bicuspid aortic valve with moderate to severe stenosis, presenting for evaluation of acute right-sided chest pain. Acute Right-Sided Chest Pain: - Acute onset of squeezing pain on the right side of the chest, radiating to the shoulder, arm, and abdomen, yesterday. - Pain was severe, rated 9/10, and lasted approximately 5-6 minutes. - Associated with dyspnea; Carolin had difficulty speaking to the treadle cut off saw operator. - Pain subsided during the 911 call, which lasted 1 minute and 55 seconds. - No aspirin or antacids taken during the episode. - Denies nausea or emesis. - Currently on day 7-8 of a liver cleanse using natural supplements. - Family history of CAD; father had a quadruple bypass at Carolin's age. - History of heart murmur and bicuspid aortic valve with moderate to severe stenosis. - Last seen by car painter Dr. Js Pineda in June 2023; stress test performed at [facility] prior to that visit. - Director Industrial Relations recommended annual follow-up and repeat echocardiogram, which Carolin missed. ALLERGIES Allergen Reactions Amoxicillin Itching Current Outpatient Medications Medication Sig Dispense Refill OTC PRODUCT Liver Cleanse losartan (COZAAR) 25 mg tablet Take 1 tablet by mouth once daily. (Patient not taking: Reported on 05/17/2025) 30 tablet 11 VITAMIN B COMPLEX ORAL Take by mouth once daily. (Patient not taking: Reported on 05/17/2025) No current facility-administer ed medications for this visit. ACTIVE PROBLEM LIST History of Cardiac Murmur [...] D Deficiency Kidney Stone Bicuspid Aortic Valve (Hcc) Social History Tobacco Use Smoking status: Never Smokeless tobacco: Never Vaping Use Vaping status: Never Used Substance Use Topics Alcohol use: Yes Alcohol/week: 3.0 standard drinks of alcohol Types: 2 Standard drinks or equivalent, 1 Glasses of Wine (5oz) per week Comment: daily, a glass of red wine Drug use: Never Family History Problem Relation Age of Onset Cancer Mother COPD Mother Heart Father 55 4 vessel CABG Cancer Father lung, mets to spine Cancer Sister 58 ovarian with mets to liver, kidney, lung Diabetes Paternal Grandmother Reviewed past medical history, family history and surgeries. All medications and supplements were reviewed with the patient. Review of Systems Constitutional: Negative for chills, diaphoresis, fever, malaise/fatigue and weight loss. HENT: Negative for ear pain and hearing loss. Eyes: Negative for blurred vision and double vision. Respiratory: Negative for cough and shortness of breath. Cardiovascular: Positive for chest pain. Negative for palpitations and leg swelling. Gastrointestinal: Negative for constipation, diarrhea and heartburn. Genitourinary: Negative for dysuria and frequency. Musculoskeletal: Negative for back pain, falls, joint pain and myalgias. Skin: Negative for itching and rash. Neurological: Negative for dizziness, weakness and headaches. Endo/Heme/Allergies : Does not bruise/bleed easily. Psychiatric/Behavio ral: Negative for depression and substance abuse. The patient does not have insomnia. Objective BP 114/72 Pulse 67 Temp 36.9 ?C (98.5 ?F) Resp 16 Ht 154.9 cm (5' 1) Wt 83 kg (183 lb) LMP 05/07/2021 (Within Weeks) SpO2 96% BMI 34.58 kg/m? Physical Exam Constitutional: Appearance: Normal appearance. She is obese. HENT: Head: Normocephalic and atraumatic. Nose: Nose normal. Mouth/Throat: Mouth: Mucous membranes are moist. Dentition: Normal dentition. Eyes: General: Lids are normal. Extraocular Movements: Extraocular movements intact. Conjunctiva/sclera: Conjunctivae normal. Pupils: Pupils are equal, round, and reactive to light. Neck: Thyroid: No thyroid mass or thyromegaly. Vascular: No carotid bruit. Trachea: Phonation normal. Cardiovascular: Rate and Rhythm: Normal rate and regular rhythm. Heart sounds: Murmur (iii/vi systolic mu (more content not included)... Normal [facility] ECG B/O W INTERP (MED OFFICE )on 05-17-2025 NSR no change from EKG on 07/16/23 Yani Sloan, [facility] UA DIP, URINE (POC)on 2023 BILIRUBIN UA (POCT) Negative Negative [facility] CLARITY UA (POCT) Clear [facility] COLOR UA (POCT) Yellow [facility] GLUCOSE UA (POCT) Negative Negative mg/dL [facility] Hemoglobin Ql (U) Negative Negative [facility] KETONE UA (POCT) Negative Negative mg/dL [facility] LEUKOCYTES UA (POCT) Negative Negative [facility] NITRITE UA (POCT) Negative Negative [facility] PH UA (POCT) 6.0 4.5 - 8.0 [facility] Protein Ql (U) Negative Negative mg/dL [facility] SPECIFIC GRAVITY UA (POCT) 1.015 1.005 - 1.030 [facility] UROBILINOGEN UA (POCT) 0.2 Melissa l E.U./dL [facility] Location:[facility] [address] [place] [address], [id number] [facility] POINT OF CARE [facility] Basophil percentageon 2023 Bilirubin [Mass/Vol] 0.60 mg/dL 0.20-1.00 [facility] Comment on above: For patients on eltr ombopag therapy, use of Dimension [place] TBIL is not recommended. Chloride [Moles/Vol] 110 mmol/L 98-107 [facility] Glucose [Mass/Vol] 99 mg/dL 74-106 [facility] Potassium [Moles/Vol] 4.4 mmol/L 3.5-5.1 [facility] Protein [Mass/Vol] 7.5 g/dL 6.4-8.2 [facility] Sodium [Moles/Vol] 142 mmol/L 136-145 [facility] Laboratory - Chemistry and C hemistry - challengeon 01-17-2024 Albumin/Globulin [Mass ratio] 1.0 {ratio} 0.9-2.4 [facility] ALP [Catalytic activity/Vol] 87 U/L 45-117 [facility] ALT [Catalytic activity/Vol] 46 U/L 13-56 [facility] CO2 [Moles/Vol] 28.0 mmol/L 21.0-32.0 [facility] Cobalamin (Vitamin B12) [Mass/Vol] 518 pg/mL 211-911 [facility] Globulin (S) [Mass/Vol] 3.8 g/dL 2.2-4.2 [facility] Urea nitrogen/Creatinine [Mass ratio] 21.6 mg/mg 10-20 [facility] No Panel Informationon 01-17 Estimated GFR (MDRD) Amer 72 mL/min >60 [facility] Comment on above: GFR Calc Estimated GFR (MDRD) Non-Af Amer 59 mL/min >60 [facility] Comment on above: Non- GFR Calc Insulin Level 8.9 mU/L 2.6-37.6 [facility] Vitamin D 25-Hydroxy 50.4 ng/mL [facility] Comment on above: Vitamin D 25(OH) Sta tus Range Deficiency <20 ng/mL (50nmol/L) Insufficiency 20 - 30 ng/mL (50 - 75 nmol/L) Sufficiency 30 - 100 ng/mL (75 - 250 nmol/L) Toxicity >100 ng/mL (>250 nmol/L) Serum or plasma calcium carlos eduardo urement (mass/volume)on 01-17-2024 Calcium [Mass/Vol] 9.5 mg/dL 8.5-10.1 [facility] Serum or plasma creatinine m easurement (mass/volume)on 01-17-2024 Creatinine [Mass/Vol] 1.02 mg/dL 0.55-1.02 [facility] Comment on above: The validity of the calculated GFR & GFRAA in patients over 70 years has not been determined. Clinical correlation is essential. Serum or plasma urea nitroge n measurement (mass/volume)on 01-17-2024 Urea nitrogen [Mass/Vol] 22 mg/dL 7-18 [facility] Thin prep Papanicolaou smear with manual screeningon 01-17-2024 Thin prep Papanicolaou smear with manual screening 3.7 g/dL 3.2-5.0 [facility] Thin prep Papanicolaou smear with manual screening 21 U/L 15-37 [facility] Thin prep Papanicolaou smear with manual screening 4 5-15 [facility] Whole blood hemoglobin A1c/t otal hemoglobin ratio (mass fraction)on 01-17-2024 HbA1c (Bld) [Mass fraction] 5.6 % 3.8-5.6 [facility] Comment on above: Normal < 5.7 % Predi abetic 5.7 - 6.4 % Diabetic >or= 6.5 % Please note range changes. UA DIP, URINE (POC)on 2023 BILIRUBIN UA (POCT) Negative Negative [facility] CLARITY UA (POCT) Clear [facility] COLOR UA (POCT) Yellow [facility] GLUCOSE UA (POCT) Negative Negative mg/dL [facility] Hemoglobin Ql (U) Trace-intact Abnormal Negative [facility] KETONE UA (POCT) 40 mg/dL Abnormal Negative mg/dL [facility] LEUKOCYTES UA (POCT) Negative Negative [facility] NITRITE UA (POCT) Negative Negative [facility] PH UA (POCT) 5.5 4.5 - 8.0 [facility] Protein Ql (U) Trace Abnormal Negative mg/dL [facility] SPECIFIC GRAVITY UA (POCT) 1.020 1.005 - 1.030 [facility] UROBILINOGEN UA (POCT) 0.2 E.U./dL Melissa l E.U./dL [facility] Basophil percentageOrdered B y: Usha Eid on 10-01-2023 Basophil percentage 0-5 SEEN /hpf 0-5 [facility] Bilirubin Test strip Ql (U)O rdered By: Usha Eid on 10-01-2023 Bilirubin Ql (U) Negative Negative [facility] Ketones Test strip Ql (U)Ord ered By: Usha Eid on 10-01-2023 Ketones Ql (U) Negative Negative [facility] Mucus LM Ql (Urine sed)Order ed By: Usha Eid on 10-01-2023 Mucus Ql (Urine sed) 0 SEEN /hpf [facility] Nitrite Test strip Ql (U)Ord ered By: Usha Eid on 10-01-2023 Nitrite Ql (U) Negative Negative [facility] Protein Test strip Ql (U)Ord ered By: Usha Eid on 10-01-2023 Protein Ql (U) 15 mg/dl Negative [facility] Squamous epithelial cells de tection in urine sediment by light microscopyOrdered By: Usha Eid on 10-01-2023 Epithelial cells.squamous LM Ql (Urine sed) 0 SEEN /hpf 5-10 [facility] Urine blood detectionOrdered By: Usha Eid on 10-01-2023 RBC Ql (U) Negative Negative [facility] RBC Ql (U) 0 SEEN /hpf 0-5 [facility] Urine clarityOrdered By: Leila Eid on 10-01-2023 Clarity (U) Sl. Cloudy Clear [facility] Urine color determinationOrd ered By: Usha Eid on 10-01-2023 Color (U) Yellow Yellow [facility] Urine glucose detectionOrder ed By: Usha Eid on 10-01-2023 Glucose Ql (U) Normal mg/dl Normal [facility] Urine leukocyte esterase det ection by dipstickOrdered By: Usha Eid on 10-01-2023 Leukocyte esterase Test strip Ql (U) 25 /ul Negative [facility] Urine pHOrdered By: Usha Eid on 10-01-2023 pH (U) 7.0 [pH] 5.0 - 8.0 [facility] Urine sediment bacteria coun t by microscopy (number/high power field)Ordered By: Usha Eid on 10-01-2023 Bacteria LM.HPF (Urine sed) [#/Area] 0 /[HPF] None Seen [facility] Urine specific gravity measu rementOrdered By: Usha Eid on 10-01-2023 Specific gravity (U) [Rel density] 1.010 1.002-1.030 [facility] Urobilinogen Auto test strip Ql (U)Ordered By: Usha Eid on 10-01-2023 Urobilinogen Ql (U) Normal mg/dl Normal [facility] BI TRANSFER OF OUTSIDE FILMS on 09-09-2023 BI TRANSFER OF OUTSIDE FILMS Outside images for comparison or treatment purposes, not interpreted by Radiologists. [facility] Study Interpretation of outs sary studyon 09-09-2023 Outside images for comparison or treatment purposes, not interpreted by Radiologists. IMAGING Outside images for comparison or treatment purposes, not interpreted by Radiologists. IMAGING DBT Breast - bilateralon No mammographic evidence of malignancy. BI-RADS CATEGORY: BI-RADS Category: 1 Negative. Recommendation: Routine Screening Mammogram in 1 Year. Recommended Date: 1 Year. Laterality: Bilateral. For any future breast imaging appointments, please call [phone] ([phone]). MACRO: None Signed by: Jordyn Dover 09/01/2023 7:56 AM Dictation workstation: [id number] MMODAL Interpreted By: Jordyn Dover, STUDY: BI MAMMO BILATERAL SCREENING TOMOSYNTHESIS; 08/25/2023 2:21 pm ACCESSION NUMBER(S): [id number] ORDERING CLINICIAN: USHA EID INDICATION: Screening. Family history of ovarian carcinoma with her sister diagnosed. COMPARISON: 05/14/2022, 04/13/2019 FINDINGS: 2D and tomosynthesis images were reviewed at 1 mm slice thickness. Density: There are areas of scattered fibroglandular tissue. No suspicious masses or calcifications are identified. MMODAL Jordyn Dover MD - 09/01/2023 Interpreted By: Jordyn Dover, STUDY: BI MAMMO BILATERAL SCREENING TOMOSYNTHESIS; 08/25/2023 2:21 pm ACCESSION NUMBER(S): [id number] ORDERING CLINICIAN: USHA EID INDICATION: Screening. Family history of ovarian carcinoma with her sister diagnosed. COMPARISON: 05/14/2022, 04/13/2019 FINDINGS: 2D and tomosynthesis images were reviewed at 1 mm slice thickness. Density: There are areas of scattered fibroglandular tissue. No suspicious masses or calcifications are identified. IMPRESSION: No mammographic evidence of malignancy. BI-RADS CATEGORY: BI-RADS Category: 1 Negative. Recommendation: Routine Screening Mammogram in 1 Year. Recommended Date: 1 Year. Laterality: Bilateral. For any future breast imaging appointments, please call [phone]). MACRO: None Signed by: Jordyn Dover 09/01/2023 7:56 AM Dictation workstation: [id number] [facility] Work Phone: DBT Breast - bilateralOrdere d By: Jordyn Dover on 09-01-2023 [facility] Work Phone: BI MAMMO BILATERAL SCREENING TOMOSYNTHESISon 08-25-2023 BI MAMMO BILATERAL SCREENING TOMOSYNTHESIS Interpreted By: Jordyn Dover, STUDY: BI MAMMO BILATERAL SCREENING TOMOSYNTHESIS; 08/25/2023 2:21 pm ACCESSION NUMBER(S): [id number] ORDERING CLINICIAN: USHA EID INDICATION: Screening. Family history of ovarian carcinoma with her sister diagnosed. COMPARISON: 05/14/2022, 04/13/2019 FINDINGS: 2D and tomosynthesis images were reviewed at 1 mm slice thickness. Density: There are areas of scattered fibroglandular tissue. No suspicious masses or calcifications are identified. IMPRESSION: No mammographic evidence of malignancy. BI-RADS CATEGORY: BI-RADS Category: 1 Negative. Recommendation: Routine Screening Mammogram in 1 Year. Recommended Date: 1 Year. Laterality: Bilateral. For any future breast imaging appointments, please call [phone] ([phone]). MACRO: None Signed by: Jordyn Dover 09/01/2023 7:56 AM Dictation workstation: [id number] [facility] Comment on above: Order Comment: bipin trujillo pt. caresoamandae ins. prep given. onbase order. DBT Breast - bilateralon Radiology Study observation (narrative) [facility] Work Phone: NM HEPATOBILIARY W EF AND/OR RXon 08-07-2023 [facility] Cardiac Stress Teston 2022 Cardiac Stress Test [facility], Stress Lab, [address] [place] [address], [address], [place] [address] and Exercise Stress Test Patient Name: CRAOLIN BRITO Ordering Physician: Usha Eid CNP Study Date: 06/05/2023 Reading Physician: Gunner Vazquez MD MRN/PID: [id number] Supervising Physician: Gunner Vazquez MD Accession/Order#: [id number] Referring Physician: USHA EID CNP Date of : 1965 PCP: Gender: F Fellow: Admit Date: 06/05/2023 Fellow: Admission Status: Outpatient It Infrastructure Manager: Joslyn Field CVT Height: 157.48 cm Nurse: Guru Julio RN Weight: 72.58 kg Hostess Cashier: N/A BSA: 1.74 m2 Technologist: BMI: 29.26 kg/m2 Additional Staff: Age: 58 years cc report to: Patient Location: [facility] cc report to: Usha Stanton ARAGON Study Type: Cardiac Stress Test Diagnosis/ICD: R07.9-Chest pain, unspecified Indication: Chest Pain Atypical Procedure/CPT: Stress Test Interpretation-[id number] 8; Stress Test Supervision-[id number] Falls Risk: Low: Patient has a low risk for sustaining a fall; enviromental safety interventions in place. Study Details: Correct procedure and correct patient verified verbally and with ID Band checked. Patient History: Hypertension. CARDIAC MURMUR,DSAP,MENIERE DS,MIGRAINES,RECENT RUQ PAIN. Allergies: AMOXICILLIN. Smoker: Never. Medications: The patient's prescribed medication is LOSARTAN,FOLIC ACID,MVI,VIT D,RIZATRIPTAN,FISH OIL,FLOMAX,BENTYL. Patient Performance: The patient exercised to stage II on a Lupillo protocol for 7 minutes and 10 seconds, achieving 8.8 METS. The peak heart rate achieved was 137 bpm, which was 84 % of the age predicted target heart rate of 164 bpm. The resting blood pressure was 126/80 mmHg with a heart rate of 64 bpm. The standing blood pressure was 118/78 mmHg with a heart rate of 78 bpm. The patient's functional capacity was below average. The patient developed fatigue, leg fatigue and shortness of breath during the stress exam. The symptoms resolved with rest 2 minutes into recovery. The blood pressure response was normal. The test was terminated due to: fatigue, dyspnea, leg fatigue and musculoskeletal weakness and Requested to stop sudden fatigue. Patient has met the discharge criteria and is discharged to home. Baseline ECG: Resting ECG showed normal sinus rhythm with normal tracing. Has been having GallBladder issues and workup, Aortic Stenosis. Stress ECG: Stress ECG showed sinus tachycardia, with no abnormal findings. No ST changes. Stress Stage Data: + + ---+------+-------+ +--- ---+ HR Sys BP Buitrago BP RPE Comments + + ---+------+-------+ +--- ---+ Baseline Resting 64 126 80 + + ---+------+-------+ +--- ---+ Baseline Standing 78 118 78 + + ---+------+-------+ +--- ---+ . . + + ---+------+-------+ +--- ---+ Stage I 98 122 80 9=Very light No symptoms + + ---+------+-------+ +--- ---+ Stage II 118 124 82 11=Fairly light Mild short of breath, nochest pain + + ---+------+-------+ +--- ---+ Stage III 137 N/A 7:10min Fatigue/Request stop + + ---+------+-------+ +--- ---+ Recovery ECG: Recovery ECG showed Sinus Rhythm, with no abnormal findings. The heart rate recovery was normal. + +---+- -----+-------+----- + HR Sys BP Buitrago BP Comments + +---+- -----+-------+----- + Recovery I 115 n/a 1min Short of breath + +---+- -----+-------+----- + Recovery II 90 128 84 2min Dyspnea resolving, no chest pain + +---+- -----+-------+----- + Recovery III 77 122 80 4min No symptoms + +---+- -----+-------+----- + Recovery IV 80 120 78 6min No symptoms + +---+- -----+-------+----- + Summary: 1. Nondiagnostic stress EKG for ischemia due to chronotropic incompetence. 2. Below average functional capacity for age. 3. No exercise associated cardiac symptoms were noted. [id number] Yomaira Vazquez MD Electronically signed on 06/06/2023 at 7:49:54 AM Final Normal [facility] Basophil percentageOrdered B y: Usha Eid on 05-22-2023 Bilirubin [Mass/Vol] 0.40 mg/dL 0.20-1.00 [facility] Comment on above: For patients on eltr ombopag therapy, use of Dimension [place] TBIL is not recommended. Chloride [Moles/Vol] 108 mmol/L 98-107 [facility] Glucose [Mass/Vol] 98 mg/dL 74-106 [facility] Potassium [Moles/Vol] 4.5 mmol/L 3.5-5.1 [facility] Protein [Mass/Vol] 7.9 g/dL 6.4-8.2 [facility] Sodium [Moles/Vol] 139 mmol/L 136-145 [facility] Laboratory - Chemistry and C hemistry - challengeOrdered By: Usha Eid on 05-22-2023 ALP [Catalytic activity/Vol] 87 U/L 45-117 [facility] ALT [Catalytic activity/Vol] 39 U/L 13-56 [facility] CO2 [Moles/Vol] 28.0 mmol/L 21.0-32.0 [facility] Globulin (S) [Mass/Vol] 4.3 g/dL 2.2-4.2 [facility] Lipase [Catalytic activity/Vol] 37 U/L 13-75 [facility] Comment on above: Please note:LIPASE r evised reference range effective 23. New Lipase methodology. Expected to produce lower values than the previous assay method. NEW Reference Range: 13 - 75 U/L Urea nitrogen/Creatinine [Mass ratio] 15.2 mg/mg 10-20 [facility] No Panel InformationOrdered By: Usha Eid on 05-22-2023 Estimated GFR (MDRD) Amer 70 mL/min >60 [facility] Comment on above: GFR Calc Estimated GFR (MDRD) Non-Af Amer 58 mL/min >60 [facility] Comment on above: Non- GFR Calc Insulin Level 12.3 mU/L 2.6-37.6 [facility] Serum or plasma albumin carlos eduardo urement (mass/volume)Ordered By: Usha Eid on 05-22-2023 Albumin [Mass/Vol] 3.6 g/dL 3.2-5.0 [facility] Serum or plasma albumin/glob ulin mass ratioOrdered By: Usha Eid on 05-22-2023 Albumin/Globulin [Mass ratio] 0.8 {ratio} 0.9-2.4 [facility] Serum or plasma calcium carlos eduardo urement (mass/volume)Ordered By: Usha Eid on 05-22-2023 Calcium [Mass/Vol] 9.7 mg/dL 8.5-10.1 [facility] Serum or plasma creatinine m easurement (mass/volume)Ordered By: Usha Eid on 05-22-2023 Creatinine [Mass/Vol] 1.05 mg/dL 0.55-1.02 [facility] Comment on above: The validity of the calculated GFR & GFRAA in patients over 70 years has not been determined. Clinical correlation is essential. Serum or plasma urea nitroge n measurement (mass/volume)Ordered By: Usha Eid on 05-22-2023 Urea nitrogen [Mass/Vol] 16 mg/dL 7-18 [facility] Thin prep Papanicolaou smear with manual screeningOrdered By: Usha Eid on 05-22-2023 Thin prep Papanicolaou smear with manual screening 27 U/L 15-37 [facility] Thin prep Papanicolaou smear with manual screening 3 5-15 [facility] Whole blood hemoglobin A1c/t otal hemoglobin ratio (mass fraction)Ordered By: Usha Eid on 05-22-2023 HbA1c (Bld) [Mass fraction] 5.2 % 3.8-5.6 [facility] Comment on above: Normal < 5.7 % Predi abetic 5.7 - 6.4 % Diabetic >or= 6.5 % Please note range changes. ECHOon 12-18-2022 [facility] PTH INTACT Don 12-11-2022 Parathyrin.intact [Mass/Vol] 40 pg/mL 15 - 65 pg/mL [facility] T3 BLDon 12-11-2022 T3 [Mass/Vol] 121 ng/dL 60 - 180 ng/dL [facility] VITAMIN D 25 HYDROXYon 12-11 25-hydroxyvitamin D3 [Mass/Vol] 45.7 ng/mL >=30.0 ng/mL [facility] Comprehensive metabolic 2000 panelon 12-10-2022 Albumin [Mass/Vol] 4.3 g/dL 3.9 - 4.9 g/dL [facility] ALP [Catalytic activity/Vol] 79 U/L 34 - 123 U/L [facility] ALT With P-5'-P [Catalytic activity/Vol] 20 U/L 7 - 38 U/L [facility] Anion gap [Moles/Vol] 9 mmol/L 9 - 18 mmol/L [facility] AST With P-5'-P [Catalytic activity/Vol] 19 U/L 13 - 35 U/L [facility] Bilirubin [Mass/Vol] 0.3 mg/dL 0.2 - 1 .3 mg/dL [facility] Calcium [Mass/Vol] 9.8 mg/dL 8.5 - 10. 2 mg/dL [facility] Chloride [Moles/Vol] 105 mmol/L 97 - 10 5 mmol/L [facility] CO2 [Moles/Vol] 27 mmol/L 22 - 30 mmol/L [facility] Creatinine [Mass/Vol] 1.00 mg/dL High 0.58 - 0.96 mg/dL [facility] Estimated Glomerular Filtration Rate 67 mL/min/1.73m >=60 mL/min/1.73m [facility] Glucose [Mass/Vol] 104 mg/dL High 74 - 99 mg/dL [facility] Potassium [Moles/Vol] 4.3 mmol/L 3.7 - 5.1 mmol/L [facility] Protein [Mass/Vol] 7.5 g/dL 6.3 - 8.0 g/dL [facility] Sodium [Moles/Vol] 141 mmol/L 136 - 144 mmol/L [facility] Urea nitrogen [Mass/Vol] 18 mg/dL 7 - 21 mg/d L [facility] T4 FREE/FREE THYROXon 2022 Free T4 [Mass/Vol] 1.2 ng/dL 0.9 - 1.7 ng/dL [facility] T4/THYROXINE BLOODon 023 T4 [Mass/Vol] 6.8 ug/dL 5.5 - 10.2 ug/dL [facility] UA DIP, URINE (POC)on 2022 BILIRUBIN UA (POCT) Negative Negative [facility] CLARITY UA (POCT) Clear [facility] COLOR UA (POCT) Yellow [facility] GLUCOSE UA (POCT) Negative Negative mg/dL [facility] HEMOGLOBIN/BLOOD UA (POCT) Large Abnormal Negative [facility] KETONE UA (POCT) Negative Negative mg/dL [facility] LEUKOCYTES UA (POCT) Small Abnormal Negative [facility] NITRITE UA (POCT) Negative Negative [facility] PH UA (POCT) 6.0 4.5 - 8.0 [facility] Protein Ql (U) 100 mg/dL Abnormal Negative mg/dL [facility] SPECIFIC GRAVITY UA (POCT) 1.015 1.005 - 1.030 [facility] UROBILINOGEN UA (POCT) 0.2 E.U./dL Melissa l E.U./dL [facility] ELVER SCREENINGon 05-14-2022 [facility] ECG B/O W INTERP (MED OFFICE ) [facility] Vital Signs Date Time Vital Sign Value Performing Clinician Facility 06-01-2025 10:04-0400 Body height 154.94 cm Usha Queden [employer] Work Phone: [facility] 06-01-2025 10:04-0400 Body mass index (BMI) [Ratio] 34.4 kg/m2 Usha Queden [employer] Work Phone: [facility] 06-01-2025 10:04-0400 Body weight 82.55 kg Usha Queden [employer] Work Phone: [facility] 06-01-2025 10:04-0400 Diastolic blood pressure 85 mm[Hg] Usha Queden [employer] Work Phone: [facility] 06-01-2025 10:04-0400 Heart rate 58 /min Usha Queden [employer] Work Phone: [facility] 06-01-2025 10:04-0400 Respiratory rate 14 /min Usha Queden [employer] Work Phone: [facility] 06-01-2025 10:04-0400 Systolic blood pressure 126 mm[Hg] Usha Queden [employer] Work Phone: [facility] 05-17-2025 15:42-0400 Body height 154.9 cm Yani Sheets DO Work Phone: [facility] 05-17-2025 15:42-0400 Body mass index (BMI) [Ratio] 34.58 kg/m2 Yani Sheets DO Work Phone: [facility] 05-17-2025 15:42-0400 Body temperature 98.49 [degF] Yani Sheets DO Work Phone: [facility] 05-17-2025 15:42-0400 Body weight 83.01 kg Yani Sheets DO Work Phone: [facility] 05-17-2025 15:42-0400 Diastolic blood pressure 72 mm[Hg] Yani Sheets DO Work Phone: [facility] 05-17-2025 15:42-0400 Heart rate 67 /min Yani Sheets DO Work Phone: [facility] 05-17-2025 15:42-0400 Respiratory rate 16 /min Yani Sheets DO Work Phone: [facility] 05-17-2025 15:42-0400 SaO2% (BldA) [Mass fraction] 96 % Yani Sheets DO Work Phone: [facility] 05-17-2025 15:42-0400 Systolic blood pressure 114 mm[Hg] Yani Sheets DO Work Phone: [facility] 04-29-2024 09:09-0400 Body height 154.9 cm Usha Queden PSYCHOLOGIST.GROUNDSKEEPING MAINTENANCE WORKER Work Phone: [facility] 04-29-2024 09:09-0400 Body mass index (BMI) [Ratio] 35.14 kg/m2 Usha Queden PSYCHOLOGIST.GROUNDSKEEPING MAINTENANCE WORKER Work Phone: [facility] 04-29-2024 09:09-0400 Body temperature 98.01 [degF] Usha Queden PSYCHOLOGIST.GROUNDSKEEPING MAINTENANCE WORKER Work Phone: [facility] 04-29-2024 09:09-0400 Body weight 84.37 kg Usha Queden PSYCHOLOGIST.GROUNDSKEEPING MAINTENANCE WORKER Work Phone: [facility] 04-29-2024 09:09-0400 Diastolic blood pressure 68 mm[Hg] Usha Queden PSYCHOLOGIST.GROUNDSKEEPING MAINTENANCE WORKER Work Phone: [facility] 04-29-2024 09:09-0400 Heart rate 67 /min Usha Queden PSYCHOLOGIST.GROUNDSKEEPING MAINTENANCE WORKER Work Phone: [facility] 04-29-2024 09:09-0400 Respiratory rate 16 /min Usha Queden PSYCHOLOGIST.GROUNDSKEEPING MAINTENANCE WORKER Work Phone: [facility] 04-29-2024 09:09-0400 SaO2% (BldA) [Mass fraction] 95 % Usha Queden PSYCHOLOGIST.GROUNDSKEEPING MAINTENANCE WORKER Work Phone: [facility] 04-29-2024 09:09-0400 Systolic blood pressure 122 mm[Hg] Usha Queden PSYCHOLOGIST.GROUNDSKEEPING MAINTENANCE WORKER Work Phone: [facility] 12-31-2023 14:05-0500 Body height 154.9 cm Heather Nael PSYCHOLOGIST.GROUNDSKEEPING MAINTENANCE WORKER Work Phone: [facility] 12-31-2023 14:05-0500 Body temperature 100.9 [degF] Heather Nael PSYCHOLOGIST.GROUNDSKEEPING MAINTENANCE WORKER Work Phone: [facility] 12-31-2023 14:05-0500 Body weight 85.28 kg Heather Nael PSYCHOLOGIST.GROUNDSKEEPING MAINTENANCE WORKER Work Phone: [facility] 12-31-2023 14:05-0500 Diastolic blood pressure 70 mm[Hg] Heather Nael PSYCHOLOGIST.GROUNDSKEEPING MAINTENANCE WORKER Work Phone: [facility] 12-31-2023 14:05-0500 Heart rate 89 /min Heather Nael PSYCHOLOGIST.GROUNDSKEEPING MAINTENANCE WORKER Work Phone: [facility] 12-31-2023 14:05-0500 Respiratory rate 18 /min Heather Nael PSYCHOLOGIST.GROUNDSKEEPING MAINTENANCE WORKER Work Phone: [facility] 12-31-2023 14:05-0500 SaO2% (BldA) [Mass fraction] 95 % Heather Nael PSYCHOLOGIST.GROUNDSKEEPING MAINTENANCE WORKER Work Phone: [facility] 12-31-2023 14:05-0500 Systolic blood pressure 110 mm[Hg] Heather Nael PSYCHOLOGIST.GROUNDSKEEPING MAINTENANCE WORKER Work Phone: [facility] 12-29-2023 13:45-0500 Body height 154.9 cm Chelsea Brunson MD Work Phone: [facility] 12-29-2023 13:45-0500 Body weight 86.18 kg Chelsea rBunson MD Work Phone: [facility] 07-16-2023 10:46-0400 Body height 154.9 cm Guillermo Scherer MD Work Phone: [facility] 07-16-2023 10:46-0400 Body weight 83.46 kg Guillermo Scherer MD Work Phone: [facility] 07-16-2023 10:46-0400 Diastolic blood pressure 67 mm[Hg] Guillermo Scherer MD Work Phone: [facility] 07-16-2023 10:46-0400 Heart rate 75 /min Guillermo Scherer MD Work Phone: [facility] 07-16-2023 10:46-0400 Respiratory rate 18 /min Guillermo Scherer MD Work Phone: [facility] 07-16-2023 10:46-0400 Systolic blood pressure 120 mm[Hg] Guillermo Scherer MD Work Phone: [facility] 07-11-2023 09:20-0400 Body height 154.9 cm Js Pineda MD Work Phone: [facility] 07-11-2023 09:20-0400 Body weight 84.37 kg Js Pineda MD Work Phone: [facility] 07-11-2023 09:20-0400 Diastolic blood pressure 82 mm[Hg] Js Pineda MD Work Phone: [facility] 07-11-2023 09:20-0400 Heart rate 63 /min Js Pineda MD Work Phone: [facility] 07-11-2023 09:20-0400 Respiratory rate 18 /min Js Pineda MD Work Phone: [facility] 07-11-2023 09:20-0400 SaO2% (BldA) [Mass fraction] 99 % Js Pineda MD Work Phone: [facility] 07-11-2023 09:20-0400 Systolic blood pressure 122 mm[Hg] Js Pineda MD Work Phone: [facility] 05-19-2023 15:58-0400 Body height 156.2 cm Usha Queden PSYCHOLOGIST.GROUNDSKEEPING MAINTENANCE WORKER Work Phone: [facility] 05-19-2023 15:58-0400 Body temperature 98.2 [degF] Usha Queden PSYCHOLOGIST.GROUNDSKEEPING MAINTENANCE WORKER Work Phone: [facility] 05-19-2023 15:58-0400 Body weight 87.09 kg Usha Queden PSYCHOLOGIST.GROUNDSKEEPING MAINTENANCE WORKER Work Phone: [facility] 05-19-2023 15:58-0400 Diastolic blood pressure 74 mm[Hg] Usha Queden PSYCHOLOGIST.GROUNDSKEEPING MAINTENANCE WORKER Work Phone: [facility] 05-19-2023 15:58-0400 Heart rate 74 /min Usha Queden PSYCHOLOGIST.GROUNDSKEEPING MAINTENANCE WORKER Work Phone: [facility] 05-19-2023 15:58-0400 Respiratory rate 18 /min Usha Queden PSYCHOLOGIST.GROUNDSKEEPING MAINTENANCE WORKER Work Phone: [facility] 05-19-2023 15:58-0400 SaO2% (BldA) [Mass fraction] 94 % Usha Queden PSYCHOLOGIST.GROUNDSKEEPING MAINTENANCE WORKER Work Phone: [facility] 05-19-2023 15:58-0400 Systolic blood pressure 120 mm[Hg] Usha Queden PSYCHOLOGIST.GROUNDSKEEPING MAINTENANCE WORKER Work Phone: [facility] 12-10-2022 10:18-0500 Body height 156.2 cm Usha Queden PSYCHOLOGIST.GROUNDSKEEPING MAINTENANCE WORKER Work Phone: [facility] 12-10-2022 10:18-0500 Body temperature 98.2 [degF] Usha Queden PSYCHOLOGIST.GROUNDSKEEPING MAINTENANCE WORKER Work Phone: [facility] 12-10-2022 10:18-0500 Body weight 87.09 kg Usha Queden PSYCHOLOGIST.GROUNDSKEEPING MAINTENANCE WORKER Work Phone: [facility] 12-10-2022 10:18-0500 Diastolic blood pressure 70 mm[Hg] Usha Queden PSYCHOLOGIST.GROUNDSKEEPING MAINTENANCE WORKER Work Phone: [facility] 12-10-2022 10:18-0500 Heart rate 64 /min Usha Queden PSYCHOLOGIST.GROUNDSKEEPING MAINTENANCE WORKER Work Phone: [facility] 12-10-2022 10:18-0500 Respiratory rate 18 /min Usha Queden PSYCHOLOGIST.GROUNDSKEEPING MAINTENANCE WORKER Work Phone: [facility] 12-10-2022 10:18-0500 SaO2% (BldA) [Mass fraction] 95 % Usha Queden PSYCHOLOGIST.GROUNDSKEEPING MAINTENANCE WORKER Work Phone: [facility] 12-10-2022 10:18-0500 Systolic blood pressure 126 mm[Hg] Usha Queden PSYCHOLOGIST.GROUNDSKEEPING MAINTENANCE WORKER Work Phone: [facility] 12-06-2022 11:32-0500 Body height 156.2 cm Harman Mendosa MD Work Phone: [facility] 12-06-2022 11:32-0500 Body weight 83.92 kg Harman Mendosa MD Work Phone: [facility] 12-06-2022 11:32-0500 Diastolic blood pressure 82 mm[Hg] Harman Mendosa MD Work Phone: [facility] 12-06-2022 11:32-0500 Systolic blood pressure 134 mm[Hg] Harman Mendosa MD Work Phone: [facility] 06-17-2022 09:44-0400 Body height 155.6 cm Live Short MD Work Phone: [facility] 06-17-2022 09:44-0400 Body temperature 97.3 [degF] Live Short MD Work Phone: [facility] 06-17-2022 09:44-0400 Body weight 83.92 kg Live Short MD Work Phone: [facility] 06-17-2022 09:44-0400 Diastolic blood pressure 76 mm[Hg] Live Short MD Work Phone: [facility] 06-17-2022 09:44-0400 Heart rate 76 /min Live Short MD Work Phone: [facility] 06-17-2022 09:44-0400 Respiratory rate 16 /min Live Short MD Work Phone: [facility] 06-17-2022 09:44-0400 SaO2% (BldA) [Mass fraction] 97 % Live Short MD Work Phone: [facility] 06-17-2022 09:44-0400 Systolic blood pressure 133 mm[Hg] Live Short MD Work Phone: [facility] Encounters Encounter Date Encounter Type Care Provider Facility Start: 06-28-2025 ambulatory Yani Sloan [facility] y:[facility] Start: 06-22-2025 ambulatory Fabio Wilburn Facility:[facility] Start: 06-13-2025 ambulatory Fabio Wilburn Facility:[facility] Start: 06-01-2025 End: 06-01-2025 ambulatory Usha Eid LUG BREAKER AND WIRE PULLER-C Work Phone: -Radiology [facility] Start: 06-01-2025 End: 06-01-[address] Yani Sloan DO -Radiology [facility] Work Phone: Start: 06-01-2025 End: 06-01-[address] Fabio Wilburn MD -[facility] Work Phone: Start: 06-01-2025 End: 06-01-2025 ambulatory Usha Eid LUG BREAKER AND WIRE PULLER-C Work Phone: -[facility] Start: 06-01-2025 End: 06-01-2025 ambulatory Yani Sloan Facility:[facility] Start: 05-19-2025 End: 05-19-2025 ambulatory USHA EID Facility:[facility] Start: 05-18-2025 End: 05-20-2025 ambulatory Yani Sloan DO Work Phone: [facility] Start: 05-18-2025 End: 05-20-2025 Patient encounter procedure Yani Sloan DO Work Phone: [facility] Comment on above: Referral Start: 05-17-2025 End: 05-17-2025 Patient encounter procedure Yani Sloan DO Work Phone: [facility] Comment on above: Other chest pain (Pr imary Dx); Bicuspid aortic valve (HCC); Fatty liver; Class 1 obesity with body mass index (BMI) of 34.0 to 34.9 in adult, unspecified obesity type, unspecified whether serious comorbidity present; Heart murmur Start: 05-17-2025 End: 05-17-2025 ambulatory YANI C SHEETS Facility:[facility] Start: 05-16-2025 End: 05-17-2025 ambulatory Usha A Queden PSYCHOLOGIST.[facility] Work Phone: [facility] Comment on above: Incident Start: 10-12-2024 End: 10-15-2024 ambulatory Usha A Queden PSYCHOLOGIST.[facility] 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 Start: 10-12-2024 End: 10-15-2024 Home visit Usha A Queden PSYCHOLOGIST.[facility] 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 Start: 05-31-2024 ambulatory Usha A Qued en PSYCHOLOGIST.[facility] Work Phone: [facility] Comment on above: [place] Start: 05-12-2024 Refill Usha A Qued en PSYCHOLOGIST.[facility] Work Phone: [facility] Comment on above: Refill Request Start: 04-29-2024 End: 04-29-2024 Patient encounter procedure Usha A Queden PSYCHOLOGIST.GROUNDSKEEPING MAINTENANCE WORKER Work Phone: [facility] Comment on above: Urinary frequency (P rimary Dx); Right flank pain; Mid back pain on left side; History of kidney stones; Essential hypertension; Headaches at night Start: 01-17-2024 End: 01-17-2024 ambulatory [facility] Work Phone: Start: 01-17-2024 End: 01-17-2024 Patient encounter procedure [facility] Work Phone: Start: 01-01-2024 Telephone encounter Usha Eid PSYCHOLOGIST.GROUNDSKEEPING MAINTENANCE WORKER Work Phone: [facility] Comment on above: Results Start: 12-31-2023 End: 12-31-2023 Patient encounter procedure Heather M Nael PSYCHOLOGIST.GROUNDSKEEPING MAINTENANCE WORKER Work Phone: [facility] Comment on above: Flu-like symptoms (P rimary Dx); Body aches; Urinary frequency Start: 12-29-2023 End: 12-29-2023 ambulatory Chelsea Brunson MD Work Phone: [facility] Comment on above: Class 2 obesity (Vera yeison Dx); Vitamin D deficiency; Essential hypertension; Dietary counseling and surveillance; Body mass index (BMI) of 35.0-35.9 in adult; Bicuspid aortic valve Start: 12-29-2023 End: 12-29-2023 Telemedicine consultation with patient Chelsea Brunson MD Work Phone: [facility] Start: 10-14-2023 Telephone encounter Usha Eid PSYCHOLOGIST.GROUNDSKEEPING MAINTENANCE WORKER Work Phone: [facility] Comment on above: Results Start: 10-01-2023 End: 10-01-2023 ambulatory [facility] Work Phone: Start: 10-01-2023 End: 10-01-2023 Patient encounter procedure [facility] Work Phone: Start: 09-23-2023 ambulatory Usha vázquez PSYCHOLOGIST.GROUNDSKEEPING MAINTENANCE WORKER Work Phone: [facility] Comment on above: UTI Start: 09-09-2023 End: 09-09-2023 Subsequent hospital visit by physician Rad External Film EF RAD EXTERNAL FILM VIRTUAL Start: 09-09-2023 End: 09-09-2023 ambulatory USHA MERLOS [facility] Start: 08-25-2023 End: 08-25-2023 ambulatory USHA MERLOS [facility] Start: 08-25-2023 End: 08-25-2023 Subsequent hospital visit by physician [facility] Comment on above: Encounter for screen ing mammogram for malignant neoplasm of breast Start: 08-07-2023 End: 08-07-2023 Subsequent hospital visit by physician [facility] Work Phone: Molecular Imaging Comment on above: Cholecystitis [K81.9 ] Start: 07-16-2023 End: 07-16-2023 Patient encounter procedure Guillermo Scherer MD Work Phone: [facility] GENERAL SUR[facility]ERY [facility]MENT Comment on above: Gallbladder polyp (P rimary Dx); RUQ pain; Obesity, Class II, BMI 35-39.9; Cholecystitis Start: 07-11-2023 End: 07-11-2023 Patient encounter procedure Js Pineda MD Work Phone: [facility] Cardiology [place] Comment on above: Nonrheumatic aortic (valve) stenosis (Primary Dx); Essential hypertension; Hypercholesteremia; History of cardiac murmur; Obesity, Class II, BMI 35-39.9; Bicuspid aortic valve Start: 06-05-2023 ambulatory Ms. Usha Eid Facility:[id number] Start: 06-04-2023 Telephone encounter Gogo Hunt APRN.GROUNDSKEEPING MAINTENANCE WORKER Work Phone: [facility] Comment on above: Orders (Stress test) Start: 05-27-2023 ambulatory Usha A Joel en PSYCHOLOGIST.GROUNDSKEEPING MAINTENANCE WORKER Work Phone: [facility] Comment on above: bloodwork results Start: 05-22-2023 End: 05-22-2023 ambulatory [facility] Work Phone: Start: 05-22-2023 End: 05-22-2023 Patient encounter procedure [facility] Work Phone: Start: 05-21-2023 ambulatory Usha Marc Maldonado en PSYCHOLOGIST.GROUNDSKEEPING MAINTENANCE WORKER Work Phone: [facility] Start: 05-21-2023 Patient encounter procedure Usha Marc Stanton PSYCHOLOGIST.GROUNDSKEEPING MAINTENANCE WORKER Work Phone: [facility] Comment on above: Stress Test Referral Start: 05-20-2023 End: 05-20-2023 Subsequent hospital visit by physician [facility] [place] [facility] Comment on above: RUQ pain [R10.11] Start: 05-19-2023 End: 05-19-2023 Patient encounter procedure Usha Marc Stanton PSYCHOLOGIST.GROUNDSKEEPING MAINTENANCE WORKER Work Phone: [facility] Comment on above: RUQ pain (Primary Dx ); Common bile duct dilatation; Unable to lose weight; Elevated blood sugar Start: 04-07-2023 Refill Gogo fox APRN.GROUNDSKEEPING MAINTENANCE WORKER Work Phone: [facility] Comment on above: Refill Request Start: 12-21-2022 Telephone encounter Usha Eid APRN.GROUNDSKEEPING MAINTENANCE WORKER Work Phone: [facility] Comment on above: Results; Consult Start: 12-18-2022 End: 12-18-2022 Subsequent hospital visit by physician David/Pulm Lab [facility] CARDIO PULMONARY TESTING Comment on above: Aortic valve stenosi s, etiology of cardiac valve disease unspecified [I35.0] Start: 12-10-2022 End: 12-10-2022 Patient encounter procedure Usha A Stanton PSYCHOLOGIST.GROUNDSKEEPING MAINTENANCE WORKER Work Phone: [facility] Comment on above: Calculus of kidney ( Primary Dx); Aortic valve stenosis, etiology of cardiac valve disease unspecified; Mitral valve prolapse; History of cardiac murmur; Chest pain, unspecified type; Migraine without status migrainosus, not intractable, unspecified migraine type; Asymptomatic postmenopausal status; Screening for depression Start: 12-06-2022 End: 12-06-2022 Patient encounter procedure Harman Mendosa MD Work Phone: [facility] Comment on above: Renal calculi (Prima ry Dx) Start: 11-29-2022 Telephone encounter Harman Mendosa MD Work Phone: [facility] Comment on above: 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 Start: 11-20-2022 Telephone encounter Hamran Mendosa MD Work Phone: Urology Comment on above: Patient Question Start: 11-19-2022 ambulatory Shruthinadia amin [employer]SE GRADER [facility] Start: 11-19-2022 Telephone encounter Harman Mendosa MD Work Phone: [facility] Comment on above: Surgery Scheduled Transition Of Care ( [facility] discharge 11/15/2022 TCM encounter ) Start: 11-14-2022 Telephone encounter Usha Marc Eid APRN.CNP Work Phone: [facility] Comment on above: Abdominal Pain 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 Start: 07-02-2022 End: 07-02-2022 Subsequent hospital visit by physician [facility] Comment on above: Family history of ov ana cancer [Z80.41] Start: 06-17-2022 End: 06-17-2022 Patient encounter procedure Live Short MD Work Phone: [facility] Obstetrics & Gynecology Comment on above: Encounter for annual routine gynecological examination (Primary Dx); Encounter for Papanicolaou smear for cervical cancer screening; Family history of ovarian cancer Start: 05-14-2022 Documentation procedure Mammog miles Coordinator [facility] Start: 05-14-2022 Letter encounter Mammography Coordinator [place] ANCILLARY AREA NOT LISTED Start: 05-14-2022 End: 05-14-2022 Subsequent hospital visit by physician Mammo/Bone Density [facility] Comment on above: Breast screening [Z1 2.39] Start: 05-06-2022 Orders Only Live Short MD Work Phone: [facility] Obstetrics & Gynecology Comment on above: Breast screening (Pr imary Dx) Start: 05-01-2022 Telephone encounter Live Short MD Work Phone: [facility] General Obstetrics and Gynecology Comment on above: Orders Start: 04-16-2022 End: 04-16-2022 Subsequent hospital visit by physician Mammo/Bone Density [facility] Start: 03-20-2022 Refill Usha A Joel en PSYCHOLOGIST.GROUNDSKEEPING MAINTENANCE WORKER Work Phone: [facility] Comment on above: Refill Request Procedures Date Procedure Procedure Detail Performing Clinician Start: 06-01-2025 X-ray of chest, PA and lateral views Usha Eid LUG BREAKER AND WIRE PULLER-C Work Phone: Start: 05-19-2025 Lipid 1996 panel - Serum or Plasma Yani Sheets DO Work Phone: Start: 05-17-2025 Ecg routine ecg w/least 12 lds w/i&r Yani C Sheets DO Work Phone: Start: 04-29-2024 Urnls dip stick/tablet rgnt auto w/o microscopy Usha Eid PSYCHOLOGIST.GROUNDSKEEPING MAINTENANCE WORKER Work Phone: Start: 12-31-2023 Urnls dip stick/tablet rgnt auto w/o microscopy Heather Nayak PSYCHOLOGIST.GROUNDSKEEPING MAINTENANCE WORKER Work Phone: Start: 09-09-2023 BI TRANSFER OF OUTSIDE FILMS USHA EID Start: 09-09-2023 End: 09-09-2023 Study Interpretation of outside study Usha Eid PSYCHOLOGIST-GROUNDSKEEPING MAINTENANCE WORKER Work Phone: Start: 08-25-2023 BI MAMMO BILATERAL SCREENING TOMOSYNTHESIS USHA EID Start: 08-25-2023 End: 08-25-2023 Mammography Usha Eid PSYCHOLOGIST-GROUNDSKEEPING MAINTENANCE WORKER Work Phone: Start: 08-07-2023 Hepatobil syst imag inc gb w/pharma intervenj Guillermo Scherer MD Work Phone: Start: 07-11-2023 Ecg routine ecg w/least 12 lds w/i&r Js Pineda MD Work Phone: Start: 12-18-2022 Echo tthrc r-t 2d w/wom-mode compl spec&colr d Usha Eid PSYCHOLOGIST.GROUNDSKEEPING MAINTENANCE WORKER Work Phone: Start: 12-06-2022 Urnls dip stick/tablet rgnt auto w/o microscopy Harman Mendosa MD Work Phone: Start: 05-14-2022 End: 05-14-2022 Screening mammography bi 2-view breast inc cad Live Short MD Work Phone: Start: 10-13-2021 Lipid 1996 panel - Serum or Plasma [facility] Work Phone: Start: 03-14-2021 Adult depression screening assessment Usha Eid PSYCHOLOGIST.GROUNDSKEEPING MAINTENANCE WORKER Work Phone: Start: 04-13-2019 Mammography Usha Eid PSYCHOLOGIST.GROUNDSKEEPING MAINTENANCE WORKER Work Phone: H/O: tubal ligation Hx of tubal ligation Plan of Treatment Date Care Activity Detail Author Start: 05-19-2030 Lipid panel Lipid Screening [facility] Start: 05-19-2028 Diabetes Screening Diabetes Screenin g [facility] Start: 06-17-2027 HPV TESTING HPV TESTING [facility] Start: 06-17-2027 PAP TESTING PAP TESTING [facility] Start: 06-17-2027 Screening for malign ant neoplasm of cervix [facility] Start: 10-13-2026 Lipid 1996 panel - S janee or Plasma Lipid Screening [facility] Start: 10-13-2026 Lipid panel Lipid Screening [facility] Start: 10-13-2026 LIPID SCREEN LIPID SCREEN [facility] Start: 05-17-2026 Annual PCP Team Ob Scrub Tech dina Disease Visit Annual PCP Team Chronic Disease Visit [facility] Start: 05-13-2026 DTaP/Tdap/Td Vaccine s (3 - Td or Tdap) DTaP/Tdap/Td Vaccines (3 - Td or Tdap) [facility] Start: 05-13-2026 Urine microalbumin profile [facility] Start: 12-10-2025 DIABETES SCREEN DIABETES SCREEN [facility] Start: 12-10-2025 Diabetes Screening Diabetes Screenin g [facility] Start: 11-15-2025 DIABETES SCREEN DIABETES SCREEN [facility] Start: 07-25-2025 Influenza vaccination Influenz a Vaccine (Season Ended) [facility] Start: 05-17-2025 End: 05-17-2025 Patient encounter procedure 05/17/2025 3:40 PM EDT Office Visit [facility] [address] [place] [address] Yani Sloan DO [address] [place] [address] chest tightness rt arm pain [facility] Comment on above: chest tightness rt a rm pain Start: 05-17-2025 End: 08-16-2025 CBC panel - Blood by Automated count COMPLETE BLOOD COUNT Lab Routine Other chest pain Expected: 05/17/2025, Expires: 08/16/2025 [facility] Comment on above: Expected: 05/17/2025 , Expires: 08/16/2025 Start: 05-17-2025 End: 08-16-2025 Comprehensive metabolic 2000 panel - Serum or Plasma COMPREHENSIVE METABOLIC PANEL Lab Routine Other chest pain Expected: 05/17/2025, Expires: 08/16/2025 [facility] Comment on above: Expected: 05/17/2025 , Expires: 08/16/2025 Start: 05-17-2025 End: 08-16-2025 Fibrin D-dimer FEU [Mass/volume] in Platelet poor plasma D-DIMER Lab Routine Other chest pain Expected: 05/17/2025, Expires: 08/16/2025 [facility] Comment on above: Expected: 05/17/2025 , Expires: 08/16/2025 Start: 05-17-2025 End: 08-16-2025 Lipid 1996 panel - Serum or Plasma LIPID PANEL, FASTING Lab Routine Other chest pain Expected: 05/17/2025, Expires: 08/16/2025 [facility] Comment on above: Expected: 05/17/2025 , Expires: 08/16/2025 Start: 05-17-2025 End: 08-16-2025 Magnesium [Mass/volume] in Serum or Plasma MAGNESIUM Lab Routine Other chest pain Expected: 05/17/2025, Expires: 08/16/2025 [facility] Comment on above: Expected: 05/17/2025 , Expires: 08/16/2025 Start: 05-02-2025 COLORECTAL CANCER SCREENING COLORECTAL CANCER SCREENING [facility] Comment on above: Postponed from 05/04 (Postponed To Appropriate Date) Start: 05-02-2025 Screening for malign ant neoplasm of colon Colorectal Cancer Screening [facility] Comment on above: Postponed from 05/04 (Postponed To Appropriate Date) Start: 04-29-2025 Annual PCP Team Ob Scrub Tech dina Disease Visit Annual PCP Team Chronic Disease Visit [facility] Start: 04-29-2025 BP Controlled (<130/80) BP Controlle d (<130/80) [facility] Start: 03-13-2025 PAP TESTING PAP TESTING [facility] Start: 12-31-2024 Annual PCP Team Ob Scrub Tech dina Disease Visit Annual PCP Team Chronic Disease Visit [facility] Start: 12-31-2024 BP Controlled (<130/80) BP Controlle d (<130/80) [facility] Start: 11-22-2024 HPV TESTING HPV TESTING [facility] Start: 10-13-2024 DIABETES SCREEN DIABETES SCREEN [facility] Start: 08-25-2024 BP Controlled (<130/80) BP Controlle d (<130/80) [facility] Start: 08-25-2024 Screening for malign ant neoplasm of breast [facility] Start: 07-25-2024 Covid-19 Vaccine ( season) Covid-19 Vaccine () [facility] Start: 07-25-2024 Influenza vaccination [facility] Start: 07-16-2024 BP CONTROLLED (<130/80) BP CONTROLLE D (<130/80) [facility] Start: 05-19-2024 ANNUAL PCP TEAM SEAL SKINNER DINA DISEASE VISIT ANNUAL PCP TEAM CHRONIC DISEASE VISIT [facility] Start: 05-19-2024 BP CONTROLLED (<130/80) BP CONTROLLE D (<130/80) [facility] Start: 12-29-2023 End: 03-29-2024 25-hydroxyvitamin D3 [Mass/volume] in Serum or Plasma VITAMIN D 25 HYDROXY Lab Routine Dietary counseling and surveillance Class 2 obesity Body mass index (BMI) of 35.0-35.9 in adult Expected: 12/29/2023, Expires: 03/29/2024 [facility] Work Phone: Comment on above: Expected: 12/29/2023 , Expires: 03/29/2024 Start: 12-29-2023 End: 03-29-2024 Cobalamin (Vitamin B12) [Mass/volume] in Serum or Plasma VITAMIN B12 BLOOD Lab Routine Dietary counseling and surveillance Class 2 obesity Body mass index (BMI) of 35.0-35.9 in adult Expected: 12/29/2023, Expires: 03/29/2024 [facility] Work Phone: Comment on above: Expected: 12/29/2023 , Expires: 03/29/2024 Start: 12-29-2023 End: 03-29-2024 Comprehensive metabolic 2000 panel - Serum or Plasma COMP METABOLIC PANEL Lab Routine Dietary counseling and surveillance Class 2 obesity Body mass index (BMI) of 35.0-35.9 in adult Expected: 12/29/2023, Expires: 03/29/2024 [facility] Work Phone: Comment on above: Expected: 12/29/2023 , Expires: 03/29/2024 Start: 12-29-2023 End: 03-29-2024 Hemoglobin A1c in Blood HGB A1C Lab Routine Dietary counseling and surveillance Class 2 obesity Body mass index (BMI) of 35.0-35.9 in adult Expected: 12/29/2023, Expires: 03/29/2024 [facility] Work Phone: Comment on above: Expected: 12/29/2023 , Expires: 03/29/2024 Start: 12-29-2023 End: 03-29-2024 Insulin [Units/volume] in Serum or Plasma INSULIN ASSAY BLOOD Lab Routine Dietary counseling and surveillance Class 2 obesity Body mass index (BMI) of 35.0-35.9 in adult Expected: 12/29/2023, Expires: 03/29/2024 [facility] Work Phone: Comment on above: Expected: 12/29/2023 , Expires: 03/29/2024 Start: 12-10-2023 ANNUAL PCP TEAM SEAL SKINNER DINA DISEASE VISIT ANNUAL PCP TEAM CHRONIC DISEASE VISIT [facility] Start: 12-10-2023 BP CONTROLLED (<130/80) BP CONTROLLE D (<130/80) [facility] Start: 12-10-2023 COVID-19 VACCINE (#1) COVID-19 VACCI NE (#1) [facility] Comment on above: Postponed from 11/03 (Declined at this time) Start: 12-10-2023 SHINGRIX VACCINE (1 of 2) VALERA GRIX VACCINE (1 of 2) [facility] Comment on above: Postponed from 05/04 (Declined at this time) Start: 11-24-2023 Behavioral Health Screening Behavioral Health Screening [facility] Start: 11-24-2023 Depression Assessment Depression Ass essment [facility] Start: 09-23-2023 End: 12-23-2023 Urinalysis complete panel - Urine URINALYSIS WITH MICROSCOPIC, REFLEX CULTURE Lab Routine Urinary frequency Expected: 09/23/2023, Expires: 12/23/2023 [facility] Work Phone: Comment on above: Expected: 09/23/2023 , Expires: 12/23/2023 Start: 07-25-2023 Covid-19 Vaccine ( season) Covid-19 Vaccine ( season) [facility] Start: 07-25-2023 Influenza vaccination [facility] Start: 05-23-2023 Influenza vaccination INFLUENZA (#1) [facility] Comment on above: Postponed from 07/25 (Declined at this time) Start: 05-19-2023 End: 07-19-2023 Comprehensive metabolic 2000 panel - Serum or Plasma COMP METABOLIC PANEL Lab Routine RUQ pain Expected: 05/19/2023, Expires: 07/19/2023 [facility] Work Phone: Comment on above: Expected: 05/19/2023 , Expires: 07/19/2023 Start: 05-19-2023 End: 07-19-2023 Hemoglobin A1c in Blood HGB A1C Lab Routine Unable to lose weight Elevated blood sugar Expected: 05/19/2023, Expires: 07/19/2023 [facility] Work Phone: Comment on above: Expected: 05/19/2023 , Expires: 07/19/2023 Start: 05-19-2023 End: 07-19-2023 Insulin [Units/volume] in Serum or Plasma INSULIN ASSAY BLOOD Lab Routine Unable to lose weight Elevated blood sugar Expected: 05/19/2023, Expires: 07/19/2023 [facility] Work Phone: Comment on above: Expected: 05/19/2023 , Expires: 07/19/2023 Start: 05-19-2023 End: 07-19-2023 Lipase [Enzymatic activity/volume] in Serum or Plasma LIPASE BLD Lab Routine RUQ pain Expected: 05/19/2023, Expires: 07/19/2023 [facility] Work Phone: Comment on above: Expected: 05/19/2023 , Expires: 07/19/2023 Start: 05-14-2023 Mammography [facility] Start: 05-14-2023 Screening for malign ant neoplasm of breast Mammogram Screening [facility] Start: 12-06-2022 End: 02-05-2023 [facility] Routine Renal calculi Expected: 12/06/2022, Expires: 02/05/2023 [facility] Work Phone: Comment on above: Expected: 12/06/2022 , Expires: 02/05/2023 Start: 11-24-2022 DEPRESSION ASSESSMENT DEPRESSION ASS ESSMENT [facility] Start: 10-12-2022 ANNUAL PCP TEAM SEAL SKINNER DINA DISEASE VISIT ANNUAL PCP TEAM CHRONIC DISEASE VISIT [facility] Start: 10-12-2022 BP CONTROLLED (<130/80) BP CONTROLLE D (<130/80) [facility] Start: 10-12-2022 COVID-19 VACCINE (#1) COVID-19 VACCI NE (#1) [facility] Comment on above: Postponed from 05/04 (Declined at this time) Postponed from 11/03 (Declined at this time) Start: 10-12-2022 COVID-19 VACCINE (1) COVID-19 VACCIN E (1) [facility] Comment on above: Postponed from 05/04 (Declined at this time) Start: 10-12-2022 SHINGRIX VACCINE (1 of 2) VALERA GRIX VACCINE (1 of 2) [facility] Comment on above: Postponed from 05/04 (Declined at this time) Start: 07-25-2022 Influenza vaccination [facility] Start: 03-14-2022 Adult depression scr eening assessment DEPRESSION SCREENING [facility] Start: 11-24-2021 DEPRESSION ASSESSMENT DEPRESSION ASS ESSMENT [facility] Start: 04-13-2020 Mammography MAMMOGRAM [facility] Start: 03-09-2020 FECAL OCCULT BLOOD FECAL OCCULT BLOO D [facility] Start: 03-09-2020 Screening for malign ant neoplasm of colon [facility] Start: 2017 Pneumococcal Vaccine : 50+ (1 of 1 - PCV) Pneumococcal Vaccine: 50+ (1 of 1 - PCV) [facility] Start: 2017 SHINGRIX VACCINE (1 of 2) VALERA GRIX VACCINE (1 of 2) [facility] Start: 2017 Zoster Vaccines (1 of 2) Zoste r Vaccines (1 of 2) [facility] Start: 2012 COLOGUARD (FIT-DNA) COLOGUARD (FIT-D NA) [facility] Start: 2012 Colonoscopy COLONOSCOPY [facility] Start: [address] COLONOGRAPHY [facility] Start: 2012 Screening for malign ant neoplasm of colon [facility] Start: 2012 SIGMOIDOSCOPY SIGMOIDOSCOPY [facility] Start: 1988 Screening for malign ant neoplasm of cervix [facility] Start: 1986 Hepatitis B Vaccine (1 of 3 - 19+ 3-dose series) Hepatitis B Vaccine (1 of 3 - 19+ 3-dose series) [facility] Start: 1985 Anxiety Screening Anxiety Screening [facility] Start: 1985 BP CONTROLLED (<130/80) BP CONTROLLE D (<130/80) [facility] Start: 1985 Depression Screening Depression Scre ening [facility] Start: 1985 Hepatitis C screening Hepatitis C Sc [facility] Start: 1973 Pneumococcal Vaccine : Pediatrics (0 to 5 Years) and At-Risk Patients (6 to 64 Years) (1 - PCV) Pneumococcal Vaccine: Pediatrics (0 to 5 Years) and At-Risk Patients (6 to 64 Years) (1 - PCV) [facility] Start: 1968 MMR Vaccines (1 of 1 - Standard series) MMR Vaccines (1 of 1 - Standard series) [facility] Start: 1967 COVID-19 VACCINE (#1) COVID-19 VACCI NE (#1) [facility] Start: 1967 HEPATITIS B (1 of 3 - 3-dose series) HEPATITIS B (1 of 3 - 3-dose series) [facility] Start: 1967 Hepatitis B Vaccine (1 of 3 - 3-dose series) Hepatitis B Vaccine (1 of 3 - 3-dose series) [facility] Start: 1967 Hepatitis B Vaccines (1 of 3 - 3-dose series) Hepatitis B Vaccines (1 of 3 - 3-dose series) [facility] Start: 1967 HIV screening HIV Screening [facility] Start: 1967 Lipid panel Lipid Panel [facility] Start: 1967 Screening for malign ant neoplasm of colon [facility] Start: 1967 Yearly Adult Physical Yearly Adult P hysical [facility] Catheterization of l eft heart [facility] COVID & INFLUENZA A/ B & RSV NAAT, ROUTINE COVID & INFLUENZA A/B & RSV NAAT, ROUTINE Microbiology Routine Body aches Flu-like symptoms 12/31/2023 2:58 PM EST [facility] Work Phone: CT Chest W contrast IV Woost er [facility] Cysto w/simple remov al stone & stent CYSTO W/URETER STENT EXTRACT Procedures Routine Renal calculi Ordered: 12/06/2022 [facility] Work Phone: Comment on above: Ordered: 12/06/2022 End: 11-11-2025 DBT Breast - bilateral screening [place] SCREENING [place] Radiology Routine Encounter for screening mammogram for breast cancer 1 Occurrences starting 10/12/2024 until 11/11/2025 [facility] Work Phone: Comment on above: 1 Occurrences starti ng 10/12/2024 until 11/11/2025 End: 01-09-2024 DXA-AXIAL SKELETON DXA-AXIAL SKELETON Radiology Routine Asymptomatic postmenopausal status Calculus of kidney 1 Occurrences starting 12/10/2022 until 01/09/2024 [facility] Work Phone: Comment on above: 1 Occurrences starti ng 12/10/2022 until 01/09/2024 End: 12-10-2023 Echocardiography ECHO Cardiology Routine Aortic valve stenosis, etiology of cardiac valve disease unspecified Mitral valve prolapse History of cardiac murmur 1 Occurrences starting 12/10/2022 until 12/10/2023 [facility] Work Phone: Comment on above: 1 Occurrences starti ng 12/10/2022 until 12/10/2023 End: 12-21-2023 EXERCISE STRESS ECG (WITHOUT IMAGING) EXERCISE STRESS ECG (WITHOUT IMAGING) Cardiology Routine Aortic valve stenosis, etiology of cardiac valve disease unspecified 1 Occurrences starting 12/21/2022 until 12/21/2023 [facility] Work Phone: Comment on above: 1 Occurrences starti ng 12/21/2022 until 12/21/2023 End: 06-04-2024 EXERCISE STRESS ECG (WITHOUT IMAGING) EXERCISE STRESS ECG (WITHOUT IMAGING) Cardiology Routine Chest pain, unspecified type 1 Occurrences starting 06/04/2023 until 06/04/2024 [facility] Work Phone: Comment on above: 1 Occurrences starti ng 06/04/2023 until 06/04/2024 End: 08-14-2024 Hepatobil syst imag inc gb w/pharma intervenj NM HEPATOBILIARY W EF AND/OR RX Radiology Routine Cholecystitis 1 Occurrences starting 07/16/2023 until 08/14/2024 [facility] Work Phone: Comment on above: 1 Occurrences starti ng 07/16/2023 until 08/14/2024 End: 01-09-2024 NM CARDIAC PERF STRESS/EXERCISE NM CARDIAC PERF STRESS/EXERCISE Radiology Routine Chest pain, unspecified type 1 Occurrences starting 12/10/2022 until 01/09/2024 [facility] Work Phone: Comment on above: 1 Occurrences starti ng 12/10/2022 until 01/09/2024 PAP FLUID CERVICAL SCREENING PAP FLUID CERVICAL SCREENING Lab Routine Encounter for Papanicolaou smear for cervical cancer screening Ordered: 06/17/2022 [facility] Work Phone: Comment on above: Ordered: 06/17/2022 End: 06-05-2023 Screening mammography bi 2-view breast inc cad ELVER SCREENING Radiology Routine Breast screening 1 Occurrences starting 05/06/2022 until 06/05/2023 [facility] Work Phone: Comment on above: 1 Occurrences starti ng 05/06/2022 until 06/05/2023 End: 05-17-2026 STRESS ECHO TREADMILL STRESS ECHO TREADMILL Cardiology Routine Other chest pain 1 Occurrences starting 05/17/2025 until 05/17/2026 [facility] Work Phone: Comment on above: 1 Occurrences starti ng 05/17/2025 until 05/17/2026 UA DIP B/O UA DIP B/O Lab R outine Urinary frequency Ordered: 12/31/2023 [facility] Work Phone: Comment on above: Ordered: 12/31/2023 End: 06-17-2024 US ABD RIGHT UPPER QUADRANT US ABD RIGHT UPPER QUADRANT Radiology Routine RUQ pain 1 Occurrences starting 05/19/2023 until 06/17/2024 [facility] Work Phone: Comment on above: 1 Occurrences starti ng 05/19/2023 until 06/17/2024 End: 05-20-2023 US ABD RIGHT UPPER QUADRANT [facility] Work Phone: Comment on above: 1 Occurrences starti ng 05/20/2023 until 05/20/2023 [facility] End: 07-17-2023 Us transvaginal US FEMALE PELVIS TRANSVAG Radiology Routine Family history of ovarian cancer 1 Occurrences starting 06/17/2022 until 07/17/2023 [facility] Work Phone: Comment on above: 1 Occurrences starti ng 06/17/2022 until 07/17/2023 End: 07-02-2022 Us transvaginal [facility] Work Phone: Comment on above: 1 Occurrences starti ng 07/02/2022 until 07/02/2022 End: 06-16-2026 XR Chest PA and Lateral XR CHEST 2V FRONTAL/LAT Radiology Routine Other chest pain 1 Occurrences starting 05/17/2025 until 06/16/2026 [facility] Comment on above: 1 Occurrences starti ng 05/17/2025 until 06/16/[address] [facility] Immunizations Immunization Date Immunization Notes Care Provider Fa lisandra 05-13-2016 tetanus toxoid, redu la diphtheria toxoid, and acellular pertussis vaccine, adsorbed Usha Queden PSYCHOLOGIST.GROUNDSKEEPING MAINTENANCE WORKER Work Phone: [facility] 11-24-2013 tetanus toxoid, redu la diphtheria toxoid, and acellular pertussis vaccine, adsorbed Usha Queden PSYCHOLOGIST.GROUNDSKEEPING MAINTENANCE WORKER Work Phone: [facility] Payers Date Payer Category Payer Self-pay [id number] [address] [facility] [id number] 2020 Unknown RACQUEL GUERRA OSIEL [id number] 2020-Present [phone] [place] [id number] [employer] [id number] 2020 Unknown [id number] 2020 Unknown [id number] 1965 Unknown [id number] 1967 Unknown [id number] 1967 Unknown [id number] 1965 Unknown [id number] Unknown [id number] Unknown [id number] Unknown [id number] Unknown [id number] Unknown [id number] Unknown [id number] Unknown [id number] Social History Date Type Detail Facility Start: 01-13-2017 End: 05-23-2025 Tobacco smoking status NHIS Never smoked tobacco [facility] Work Phone: Start: 01-13-2017 End: 11-14-2022 Tobacco use and exposure Smokeless tobacco non-user [facility] Work Phone: Start: 10-12-2021 End: 05-17-2025 Alcohol intake Current drinker of alcohol (finding) [facility] Start: 10-29-2020 End: 10-12-2021 Alcohol intake [facility] Work Phone: Start: 03-14-2021 History SDOH Alcohol Frequency 4 [facility] Start: 03-14-2021 History SDOH Alcohol Std Drinks 1 [facility] Start: 03-14-2021 History SDOH Social Connections Phone 3 [facility] Start: 03-14-2021 History SDOH Physica l Activity MPS 2 [facility] Start: 03-14-2021 History SDOH Financial 5 [facility] Start: 03-14-2021 Education 16 [facility] Start: 1965 Sex Assigned At Not on file [facility] Start: 04-02-2022 End: 08-25-2023 Exposure to SARS-CoV-2 (event) Not sure [facility] Start: 11-14-2022 Alcohol Comment daily, a glass of red wine [facility] Start: 05-16-2020 End: 05-16-2020 Tobacco smoking status NHIS Unknown if ever smoked [facility] Start: 03-18-2018 Occasional [facility] Start: 03-18-2018 None [facility] Start: 05-16-2020 Non-smoker [facility] Start: 1965 Sex Assigned At Female W [facility] Start: 10-29-2020 End: 05-19-2023 Tobacco use panel [facility] Work Phone: Adult Depression Screening Assessment 0 [facility] Work Phone: Do you belong to any clubs or organizations such as confucianism groups, unions, fraternal or athletic groups, or school groups? Yes [facility] Are you now , , , , never or living with a partner? [facility] How often to you hav e a drink containing alcohol? 2-3 time sa week [facility] How many standard dr inks containing alcohol do you have on a typical day? 1 or 2 [facility] How often do you hav e 6 or more drinks on 1 occasion? Never [facility] Do you feel stress - tense, restless, nervous, or anxious, or unable to sleep at night because your mind is troubled all the time - these days [OSQ] Only a little [facility] (I/We) worried whe er (my/our) food would run out before (I/we) got money to buy more. Never true [facility] In the past 12 month s, was there a time when you were not able to pay the mortgage or rent on time? No [facility] Medical Equipment Procedure Code Equipment Code Equipment Origin al Text Equipment Identifier Dates Stent Bard Inlay 6fr 2 Pigtail Curve Blue Hydrophilic 24cm Ureteral - [id number] Start: 11-29-2022 Functional Status Date Assessment Result Facility 10-03-2020 Are you deaf, or do you have serious difficulty hearing No 10/03/2020 5:24 PM Cielo Marsh RN No [facility] 10-03-2020 Are you blind, or do you have serious difficulty seeing, even when wearing glasses No 10/03/2020 5:24 PM Cielo Marsh, MITCHELL No [facility] 10-03-2020 Do you have serious difficulty walking or climbing stairs No 10/03/2020 5:24 PM Cielo Marsh, MITCHELL No [facility] 10-03-2020 Do you have difficul ty dressing or bathing No 10/03/2020 5:24 PM Cielo Marsh, MITCHELL No [facility] 10-03-2020 Because of a physica l, mental, or emotional condition, do you have difficulty doing errands alone such as visiting a physician's office or shopping No 10/03/2020 5:24 PM Cielo Marsh, MITCHELL No [facility] Mental Status Date Assessment Result Facility 10-03-2020 Because of a physica l, mental, or emotional condition, do you have serious difficulty concentrating, remembering, or making decisions No 10/03/2020 5:24 PM Cielo Marsh, MITCHELL No [facility] Clinical Notes 04-06-2018 to 06-01-2025 Note Date & Type Note Facility 06-01-2025 Radiology Diagnostic study note [facility] Imaging Services [address] [place] [address] Chest PA and Lateral MR#: [id number] Acct: [id number] Name: CAROLIN BRITO Rep #: [id number] : [id number] F [id number] From: Angelina Herrera MD PCP: NANCY Gomez Status: REG C LI Study:Chest PA and Lateral Date of Exam: 06/01/25 Exam# [id number] Ordering Dr: Jerome Sloan DO EXAM: XR Chest, 2 Views CLINICAL INDICATION: OTHER CP TECHNIQUE: Frontal and lateral views of the chest. COMPARISON: No relevant prior studies available. FINDINGS: LUNGS AND PLEURAL SPACES: Unremarkable. No consolidation. No pneumothorax. HEART: Unremarkable. No cardiomegaly. MEDIASTINUM: Unremarkable. Normal mediastinal contour. BONES/JOINTS: Unremarkable. No acute fracture. RAD/Chest PA and Lateral IMPRESSION: No acute cardiopulmonary process. Reading Location: ON LICENSE OF [facility] CC: LUG BREAKER AND WIRE PULLER-C Usha Eid; Dr. Yani Sloan DO ~ Art Specialist: Signed [facility] 06-01-2025 Evaluation note Diagnosis Onset Date Resolution Aortic stenosis acute June 01, 2025 10:03am Hypercholesteremia acute June 012024 10:03am HTN (hypertension) chronic June 012024 10:03am [facility] Work Phone: 1(708) 205-608706-24-2025 NoteHNO ID: [id number] Author: YANI SLOAN DO Service: ? Author Type: Physician Type: Progress Notes Filed: 05/20/2025 13:45 Note Text: Subjective HPI Carolin Brito is a 60-year-old female with a history of bicuspid aortic valve with moderate to severe stenosis, presenting for evaluation of acute right-sided chest pain. Acute Right-Sided Chest Pain: - Acute onset of squeezing pain on the right side of the chest, radiating to the shoulder, arm, and abdomen, yesterday. - Pain was severe, rated 9/10, and lasted approximately 5-6 minutes. - Associated with dyspnea; Carolin had difficulty speaking to the treadle cut off saw operator. - Pain subsided during the 911 call, which lasted 1 minute and 55 seconds. - No aspirin or antacids taken during the episode. - Denies nausea or emesis. - Currently on day 7-8 of a liver cleanse using natural supplements. - Family history of CAD; father had a quadruple bypass at Carolin's age. - History of heart murmur and bicuspid aortic valve with moderate to severe stenosis. - Last seen by car painter Dr. Js Pineda in June 2023; stress test performed at [facility] prior to that visit. - Director Industrial Relations recommended annual follow-up and repeat echocardiogram, which Carolin missed. ALLERGIES Allergen Reactions Amoxicillin Itching Current Outpatient Medications Medication Sig Dispense Refill OTC PRODUCT Liver Cleanse losartan (COZAAR) 25 mg tablet Take 1 tablet by mouth once daily. (Patient not taking: Reported on 05/17/2025) 30 tablet 11 VITAMIN B COMPLEX ORAL Take by mouth once daily. (Patient not taking: Reported on 05/17/2025) No current facility-administered medications for this visit. ACTIVE PROBLEM LIST History of Cardiac Murmur [...] D Deficiency Kidney Stone Bicuspid Aortic Valve (Hcc) Social History Tobacco Use Smoking status: Never Smokeless tobacco: Never Vaping Use Vaping status: Never Used Substance Use Topics Alcohol use: Yes Alcohol/week: 3.0 standard drinks of alcohol Types: 2 Standard drinks or equivalent, 1 Glasses of Wine (5oz) per week Comment: daily, a glass of red wine Drug use: Never Family History Problem Relation Age of Onset Cancer Mother COPD Mother Heart Father 55 4 vessel CABG Cancer Father lung, mets to spine Cancer Sister 58 ovarian with mets to liver, kidney, lung Diabetes Paternal Grandmother Reviewed past medical history, family history and surgeries. All medications and supplements were reviewed with the patient. Review of Systems Constitutional: Negative for chills, diaphoresis, fever, malaise/fatigue and weight loss. HENT: Negative for ear pain and hearing loss. Eyes: Negative for blurred vision and double vision. Respiratory: Negative for cough and shortness of breath. Cardiovascular: Positive for chest pain. Negative for palpitations and leg swelling. Gastrointestinal: Negative for constipation, diarrhea and heartburn. Genitourinary: Negative for dysuria and frequency. Musculoskeletal: Negative for back pain, falls, joint pain and myalgias. Skin: Negative for itching and rash. Neurological: Negative for dizziness, weakness and headaches. Endo/Heme/Allergies: Does not bruise/bleed easily. Psychiatric/Behavioral: Negative for depression and substance abuse. The patient does not have insomnia. Objective BP 114/72 Pulse 67 Temp 36.9 ?C (98.5 ?F) Resp 16 Ht 154.9 cm (5' 1) Wt 83 kg (183 lb) LMP 05/07/2021 (Within Weeks) SpO2 96% BMI 34.58 kg/m? Physical Exam Constitutional: Appearance: Normal appearance. She is obese. HENT: Head: Normocephalic and atraumatic. Nose: Nose normal. Mouth/Throat: Mouth: Mucous membranes are moist. Dentition: Normal dentition. Eyes: General: Lids are normal. Extraocular Movements: Extraocular movements intact. Conjunctiva/sclera: Conjunctivae normal. Pupils: Pupils are equal, round, and reactive to light. Neck: Thyroid: No thyroid mass or thyromegaly. Vascular: No carotid bruit. Trachea: Phonation normal. Cardiovascular: Rate and Rhythm: Normal rate and regular rhythm. Heart sounds: Murmur (iii/vi systolic murmur) heard. No friction rub. No gallop. Pulmonary: Effort: Pulmonary effort is normal. Breath sounds: Normal breath sounds. No wheezing or rales. Abdominal: General: Bowel sounds are normal. There is no distension. Palpations: Abdomen is soft. There is no mass. Tenderness: There is no abdominal tenderness. Mu (more content not included)...[facility]06-24-2025 History of Present illness Narrative* Yani Sloan DO - 05/17/2025 3:54 PM EDT Subjective HPI Carolin Brito is a 60-year-old female with a history of bicuspid aortic valve with moderate to severe stenosis, presenting for evaluation of acute right- sided chest pain. Acute Right-Sided Chest Pain: - Acute onset of squeezing pain on the right side of the chest, radiating to the shoulder, arm, andabdomen, yesterday. - Pain was severe, rated 9/10, and lasted approximately 5-6 minutes. - Associated with dyspnea; Carolin had difficulty speaking to the treadle cut off saw operator. - Pain subsided during the 911 call, which lasted 1 minute and 55 seconds. - No aspirin or antacids taken during the episode. - Denies nausea or emesis. - Currently on day 7-8 of a liver cleanse using natural supplements. - Family history of CAD; father had a quadruple bypass at Carolin's age. - History of heart murmur and bicuspid aortic valve with moderate to severe stenosis. - Last seen by car painter Dr. Js Pineda in June 2023; stress test performed at [facility] prior to that visit. - Director Industrial Relations recommended annual follow-up and repeat echocardiogram, which Carolin missed. ALLERGIES Allergen Reactions Amoxicillin Itching Current Outpatient Medications Medication Sig Dispense Refill OTC PRODUCT Liver Cleanse losartan (COZAAR) 25 mg tablet Take 1 tablet by mouth once daily. (Patient not taking: Reported on 05/17/2025) 30 tablet 11 VITAMIN B COMPLEX ORAL Take by mouth once daily. (Patient not taking: Reported on 05/17/2025) No current facility-administered medications for this visit. ACTIVE PROBLEM LIST History of Cardiac Murmur [...] D Deficiency Kidney Stone Bicuspid Aortic Valve (Hcc) Social History Tobacco Use Smoking status: Never Smokeless tobacco: Never Vaping Use Vaping status: Never Used Substance Use Topics Alcohol use: Yes Alcohol/week: 3.0 standard drinks of alcohol Types: 2 Standard drinks or equivalent, 1 Glasses of Wine (5oz) per week Comment: daily, a glass of red wine Drug use: Never Family History Problem Relation Age of Onset Cancer Mother COPD Mother Heart Father 55 4 vessel CABG Cancer Father lung, mets to spine Cancer Sister 58 ovarian with mets to liver, kidney, lung Diabetes Paternal Grandmother Reviewed past medical history, family history and surgeries. All medications and supplements were reviewed with the patient. Review of Systems Constitutional: Negative for chills, diaphoresis, fever, malaise/fatigue and weight loss. HENT: Negative for ear pain and hearing loss. Eyes: Negative for blurred vision and double vision. Respiratory: Negative for cough and shortness of breath. Cardiovascular: Positive for chest pain. Negative for palpitations and leg swelling. Gastrointestinal: Negative for constipation, diarrhea and heartburn. Genitourinary: Negative for dysuria and frequency. Musculoskeletal: Negative for back pain, falls, joint pain and myalgias. Skin: Negative for itching and rash. Neurological: Negative for dizziness, weakness and headaches. Endo/Heme/Allergies: Does not bruise/bleed easily. Psychiatric/Behavioral: Negative for depression and substance abuse. The patient does not have insomnia. Objective BP 114/72 Pulse 67 Temp 36.9 C (98.5 F) Resp 16 Ht 154.9 cm (5' 1) Wt 83 kg (183 lb) LMP 05/07/2021 (Within Weeks) SpO2 96% BMI 34.58 kg/m Physical Exam Constitutional: Appearance: Normal appearance. She is obese. HENT: Head: Normocephalic and atraumatic. Nose: Nose normal. Mouth/Throat: Mouth: Mucous membranes are moist. Dentition: Normal dentition. Eyes: General: Lids are normal. Extraocular Movements: Extraocular movements intact. Conjunctiva/sclera: Conjunctivae normal. Pupils: Pupils are equal, round, and reactive to light. Neck: Thyroid: No thyroid mass or thyromegaly. Vascular: No carotid bruit. Trachea: Phonation normal. Cardiovascular: Rate and Rhythm: Normal rate and regular rhythm. Heart sounds: Murmur (iii/vi systolic murmur) heard. No friction rub. No gallop. Pulmonary: Effort: Pulmonary effort is normal. Breath sounds: Normal breath sounds. No wheezing or rales. Abdominal: General: Bowel sounds are normal. There is no distension. Palpations: Abdomen is soft. There is no mass. Tenderness: There is no abdominal tenderness. Musculoskeletal: General: No swelling or tenderness. Normal range of motion. Cervical back: Normal range of motion and neck supple. No edema. Lymphadenopathy: Cervical: No cervical adenopathy. Skin: General: Skin is warm and dry. Findings: No erythema or rash. Nails: There is no clubbing. Neurological: Mental Status: She is alert and oriented to person, place, and time. Cranial Nerves: No cranial nerve deficit. Motor: Motor function is intact. Coordination: Coordination normal. Gait: Gait is intact. Psychiatric: Attention and Perception: Attention normal. Mood and Affect: Mood and affect normal. Speech: Speech normal. Behavior: Behavior normal. Behavior is cooperative. Thought Content: Thought content normal. Cognition and Memory: Cognition and memory normal. Judgment: Judgment normal. ASSESSMENT/PLAN: 1. Other chest pain (R07.89) - Sudden onset of squeezing chest pain radiating from the right shoulder down the arm, with associated dyspnea, lasting approximately 5-6 minutes; occurred while patient was at rest. - Differential diagnoses include cardiac etiology, pulmonary embolism, and musculoskeletal pain. - Performed EKG; no significant changes compared to previous EKG from June 2023. - Ordered D-dimer to screen for pulmonary embolism; if positive, will proceed with CT scan of the chest. - Ordered chest X-ray to evaluate for other pulmonary causes. - Ordered comprehensive metabolic panel, CBC, and magnesium levels to assess for electrolyte imbalances. - Ordered lipid panel to evaluate cardiovascular risk factors; patient to fast for 10 hours prior to blood draw. - Referred patient back to car painter Dr. Adele Bell for further evaluation and management. - Discussed the possibility of a stress echocardiogram; patient agrees and will coordinate with insurance for coverage. - Advised patient to discontinue liver cleanse supplements and seek immediate medical attention if symptoms recur. - ECG B/O W INTERP (MED OFFICE) - STRESS ECHO TREADMILL - PERFLUTREN LIPID MICROSPHERES 1.1 MG/ML INJECTION IN NS 10 ML - SODIUM CHLORIDE 0.9 % (FLUSH) INJECTION SYRINGE - XR CHEST 2V FRONTAL/LAT - D-DIMER - COMPLETE BLOOD COUNT - COMPREHENSIVE METABOLIC PANEL - LIPID PANEL, FASTING - MAGNESIUM 2. Bicuspid aortic valve (HCC) (Q23.81) - CONSULT TO CARDIOLOGY - Last seen by car painter Dr. Js Lawson in June 2023; follow-up and repeat echocardiogram were due. - Referred back to Dr. Pineda for annual evaluation and echocardiogram. 3. Heart murmur (R01.1) - Known history of bicuspid aortic valve with moderate to severe stenosis; heart murmur auscultatedon exam. 4. Fatty liver (K76.0) - History of fatty liver diagnosed during previous evaluations. - Patient currently on a liver cleanse regimen; advised to discontinue supplements. - Will monitor liver function tests as part of the comprehensive metabolic panel. 5. Class 1 obesity with body mass index (BMI) of 34.0 to 34.9 in adult, unspecified obesity type, unspecified whether serious comorbidity present (E66.661) - Discussed the importance of weight management in reducing cardiovascular risk. - Patient reports regular physical activity and adherence to a healthy diet. - Will monitor BMI and provide further dietary and lifestyle recommendations as needed. Yani Sloan DO The patient consented to the use of CX software for draft documentation of the visit consistent with [facility] s Notice of Privacy Practices. documented in this encounterParkview [facility]11-[facility] NotePatient Outreach (AGACM) CAROLIN BRITO ([id number]) 1965 F Date Time Provider Department 10/12/24 USHA EID AGA During your visit today, we recorded the following information about you: Allergies As of Date: 10/12/2024 Noted Allergy Reaction AMOXICILLIN 01/13/2017 9 - Itching Date Reviewed: 04/29/2024 Reviewed by: Usha Eid, PSYCHOLOGIST.GROUNDSKEEPING MAINTENANCE WORKER - Fully Assessed Visit Diagnosis:Encounter for screening mammogram for breast cancer [Z12.31] Order(s):ELVER WOOD [[id number]] Order #: [id number] FUTURE Prescriptions as of 10/15/2024 - losartan (COZAAR) 25 mg tablet Take 1 tablet by mouth once daily. - VITAMIN B COMPLEX ORAL Take by mouth once daily. 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] 05/13/2017 03/12/2019 Breast lump on right side at 6 o'clock position*05/13/2017 03/12/2019 Breast pain, left [N64.4] 05/13/2017 03/12/2019 Irritation of left eye [H57.89] 05/13/2017 04/27/2018 Persistent dry cough [R05.3] 05/13/2017 03/12/2019 Hypertension, essential [I10] 05/13/2017 03/27/2018 Essential hypertension [I10] 11/07/2017 Obesity, Class I, BMI 30-34.9 E66.9 [E66.811] 03/27/2018 07/11/2023 Dermatitis [L30.9] 03/27/2018 Viral URI with cough [J06.9] 03/27/2018 03/12/2019 Dermatophytosis [B35.9] 04/06/2018 03/12/2019 Atypical squamous cells of undetermined signifi*06/27/2015 Encounter for long-term (current) use of medica*06/27/2015 Hypercholesteremia [E78.00] 06/27/2015 Migraine [G43.909] 04/14/2020 Undiagnosed cardiac murmurs [R01.1] 06/27/2015 07/11/2023 Numbness [R20.0] 04/14/2020 Mitral valve prolapse [I34.1] 04/14/2020 Common bile duct dilatation [K83.8] 10/01/2020 COVID-19 [U07.1] 10/02/2020 Obesity, Class II, BMI 35-39.9 [E66.812] 10/12/2021 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 Last refill 04/07/23 was D/C 04/29/24 . Requested Prescriptions Pending Prescriptions Disp Refills losartan (COZAAR) 25 mg tablet [Pharmacy Med Name: losartan 25 mg tablet] 30 tablet 11 Sig: take 1 tablet by mouth once daily. Please review and advise. Yolanda Taylor MA [facility]06-19-2024 Miscellaneous Notes* Telephone Encounter - Yolanda Taylor MA - 05/12/2024 9:27 AM EDT pharmacy electronically requesting refills as follows: Last seen 04/29/24 . Last refill 04/07/23 was D/C 04/29/24 . Requested Prescriptions Pending Prescriptions Disp Refills losartan (COZAAR) 25 mg tablet [Pharmacy Med Name: losartan 25 mg tablet] 30 tablet 11 Sig: take 1 tablet by mouth once daily. Please review and advise. Yolanda Taylor MA documented in this encounterParkview Health [facility]06-06-2024 Instructions* Patient Instructions* Usha Eid APRN.CNP - 04/29/2024 9:31 AM EDT Images from the original note were not included. Back Exercises: Hold for 15 - 30 seconds. sets X daily documented in this encounterParkview Health [facility]06-[facility]24 History of Present illness Narrative* Usha Eid APRN.CNP - 04/29/2024 9:12 AM EDT CHIEF COMPLAINT: Carolin Brito is a 58 year old female who presents for complaints of right flank pain. She is concerned because she has a history of kidney stones and kidney infections. She has had some urinary frequency and urgency but without pain.I reviewed past medical, surgical, social, and family histories today and updated chart. Allergies, chronic medications, and supplements were also reviewed. She follows with Dr. Lawrence in [place] for Urology. Wanted her to go to pelvic floor therapy but hasn't been able to get in yet due to financial restraints. Talked about options for sling pr pessary. Can wake up in the middle of the night with a headache, had it for 3 nights in a row but didn't have one last night. + snores, unsure if she stops breathing though. She stopped taking the Losartan about 6 months ago because her home BP readings were good. Still checks it The history is provided by the patient. Kidney Problem This is a new problem. The current episode started more than 2 days ago. Associated symptoms include headaches. Pertinent negatives include no chest pain, no abdominal pain and no shortness of breath. Nothing aggravates the symptoms. PAST MEDICAL HISTORY Diagnosis Date Aortic valve [...] a glass of red wine Drug use: Never ALLERGIES Allergen Reactions Amoxicillin Itching Family History Problem Relation Age of Onset Cancer Mother COPD Mother Heart Father 55 4 vessel CABG Cancer Father lung, mets to spine Cancer Sister 58 ovarian with mets to liver, kidney, lung Diabetes Paternal Grandmother Current Outpatient Medications Medication Sig Dispense Refill VITAMIN B COMPLEX ORAL Take by mouth once daily. No current facility-administered medications for this visit. Review of Systems Constitutional: Negative for chills, diaphoresis, fatigue and fever. Respiratory: Negative for chest tightness, shortness of breath and wheezing. Cardiovascular: Negative for chest pain, palpitations and leg swelling. Gastrointestinal: Negative for abdominal pain, diarrhea, nausea and vomiting. Genitourinary: Positive for flank pain, frequency and urgency. Negative for decreased urine volume,difficulty urinating, dysuria and hematuria. Musculoskeletal: Positive for back pain. Negative for neck pain and neck stiffness. Skin: Negative for rash. Neurological: Positive for headaches. Negative for dizziness, light-headedness and numbness. BP 122/68 Pulse 67 Temp 98 Resp 16 Ht 5' 1 (1.55m) Wt 186 lb (84.4kg) SpO2 95% LMP 05/07/2021 BMI 35.16 kg/(m^2). Physical Exam Vitals and nursing note reviewed. Constitutional: Appearance: Normal appearance. Cardiovascular: Rate and Rhythm: Normal rate and regular rhythm. Heart sounds: Murmur heard. Crescendo systolic murmur is present with a grade of 1/6. Pulmonary: Effort: Pulmonary effort is normal. Breath sounds: Normal breath sounds. Abdominal: General: Bowel sounds are normal. There is no distension. Palpations: Abdomen is soft. Tenderness: There is no abdominal tenderness. There is no right CVA tenderness or left CVA tenderness. Musculoskeletal: Cervical back: Neck supple. Right lower leg: No edema. Left lower leg: No edema. Skin: General: Skin is warm and dry. Findings: No rash. Neurological: Mental Status: She is alert and oriented to person, place, and time. Psychiatric: Mood and Affect: Mood normal. Behavior: Behavior normal. Latest Ref Rng 04/29/2024 GLUCOSE UA (POCT) Negative mg/dL Negative BILIRUBIN UA (POCT) Negative Negative KETONE UA (POCT) Negative mg/dL Negative SPECIFIC GRAVITY UA (POCT) 1.005 - 1.030 1.015 HEMOGLOBIN/BLOOD UA (POCT) Negative Negative PH UA (POCT) 4.5 - 8.0 6.0 PROTEIN UA (POCT) Negative mg/dL Negative UROBILINOGEN UA (POCT) Normal E.U./dL 0.2 NITRITE UA (POCT) Negative Negative LEUKOCYTES UA (POCT) Negative Negative COLOR UA (POCT) Yellow CLARITY UA (POCT) Clear ASSESSMENT/PLAN: 1. Urinary frequency - ICD9: 788.41, ICD10: R35.0 (primary diagnosis) Acute - UA negative - Continue to drink lemon water - Continue to monitor - Patient education for prevention given - UA DIP, URINE (POC) - CONSULT TO UROLOGY 2. Right flank pain - ICD9: 789.09, ICD10: R10.9 - UA DIP, URINE (POC) - CONSULT TO UROLOGY 3. Mid back pain on left side - ICD9: 724.5, ICD10: M54.9 - Paraspinal muscle strain - Warm moist heat for 20 min three times a day - NSAIDS- see orders 4. History of kidney stones - ICD9: V13.01, ICD10: Z87.442 - Has already seen urology but needed referral placed. Will need to be faxed to Dr. Lawrence's office. - CONSULT TO UROLOGY 5. Essential hypertension - ICD9: 401.9, ICD10: I10 - Controlled, patient stopped her Losartan over 6 months ago because she felt her BP readings were too low. They have been controlled without the medication. - Recommend home blood pressure monitoring, to bring results to next visit - Encouraged sodium restriction, DASH or Mediterranean diet - Recommend regular aerobic exercise 6. Headaches at night - ICD9: 784.0, ICD10: R51.9 - RICHY? Has never had testing but would like to hold off at this time due to financial constraints. - Continue to monitor New medication(s) prescribed today: None. Counseling completed in adopting health behaviors such as avoiding excessive alcohol use, avoid tobacco use, improve nutrition, and engage in physical activities. Copy of written care plan, clinical summary, treatment plan, new medications, goals, and self management requirements were given to patient. Usha Eid APRN.MAHESH documented in this encounterPark[facility] Miscellaneous Notes* Telephone Encounter - Huong Anders MA - 01/01/2024 4:17 PM EST Called pt let her know the results and to make sure she stays well hydrated. Huong Anders MA * Telephone Encounter - Huong Anders MA - 01/01/2024 4:16 PM EST ----- Message from Heather Nayak APRN.GROUNDSKEEPING MAINTENANCE WORKER sent at 01/01/2024 4:11 PM EST ----- Pt tested positive for flu A Please review symptom relief measures and to stay hydrated. If worsening symptoms go to ER. documented in this encounterPark[facility] Instructions* Patient Instructions* Heather Nayak APRN.GROUNDSKEEPING MAINTENANCE WORKER - 12/31/2023 2:48 PM EST Patient information: Flu (The Basics) What is the flu? -- The flu is an infection that can cause fever, cough, body aches, and other symptoms. There are different forms of the flu, including the seasonal flu, the 9540-4076 pandemic H1N1 flu (also called the swine [...] The most recent flu pandemic was in 3250-4984 and was caused by an H1N1 flu or swine flu virus. In the past, flu pandemics have been caused by other flu strains, such as strains of the bird flu. Bird flu (also known as kolby flu) is a severe form of the flu [...] doctor or nurse will decide if you needan antiviral medicine. Antibiotics DO NOT WORK on the flu. What if I am ? -- The flu can be very dangerous for women. If you are , itis very important that you get the flu vaccine. You should also avoid taking care of anyone who hasthe flu. If you are , call your [...] Information obtained from UpToDate documented in this encounterPark[facility] History of Present illness Narrative* Heather Nayak APRN.MAHESH - 12/31/2023 2:27 PM EST This note was created using [employer]. Subjective Carolin Brito is a 58 year old female patient of [employer] W[employer] P[employer] Queden here today for acute visit for complaints of fever, body aches, cough, loss of appetite. PMH HTN, HLD, migraines, meniere's, fatigue. Pt reports symptoms started Friday with body aches, fatigue, and coughing. Reports fever, chills since Kb. Reports her hips hurt. Dry heaves Friday [...] folic acid 800 mcg tablet rizatriptan (MAXALT MUD PLANT OPERATOR) 5 mg disintegrating tablet Take 1 tablet by mouth once daily as needed formigraine headache (see administration instructions). May repeat in 2 hours if needed 12 tablet 0 FISH OIL-DHA-EPA ORAL Take by mouth. Current Facility-Administered Medications Medication Dose Route Frequency Provider Last Rate Last Admin perflutren lipid microspheres 1.3 mL in NaCl (PF) 0.9% 10 mL injection (DEFINITY) INTRAVENOUS DIRECTED PRN Usha Eid, PSYCHOLOGIST.GROUNDSKEEPING MAINTENANCE WORKER sodium chloride 0.9 % (flush) 10 mL (BD POSIFLUSH) 10 mL INTRAVENOUS DIRECTED PRN Usha Eid, PSYCHOLOGIST.GROUNDSKEEPING MAINTENANCE WORKER ACTIVE PROBLEM LIST History of Cardiac Murmur [...] (Oral) Resp 18 Ht 154.9 cm (5' 1) Wt 85.3 kg (188 lb) LMP 05/07/2021 [...] DIP B/O - UA DIP, URINE (POC) Heather Nayak APRN.GROUNDSKEEPING MAINTENANCE WORKER documented in this encounterParkview [facility]02-[facility]-2024 Instructions* Patient Instructions* Chelsea Brunson MD - 12/29/2023 2:39 PM EST Images [...] eat involves figuring out what foods you eatand where and when you eat. To figure out what triggers you to eat, keep a record for a few days ofeverything you eat, the places where you eat, [...] events before you go, such as eating beforeyou go or taking low- calorie snacks and drinks with you. Develop a support system -- Having a support system is helpful when losing weight. This is why manycommercial groups are successful. Family support is also essential; if your family does not supportyour efforts to lose weight, this can slow [...] through these difficult times without eating or byeating low-calorie food, like raw vegetables. It may be helpful to imagine a relaxing place that allows you to temporarily escape from stress. With deep breaths and closed eyes, you can imagine this relaxing place for a few minutes. Self-help programs -- Self-help programs like Weight Watchers , Overeaters Anonymous , and Take OffPounds Sensibly (TOPS) work for some people. As [...] of calories you need per day based uponyour current (or target) weight, gender, and activity level for women and for men. In general, it is best to choose foods that contain enough protein, carbohydrates, essential fatty acids, and vitamins. Try not to drink alcohol or drinks with added sugar, and most sweets (candy, cakes, cookies), sincethey rarely contain important nutrients. Portion-controlled diets -- One simple way to diet is to buy packaged foods, like frozen low-calorie meals or meal-replacement canned drinks. A typical meal plan for 1000 to 1500 calories per day mayinclude: A meal-replacement drink or breakfast bar for [...] per day. Low-carbohydrate diet -- Low- and bpkd-qqq-cwpalwvyavqx diets (eg, Atkins diet, Stambaugh diet) have become popular ways to lose weight quickly. With a vukk-bng-hbrqhlzovxck diet, you eat between 0 and 60 [...] do not contain carbohydrates. Side effects of afig-onz-tkbiwznejkwk diets can include constipation, headache, bad breath, [...] canola oil, walnuts, pecans, almonds) and a lowlevel of saturated fats (from butter) A high amount of vegetables, fruits, legumes, and grains (7 to 10 servings of fruits and vegetablesper day) A moderate amount of milk and [...] Some fad diets cost a lot of money,because you have to pay for seminars or pills. Fad diets generally lack any scientific evidence that they are safe and effective, but instead rely on before and after photos or testimonials. Diets that sound too good to be true usually are. These plans are a waste of time and money and arenot recommended. A doctor, nurse, or shore working supervisor can help you find a safe and effective way to lose weight and keep it off. Adapted from [facility] My opinion 3 hour Rule: -last meal [...] as visual guide to low carb food: Https://www.dietdoctor.[employer]/ ( visual guide for low carb diet) Limit carb consumption to 80- 100 grams per day. Goals: formal exercise 2-5 x/week as tolerated, start with 10 mins/day to goal of 30 minutes ( -- for exercise, you should shoot for a goal of >150 min per week initially. Depending at whatlevel you are starting, that may seem like [...] like a plant based meal replacement called [employer] Nutrition - can mix w froz berries [...] fat in your diet. Good examples of appsto track calories are Fair and Square, LOSE IT. Some patient have found FOODUCATE [...] also may be able to take it inthe morning if easier. -- We may increase [...] would recommend using 2 different kind if controlmethods, Due to several anomaly( if female in [...] at or call local emergency services at 401. What other information should I know? Keep all appointments with your doctor and the laboratory. Do not let anyone else take your medication. Topiramate use needs to be monitored closely. Prescriptions may be refilled only a limited number of times. Keep a written list of all of your prescription and nonprescription (nmvw-vhy-qpmhrkb) medicines, in addition to vitamins, minerals, or [...] make up for a missed one. Sources Pubmed Health: http://www.ncbi.nlm.nih.gov/pubmedhealth/QQD8785693/ Drugs.com http://www.drugs.com/pro/topiramate.html PHENTERMINE Rule 4731-09-27 was amended and in effect as of 01/21/23 making phentermine penitentiary Rx for obesity. Monthly visits will no longer be required. -- Please start phentermine low dose (1/2 tablet) in the morning everyday as discussed. We can adjust the dose if needed, that is if you are feeling some side effects you can either stop all togetheror decrease to 1/4 tablet. But we can review its effect when you return. Per [place] Medical Board: patient need to demonstrate 5% weight loss over 12 weeks and to monitor herblood pressure closely and report any elevations of 140/90 and to keep a log of her blood pressure. -- Please monitor your blood pressure (either purchase BP cuff, or go to pharmacy to check your BP at a local pharmacy). Please avoid any stimulants (in the form of caffeinated beverages like coffee,tea, sports drinks) and caution with decongestants. -- [...] at or call local emergency services at [phone]. What other information should I know? Keep all appointments with your doctor and the laboratory. Do not let anyone else take your medication. Phentermine is a controlled substance. It is FDA approved for up to 3 months. Prescriptions may be refilled only a limited number of times. Keep a written list of all of your prescription and nonprescription (hrks-lom-ceepfsp) medicines, in addition to vitamins, minerals, or [...] (twice a week in the first 2 weeks).If the BP is over 140/90 (either one), [...] 30 minutes prior to meals. If the effectseems to wear off by dinner time, try [...] make up for a missed one. Sources [facility] Consumer Medication Info: http://www.ncbi.nlm.nih.gov/pubmedhealth/ZGL9607796/ AMA patient handouts: http://www.amaassn.org/ama1/pub/upload/mm/433/phrxsurgery.pdf Drugs.com: http://www.drugs.com/pro/phentermine.html documented in this encounterParkview Health [facility] Hospital02-05-2024 History of Present illness Narrative* Chelsea Brunson MD - 12/29/2023 2:00 PM EST Images from the original note were not included. Chelsea Brunson MD [facility] [address] [place] [address], [address] [facility] [place] [phone] This Team Access Model visit is a virtual visit. It required patient-provider interaction for the medical decision making as documented below. Consent was obtained to complete today's Noteleaf. I have communicated my name and active licensure. The patient's identity and physical location wereverified at the time of this visit. Either the patient or their legal patient accounting representative has been informed of the risks and benefits of -- and alternatives to -- treatment through a remote evaluation andconsents to proceed with the evaluation remotely. SUBJECTIVE: Carolin Brito is a 58 year old female with has a past medical history of Aortic valve stenosis, etiology of cardiac valve disease unspecified, Cardiac murmur, DSAP (disseminated superficial actinic porokeratosis), Gallbladder polyp, Hypertension, Meniere disease, and Migraine. of presents on December 29, 2023 for medical evaluation of Non-Surgical Metabolic Weight Management . Discussed extensively regarding bariatric surgery option but patient is [id number]} interested in bariatric surgery. Age at onset [...] composite complication rate of , unstable angina, UT, DVT, PE, renal failure, and stroke occurred [...] not taking: Reported on 07/11/2023) rizatriptan (MAXALT MUD PLANT OPERATOR) 5 mg disintegrating tablet Take 1 tablet [...] Bypass 56 OBJECTIVE: Ht 154.9 cm (5' 1) Wt 86.2 kg (190 lb) LMP 05/07/2021 [...] is increasing Discussed behavior and pharmacological interventions. Carloin has been struggling with increasing weight gain despite making positive changes. Today we discussed several medication options. Due to recent kidney stones I am holding off on topiramate. She does have a history of bicuspid valve with aortic stenosis has seen car painter and has been cleared. She has METS [...] - ICD9: 746.4, ICD10: Q23.1 Has seen car painter. Recommend follow-up with them. Chelsea Brunson MD Reviewed principles of energy metabolism, caloric intake and expenditure, and rationale for treatment program. Also reinforced need for reduced calorie, low fat diet and increased physical activity. Chelsea Brunson MD History Review: I have reviewed and modified as needed, the following during this visit: Allergies,Past Medical History, Past Surgical History, Past Family [...] as visual guide to low carb food: DietdoAmonix.[employer] Limit carb consumption to 80- 100 grams [...] fat in your diet. Good examples of appsto track calories are Fair and Square, LOSE IT. Some patient have found FOODUCATE [...] that >200min per week is best to maintainweight loss, so that would be the overall [...] like a plant based meal replacement called [employer] Nutrition - can mix w froz berries and almond milk) This note was partially generated using [employer] voice recognition system, and there may be some incorrect words, spellings, and punctuation that were not noted in checking the note before saving documented in this encounterParkview Health [facility] Hospital11-21-2023 Miscellaneous Notes* Telephone Encounter - Joel Servin MA - 10/14/2023 2:08 PM EST Patient is requesting results from her blood work that she completed at [facility], she is having them faxit. I will keep an eye out for the fax Joel Servin MA documented in this encounterParkview Health Bryan Hospital08-23-2023 History of Present illness Narrative* Guillermo Scherer MD - 07/16/2023 3:48 PM EDT Carolin Brito is a 58 year old White female [...] kit multivitamin (DAILY VITAMIN ORAL) rizatriptan (MAXALT MUD PLANT OPERATOR) 5 mg disintegrating tablet Take 1 tablet [...] Wt 184 lb (83.5kg) LMP 05/07/2021 BMI 34.78kg/(m^2). General Appearance: Well appearing, alert, in no acute distress, well-hydrated, well nourished. andObese. Abdomen: Normal abdominal exam, Abdomen soft, non-tender. [...] Medical Decision Making Level: 3 - Low Guillermo Scherer M.D., F.A.C.S. documented in this encounterParkview Health Bryan Hospital08-23-2023 Instructions* Patient Instructions* Guillermo Scherer MD - 07/16/2023 11:33 AM EDT Thank you for coming to see me today. It is my pleasure to take care of you. If you have any questions regarding your visit, please don't hesitate to contact us. documented in this encounterParkview Health Bryan Hospital08-18-2023 History of Present illness Narrative* Js Pineda MD - 07/11/2023 9:28 AM EDT Cardiology Ambulatory Clinic Note PCP: Usha Eid APRN.GROUNDSKEEPING MAINTENANCE WORKER Chief Complaint Patient presents with: CARD New Patient Consult: Aortic valve stenosis HISTORY OF PRESENT ILLNESS: Ms. Brito is a 58 year old female referred to cardiology clinic for aortic valve stenosis Pertinent medical history Bicuspid aortic valve with moderate to severe stenosis Hypertension Obesity BMI 35 Carolin was found to have cardiac murmur long time ago. She had an echo in 2017 that showed bicuspid valve with mild to moderate stenosis. She used to follow-up with a car painter locally and was asymptomatic from cardiac standpoint. Most recent echo in November 2022 showed preserved LVEF with severe aortic stenosis, DULCE 0.6, PG 86, MG 49, DI 0.26, visually valve seems to be moderately stenosed. Carolin is asymptomatic from cardiac standpoint. She is [...] kit multivitamin (DAILY VITAMIN ORAL) rizatriptan (MAXALT MUD PLANT OPERATOR) 5 mg disintegrating tablet Take 1 tablet [...] mL injection (DEFINITY) INTRAVENOUS DIRECTED PRN Usha Eid APRN.MAHESH sodium chloride 0.9 % (flush) 10 mL (BD POSIFLUSH) 10 mL INTRAVENOUS DIRECTED PRN Usha Eid, PSYCHOLOGIST.GROUNDSKEEPING MAINTENANCE WORKER REVIEW OF SYSTEMS: GENERAL: Negative for:Weight loss [...] with the patient and her . PLAN Carolin is fairly asymptomatic from aortic stenosis standpoint, visually valve seems to be moderateto severely stenosed. She is walking over 3 miles regularly without issues. Recently had treadmill stress test at which was nondiagnostic due to submaximal heart rate and poor functional capacity.Mentions she is just not used to running [...] to correct any errors. documented in this encounterWilliam [place] [address]-18-2023 Nurse Note* Tea Salvador MA - 07/11/2023 9:19 AM EDT Patient complains of palpitations, and pain in her (R) arms that travel up and down at random times. documented in this encounterParkview Health [facility] Hospital07-12-2023 Miscellaneous Notes* Telephone Encounter - Yolanda Taylor MA - 06/04/2023 1:09 PM EDT All information has been faxed. Yolanda Taylor MA * Telephone Encounter - Gogo Hunt APRN.MAHESH - 06/04/2023 1:03 PM EDT cardiac testing MITCHELL Leroy called about stress test orders. Diagnosis code was aortic stenosis. The order was for regular exercise stress test. Patient had ECHO done Usha ordered regular stress test, looks like it was for chest pain. Will change code to chest pain Please fax new orders along with last OV note to [phone] Mariaa's direct number - [phone] Gogo Hunt APRN.MAHESH documented in this encounterParkview Health [facility] Hospital06-29-2023 Miscellaneous Notes* Telephone Encounter - Joel Servin MA - 05/22/2023 8:41 AM EDT Patient called and left a message that they need to know exactly what type of stress test this is Joel Servin MA documented in this encounterParkview Health [facility] Hospital06-27-2023 History of Present illness Narrative* Morelia Mccrary, RT(R) - 05/20/2023 11:00 AM EDT Radiology Service Progress Note PATIENT NAME: Carolin Brito DATE OF SERVICE: May 20, 2023 TIME: [...] Not applicable SIGNED BY: Morelia Mccrary RDMS, RVT May 20, 2023 11:32 AM documented in this encounterParkview Health Bryan Hospital06-26-2023 Instructions* Patient Instructions* Usha Eid APRN.CNP - 05/19/2023 4:[address] Lynn Lanza [facility] Building [address] [place] [address] Appointment:[phone] [place] [address] Appointment:[phone] [place] [address] Appointment:[phone] documented in this encounterParkview Health Bryan Hospital06-26-2023 History of Present illness Narrative* Usha Eid APRN.CNP - 05/19/2023 4:03 PM EDT CHIEF COMPLAINT: Carolin Brito is a 58 year old female who presents for abdominal pain in her RUQ that radiates around to her back on the right side that started yesterday morning. She rates it at a 5/10 currently(10/10 during an attack) and describes it as a sharp, shooting, nagging pain. She has tried taking Tylenol for her pain. She does still have her gallbladder. I reviewed past medical, surgical, social, and family histories today and updated chart. Allergies, chronic medications, and supplements werealso reviewed. She reports she is having a very difficult time losing weight. She has been tracking her foods to keep her calories <1,900 a day and has been walking for an hour 5-6 times a week and hasn't lost apound. She is very frustrated and feels there is something wrong. The history is provided by the patient. No radio repairer domestic was used. Abdominal Pain This is a new problem. The current episode started yesterday. The problem occurs constantly. The problem has not changed since onset.The pain is associated with an unknown factor. The pain is locatedin the RUQ. The pain is at a [...] GI consult, CT scan, ultrasound, surgery or bariumenema. Her past medical history does not include PUD, gallstones, GERD, ulcerative colitis, Crohn'sdisease or irritable bowel syndrome. PAST MEDICAL HISTORY [...] VITAMIN D3-VITAMIN K2, MK4, ORAL rizatriptan (MAXALT MUD PLANT OPERATOR) 5 mg disintegrating tablet Take 1 tablet [...] mL injection (DEFINITY) INTRAVENOUS DIRECTED PRN Usha Eid APRN.MAHESH sodium chloride 0.9 % (flush) 10 mL (BD POSIFLUSH) 10 mL INTRAVENOUS DIRECTED PRN Usha Eid APRN.GROUNDSKEEPING MAINTENANCE WORKER Review of Systems Constitutional: Positive for diaphoresis (2 weeks ago). Negative for appetite change, chills, fatigue, fever and unexpected weight change. Respiratory: Positive for shortness of breath (due to the pain). Negative for cough, chest tightness and wheezing. Cardiovascular: Negative for chest pain, palpitations and leg swelling. Gastrointestinal: Positive for abdominal distention, abdominal pain (RUQ) and nausea (2 weeks ago).Negative for anorexia, blood in stool, constipation, diarrhea, flatus, hematochezia, melena, rectalpain and vomiting. Genitourinary: Negative for dysuria, frequency [...] right upper quadrant and epigastric area. There isno guarding. Negative signs include Mohr's sign and [...] ultrasound - Increase fiber in diet - [place] low-fat diet - Follow up in 2 weeks or sooner if worsening of symptoms - COMP METABOLIC PANEL - LIPASE BLD - CONSULT TO GENERAL SURGERY - US ABD RIGHT UPPER QUADRANT - TRAMADOL 50 MG TABLET PDMP website checked and validated. All prescriptions have been APPROPRIATELY filled. No suspiciousactivity was identified. 05/19/2023 by Usha Eid APRN.GROUNDSKEEPING MAINTENANCE WORKER 2. Common bile duct dilatation - ICD9: [...] Tramadol. Discussed new medication dosage, usage, goals oftherapy, and side effects. Patient has been apprised of any potential drug interactions to be awareof. Patient expresses understanding. Counseling completed in adopting health behaviors such as avoiding excessive alcohol use, avoid tobacco use, improve nutrition, and engage in physical activities. Copy of written care plan, clinical summary, treatment plan, new medications, goals, and self management requirements were given to patient. Usha Eid APRN.MAHESH documented in this encounterParkview Health [facility] Hospital05-15-2023 Miscellaneous Notes* Telephone Encounter - Joel Servin MA - 04/07/2023 9:18 AM EDT Pharmacy requesting refills as follows: Last Office Visit 12/10/22. Last Refill 03/20/22. Requested Prescriptions Pending Prescriptions Disp Refills losartan (COZAAR) 25 mg tablet [Pharmacy Med Name: losartan 25 mg tablet] 30 tablet 11 Sig: Take 1 tablet by mouth once daily. Please review and advise. Joel Servin MA documented in this encounterParkview Health [facility] Hospital01-30-2023 Miscellaneous Notes* Telephone Encounter - Yeison Carrera MA - 12/23/2022 9:30 AM EST Tired contacting patient NA. My chart message sent. Yeison Carrera MA * Telephone Encounter - Usha Eid APRN.CNP - 12/21/2022 10:03 AM EST Please let the patient know that her Echo was abnormal. There is severe aortic stenosis (narrowing)which has advanced from her previous echo in 2017. I'm placing a referral for cardiology. I am alsoordering an exercise stress test that she will have to complete at [facility]. Cardiology: Dr. Guru Hathaway DO or Dr. Nick Patel [facility] [address] [place] [phone] documented in this encounterParkview Health [facility] Hospital01-19-2023 History of Past illness Narrative* Problem Noted [...] of this encounter (statuses as of 07/11/2023) [facility] of Past illness Narrative* Problem Noted [...] of this encounter (statuses as of 07/17/2023) [facility] of Past illness Narrative* Problem Noted [...] of this encounter (statuses as of 08/08/2023) [facility] of Past illness Narrative* Problem Noted [...] of this encounter (statuses as of 09/24/2023) [facility] of Past illness Narrative* Problem Noted [...] of this encounter (statuses as of 10/15/2023) [facility] of Past illness Narrative* Problem Noted [...] of this encounter (statuses as of 12/30/2023) [facility] of Past illness Narrative* Problem Noted [...] of this encounter (statuses as of 01/01/2024) [facility] of Past illness Narrative* Problem Noted [...] of this encounter (statuses as of 01/02/2024) [facility]01-17-[facility]23 Instructions* Patient Instructions* Usha Eid, PSYCHOLOGIST.[facility] - 12/10/2022 10:32 AM EST DIETARY MANAGEMENT [...] (1/2 cup) Broccoli, steamed 1 (1/2 cup) [place] jelly 1 (1 Tbsp) Apple, raw 0.7 (1 fruit) [place] flakes 0.6 (1 cup) BONE MINERAL DENSITY [...] your usual activities immediately. documented in this encounterParkview Health Bryan Hospital01-17-2023 History of Present illness Narrative* Usha Eid APRN.CNP - 12/10/2022 10:21 AM EST CHIEF COMPLAINT: Carolin Brito is a 57 year old female who presents for follow up for urethral stent removal. I reviewed past medical, surgical, social, and family histories today and updated chart. Allergies, chronic medications, and supplements were also reviewed. Came to the ER for flank pain on 10/25/23 and was transferred to [facility] and had lithotripsy and stent placement. She [...] history is provided by the patient. No radio repairer domestic was used. PAST MEDICAL HISTORY Diagnosis Date [...] TURMERIC ORAL Take by mouth. rizatriptan (MAXALT MUD PLANT OPERATOR) 5 mg disintegrating tablet Take 1 tablet [...] mL injection (DEFINITY) INTRAVENOUS DIRECTED PRN Usha Eid, PSYCHOLOGIST.GROUNDSKEEPING MAINTENANCE WORKER sodium chloride 0.9 % (flush) 10 mL (BD POSIFLUSH) 10 mL INTRAVENOUS DIRECTED PRN Usha Eid, PSYCHOLOGIST.GROUNDSKEEPING MAINTENANCE WORKER hydrocortisone topical cream 2.5% TOPICAL BID Yani Sloan, DO Review of Systems Constitutional: Negative for [...] management requirements were given to patient. Usha Eid APRN.MAHESH documented in this encounterParkview Health [facility] Hospital01-13-2023 Instructions* Patient Instructions* Harman Mendosa MD - 12/06/2022 11:52 AM EST INSTRUCTIONS FROM DR. MENDOSA: Perform the Litholink/24-hour urine study when you get it in the mail and send it back in as it cantake time to get the results, so try to have it in at least 4 weeks prior to follow-up for appointment PATIENT INFORMATION: [facility] Department of Urology After your [...] with drinking extra fluids. documented in this encounterParkview Health Bryan Hospital01-13-2023 Procedure note* Harman Mendosa MD - 12/06/2022 11:47 AM ESTProcedure(s): CYSTO W/SIMPLE REMOVAL STONE & STENT Pre-Procedure Diagnose(s): Encounter for removal of ureteral stent Post-Procedure Diagnose(s): Encounter for removal of ureteral stent CYSTOSCOPY/stent removal- PROCEDURE NOTE: Cysto/stent remove-[id number] Dx:z46.6 Carolin Brito is a 57 year old female who presents for a cystoscopy and stent removal Pt ID verified with patient: yes Procedure verified with patient: cystoscopy/stent remove-yes Procedure confirmed with physician and business support specialist: yes Special equipment-cystoscope and grasping forceps UNIVERSAL [...] of Care Visit completed when applicable. Harman Mendosa MD The benefits, risks, alternatives of the [...] increase oral fluid intake as directed. Harman Mendosa MD See progress note for plans Harman Mendosa MD documented in this encounterParkview Health Bryan Hospital01-13-2023 History of Present illness Narrative* Harman Mendosa MD - 12/06/2022 11:33 AM EST ESTABLISHED PATIENT OFFICE VISIT PATIENT INFO: Carolin Brito 57 year old HPI 12/06/2022 CC: stone Had left ureteroscopy with laser of the stone and seen on fluoroscopy Stent removed in the office today We will do Litholink and see her back in about 8 weeks Past Urology Hx: November 14, 2022-admitted to [facility]- 57 year old female presenting as a direct admit from [place] for 1cm left proximal ureteral stone withhydronephrosis. [...] Date Value 11/14/2022 1+ 05/13/2017 neg Specific [place], Ur (no units) Date Value 11/14/2022 1.015 [...] once daily.^Disp: 30 tablet^Rfl: 11 rizatriptan (MAXALT MUD PLANT OPERATOR) 5 mg disintegrating tablet^Take 1 tablet by [...] atorvastatin (LIPITOR) 40 mg tablet^40 mg.^Disp: ^Rfl: iiihofl-hvuocrjm-iaycvyegka (FIORINAL) capsule^Take by mouth.^Disp: ^Rfl: inulin-chromium picolinate [...] PROGRAM - CYSTO W/URETER STENT EXTRACT Harman Acosta Deondre Please note: This note has been produced using speech recognition software and may contain errors related to that system including grammar, punctuation, spelling, gender and words and phrases that may be inappropriate. documented in this encounterParkview Health [facility] Hospital01-09-2023 Miscellaneous Notes* Telephone Encounter - Jenny Fraga - 12/02/2022 9:32 AM EST Pt was called and scheduled * Telephone Encounter - Harman Mendosa MD - 11/29/2022 3:04 PM EST /p Cystoscopy, retrograde pyelograms, left ureteroscopy, laser lithotripsy, left ureteral stent placement P: cysto, stent remove next fri documented in this encounterParkview Health [facility] Hospital12-30-2022 Miscellaneous Notes* Telephone Encounter - Rosamaria Rushing Cma - 11/22/2022 9:16 AM EST Patient advised, and agreed. Rosamaria Rushing Cma * Telephone Encounter - Rosamaria Rushing Cma - 11/22/2022 8:25 AM EST Left message for patient to return call to office. Rosamaria Rushing Cma * Telephone Encounter - Harman Mendosa MD - 11/21/2022 1:33 PM EST Nothing [...] Rushing Cma * Telephone Encounter - Harman Mendosa MD - 11/20/2022 12:30 PM EST Can [...] advise Manuel Bal MA documented in this encounterPark[facility]27-2022 Miscellaneous Notes* Telephone Encounter - Joel MARTINEZ - 11/19/2022 11:04 AM EST Pt is scheduled for C&P, Lt ULL and stent with Dr Mendosa at [facility] on 11/29/22 @ 1:30 (11:30 arrival). Pt given date, time, prep and arrival instructions over the phone on 11/19/22. [employer] message [employer]. Joel MARTINEZ documented in this encounterParkview [facility]12-27-2022 History of Present illness Narrative* Shruthi Valenzuela LPN - 11/19/2022 10:25 AM EST TRANSITIONAL CARE MANAGEMENT (TCM) COMMUNITY MONITORING PROGRAM - [place] Provider Action/FYI: SUMMARY: Pt discharged from [facility] on 11/15/2022. Admitted for: abdominal pain, [...] patient: Yes Hi my name is Shruthi Valenzuela and I am calling from the [facility] on behalf of your PCP, Usha Eid APRN.GROUNDSKEEPING MAINTENANCE WORKER I understand you were recently in the [...] like to speak with a social work restaurant hourly team member to help give you support for any [...] I will send your request to a scheduler conveyor who will contact and assist you with [...] possible). Shruthi Valenzuela LPN documented in this encounterParkview Health [facility]12-23-2022 Miscellaneous Notes* Telephone Encounter - Joel MARTINEZ - 11/15/2022 12:12 PM EST Pt still admitted. Surgery planned for 11/29/22 due to OR availability. Will call pt once she is discharged. Joel MARTINEZ * Telephone Encounter - Harman Mendosa MD - 11/14/2022 8:39 PM EST S/p cysto, lt stent P: joel Cystoscopy, retrograde pyelograms, left ureteroscopy, laser lithotripsy, left ureteral stent placement 12/04/22 at documented in this encounterParkview [facility] Hospital12-22-2022 Miscellaneous Notes* Telephone Encounter - Yolanda Taylor MA - 11/14/2022 3:06 PM EST Patient in ER. Yolanda Taylor MA * Telephone Encounter - Yani lSoan DO - 11/14/2022 10:52 AM EST Please call pt - she may have a viral gastroenteritis, but it also may be something more serious. If she is not better by this afternoon, she may need to go to the ED Yani Sloan DO * Telephone Encounter - Joel Servin [...] takenanything. Joel Servin MA documented in this encounterParkview Health [facility] Hospital07-25-2022 History and physical note * Live Short MD - 06/17/2022 9:46 AM EDT Carolin Brito is a 57 year old female who presents for annual exam. Seeing Usha Eid for routine exams. 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 Pap 3 years ago showed ASCUS [...] atorvastatin (LIPITOR) 40 mg tablet 40 mg. vlswfxw-znozpmcz-ejachcnsjq (FIORINAL) capsule Take by mouth. inulin-chromium picolinate (FIBER SELECT GUMMIES) 2-100 gram-mcg chew Take by mouth. rizatriptan (MAXALT MUD PLANT OPERATOR) 5 mg disintegrating tablet Take 1 tablet [...] and pelvic exam BREAST - without masses. SUPERVISOR FUR FLOOR WORKER: Vulva - normal, Vagina - normal - [...] baseline Live Short MD documented in this encounterParkview Health [facility] Hospital06-21-2022 Miscellaneous Notes* Letter - Mammography Coordinator - 05/14/2022 12:31 PM EDT [address] [address] May 14, 2022 PID: [id number] Carolin Brito [address] [place] [id number] Dear Ms. Brito, We are pleased to inform you that [...] report will be kept on file at [facility] as part of your permanent medical record and are available for your continuing care. Thank you for allowing us to help in meeting your health care needs. Sincerely, Dr. Dudley Interpreting Radiologist [facility] (Normal over 40) documented in this encounterParkview Health Bryan Hospital06-21-2022 History of Present illness Narrative* Shari Brown RT(R) - 05/14/2022 9:30 AM EDT Radiology Service Progress Note PATIENT NAME: Carolin Brito DATE OF SERVICE: May 14, 2022 TIME: [...] 14, 2022 9:38 AM documented in this encounterParkview Health [facility] Hospital06-13-2022 Miscellaneous Notes* Telephone Encounter - Maddy Garces RN - 05/06/2022 1:[address] Short ordered elevr himself. Maddy Garces RN * Telephone Encounter - Maddy Garces RN - 05/01/2022 9:51 AM EDT Called for elver order-pended. Thanks, Maddy Garces RN documented in this encounterParkview Health [facility] Hospital04-27-2022 Miscellaneous Notes* Telephone Encounter - Yeison Carrera MA - 03/20/2022 8:34 AM EDT Patient requesting refills for today . She states she is going out of town Last office visit 10/12/2021 . Last refill 03/16/2021 nov none Pending Prescriptions Disp Refills LOSARTAN 25 MG TABLET 30 tablet 11 Sig: Take 1 tablet by mouth once daily. JASMIN: No Please review and advise. Yeison Carrera MA documented in this encounterParkview [facility]05-14-2018 History of Past illness Narrative* Problem Noted [...] of this encounter (statuses as of 03/20/2022) [facility] of Past illness Narrative* Problem Noted [...] of this encounter (statuses as of 04/19/2022) [facility] of Past illness Narrative* Problem Noted [...] of this encounter (statuses as of 05/06/2022) [facility] of Past illness Narrative* Problem Noted [...] of this encounter (statuses as of 05/06/2022) [facility] of [facility] Narrative* Problem Noted [...] of this encounter (statuses as of 05/15/2022) [facility] of [facility] illness Narrative* Problem Noted [...] of this encounter (statuses as of 05/16/2022) [facility] Narrative* Problem Noted [...] of this encounter (statuses as of 06/17/2022) [facility] Narrative* Problem Noted [...] of this encounter (statuses as of 07/03/2022) [facility] Narrative* Problem Noted [...] of this encounter (statuses as of 11/15/2022) [facility] Narrative* Problem Noted [...] of this encounter (statuses as of 11/17/2022) [facility] Narrative* Problem Noted [...] of this encounter (statuses as of 11/24/2022) [facility] Narrative* Problem Noted [...] of this encounter (statuses as of 11/25/2022) [facility] Narrative* Problem Noted [...] of this encounter (statuses as of 11/27/2022) [facility] Narrative* Problem Noted [...] of this encounter (statuses as of 12/06/2022) [facility] Narrative* Problem Noted [...] of this encounter (statuses as of 12/12/2022) [facility] Narrative* Problem Noted [...] of this encounter (statuses as of 12/19/2022) [facility] Narrative* Problem Noted [...] of this encounter (statuses as of 12/22/2022) [facility] Narrative* Problem Noted [...] of this encounter (statuses as of 12/23/2022) [facility] Narrative* Problem Noted [...] of this encounter (statuses as of 04/07/2023) [facility] Narrative* Problem Noted [...] of this encounter (statuses as of 05/21/2023) [facility] Narrative* Problem Noted [...] of this encounter (statuses as of 05/21/2023) [facility] Narrative* Problem Noted [...] of this encounter (statuses as of 05/23/2023) [facility] Narrative* Problem Noted [...] of this encounter (statuses as of 05/30/2023) [facility] Narrative* Problem Noted Date Diagnosed Date Resolved Date Dermatophytosis 04/06/2018 03/12/2019 Viral URI with cough 03/27/2018 019 Recurrent UTI (urinary tract infection) 05/13/2017 03/12/2019 Malassezia furfur causing tinea 05/13/2017 03/12/2019 Breast lump on right side at 6 o'clock position 05/13/2017 03/12/2019 Breast pain, left 05/13/2017 03/12/2019 Irritation of left eye 05/13/201704/27 Persistent dry cough 05/13/2017 019 Hypertension, essential 05/13/2017 05/02/2018 documented as of this encounter (statuses as of 06/05/2023) [facility]* Diagnosis Essential hypertension Unspecified essential hypertension [facility] Diagnosis Breast screening- Primary Breast screening, unspecified [facility]* Diagnosis Encounter for screening mammogram for malignant neoplasm of breast- Primary Other screening mammogram [facility] Diagnosis Breast screening Breast screening, unspecified [facility]* Diagnosis Encounter for annual routine gynecological examination- Primary Encounter for Papanicolaou smear for cervical cancer screening Family history of ovarian cancer Family history of malignant neoplasm of ovary [facility] Diagnosis Family history of ovarian cancer Family history of malignant neoplasm of ovary [facility]* Diagnosis Renal calculi- Primary Calculus of kidney [facility]* Diagnosis Calculus of kidney- Primary Aortic valve stenosis, etiology of cardiac valve disease unspecified Mitral valve prolapse Mitral valve disorders History of cardiac murmur Personal history of other diseases of circulatory system Chest pain, unspecified type Migraine without status migrainosus, not intractable, unspecified migraine type Asymptomatic postmenopausal status Screening for depression documented [facility]* Diagnosis Aortic valve stenosis, etiology of cardiac valve disease unspecified Mitral valve prolapse Mitral valve disorders History of cardiac murmur Personal history of other diseases of circulatory system documented [facility] this encounter [facility]* Diagnosis Aortic valve stenosis, etiology of cardiac valve disease unspecified- Primary documented in this encounter [facility] note* Diagnosis Essential hypertension Unspecified essential hypertension [facility]* Diagnosis RUQ pain- Primary Abdominal pain, right upper quadrant Common bile duct dilatation Other specified disorders of biliary tract Unable to lose weight Other symptoms concerning nutrition, metabolism, and development Elevated blood sugar Other abnormal glucose [facility]* Diagnosis RUQ pain Abdominal pain, right upper quadrant documented in this encounter [facility] noteNo assessment information availableWOhioHealth [facility] Work Phone: Evaluation note* Diagnosis Chest pain, unspecified type- Primary documented in this encounter [facility] note* Diagnosis Nonrheumatic aortic (valve) stenosis- Primary Essential hypertension Unspecified essential hypertension Hypercholesteremia Pure hypercholesterolemia History of cardiac murmur Personal history of other diseases of circulatory system Obesity, Class II, BMI 35-39.9 Obesity, unspecified Bicuspid aortic valve Congenital insufficiency of aortic valve documented in this encounter [facility]* Diagnosis Gallbladder polyp- Primary Cholesterolosis of gallbladder RUQ pain Abdominal pain, right upper quadrant Obesity, Class II, BMI 35-39.9 Obesity, unspecified Cholecystitis Cholecystitis, unspecified documented [facility]* Diagnosis Cholecystitis Cholecystitis, unspecified documented [facility] this [facility]* Diagnosis Urinary frequency- Primary documented in this encounter [facility] note* Diagnosis Encounter for screening mammogram for malignant neoplasm of breast documented in this encounter [facility] Work Phone: Evaluation note* Diagnosis Class 2 obesity- Primary Vitamin D deficiency Unspecified vitamin D deficiency Essential hypertension Unspecified essential hypertension Dietary counseling and surveillance Dietary surveillance and counseling Body mass index (BMI) of 35.0-35.9 in adult Body Mass Index 35.0-35.9, adult Bicuspid aortic valve Congenital insufficiency of aortic valve documented in this encounter [facility] note* Diagnosis Flu-like symptoms- Primary Other general symptoms Body aches Generalized pain Urinary frequency documented in this encounter [facility] note* Diagnosis Urinary frequency- Primary Right flank pain Abdominal pain, unspecified site Mid back pain on left side Pain in thoracic spine History of kidney stones Personal history of urinary calculi Essential hypertension Unspecified essential hypertension Headaches at night documented in this encounter [facility] note* Diagnosis Essential hypertension Unspecified essential hypertension documented in this encounter [facility] note* Diagnosis Essential hypertension Unspecified essential hypertension documented in this encounter [facility] note* Diagnosis Encounter for screening mammogram for breast cancer documented in this encounter [facility] note* Diagnosis Other chest pain- Primary Bicuspid aortic valve (HCC) Congenital insufficiency of aortic valve Fatty liver Other chronic nonalcoholic liver disease Class 1 obesity with body mass index (BMI) of 34.0 to 34.9 in adult, unspecified obesity type, unspecified whether serious comorbidity present Heart murmur Undiagnosed cardiac murmurs documented in this encounter [facility] for referral (narrative)* Diagnostic Procedure Only (Routine) - Pending Review Specialty Diagnoses / Procedures Referred By Nabeel t Referred To Contact [facility] Diagnoses Breast screening Procedures ELVER SCREENING SCREENING MAMMOGRAPHY BI 2-VIEW BREAST INC CAD Pap, Live Garvey MD [address] [place] [address] [facility] [address] [place] [address] Referral ID Status Reason Start Date Expiration Date Visits Requested Visits Authorized [id number] Pending Review Auto-Generat ed Referral 05/06/2022 06/05/2023 1 1 [facility] for referral (narrative)* Diagnostic Procedure Only (Routine) - Closed Specialty Diagnoses / Procedures Referred By Nabeel kong Referred To Contact [facility] Diagnoses Breast screening Procedures ELVER SCREENING SCREENING MAMMOGRAPHY BI 2-VIEW BREAST INC CAD Deja, Live Garvey MD [address] [place] [address] [facility] [address] [place] [address] Referral ID Status Reason Start Date Expiration Date V isits Requested Visits Authorized [id number] Closed Auto-Generate d Referral 05/06/2022 06/05/2023 1 1 [facility] for referral (narrative)* Diagnostic Procedure Only (Routine) - Pending Review Specialty Diagnoses / Procedures Referred By Nabeel kong Referred To Contact [facility] Diagnoses Family history of ovarian cancer Procedures US FEMALE PELVIS TRANSVAG US TRANSVAGINAL Deja, Live Garvey MD [address] [place] [address] [facility] Referral ID Status Reason Start Date Expiration Date Visits Requested Visits Authorized [id number] Pending Review Auto-Generat ed Referral 06/17/2022 07/17/2023 1 1 T [facility] for referral (narrative)* Diagnostic Procedure Only (Routine) - Closed Specialty Diagnoses / Procedures Referred By Nabeel kong Referred To Contact [facility] Diagnoses Family history of ovarian cancer Procedures US FEMALE PELVIS TRANSVAG US TRANSVAGINAL Deja, Live Garvey MD [address] [place] [address] [facility] Referral ID Status Reason Start Date Expiration Date V isits Requested Visits Authorized [id number] Closed Auto-Generate d Referral 06/17/2022 07/17/2023 1 1 T [facility] for referral (narrative)* Diagnostic Procedure Only (Routine) - Pending Review Specialty Diagnoses / Procedures Referred By Contac t Referred To Contact [facility] Diagnoses Chest pain, unspecified type Procedures NM CARDIAC PERF STRESS/EXERCISE MYOCARDIAL SPECT MULTIPLE STUDIES Usha Eid APRN.GROUNDSKEEPING MAINTENANCE WORKER [address] [place] [address] [facility] [address] [id number] Referral ID Status Reason Start Date Expiration Date Visits Requested Visits Authorized [id number] Pending Review Auto-Generat ed Referral 12/10/2022 01/09/2024 1 1 * Outpatient Procedure (Routine) - Open Specialty Diagnoses / Procedures Referred By [facility] t Referred To Contact [facility] Diagnoses Aortic valve stenosis, etiology of cardiac valve disease unspecified Mitral valve prolapse History of cardiac murmur Procedures ECHO ECHO TTHRC R-T 2D W/WOM-MODE COMPL SPEC&COLR D Usha Eid APRN.GROUNDSKEEPING MAINTENANCE WORKER [address] [place] [address] [facility] [place] [address] [place] [address] Referral ID Status Reason Start Date Expiration Date V isits Requested Visits Authorized [id number] Open Auto-Generate d Referral 12/10/2022 12/10/2023 1 1 [facility] for referral (narrative)* Outpatient Procedure (Routine) - Closed Specialty Diagnoses / Procedures Referred By [facility] Referred To Contact [facility] Diagnoses Aortic valve stenosis, etiology of cardiac valve disease unspecified Mitral valve prolapse History of cardiac murmur Procedures ECHO ECHO TTHRC R-T 2D W/WOM-MODE COMPL SPEC&COLR D Usha Eid APRN.GROUNDSKEEPING MAINTENANCE WORKER [address] [place] [address] [facility] [place] [address] [place] [id number] Referral ID Status Reason Start Date Expiration Date V isits Requested Visits Authorized [id number] Closed Auto-Generate d Referral 12/13/2022 02/11/2023 1 1 [facility] for referral (narrative)* Diagnostic Procedure Only (Routine) - Closed Specialty Diagnoses / Procedures Referred By Contac t Referred To Contact [facility] Diagnoses RUQ pain Procedures US ABD RIGHT UPPER QUADRANT US ABDOMINAL REAL TIME W/IMAGE LIMITED Usha Eid APRN.CNP [address] [place] [address] [facility] Referral ID Status Reason Start Date Expiration Date V isits Requested Visits Authorized [id number] Closed Auto-Generate d Referral 11/24/2022 11/23/2023 1 1 [facility] for referral (narrative)* Diagnostic Procedure Only (Routine) - Pending Review Specialty Diagnoses / Procedures Referred By Contac t Referred To Contact [facility] Diagnoses Cholecystitis Procedures NM HEPATOBILIARY W EF AND/OR RX HEPATOBIL SYST IMAG INC GB W/PHARMA INTERVGuillermo Hurt MD [address] [address] [address] Molecular [facility] [address] [place] [address] Referral ID Status Reason Start Date Expiration Date Visits Requested Visits Authorized [id number] Pending Review Auto-Generat ed Referral 07/16/2023 08/14/2024 1 1 [facility] for referral (narrative)* Diagnostic Procedure Only (Routine) - Closed Specialty Diagnoses / Procedures Referred By Contac t Referred To Contact [facility] Diagnoses Cholecystitis Procedures NM HEPATOBILIARY W EF AND/OR RX HEPATOBIL SYST IMAG INC GB W/PHARMA INTERVGuillermo Hurt MD 1 [employer] [address] [place] [address] [facility] [address] [place] [address] Referral ID Status Reason Start Date Expiration Date V isits Requested Visits Authorized [id number] Closed Auto-Generate d Referral 11/24/2022 11/23/2023 1 1 [facility] for referral (narrative)* Diagnostic Procedure Only (Routine) - New Request Specialty Diagnoses / Procedures Referred By Nabeel kong Referred To Contact [facility] Diagnoses Encounter for screening mammogram for breast cancer Procedures ELVER SCREENING W [place] SCREENING DIGITAL BREAST TOMOSYNTHESIS BI SCREENING MAMMOGRAPHY BI 2-VIEW BREAST INC CAD Usha Eid APRN.CNP [address] [place] [address] [facility] [address] [place] [address] Referral ID Status Reason Start Date Expiration Date Visits Requested Visits Authorized [id number] New Request Auto-Generat ed Referral 11/11/2025 1 1 [facility] for referral (narrative)No reason for referral information availableMedical Behavioral Hospital Services Work Phone: Reason for visit Narrative* Diagnostic Procedure Only (Routine) - Closed Specialty Diagnoses / Procedures Referred By Nabeel kong Referred To Contact [facility] Diagnoses Breast screening [Z12.39] Procedures SCREENING MAMMOGRAPHY BI 2-VIEW BREAST INC CAD ELVER SCREENING [[id number]] Live Short MD [address] [place] [address] [facility] [address] [place] [address] Referral ID Status Reason Start Date Expiration Date V isits Requested Visits Authorized [id number] Closed OON/Self Pay Override Financial Clearance Required - OON Payor Patient Cleared - INN Insurance Found 11/24/2021 11/23/2022 1 1 [facility] for visit Narrative* (Routine) - Open Specialty Diagnoses / Procedures Referred By Contac t Referred To Contact [facility] Diagnoses Family history of ovarian cancer Procedures US TRANSVAGINAL Pap, Live Garvey MD [address] [place] [address] [facility] Referral ID Status Reason Start Date Expiration Date V isits Requested Visits Authorized [id number] Open OON/Self Pay Override 06/17/2022 08/16/2022 1 1 [facility] for visit Narrative* Outpatient Procedure (Routine) - Closed Specialty Diagnoses / Procedures Referred By Contac t Referred To Contact [facility] Diagnoses Aortic valve stenosis, etiology of cardiac valve disease unspecified Mitral valve prolapse History of cardiac murmur Procedures ECHO ECHO TTHRC R-T 2D W/WOM-MODE COMPL SPEC&COLR D Usha Eid, PSYCHOLOGIST.GROUNDSKEEPING MAINTENANCE WORKER [address] [place] [address] [facility] [place] [address] [place] [address] Referral ID Status Reason Start Date Expiration Date V isits Requested Visits Authorized [id number] Closed Auto-Generate d Referral 12/13/2022 02/11/2023 1 1 [facility] for visit Narrative* Outpatient Procedure (Routine) - Closed Specialty Diagnoses / Procedures Referred By Karanac t Referred To Contact [facility] Diagnoses Right upper quadrant pain Procedures ULTRASOUND-ABDOMINAL PC US ABDOMINAL REAL TIME W/IMAGE LIMITED Usha Eid, PSYCHOLOGIST.GROUNDSKEEPING MAINTENANCE WORKER [address] [place] [address] [facility] [address] [place] [address] Referral ID Status Reason Start Date Expiration Date V isits Requested Visits Authorized [id number] Closed OON/Self Pay Override 11/24/2022 11/23/2023 1 1 [facility] for visit Narrative* Diagnostic Procedure Only (Routine) - Closed Specialty Diagnoses / Procedures Referred By Contac t Referred To Contact [facility] Diagnoses Cholecystitis, unspecified Cholecystitis [K81.9] Procedures RADIOLOGIC EXAM ESOPHAGUS SINGLE CONTRAST STUDY Usha Eid, PSYCHOLOGIST.GROUNDSKEEPING MAINTENANCE WORKER [address] [place] [address] [place] [address] Referral ID Status Reason Start Date Expiration Date V isits Requested Visits Authorized [id number] Closed OON/Self Pay Override Financial Clearance Not Required 07/16/2023 01/12/2024 1 1 [facility] Advance Directives No Advanced Directives Records FoundDocuments on File Type Date Recorded Patient Under Trimmer Expl anation Advance Directive(s) 10/01/2020 6:59 PM Advance Directive(s) 09/30/2020 11:54 PM Documents on File Type Date Recorded Patient Under Trimmer Expl anation Advance Directive(s) 10/01/2020 6:59 PM Advance Directive(s) 09/30/2020 11:54 PM Advance Directive Response Recorded Date/ Time Living Will No May 16, 2020 12:57pm Power of Electrical Repairer No May 16 0 12:57pm Advance Directive Response Recorded Date/ Time Living Will No May 16, 2020 11:57am Power of Electrical Repairer No May 16 0 11:57am Health Concerns Infection Onset Date Last Indicated [...] Referral Specialty Diagnoses / Procedures Referred By Contac t Referred To Contact Cardiology Diagnoses Aortic valve stenosis, etiology of cardiac valve disease unspecified Procedures CONSULT TO CARDIOLOGY OFFICE/OUTPATIENT [facility] 60-74 MINUTES Usha Eid APRN.GROUNDSKEEPING MAINTENANCE WORKER [address] [place] [address] Referral ID Status Reason Start Date Expiration Date Visits Requested Visits Authorized [id number] Pending Review PCP Requested Referral 12/21/2022 12/21/2023 1 1 Specialty Diagnoses / Procedures Referred By Contac t Referred To Contact Diagnoses RUQ pain Usha Eid APRN.GROUNDSKEEPING MAINTENANCE WORKER [address] [place] [address] Referral ID Status Reason Start Date Expiration Date Visits Re quested Visits Authorized [id number] Closed 1 1 Specialty Diagnoses / Procedures Referred By Contac t Referred To Contact [facility]ING Diagnoses RUQ pain Procedures US ABD RIGHT UPPER QUADRANT US ABDOMINAL REAL TIME W/IMAGE LIMITED Usha Eid APRN.GROUNDSKEEPING MAINTENANCE WORKER [address] [place] [address] [facility] Referral ID Status Reason Start Date Expiration Date V isits Requested Visits Authorized [id number] Closed Auto-Generate d Referral 11/24/2022 11/23/2023 1 1 Specialty Diagnoses / Procedures Referred By Contac t Referred To Contact General Surgery / [facility] Department Diagnoses RUQ pain Procedures CONSULT TO GENERAL SURGERY OFFICE/OUTPATIENT [facility] 60-74 MINUTES Usha Eid APRN.GROUNDSKEEPING MAINTENANCE WORKER [address] [place] [address] Lynn Lanza MD [address] [address] Referral ID Status Reason Start Date Expiration Date Visits Requested Visits Authorized [id number] Pending Review PCP Requested Referral 05/19/2023 05/18/2024 1 1 Specialty Diagnoses / Procedures Referred By Contac t Referred To Contact Radiology Diagnoses Encounter for screening mammogram for malignant neoplasm of breast Procedures BI mammo bilateral screening tomosynthesis Usha Eid APRN-GROUNDSKEEPING MAINTENANCE WORKER [address] [place] [address] Referral ID Status Reason Start Date Expiration Date Visits Requested Visits Authorized [id number] Authorized Perform Procedure 08/07/2023 02/03/2024 1 1 Specialty Diagnoses / Procedures Referred By Nabeel t Referred To Contact [facility]PART[facility] Diagnoses Urinary frequency Right flank pain Calculus of kidney Procedures CONSULT TO UROLOGY OFFICE/OUTPATIENT NEW HIGH MDM 60 MINUTES Usha Eid PSYCHOLOGIST.GROUNDSKEEPING MAINTENANCE WORKER [address] [place] [address] Jordyn Lawrence [address] [place] [address] Referral ID Status Reason Start Date Expiration Date Visits Requested Visits Authorized [id number] Pending Review PCP Requested Referral 04/29/2024 04/29/2025 1 1 Family History No Family History Records Found Relationship Condition Age at Onset Recorded Date/T trent mother Arthritis Unknown Osteoporosis Unknown Cerebrovascular accident (CVA) Unknown father Malignant neoplasm of lung Unknown Cardiac disease Unknown sister Malignant neoplasm of lung Unknown Hemorrhagic disorder Unknown Relationship Condition Age at Onset Recorded Date/T trent mother Arthritis Unknown Osteoporosis Unknown Cerebrovascular accident (CVA) Unknown Malignant neoplasm Unknown Chronic obstructive pulmonary disease Unk nown father Malignant neoplasm of lung Unknown Cardiac disease Unknown sister Malignant neoplasm of lung Unknown Hemorrhagic disorder Unknown Summary Purpose Chief Complaint and Reason for Visit Chief Complaint URINE SAMPLE Chief Complaint Admit Date AORTIC STENOSIS (SHEETS) June 01, 2025 10:03am Reason for Visit Admit Date Aortic stenosis June 01, 2025 10:03 am Hypercholesteremia June 01, 2025 10:03 am HTN (hypertension) June 01, 2025 10:03 am Additional Source Comments Source Comments (unrecognize d section and content) In the event this informatio n is protected by the Federal Confidentiality of Alcohol and Drug Abuse Patient Records regulations: The Federal rules restrict any use of the information to criminally investigate or prosecute any alcohol or drug abuse patient.[facility] the event this information is protected by the Federal Confidentiality of Alcohol and Drug Abuse Patient Records regulations: The Federal rules restrict any use of the information to criminally investigate or prosecute any alcohol or drug abuse patient.[facility] HospitalIn the event this information is protected by the Federal Confidentiality of Alcohol and Drug Abuse Patient Records regulations: The Federal rules restrict any use of the information to criminally investigate or prosecute any alcohol or drug abuse patient.[facility] HospitalIn the event this information is protected by the Federal Confidentiality of Alcohol and Drug Abuse Patient Records regulations: The Federal rules restrict any use of the information to criminally investigate or prosecute any alcohol or drug abuse patient.[facility] HospitalIn the event this information is protected by the Federal Confidentiality of Alcohol and Drug Abuse Patient Records regulations: The Federal rules restrict any use of the information to criminally investigate or prosecute any alcohol or drug abuse patient.[facility] HospitalIn the event this information is protected by the Federal Confidentiality of Alcohol and Drug Abuse Patient Records regulations: The Federal rules restrict any use of the information to criminally investigate or prosecute any alcohol or drug abuse patient.[facility] HospitalIn the event this information is protected by the Federal Confidentiality of Alcohol and Drug Abuse Patient Records regulations: The Federal rules restrict any use of the information to criminally investigate or prosecute any alcohol or drug abuse patient.[facility] HospitalIn the event this information is protected by the Federal Confidentiality of Alcohol and Drug Abuse Patient Records regulations: The Federal rules restrict any use of the information to criminally investigate or prosecute any alcohol or drug abuse patient.[facility] HospitalIn the event this information is protected by the Federal Confidentiality of Alcohol and Drug Abuse Patient Records regulations: The Federal rules restrict any use of the information to criminally investigate or prosecute any alcohol or drug abuse patient.[facility] HospitalIn the event this information is protected by the Federal Confidentiality of Alcohol and Drug Abuse Patient Records regulations: The Federal rules restrict any use of the information to criminally investigate or prosecute any alcohol or drug abuse patient.[facility] HospitalIn the event this information is protected by the Federal Confidentiality of Alcohol and Drug Abuse Patient Records regulations: The Federal rules restrict any use of the information to criminally investigate or prosecute any alcohol or drug abuse patient.[facility] HospitalIn the event this information is protected by the Federal Confidentiality of Alcohol and Drug Abuse Patient Records regulations: The Federal rules restrict any use of the information to criminally investigate or prosecute any alcohol or drug abuse patient.[facility] HospitalIn the event this information is protected by the Federal Confidentiality of Alcohol and Drug Abuse Patient Records regulations: The Federal rules restrict any use of the information to criminally investigate or prosecute any alcohol or drug abuse patient.[facility] HospitalIn the event this information is protected by the Federal Confidentiality of Alcohol and Drug Abuse Patient Records regulations: The Federal rules restrict any use of the information to criminally investigate or prosecute any alcohol or drug abuse patient.[facility] HospitalIn the event this information is protected by the Federal Confidentiality of Alcohol and Drug Abuse Patient Records regulations: The Federal rules restrict any use of the information to criminally investigate or prosecute any alcohol or drug abuse patient.[facility] HospitalIn the event this information is protected by the Federal Confidentiality of Alcohol and Drug Abuse Patient Records regulations: The Federal rules restrict any use of the information to criminally investigate or prosecute any alcohol or drug abuse patient.[facility] ClinicIn the event this information is protected by the Federal Confidentiality of Alcohol and Drug Abuse Patient Records regulations: The Federal rules restrict any use of the information to criminally investigate or prosecute any alcohol or drug abuse patient.[facility] HospitalIn the event this information is protected by the Federal Confidentiality of Alcohol and Drug Abuse Patient Records regulations: The Federal rules restrict any use of the information to criminally investigate or prosecute any alcohol or drug abuse patient.[facility] HospitalIn the event this information is protected by the Federal Confidentiality of Alcohol and Drug Abuse Patient Records regulations: The Federal rules restrict any use of the information to criminally investigate or prosecute any alcohol or drug abuse patient.[facility] HospitalIn the event this information is protected by the Federal Confidentiality of Alcohol and Drug Abuse Patient Records regulations: The Federal rules restrict any use of the information to criminally investigate or prosecute any alcohol or drug abuse patient.[facility] HospitalIn the event this information is protected by the Federal Confidentiality of Alcohol and Drug Abuse Patient Records regulations: The Federal rules restrict any use of the information to criminally investigate or prosecute any alcohol or drug abuse patient.[facility] HospitalIn the event this information is protected by the Federal Confidentiality of Alcohol and Drug Abuse Patient Records regulations: The Federal rules restrict any use of the information to criminally investigate or prosecute any alcohol or drug abuse patient.[facility] HospitalIn the event this information is protected by the Federal Confidentiality of Alcohol and Drug Abuse Patient Records regulations: The Federal rules restrict any use of the information to criminally investigate or prosecute any alcohol or drug abuse patient.[facility] HospitalIn the event this information is protected by the Federal Confidentiality of Alcohol and Drug Abuse Patient Records regulations: The Federal rules restrict any use of the information to criminally investigate or prosecute any alcohol or drug abuse patient.[facility] HospitalIn the event this information is protected by the Federal Confidentiality of Alcohol and Drug Abuse Patient Records regulations: The Federal rules restrict any use of the information to criminally investigate or prosecute any alcohol or drug abuse patient.[facility] HospitalIn the event this information is protected by the Federal Confidentiality of Alcohol and Drug Abuse Patient Records regulations: The Federal rules restrict any use of the information to criminally investigate or prosecute any alcohol or drug abuse patient.[facility] HospitalIn the event this information is protected by the Federal Confidentiality of Alcohol and Drug Abuse Patient Records regulations: The Federal rules restrict any use of the information to criminally investigate or prosecute any alcohol or drug abuse patient.[facility] HospitalIn the event this information is protected by the Federal Confidentiality of Alcohol and Drug Abuse Patient Records regulations: The Federal rules restrict any use of the information to criminally investigate or prosecute any alcohol or drug abuse patient.[facility] HospitalIn the event this information is protected by the Federal Confidentiality of Alcohol and Drug Abuse Patient Records regulations: The Federal rules restrict any use of the information to criminally investigate or prosecute any alcohol or drug abuse patient.[facility] HospitalIn the event this information is protected by the Federal Confidentiality of Alcohol and Drug Abuse Patient Records regulations: The Federal rules restrict any use of the information to criminally investigate or prosecute any alcohol or drug abuse patient.[facility] HospitalIn the event this information is protected by the Federal Confidentiality of Alcohol and Drug Abuse Patient Records regulations: The Federal rules restrict any use of the information to criminally investigate or prosecute any alcohol or drug abuse patient.[facility] HospitalIn the event this information is protected by the Federal Confidentiality of Alcohol and Drug Abuse Patient Records regulations: The Federal rules restrict any use of the information to criminally investigate or prosecute any alcohol or drug abuse patient.[facility] HospitalIn the event this information is protected by the Federal Confidentiality of Alcohol and Drug Abuse Patient Records regulations: The Federal rules restrict any use of the information to criminally investigate or prosecute any alcohol or drug abuse patient.[facility] HospitalIn the event this information is protected by the Federal Confidentiality of Alcohol and Drug Abuse Patient Records regulations: The Federal rules restrict any use of the information to criminally investigate or prosecute any alcohol or drug abuse patient.[facility] HospitalIn the event this information is protected by the Federal Confidentiality of Alcohol and Drug Abuse Patient Records regulations: The Federal rules restrict any use of the information to criminally investigate or prosecute any alcohol or drug abuse patient.[facility] HospitalIn the event this information is protected by the Federal Confidentiality of Alcohol and Drug Abuse Patient Records regulations: The Federal rules restrict any use of the information to criminally investigate or prosecute any alcohol or drug abuse patient.[facility] HospitalIn the event this information is protected by the Federal Confidentiality of Alcohol and Drug Abuse Patient Records regulations: The Federal rules restrict any use of the information to criminally investigate or prosecute any alcohol or drug abuse patient.[facility] HospitalIn the event this information is protected by the Federal Confidentiality of Alcohol and Drug Abuse Patient Records regulations: The Federal rules restrict any use of the information to criminally investigate or prosecute any alcohol or drug abuse patient.[facility] HospitalIn the event this information is protected by the Federal Confidentiality of Alcohol and Drug Abuse Patient Records regulations: The Federal rules restrict any use of the information to criminally investigate or prosecute any alcohol or drug abuse patient.[facility] Reason for Visit (unrecogniz ed section and content) Reason Onset Date Comments Refill Request 03/20/2022 Specialty Diagnoses / Procedures Referred By Nabeel kong Referred To Contact [facility] Diagnoses Encounter for screening mammogram for breast cancer screening elver Procedures SCREENING MAMMOGRAPHY BI 2-VIEW BREAST INC CAD mammogram Pap, Live Garvey MD [address] [place] [address] [facility] [address] [place] [address] Referral ID Status Reason Start Date Expiration Date V isits Requested Visits Authorized [id number] Denied OON/Self Pay Override 04/12/2022 06/11/2022 1 0 Reason Comments Orders Reason Comments Yearly Exam Pt presents for saira al exam. Denies any concerns. 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 Reason Comments Surgery Scheduled Reason Onset Date Comments Transition Of Care 11/19/2022 [facility] discharg e 11/15/2022 [facility] encounter Reason Comments Patient Question Reason Comments Cystoscopy-1 Specialty Diagnoses / Procedures Referred By Nabeel kong Referred To Contact UROLOGY Diagnoses S/P cystoscopy Procedures CYSTO W/SIMPLE REMOVAL STONE & STENT REFERRAL TO [facility] FINANCIAL COUNSELOR Harman Mendosa MD [address] [place] [address] Urol Rake [address] [place] [address] Referral ID Status Reason Start Date Expiration Date Visits Requested Visits Authorized [id number] Pending Review OON/Self Pay Override Financial Clearance Required - OON Payor OON Notification Letter Patient Cleared - Admin/Client Success Manager/D irector advise to proceed 3 03/05/2023 3 3 Reason Comments Follow up for stent removal Specialty Diagnoses / Procedures Referred By Karanac t Referred To Contact FAMILY MEDICINE Diagnoses follow up appt Procedures est pt Self Usha Eid, PSYCHOLOGIST.GROUNDSKEEPING MAINTENANCE WORKER [address] [place] [address] Referral ID Status Reason Start Date Expiration Date Visits Requested Visits Authorized [id number] Outside PCP OON/Self Pay Override 12/02/2022 05/31/2023 1 1 Reason Onset Date Comments 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 Gallbladder Pain scale: 5Duration: 9:00 yesterday morningDescription: Sharp shooting occ. And nagging painTreatment: tylenol Specialty Diagnoses / Procedures Referred By Karanac Referred To Contact FAMILY MEDICINE Diagnoses Follow-up exam Procedures OFFICE/OUTPATIENT ESTABLISHED MOD MDM 30-39 MIN Usha Eid, PSYCHOLOGIST.GROUNDSKEEPING MAINTENANCE WORKER [address] [place] [address] [facility] [address] [place] [address] Referral ID Status Reason Start Date Expiration Date Visits Requested Visits Authorized [id number] Pending Review OON/Self Pay Override 12/10/2022 11/15/2023 1 1 Reason Comments Orders Stress test Reason Comments CARD New Patient Consult Aortic valve st enosis Specialty Diagnoses / Procedures [facility] Diagnoses Chest pain, unspecified type [R07.9] Procedures nm cardiac perf stress teest Usha Eid APRN.GROUNDSKEEPING MAINTENANCE WORKER [address] [place] [address] [facility] [address] [place] [address] Referral ID Status Reason Start Date Expiration Date V isits Requested Visits Authorized [id number] Closed OON/Self Pay Override 12/13/2022 09/17/2023 1 1 Reason Comments New Patient GB Specialty Diagnoses / Procedures Referred By Contac t Referred To Contact GENERAL SURGERY Diagnoses Cholelithiasis Procedures OFFICE/OUTPATIENT NEW MODERATE MDM 45-59 MINUTES Usha Eid PSYCHOLOGIST.GROUNDSKEEPING MAINTENANCE WORKER [address] [place] [address] Guillermo Scherer MD [address] [address] Referral ID Status Reason Start Date Expiration Date Visits Requested Visits Authorized [id number] Pending Review OON/Self Pay Override 05/21/2023 11/17/2023 1 1 Specialty Diagnoses / Procedures Referred By Contac t Referred To Contact Radiology Diagnoses Encounter for screening mammogram for malignant neoplasm of breast Procedures BI mammo bilateral screening tomosynthesis Usha Eid, PSYCHOLOGIST-GROUNDSKEEPING MAINTENANCE WORKER [address] [place] [address] Referral ID Status Reason Start Date Expiration Date Visits Requested Visits Authorized [id number] Authorized Perform Procedure 08/07/2023 02/03/2024 1 1 Reason Comments Results Reason Comments New Patient Specialty Diagnoses / Procedures Referred By Contac t Referred To Contact INTERNAL MEDICINE Diagnoses headahce fever fatigue lost of appitite Procedures established pt Self [address] [place] [address] Referral ID Status Reason Start Date Expiration Date Visits Requested Visits Authorized [id number] Outside PCP OON/Self Pay Override 12/31/2023 04/09/2025 1 1 Reason Comments Kidney Infection Has been having head aches, mid back pain, has history of kidney stone Specialty Diagnoses / Procedures Referred By Contac t Referred To Contact [facility]PARTMENT Diagnoses Kidney stone Procedures EST PT LEVEL 5 Usha Eid PSYCHOLOGIST.GROUNDSKEEPING MAINTENANCE WORKER [address] [place] [address] [place] [address] Referral ID Status Reason Start Date Expiration Date Visits Requested Visits Authorized [id number] Pending Review OON/Self Pay Override 04/28/2024 07/24/2024 3 3 Reason Comments chest tightness and right arm pain Down her right side and Shortness of Breath started at 10:35 yesterday morning and she called 911, only lasted until 10:50 am was fine and went about her day. Has not happened since then. Specialty Diagnoses / Procedures Referred By Nabeel kong Referred To Contact Family Medicine / FAMILY MEDICINE Diagnoses chest tightness rt arm pain Procedures PC EST Usha Eid, PSYCHOLOGIST.GROUNDSKEEPING MAINTENANCE WORKER [address] [place] [address] Phone: tel: fax: Yani Sloan DO [address] [place] [address] Phone: tel: fax: Referral ID Status Reason Start Date Expiration Date Visits Requested Visits Authorized [id number] New Request OON/Self Pay Override 05/17/2025 11/23/2025 5 5 Care Teams (unrecognized sec tion and content) Computer Programming Professor Relationship Specialty Start Date End Date Usha Eid PSYCHOLOGIST.GROUNDSKEEPING MAINTENANCE WORKER [address] [place] [address] PCP - General Family Practice 10/04/20 Computer Programming Professor Relationship Specialty Start Date End Date Usha Eid APRN.GROUNDSKEEPING MAINTENANCE WORKER [address] [place] [address] PCP - General Family Practice 10/04/20 Computer Programming Professor Relationship Specialty Start Date End Date Usha Eid PSYCHOLOGIST.GROUNDSKEEPING MAINTENANCE WORKER [address], [place] [id number] PCP - General Family Practice 10/04/20 Computer Programming Professor Relationship Specialty Start Date End Date Usha iEd PSYCHOLOGIST.GROUNDSKEEPING MAINTENANCE WORKER [address] [place] [address] PCP - General Family Practice 10/04/20 Computer Programming Professor Relationship Specialty Start Date End Date Usha Eid, PSYCHOLOGIST.GROUNDSKEEPING MAINTENANCE WORKER [address] [place] [address] PCP - General Family Practice 10/04/20 Computer Programming Professor Relationship Specialty Start Date End Date Usha Eid, PSYCHOLOGIST.GROUNDSKEEPING MAINTENANCE WORKER [address] [place] [address] PCP - General Family Practice 10/04/20 Computer Programming Professor Relationship Specialty Start Date End Date Usha Eid, PSYCHOLOGIST.GROUNDSKEEPING MAINTENANCE WORKER [address] [place] [address] PCP - General Family Practice 10/04/20 Computer Programming Professor Relationship Specialty Start Date End Date Usha Eid, PSYCHOLOGIST.GROUNDSKEEPING MAINTENANCE WORKER [address] [place] [address] PCP - General Family Medicine 10/04/20 Computer Programming Professor Relationship Specialty Start Date End Date Usha Eid, PSYCHOLOGIST.GROUNDSKEEPING MAINTENANCE WORKER [address] [place] [address] PCP - General Family Medicine 10/04/20 Computer Programming Professor Relationship Specialty Start Date End Date Usha Eid, PSYCHOLOGIST.GROUNDSKEEPING MAINTENANCE WORKER [address] [place] [address] PCP - General Family Medicine 10/04/20 Computer Programming Professor Relationship Specialty Start Date End Date Usha Eid, PSYCHOLOGIST.GROUNDSKEEPING MAINTENANCE WORKER [address] [place] [address] PCP - General Family Medicine 10/04/20 Computer Programming Professor Relationship Specialty Start Date End Date Usha Eid, PSYCHOLOGIST.GROUNDSKEEPING MAINTENANCE WORKER [address] [place] [address] PCP - General Family Medicine 10/04/20 Computer Programming Professor Relationship Specialty Start Date End Date Usha Eid, PSYCHOLOGIST.GROUNDSKEEPING MAINTENANCE WORKER [address], [place] [id number] PCP - General Family Medicine 10/04/20 Computer Programming Professor Relationship Specialty Start Date End Date Usha Eid, PSYCHOLOGIST.GROUNDSKEEPING MAINTENANCE WORKER [address], [place] [id number] PCP - General Family Medicine 10/04/20 Computer Programming Professor Relationship Specialty Start Date End Date Usha Eid, PSYCHOLOGIST.GROUNDSKEEPING MAINTENANCE WORKER [address], [place] [id number] PCP - General Family Medicine 10/04/20 Computer Programming Professor Relationship Specialty Start Date End Date Usha Eid, PSYCHOLOGIST.GROUNDSKEEPING MAINTENANCE WORKER [address], [place] [id number] PCP - General Family Medicine 10/04/20 Computer Programming Professor Relationship Specialty Start Date End Date Usha Eid, PSYCHOLOGIST.GROUNDSKEEPING MAINTENANCE WORKER [address], [place] [id number] PCP - General Family Medicine 10/04/20 Computer Programming Professor Relationship Specialty Start Date End Date Usha Eid, PSYCHOLOGIST.GROUNDSKEEPING MAINTENANCE WORKER [address] [place] [address] PCP - General Family Medicine 10/04/20 Team Status: Active Member Role Status Dates Emery LAROSE Family Provider Active Usha Eid LUG BREAKER AND WIRE PULLER, LUG BREAKER AND WIRE PULLER-C Primary Care Provider Active Team Status: Inactive Member Role Status Dates Usha Eid LUG BREAKER AND WIRE PULLER, LUG BREAKER AND WIRE PULLER-C Primary Care Pro vider, Attending Provider, Referring Provider Active Computer Programming Professor Relationship Specialty Start Date End Date Usha Eid, PSYCHOLOGIST.GROUNDSKEEPING MAINTENANCE WORKER [address], [place] [id number] PCP - General Family Medicine 10/04/20 Computer Programming Professor Relationship Specialty Start Date End Date Usha Eid PSYCHOLOGIST.GROUNDSKEEPING MAINTENANCE WORKER [address] [place] [address] PCP - General Family Medicine 10/04/20 Computer Programming Professor Relationship Specialty Start Date End Date Usha Eid PSYCHOLOGIST.GROUNDSKEEPING MAINTENANCE WORKER [address] [place] [address] PCP - General Family Medicine 10/04/20 Computer Programming Professor Relationship Specialty Start Date End Date Usha Eid PSYCHOLOGIST.GROUNDSKEEPING MAINTENANCE WORKER [address] [place] [address] PCP - General Family Medicine 10/04/20 Computer Programming Professor Relationship Specialty Start Date End Date Usha Eid PSYCHOLOGIST.GROUNDSKEEPING MAINTENANCE WORKER [address] [place] [address] PCP - General Family Medicine 10/04/20 Computer Programming Professor Relationship Specialty Start Date End Date Usha Eid PSYCHOLOGIST.GROUNDSKEEPING MAINTENANCE WORKER [address] [place] [address] PCP - General Family Medicine 10/04/20 Team Status: Inactive Member Role Status Dates Usha Eid LUG BREAKER AND WIRE PULLER, LUG BREAKER AND WIRE PULLER-C Primary Care Provider, Attendi ng Provider Active Computer Programming Professor Relationship Specialty Start Date End Date Usha Eid, PSYCHOLOGIST-GROUNDSKEEPING MAINTENANCE WORKER [address] [place] [address] PCP - General 06/05/23 Computer Programming Professor Relationship Specialty Start Date End Date Usha Eid, PSYCHOLOGIST-GROUNDSKEEPING MAINTENANCE WORKER [address] [place] [address] PCP - General 06/05/23 Computer Programming Professor Relationship Specialty Start Date End Date Usha Eid, PSYCHOLOGIST.GROUNDSKEEPING MAINTENANCE WORKER [address] [facility] [place] [phone] PCP - General Family Medicine 10/04/20 Computer Programming Professor Relationship Specialty Start Date End Date Usha Eid, PSYCHOLOGIST.GROUNDSKEEPING MAINTENANCE WORKER [address] [place] [address] PCP - General Family Medicine 10/04/20 Computer Programming Professor Relationship Specialty Start Date End Date Usha Eid, PSYCHOLOGIST.GROUNDSKEEPING MAINTENANCE WORKER [address] [facility], [place] [phone] PCP - General Family Medicine 10/04/20 Computer Programming Professor Relationship Specialty Start Date End Date Usha Eid, PSYCHOLOGIST.GROUNDSKEEPING MAINTENANCE WORKER [address] [facility] [place] [phone] PCP - General Family Medicine 10/04/20 Team Status: Inactive Member Role Status Dates Usha Eid LUG BREAKER AND WIRE PULLER, LUG BREAKER AND WIRE PULLER-C Primary Care Provider Active JOSE A BUSTAMANTE Attending Provider, Referring Provider Active Computer Programming Professor Relationship Specialty Start Date End Date Usha Eid, PSYCHOLOGIST.GROUNDSKEEPING MAINTENANCE WORKER [address] [place] [address] PCP - General Family Medicine 10/04/20 Computer Programming Professor Relationship Specialty Start Date End Date Usha Eid, PSYCHOLOGIST.GROUNDSKEEPING MAINTENANCE WORKER [address] [place], [place] [phone] PCP - General Family Medicine 10/04/20 Computer Programming Professor Relationship Specialty Start Date End Date Usha Eid, PSYCHOLOGIST.GROUNDSKEEPING MAINTENANCE WORKER [address] [place], [place] [phone] PCP - General Family Medicine 10/04/20 Computer Programming Professor Relationship Specialty Start Date End Date Usha Eid, PSYCHOLOGIST.GROUNDSKEEPING MAINTENANCE WORKER [address] [facility] [place] [phone] PCP - General Family Medicine 10/04/20 Computer Programming Professor Relationship Specialty Start Date End Date Usha Eid, PSYCHOLOGIST.GROUNDSKEEPING MAINTENANCE WORKER [address] [facility], [place] [phone] PCP - General Family Medicine 10/04/20 Computer Programming Professor Relationship Specialty Start Date End Date Usha Eid, PSYCHOLOGIST.GROUNDSKEEPING MAINTENANCE WORKER [address] [facility], [place] [phone] PCP - General Family Medicine 10/04/20 Computer Programming Professor Relationship Specialty Start Date End Date Usha Eid, PSYCHOLOGIST.GROUNDSKEEPING MAINTENANCE WORKER [address] [facility], [place] [phone] PCP - General Family Medicine 10/04/20 Team Status: Active Member Role/Relationship Status Dates Usha Eid LUG BREAKER AND WIRE PULLER, LUG BREAKER AND WIRE PULLER-C Primary Care Provider Active Team Status: Inactive Member Role/Relationship Status Dates Usha Eid LUG BREAKER AND WIRE PULLER, LUG BREAKER AND WIRE PULLER-C Primary Care Provider Active Start: June 01, 2025 End: June 01, 2025 Usha Eid LUG BREAKER AND WIRE PULLER, LUG BREAKER AND WIRE PULLER-C Referring Provider Active Start: June 01, 2025 End: June 01, 2025 Dr. Fabio Wilburn MD Attending Provider Active S tart: June 01, 2025 End: June 01, 2025 Team Status: Inactive Member Role/Relationship Status Dates Usha Eid LUG BREAKER AND WIRE PULLER, LUG BREAKER AND WIRE PULLER-C Primary Care Provider Active Start: June 01, 2025 End: June 01, 2025 Dr. Yani Sloan DO Attending Provider Active Start: June 01, 2025 End: June 01, 2025 Dr. Yani Sloan , DO Referring Provider Active Start: June 01, 2025 End: June 01, 2025 Goals (unrecognized section and content) Goals may be documented in a n alternate sectionGoals may be documented in an alternate sectionGoals may be documented in an alternate sectionGoals may be documented in an alternate sectionGoals may be documented in an alternate section INFORMATION SOURCE (unrecogn ized section and content) DATE CREATED AUTHOR 06/07/2023 [facility] DATE CREATED AUTHOR AUTHOR'S ORGANIZ ATION 06/28/2024 [facility] DATE CREATED AUTHOR AUTHOR'S ORGANIZ ATION 05/20/2025 [facility] DATE CREATED AUTHOR AUTHOR'S ORGANIZ ATION 05/21/2025 [facility] DATE CREATED AUTHOR AUTHOR'S ORGANIZ ATION 06/10/2025 [facility] FOR RECORDS PERTAINING TO PATIENTS WHO ARE [...] BE BASED ON THE PRIMARY CLINICAL RECORDS. [employer] provides no warranty or guarantee of the accuracy or completeness of information in this document.
--- NOTE | 2025-07-04 09:46 | CL.D_ITS ---
Patient Name: CAROLIN BRITO Study Date: 06/13/2025 Performing: Fabio Wilburn MD Ht: 61 inches 154.94 cm : 1965 Wt: 181.99 lbs 82.55 kg Age: 60 Gender: female BSA: 1.81 PROCEDURE(S) PERFORMED DC01-(54005)LHC/COR/LV CLINICAL PROFILE AND INDICATIONS Indications: Valvular Disease Heart Failure: None Stress/Imaging Stress/Image Study Performed: No CAD Presentations: No Sxs, no angina. CONCLUSIONS Normal coronary arteries Aortic Valve Stenosis- Severe RECOMMENDATIONS Consider AVR DESCRIPTION OF PROCEDURE The patient arrived to the procedure lab. The risks and benefits of the procedure as well as a full description of our services here and current unavailability of surgical backup were fully explained to the patient and/or their significant other prior to the catheterization. The Timeout was completed, verifying the correct patient and procedure. The patient's procedural site was prepped and draped in the usual fashion. Local anesthetic was given subcutaneously to right radial region with Lidocaine 2%. Using a modified Seldinger technique, arterial access was obtained via the right radial artery, a 6Fr sheath was inserted. Left Coronary Artery selective angiography was performed in multiple views using a 5 Fr. 4.0 [place] catheter. Right Coronary Artery selective angiography was then performed in multiple views using a 5 Fr. 4.0 [place] catheter. Left Ventriculography was performed in [place] projection using a 5 Fr. Pig[place] catheter. LV to AO pullback pressures were then recorded.The arterial sheath was pulled and a TR Band was applied for hemostasis CORONARY ANGIOGRAPHY DOMINANCE: Right Dominant LEFT HEART ASSESSMENT Left Ventricular Ejection Fraction: by LV Gram 65 % Normal LV wall motion Normal Left Ventricular systolic function Normal Left Ventricular systolic function LEFT MAIN: Angiographically normal LEFT ANTERIOR DESCENDING ARTERY: Angiographically normal CIRCUMFLEX ARTERY: Angiographically normal RIGHT CORONARY ARTERY: Angiographically normal VALVE FINDINGS: Aortic Valve Stenosis - severe Bicuspid Aortic Valve COMPLICATIONS No Complications PROCEDURE MEDICATIONS Versed 1 mg IV Fentanyl 50 mcg IV Aspirin (325mg) 1 Tabs PO @ 06/13/2025 07:41:26 Heparin given IA 06/13/2025 08:35:48 Verapamil 2.5mg and 3000 units of Heparin given IA 06/13/2025 08:35:48 SUMMARY OF HEMODYNAMIC DATA Time AIR REST ECG 07:39:57 ECG 08:15:08 Art 128/71 (93) 08:39:34 LV 198/16, 21 08:55:19 LV 199/15, 20 08:55:26 LV 198/16, 20 08:55:47 LV 192/16, 21 08:56:20 LV 194/16, 21 08:56:26 LVp 199/13, 21 08:56:32 AOp 148/84 (110) 08:56:37 AO 148/84 (110) SA 08:56:39 09:09:14 Signed By Fabio Wilburn MD On 06/13/2025 09:12:09 Signed By Fabio Wilburn MD On 06/13/2025 09:10:42 Fabio Wilburn MD
== END 2025-06-13 11:00 | disposition home or self-care (01) ==
PROVIDERS: PCP Nurse Practitioner Family; Referring Provider Internal Medicine Cardiovascular Disease; Visit Provider Internal Medicine Cardiovascular Disease
DX: I35.0 Nonrheumatic aortic (valve) stenosis (principal); I10 Essential (primary) hypertension; E78.00 Pure hypercholesterolemia, unspecified
CPT/HCPCS: 93458; 99152; 99153; Q9967; C1769; C1894

== ENCOUNTER → 2025-06-22 | Outpatient (CLI) | payer OTHER, SELFPAY ==
--- OUTSIDE RECORDS SUMMARY | 2025-06-22 07:03 | XMS RPT_ITS | CCD ---
Author Organization [facility] Care Team Providers Care Analyst Business Analysis Name Role Phone Stanton EMERGENCY MEDICAL SERVICE MANAGER.Usha ARAGON Primary Care Provider Stanton, Usha Chelita Attending Unavaila ble Queden, Alexandro Caballero Primary Care Unavaila ble Queden EMERGENCY MEDICAL SERVICE MANAGER.Usha ARAGON Primary Care Provider Stanton EMERGENCY MEDICAL SERVICE MANAGER-Usha ARAGON Primary Care Provid er Stanton EMERGENCY MEDICAL SERVICE MANAGER.Usha ARAGON Primary Care Provider MATTHEW EIDTNY CHELITA Referring Unavailable QUEDEN, USHA CHELITA Primary Care Unavailable QUEDEN, USHA CHELITA Referring Unavailable QUEDEN, USHA CHELITA Primary Care Unavailable QUEDEN, USHA A Primary Care Unavailable SHEETSKERRYYANI C Referring Unavailable Queden AUDIO VISUAL EQUIPMENT RENTAL CLERK-C, Usha Primary Care Provider [phone] Queden AUDIO VISUAL EQUIPMENT RENTAL CLERK-C, Usha Referring Provider Cosmo JENKINS, Dr. Mccarthy Attending Provider Dr. Yani Sloan DO Attending Provider [phone] Dr. Yani Sloan DO Referring Provider Cosmo JENKINS, Dr. Mccarthy Referring Provider [phone] Sofia Romero Attending Provider Unavailable Queden AUDIO VISUAL EQUIPMENT RENTAL CLERK, Usha Referring Unavailable Queden AUDIO VISUAL EQUIPMENT RENTAL CLERK, Usha Primary Care Unavailable CosmoFabio Attending Unavailable Queden AUDIO VISUAL EQUIPMENT RENTAL CLERK, Usha Primary Care Unavailable Fabio Wilburn Referring Unavailable Fabio Wilburn Attending Unavailable Yani Sloan Referring Unavailable Yani Sloan Attending Unavailable Queden AUDIO VISUAL EQUIPMENT RENTAL CLERK, Usha Primary Care Unavailable Yani Sloan Referring Unavailable Sheets, Yani Attending Unavailable Stanton AUDIO VISUAL EQUIPMENT RENTAL CLERK, Usha Primary Care Unavailable Queden AUDIO VISUAL EQUIPMENT RENTAL CLERK, Usha Primary Care Unavailable Cosmo, [place] Attending Unavailable Cosmo, Fabio Referring Unavailable Queden AUDIO VISUAL EQUIPMENT RENTAL CLERK, Usha Primary Care Unavailable Cosmo, [place] Attending Unavailable Cosmo, [place] Referring Unavailable Sofia Romero Attending Unavailable Abhijitden AUDIO VISUAL EQUIPMENT RENTAL CLERK, Usha Primary Care Unavailable YANI SLOAN Attending Unavailable USHA EID A Referring Unavailable USHA EID A Primary Care Unavailable Allergies Allergy Classification Reported Allergen(s) Allergy Type Date of Onset Reaction(s) Facility Penicillins (antibiotic) (1 source) Amoxicillin Drug Allergy 7 Itching [facility] (20 sources) Amoxicillin; Translations: [AMOXICILLIN] Drug Allergy 7 Itching [facility] Work Phone: (1 source) ALLERGIES NOT ON FILE; Translations: [ALLERGIES NOT ON FILE] Propensity to adverse reactions (disorder) [facility] Repository (1 source) Amoxicillin Drug Allergy [facility] Repository Medications Current Medications Medication Drug Class(es) [...] mg (dosed o n ampicillin) by mouth. losartan potassium 25 mg oral tablet (20 sources) Angiotensin 2 Receptor Alexandr Start: 03-17-20 18 End: 05-23-20 25 take 1 tablet by mouth once daily losartan (COZAAR) 25 mg tablet Indications: Essential hypertension Take 1 tablet by mouth once daily. 30 tablet 11 05/31/2024 Active Comment on above: Take 1 tablet by lesly th once daily. [place] 0-Kqk-Dtp-Fish Oil (Fish Oil) 60-90-500 mg capsule (3 sources) Start: 06-01-20 [place] 6-Scr-Msz-Fish Oil (Fish Oil) 60-90-500 mg capsule Active 1 NMA PO daily June 01, 2025 12:00am OTC PRODUCT (3 sources) OTC PRODUCT Live r Cleanse Active perflutren lipid microspheres 1.3 mL in NaCl (PF) 0.9% 10 mL injection (DEFINITY) (17 sources) Start: 12-10-19 End: 03-10-20 24 perflutren lipid microspheres 1.3 mL in NaCl [...] once d aily. Vitamin B Complex tablet (3 sources) Start: 06-01-2025 Vitamin B Complex tablet [...] Comment on above: Take by mouth. Aspirin (12 sources) Platelet Aggregation Inhibitor, Nonsteroidal Anti-inflammatory Drug [...] System Stimulant, Methylxanthine Start: 03-17-2018 End: 12-10-2022 maznqxj-jnryyakk-trqmsolkya (FIORINAL) capsule Take by mouth. 0 03/17/2018 12/10/2022 Discontinued Start: 03-17-2018 End: 05-11-2020 take 1 capsule by mouth twice daily as needed for headache Iqvmoanhlh-Lpgfjpl-Jzosytml 1 EACH capsu le Discontinued 1 NMA PO TWICE A DAY as needed for Headache March 17, 2018 12:00am May 11, 2020 1:46pm TAKE 1 CAPSULE BY MOUTH TWICE DAILY NEEDED FOR HEADACHE FOR UP TO 30 DAYS Start: 03-17-2018 End: 05-11-2020 take 1 capsule by mouth twice daily as needed for headache Ppsjlkadmb-Rgzyjxd-Mitiayru Discontinued 1 CAP PO TWICE A DAY March 16, 2018 11:00pm May 11, 2020 12:46pm TAKE 1 CAPSULE BY MOUTH TWICE DAILY NEEDED FOR HEADACHE FOR UP TO 30 DAYS Comment on above: Take by mouth. atorvastatin 40 mg oral tablet (20 sources) HMG-CoA Reductase Inhibitor Start: 8 End: 3 take 1 tablet by [...] sources) Quinolone Antimicrobial Start: 11-15-20 End: 11-22-20 22 take 1 tablet by mouth twice daily ciprofloxacin HCl (CIPRO) 500 mg tablet Take 1 tablet by mouth twice daily for 7 days. 14 tablet 0 11/15/2022 11/22/2022 Comment on above: Take 1 tablet by lesly twice daily for 7 days. COMPOUNDED PRESCRIPTION [...] oral capsule (20 sources) Anticholinergic Start: 10-03-20 End: 12-29-19 take 1 capsule by mouth every six hours as needed dicyclomine (BENTYL) 10 mg capsule Take 1 capsule by mouth four times daily as needed (abdominal cramping). for fourteen(14) days 30 capsule 0 10/03/2020 12/29/2023 Discontinued Comment on above: Take 1 capsule by [facility] four times daily as needed (abdominal cramping). for fourteen(14) days FISH OIL-DHA-EPA ORAL (20 sources) End: 04-29-20 FISH OIL-DHA-EPA ORAL Take by mouth. 0 04/29/2024 Discontinued FISH OIL-DHA-EPA ORAL Take by mouth. 0 Active Comment on above: Take by mouth. emollient fluocinonide 0.5 mg/ml topical cream (6 sources) Corticosteroid Start: 06-03-2023 End: 12-29-2023 fluocinonide-emollient (LIDEX-E) 0.05 % cream Apply to affected area once daily. 0 06/03/2023 12/29/2023 Discontinued Comment on above: Apply to affected ar ea once daily. folic acid 0.8 mg oral tablet (18 sources) Start: 11-24-2021 End: 04-29-2024 folic acid 800 mcg tablet hydrocortisone 25 mg/ml topical cream (18 sources) Corticosteroid Start: 03-27-2018 hydrocortisone topical cream 2.5% Milk thistle extract (4 sources) Start: 12-06-2023 End: 04-29-2024 Milk Thistle 500 mg cap Start: 12-06-2023 [...] on above: Take 1 capsule by mo cox monett daily at bedtime. Turmeric extract (20 sources) [...] Date Documented Da te Episodic/Chronic Abdominal pain (10 sources) Right upper quadrant pain; Translations: [Right [...] unspecified] Onset: 5 04-14-2020 Chronic Esophageal disorders (6 sources) Gastroesophageal reflux disease; Translations: [Gastro-esophageal reflux [...] aortic (valve) stenosis] Onset: 7 05-13-2017 Chronic Nausea and vomiting (6 sources) Nausea; Translations: [Nausea] 05-22-2020 Episodic Nonspecific chest pain (20 sources) Chest pain; Translations: [Chest pain, unspecified] Onset: 3 Resolved: 3 Episodic Nutritional deficiencies (20 sources) Vitamin D deficiency; Translations: [Vitamin D deficiency, unspecified] Onset: 1 10-12-2021 Chronic Other aftercare (20 sources) Patient encounter status; Translations: [Other longterm (current) drug therapy] Onset: 5 04-14-2020 Episodic Other connective tissue disease (3 sources) Disease suspected; Translations: [Other symptoms and signs involving the nervous system] 05-22-2020 Episodic Other connective tissue disease (3 sources) Suspected respiratory disease; Translations: [Other symptoms and signs involving the nervous system] 05-11-2020 Episodic Other disorders of stomach and duodenum (6 sources) Indigestion; Translations: [Functional dyspepsia] 05-22-2020 Episodic Other gastrointestinal disorders (6 sources) Diarrhea; Translations: [Diarrhea, unspecified] 05-22-2020 Episodic Other gastrointestinal disorders (6 sources) Abdominal bloating; Translations: [Abdominal distension (gaseous)] 05-22-2020 Episodic Other liver diseases (7 sources) Steatosis of liver; Translations: [Fatty (change of) liver, not elsewhere classified] Onset: 5 05-17-2025 Chronic Other liver diseases (1 source) Fatty (change of) liver, not elsewhere classified; Translations: [Fatty liver] Onset: 5 Chronic Other lower respiratory disease (3 sources) Dyspnea; Translations: [Dyspnea, unspecified] 05-23-2025 Episodic [...] Chronic Other nutritional; endocrine; and metabolic disorders (7 sources) Obesity; Translations: [Class 1 obesity with [...] type, unspecified whether serious comorbidity present] Onset: Past or Other Problems Problem Classification Problem [...] of cervix (ASC-US)] Onset: 06-27-2015 04-14-2020 Episodic Heart valve disorders (20 sources) Heart murmur; Translations: [Cardiac murmur, unspecified] Onset: 06-27-2015 Resolved: 07-11-2023 04-14-2020 Episodic Mycoses (16 sources) Pityriasis versicolor; Translations: [Pityriasis versicolor] Onset: 05-13-2017 Resolved: 03-12-2019 03-12-2019 Episodic Nonmalignant breast conditions (16 sources) Breast lump; Translations: [Unspecified lump in the right breast, overlapping quadrants] Onset: 05-13-2017 Resolved: 03-12-2019 03-12-2019 Episodic Other aftercare (5 sources) Long-term current use of drug therapy; Translations: [Other longterm (current) drug therapy] Onset: 06-27-2015 04-14-2020 Episodic Other circulatory disease (20 sources) History of clinical finding in subject; Translations: [Personal history of other diseases of the circulatory system] Onset: 01-13-2017 01-13-2017 Episodic Other eye disorders (8 sources) Other specified disorders of eye and adnexa; Translations: [Other ill-defined disorders of eye] Onset: 05-13-2017 Resolved: 04-27-2018 04-27-2018 Episodic Other lower respiratory disease (8 sources) Dry cough; Translations: [Persistent dry cough] Onset: 05-13-2017 Resolved: 03-12-2019 03-12-2019 Episodic Other nervous system disorders (20 [...] 10-12-2021 10-12-2021 Episodic Other upper respiratory infections (8 sources) Viral upper respiratory tract infection; Translations: [Acute upper respiratory infection, unspecified] Onset: 03-27-2018 Resolved: 03-12-2019 03-12-2019 Episodic Urinary tract infections (8 sources) Recurrent urinary tract infection; Translations: [Urinary tract infection, site not specified] Onset: 05-13-2017 Resolved: 03-12-2019 03-12-2019 Episodic Viral infection (20 sources) Disease caused by 2019-nCoV; Translations: [COVID-19] Onset: 10-02-2020 10-02-2020 Episodic Results Test Name Value Interpretation Reference Range Facility [facility] ---- CAROLIN BRITO ([id number]) 1965 F Date Time Provider Department 06/14/25 STANTONUSHA During your visit today, we recorded the following information about you: Joel Servin MA 06/14/2025 11:41 AM Signed Patient called she got an EKG done in at our office but it got denied by insurance because she states that they told her we sent it to another Doctor to be read. MALACHI Smith Kimberly C, DO 06/14/2025 11:48 AM Signed This is an error. I read the EKG, it was not sent to an outside physician to read. Thanks Yani Sloan DO Allergies As of Date: 06/14/2025 Noted Allergy Reaction AMOXICILLIN 01/13/2017 9 - Itching Date Reviewed: 05/17/2025 Reviewed by: Yani Sloan DO - Fully Assessed Reason for Visit: Billing question [Other] Prescriptions as of 06/14/2025 - OTC PRODUCT Liver Cleanse - losartan (COZAAR) 25 mg tablet Take 1 tablet by mouth once daily. - VITAMIN B COMPLEX ORAL Take by mouth once daily. Problem List As Of Date 06/14/2025 Noted Resolved Hypertension [I10] 01/13/2017 07/11/2023 History [...] [I10] 05/13/2017 03/27/2018 Essential hypertension [I10] 11/07/2017 Class 1 obesity with body mass index (BMI) of 3*03/27/2018 Dermatitis [L30.9] 03/27/2018 Viral URI with cough [...] pain [R07.9] 12/12/2022 07/11/2023 Bicuspid aortic valve (HCC) [Q23.81] 07/11/2023 Fatty liver [K76.0] 05/17/2025 Encounter Status:Closed by YANI SLOAN on 06/14/25 [facility] Cardiology Visit Reporton Cardiology Visit Report [facility] [address] [place] [address] OFFICE VISIT Date of Service: 06/01/25 MR#: [id number] Acct: [id number] Name: CAROLIN BRITO Rep #: [id number] : 1965 Provider: Dr. Fabio Wilburn MD Age/Sex: 60/F [place] [facility] [place] Status: Signed HPI HPI History of Present Illness Details: Pleasant 60-year-old lady with a history of a heart murmur and possible bicuspid aortic valve who says that she was told that she has a heart murmur and needs to see a french teacher. Her last visit to the french teacher was over 2 years ago at that [...] Monitor Intake Visit Reasons: AORTIC STENOSIS (SHEETS) Lasting Room Supervisor Required: No Accompanied by: Self Is patient in pain?: No Allergies amoxicillin Allergy (Verified 06/01/25 10:10) Itching Medications ???Medication ???Instructions ???Recorded ???Confirmed ???Type rizatriptan 5 mg disintegrating 5 mg translingual PRN PRN migraine s 05/11/20 06/01/25 History tablet apple cider vinegar 500 mg tablet mg PO BID 06/01/25 06/01/25 Histo ry omega 3-yng-ztw-fish oil 60 mg-90 1 cap PO QDAY [...] Neck: no (more content not included)... Normal [facility] Chest PA and Lateralon 06-01 Chest PA and Lateral [facility] [address] [place], [place] [address] Chest PA and Lateral MR#: [id number] Acct: [id number] Name: CAROLIN BRITO Rep #: [id number] : 1965 F 60 From: Sebastien Herrera MD PCP: NANCY Gomez Status: REG CLI Study: Chest PA and Lateral Date of Exam: 06/01/25 Exam# [id number] Ordering Dr: Yani Sloan DO EXAM: XR Chest, 2 Views CLINICAL INDICATION: OTHER CP TECHNIQUE: Frontal and lateral views of the chest. COMPARISON: No relevant prior studies available. FINDINGS: LUNGS AND PLEURAL SPACES: Unremarkable. No consolidation. No pneumothorax. HEART: Unremarkable. No cardiomegaly. MEDIASTINUM: Unremarkable. Normal mediastinal contour. BONES/JOINTS: Unremarkable. No acute fracture. RAD/Chest PA and Lateral IMPRESSION: No acute cardiopulmonary process. Reading Location: [facility] CC: AUDIO VISUAL EQUIPMENT RENTAL CLERK-C Usha Eid; Dr. Yani Sloan DO Probation Manager: Signed Normal [facility] CBC panel Auto (Bld)on 05-19 Erythrocyte distribution width (RBC) [Ratio] 13.1 % Normal 11.5-15.0 [facility] Comment on above: Order Comment: Speci men Type: BLOOD SPECIMEN Ordering Facility: [facility] Address: [address] [place] [address] Performed By: #### 5 8410-2 #### [facility] CLIA [id number] [address] [place] [address] [place] Hematocrit (Bld) [Volume fraction] 42.4 % Normal 36.0-46.0 [facility] Comment on above: Order Comment: Speci men Type: BLOOD SPECIMEN Ordering Facility: [facility] Address: [address] [place] [address] Performed By: #### 5 8410-2 #### [facility] [id number] [address] [place] [address] [place] Hemoglobin (Bld) [Mass/Vol] 14.3 g/dL Normal 11.5-15.5 [facility] Comment on above: Order Comment: Speci men Type: BLOOD SPECIMEN Ordering Facility: [facility] Address: [address] [place] [address] Performed By: #### 5 8410-2 #### [facility] [id number] [address] [place] [address] [place] MCH (RBC) [Entitic mass] 29.5 pg Normal 26.0-34.0 [facility] Comment on above: Order Comment: Speci men Type: BLOOD SPECIMEN Ordering Facility: [facility] Address: [address] [place] [address] Performed By: #### 5 8410-2 #### [facility] [id number] [address] [place] [address] [place] MCHC (RBC) [Mass/Vol] 33.7 g/dL Normal 30.5-36.0 [facility] Comment on above: Order Comment: Speci men Type: BLOOD SPECIMEN Ordering Facility: [facility] Address: [address] [place] [address] Performed By: #### 5 8410-2 #### [facility] [id number] [address] [place] [address] [place] MCV (RBC) [Entitic vol] 87.4 fL Normal 80.0-100.0 [facility] Comment on above: Order Comment: Speci men Type: BLOOD SPECIMEN Ordering Facility: [facility] Address: [address] [place] [address] Performed By: #### 5 8410-2 #### [facility] CLIA [id number] [address] [place] [address] [place] Nucleated RBC (Bld) [#/Vol] 10*3/uL Normal <0.01 [facility] Comment on above: Order Comment: Speci men Type: BLOOD SPECIMEN Ordering Facility: [facility] Address: [address] [place] [address] Performed By: #### 5 8410-2 #### [facility] CLIA [id number] [address] [place] [address] [place] Platelet mean volume (Bld) [Entitic vol] 10.9 fL Normal 9.0-12.7 [facility] Comment on above: Order Comment: Speci men Type: BLOOD SPECIMEN Ordering Facility: [facility] Address: [address] [place] [address] Performed By: #### 5 8410-2 #### [facility] CLIA [id number] [address] [place] [address] [place] Platelets (Bld) [#/Vol] 200 10*3/uL Normal 150-400 [facility] Comment on above: Order Comment: Speci men Type: BLOOD SPECIMEN Ordering Facility: [facility] Address: [address] [place] [address] Performed By: #### 5 8410-2 #### [facility] CLIA [id number] [address] [place] [address] [place] RBC (Bld) [#/Vol] 4.85 10*6/uL Normal 3.90-5.20 [facility] Comment on above: Order Comment: Speci men Type: BLOOD SPECIMEN Ordering Facility: [facility] Address: [address] [place], [place] [address] Performed By: #### 5 8410-2 #### [facility] CLIA [id number] [address] [place] [address] [place] WBC (Bld) [#/Vol] 7.60 10*3/uL Normal 3.70-11.00 [facility] Comment on above: Order Comment: Speci men Type: BLOOD SPECIMEN Ordering Facility: [facility] Address: [address] [place] [address] Performed By: #### 5 8410-2 #### [facility] CLIA [id number] [address] [place] [address] [place] Comprehensive metabolic 2000 panelon 05-19-2025 Albumin [Mass/Vol] 4.2 g/dL Normal 3.9-4.9 [facility] Comment on above: Order Comment: Speci men Type: BLOOD SPECIMEN Ordering Facility: [facility] Address: [address] [place] [address] Performed By: #### 1 9123-9, 22772-2 #### [facility] [id number] [address] [place] [address] [place] ALP [Catalytic activity/Vol] 69 U/L Normal 34-123 [facility] Comment on above: Order Comment: Speci men Type: BLOOD SPECIMEN Ordering Facility: [facility] Address: [address] [place] [address] Performed By: #### 1 9123-9, 11427-4 #### [facility] CLIA [id number] [address] [place] [address] [place] ALT [Catalytic activity/Vol] 20 U/L Normal 7-38 [facility] Comment on above: Order Comment: Speci men Type: BLOOD SPECIMEN Ordering Facility: [facility] Address: [address] [place] [address] Performed By: #### 1 9123-9, 84012-6 #### [facility] CLIA [id number] [address] [place] [address] [place] Anion gap [Moles/Vol] 10 mmol/L Normal 8-15 [facility] Comment on above: Order Comment: Speci men Type: BLOOD SPECIMEN Ordering Facility: [facility] Address: [address] [place] [address] Performed By: #### 1 9123-9, #### [facility] CLIA [id number] [address] [place] [address] [place] AST [Catalytic activity/Vol] 20 U/L Normal 13-35 [facility] Comment on above: Order Comment: Speci men Type: BLOOD SPECIMEN Ordering Facility: [facility] Address: [address] [place] [address] Performed By: #### 1 9123-9, #### [facility] CL[facility] [id number] [address] [place] [address] [place] Bilirubin [Mass/Vol] 0.3 mg/dL Normal 0.2-1.3 [facility] Comment on above: Order Comment: Speci men Type: BLOOD SPECIMEN Ordering Facility: [facility] Address: [address] [place] [address] Performed By: #### 1 9123-9, 05184-1 #### [facility] CLIA [id number] [address] [place] [address] [place] Calcium [Mass/Vol] 10.3 mg/dL High 8.5-10.2 [facility] Comment on above: Order Comment: Speci men Type: BLOOD SPECIMEN Ordering Facility: [facility] Address: [address] [place] [address] Performed By: #### 1 9123-9, 09189-8 #### [facility] [place] CLIA [id number] [address] [place] [address] [place] Chloride [Moles/Vol] 105 mmol/L Normal 98-107 [facility] Comment on above: Order Comment: Jonny meade Type: BLOOD SPECIMEN Ordering Facility: [facility] Address: [address] [place] [address] Performed By: #### 1 9123-9, 16755-4 #### [facility] CLIA [id number] [address] [place] [address] [place] CO2 [Moles/Vol] 24 mmol/L Normal 22-30 [facility] Comment on above: Order Comment: Jonny meade Type: BLOOD SPECIMEN Ordering Facility: [facility] Address: [address] [place] [address] Performed By: #### 1 9123-9, 67682-7 #### [facility] CLIA [id number] [address] [place] [address] [place] Creatinine [Mass/Vol] 0.89 mg/dL Normal 0.58-0.96 [facility] Comment on above: Order Comment: Jonny meade Type: BLOOD SPECIMEN Ordering Facility: [facility] Address: [address] [place] [address] Performed By: #### 1 9123-9, 37806-7 #### [facility] CLIA [id number] [address] [place] [address] OF [facility] Creatinine and Glomerular filtration rate.predicted panel (S/P/Bld) 75 mL/min/1.73m??? Normal >=60 [facility] Comment on above: Order Comment: Jonny meade Type: BLOOD SPECIMEN Ordering Facility: [facility] Address: [address] [place] [address] Result Comment: Yara mated Glomerular Filtration Rate [...] actual GFR. Performed By: #### 1 9123-9, 25472-9 #### [facility] CLIA [id number] [address] [place] [address] [place] Glucose [Mass/Vol] 93 mg/dL Normal 74-99 [facility] Comment on above: Order Comment: Jonny meade Type: BLOOD SPECIMEN Ordering Facility: [facility] Address: [address] [place] [address] Result Comment: The [place] [employer] (ADA) provides guidance for cutoff [...] Standards of Medical Care in Diabetes 2016, [place] [employer]. Diabetes Care. 2016.39(Suppl 1). Performed By: #### 1 9123-9, 33952-2 #### [facility] [id number] [address] [place] [address] [place] Potassium [Moles/Vol] 5.0 mmol/L Normal 3.7-5.1 [facility] Comment on above: Order Comment: Jonny meade Type: BLOOD SPECIMEN Ordering Facility: [facility] Address: [address] [id number] Performed By: #### 1 9123-9, 10813-8 #### [facility] [id number] [address] [place] [address] [place] Protein [Mass/Vol] 7.3 g/dL Normal 6.3-8.0 [facility] Comment on above: Order Comment: Jonny maede Type: BLOOD SPECIMEN Ordering Facility: [facility] Address: [address] [place] [address] Performed By: #### 1 9123-9, 11475-5 #### [facility] CLIA [id number] [address] [place] [address] [place] Sodium [Moles/Vol] 139 mmol/L Normal 136-144 [facility] Comment on above: Order Comment: Speci men Type: BLOOD SPECIMEN Ordering Facility: [facility] Address: [address] [place] [address] Performed By: #### 1 9123-9, 17878-6 #### [id number] [address] [place] [address] [place] Urea nitrogen [Mass/Vol] 29 mg/dL High 7-21 [facility] Comment on above: Order Comment: Speci men Type: BLOOD SPECIMEN Ordering Facility: [facility] Address: [address] [place] [address] Performed By: #### 1 9123-9, 15559-3 #### [facility] [id number] [address] [place] [address] [place] D dimer FEU PPP-mCncon 05-19 Fibrin D-dimer FEU (PPP) [Mass/Vol] 240 ng/mL FEU Normal <500 [facility] Comment on above: Order Comment: Speci men Type: BLOOD SPECIMEN Ordering Facility: [facility] Address: [address] [place] [address] Result Comment: Froz en Plasma Aliquot Performed By: #### 4 8065-7 #### [facility] CLIA [id number] [address] [place] [address] [place] [facility] CLIA [id number] [address] [place] [address] [place] Fibrin D-dimer FEU (PPP) [Ma ss/Vol]on 05-19-2025 D DIMER AGE-RELATED CUTOFF 580 ng/mL FEU Normal [facility] Comment on above: Order Comment: Speci men Type: BLOOD SPECIMEN Ordering Facility: [facility] Address: [address] [place] [address] Performed By: #### 4 8065-7 #### [facility] CLIA [id number] [address] [place] [address] [place] [facility] CLIA [id number] [address] [place] [address] [place] [facility] Lipid 1996 panelon 5 Cholesterol [Mass/Vol] 196 mg/dL Normal <200 [facility] Comment on above: Order Comment: Speci men Type: BLOOD SPECIMEN Ordering Facility: [facility] Address: [address] [place] [address] Result Comment: <200 mg/dL, Desirable 200-239 mg/dL, Borderline high >239 mg/dL, High Performed By: #### 2 4331-1 #### [facility] CLIA [id number] [address] [place] [address] [place] [facility] CLIA [id number] [address] [place] [address] STATES [facility] Cholesterol in HDL [Mass/Vol] 61 mg/dL Normal >39 [facility] Comment on above: Order Comment: Speci men Type: BLOOD SPECIMEN Ordering Facility: [facility] Address: [address] [place] [address] Result Comment: 40-5 9 mg/dL, Acceptable >59 mg/dL, High: Negative risk factor for coronary heart disease <40 mg/dL, Low: Positive risk factor for coronary heart disease Performed By: #### 2 4331-1 #### [facility] CLIA [id number] [address] [place] [address] [place] [facility] CLIA [id number] [address] [place] [address] [place] Cholesterol in LDL [Mass/Vol] 127 mg/dL High <100 [facility] Comment on above: Order Comment: Jonny meade Type: BLOOD SPECIMEN Ordering Facility: [facility] Address: [address] [place] [address] Result Comment: <100 mg/dL, Optimal 100-129 mg/dL, Near optimal/above optimal 130-159 mg/dL, Borderline high 160-189 mg/dL, High >189 mg/dL, Very high Secondary prevention optimal LDL Cholesterol levels are recommended to be <70 mg/dL LDL cholesterol is calculated using the Kc-NIH equation. Performed By: #### 2 4331-1 #### [facility] CLIA [id number] [address] [place] [address] STATES OF [facility] CLIA [id number] [address] [place] [address] [place] Cholesterol in LDL/Cholesterol in HDL [Mass ratio] 2.08 {ratio} Normal <2.54 [facility] Comment on above: Order Comment: Jonny meade Type: BLOOD SPECIMEN Ordering Facility: [facility] Address: [address] [place] [address] Result Comment: Sumit marina: 1. National Cholesterol Education Program ATP III Guideline At-A-Glance Quick Desk Reference: National Heart, Lung, and Blood [place]. National Institutes of Health. 2001: NIH Publication No. 01-3305. 2. An International Atherosclerosis Society position paper: global recommendations for the management of dyslipidemia: executive summary, Atherosclerosis. 2014: 232(2):410-413. Performed By: #### 2 4331-1 #### [facility] CLIA [id number] [address] [place] [address] [place] [facility] [id number] [address] [place] [address] OF [place] Cholesterol in VLDL [Mass/Vol] 8 mg/dL Normal <30 [facility] Comment on above: Order Comment: Jonny men Type: BLOOD SPECIMEN Ordering Facility: [facility] Address: [address] [place] [address] Performed By: #### 2 4331-1 #### [facility] CLIA [id number] [address] [place], [place] [address] [place] [facility] CLIA [id number] [address] [place] [address] [place] [facility] [place] Cholesterol non HDL [Mass/Vol] 135 mg/dL High <130 [facility] Comment on above: Order Comment: Speci men Type: BLOOD SPECIMEN Ordering Facility: [facility] Address: [address] [place] [address] Result Comment: <130 mg/dL, Optimal 130-159 mg/dL, Near optimal/above optimal 160-189 mg/dL, Borderline high 190-219 mg/dL, High >219 mg/dL, Very high Secondary prevention optimal non HDL Cholesterol levels are recommended to be <100 mg/dL Performed By: #### 2 4331-1 #### [facility] CLIA [id number] [address] [place] [address] [place] [facility] CLIA [id number] [place] [address] [place] Cholesterol.total/Choles terol in HDL [Mass ratio] 3.21 {ratio} Normal <5.10 [facility] Comment on above: Order Comment: Speci men Type: BLOOD SPECIMEN Ordering Facility: [facility] Address: [address] [place] [address] Performed By: #### 2 4331-1 #### [facility] CLIA [id number] [address] [place], [place] [address] [place] [facility] CLIA [id number] [place] [address] STATES OF [facility] FASTING TIME 12 hrs Normal [facility] Comment on above: Order Comment: Speci men Type: BLOOD SPECIMEN Ordering Facility: [facility] Address: [address] [place] [address] Performed By: #### 2 4331-1 #### [facility] CLIA [id number] [address] [place] [address] CLIA [id number] [address] [place] [address] [place] Triglyceride [Mass/Vol] 45 mg/dL Normal <150 [facility] Comment on above: Order Comment: Speci men Type: BLOOD SPECIMEN Ordering Facility: [facility] Address: [address] [place] [address] Result Comment: <150 mg/dL, Normal 150-199 mg/dL, Borderline high 200-499 mg/dL, High >499 mg/dL, Very high Performed By: #### 2 4331-1 #### [facility] CLIA [id number] [address] [place] [address] [place] [facility] CLIA [id number] [address] [place] [address] [place] Magnesium SerPl-mCncon 05-19 Magnesium [Mass/Vol] 1.9 mg/dL Normal 1.7-2.3 [facility] Comment on above: Order Comment: Speci men Type: BLOOD SPECIMEN Ordering Facility: [facility] Address: [address] [place] [address] Performed By: #### 1 9123-9, 56568-8 #### [facility] CLIA [id number] [address] [place] [address] [place] CNOVon 05-17-2025 CNOV Office Visit (AGFASERGIO) ---- CAROLIN BIRTO ([id number]) 1965 F Date Time Provider Department 05/17/25 [...] dyspnea; Carolin had difficulty speaking to the eight arm operator. - Pain subsided during the 911 [...] to severe stenosis. - Last seen by french teacher Dr. Js Pineda in June 2023; stress test performed at [facility] prior to that visit. - Data Officer recommended annual follow-up and repeat echocardiogram, which [...] systolic mu (more content not included)... Normal [facility] ECG B/O W INTERP (MED OFFICE )on 05-17-2025 NSR no change from EKG on 07/16/23 Yani Sloan DO [facility] UA DIP, URINE (POC)on 2023 BILIRUBIN UA (POCT) Negative Negative [facility] CLARITY UA (POCT) Clear [facility] COLOR UA (POCT) Yellow [facility] GLUCOSE UA (POCT) Negative Negative mg/dL [facility] Hemoglobin Ql (U) Negative Negative [facility] KETONE UA (POCT) Negative Negative mg/dL [facility] LEUKOCYTES UA (POCT) Negative [facility] NITRITE UA (POCT) Negative Negative [facility] PH UA (POCT) 6.0 4.5 - 8.0 [facility] Protein Ql (U) Negative Negative mg/dL [facility] SPECIFIC GRAVITY UA (POCT) 1.015 1.005 - 1.030 [facility] UROBILINOGEN UA (POCT) 0.2 Melissa l E.U./dL [facility] Location:[facility], [address] [place] [address], [address] [facility] POINT OF CARE [facility] Basophil percentageon 2023 Bilirubin [Mass/Vol] 0.60 mg/dL 0.20-1.00 [facility] Comment on above: For patients on eltr ombopag therapy, use of Dimension [place] TBIL is not recommended. Chloride [Moles/Vol] 110 mmol/L 98-107 [facility] Glucose [Mass/Vol] 99 mg/dL 74-106 [facility] Potassium [Moles/Vol] 4.4 mmol/L 3.5-5.1 [facility] Protein [Mass/Vol] 7.5 g/dL 6.4-8.2 [facility] Sodium [Moles/Vol] 142 mmol/L 136-145 [facility] Laboratory - Chemistry and C hemistry - challengeon 01-17-2024 Albumin/Globulin [Mass ratio] 1.0 {ratio} 0.9-2.4 [facility] ALP [Catalytic activity/Vol] 87 U/L 45-117 [facility] ALT [Catalytic activity/Vol] 46 U/L 13-56 [facility] CO2 [Moles/Vol] 28.0 mmol/L 21.0-32.0 [facility] Cobalamin (Vitamin B12) [Mass/Vol] 518 pg/mL 211-911 [facility] Globulin (S) [Mass/Vol] 3.8 g/dL 2.2-4.2 [facility] Urea nitrogen/Creatinine [Mass ratio] 21.6 mg/mg 10-20 [facility] No Panel Informationon 01-17 Estimated GFR (MDRD) Amer 72 mL/min >60 [facility] Comment on above: GFR Calc Estimated GFR (MDRD) Non-Af Amer 59 mL/min >60 [facility] Comment on above: Non- GFR Calc Insulin Level 8.9 mU/L 2.6-37.6 [facility] Vitamin D 25-Hydroxy 50.4 ng/mL [facility] Comment on above: Vitamin D 25(OH) Sta tus Range Deficiency <20 ng/mL (50nmol/L) Insufficiency 20 - 30 ng/mL (50 - 75 nmol/L) Sufficiency 30 - 100 ng/mL (75 - 250 nmol/L) Toxicity >100 ng/mL (>250 nmol/L) Serum or plasma calcium carlos eduardo urement (mass/volume)on 01-17-2024 Calcium [Mass/Vol] 9.5 mg/dL 8.5-10.1 [facility] Serum or plasma creatinine m easurement (mass/volume)on 01-17-2024 Creatinine [Mass/Vol] 1.02 mg/dL 0.55-1.02 [facility] Comment on above: The validity of the calculated GFR & GFRAA in patients over 70 years has not been determined. Clinical correlation is essential. Serum or plasma urea nitroge n measurement (mass/volume)on 01-17-2024 Urea nitrogen [Mass/Vol] 22 mg/dL 7-18 [facility] Thin prep Papanicolaou smear with manual screeningon 01-17-2024 Thin prep Papanicolaou smear with manual screening 3.7 g/dL 3.2-5.0 [facility] Thin prep Papanicolaou smear with manual screening 21 U/L 15-37 [facility] Thin prep Papanicolaou smear with manual screening 4 5-15 [facility] Whole blood hemoglobin A1c/t otal hemoglobin ratio (mass fraction)on 01-17-2024 HbA1c (Bld) [Mass fraction] 5.6 % 3.8-5.6 [facility] Comment on above: Normal < 5.7 % Predi abetic 5.7 - 6.4 % Diabetic >or= 6.5 % Please note range changes. UA DIP, URINE (POC)on 2023 BILIRUBIN UA (POCT) Negative Negative [facility] CLARITY UA (POCT) Clear [facility] COLOR UA (POCT) Yellow [facility] GLUCOSE UA (POCT) Negative Negative mg/dL [facility] Hemoglobin Ql (U) Trace-intact Abnormal Negative [facility] KETONE UA (POCT) 40 mg/dL Abnormal Negative mg/dL [facility] LEUKOCYTES UA (POCT) Negative Negative [facility] NITRITE UA (POCT) Negative Negative [facility] PH UA (POCT) 5.5 4.5 - 8.0 [facility] Protein Ql (U) Trace Abnormal Negative mg/dL [facility] SPECIFIC GRAVITY UA (POCT) 1.020 1.005 - 1.030 [facility] UROBILINOGEN UA (POCT) 0.2 E.U./dL Melissa l E.U./dL [facility] Basophil percentageOrdered B y: Usha Eid on 10-01-2023 Basophil percentage 0-5 SEEN /hpf 0-5 [facility] Bilirubin Test strip Ql (U)O rdered By: Usha Eid on 10-01-2023 Bilirubin Ql (U) Negative Negative [facility] Ketones Test strip Ql (U)Ord ered By: Usha Eid on 10-01-2023 Ketones Ql (U) Negative Negative [facility] Mucus LM Ql (Urine sed)Order ed By: Usha Eid on 10-01-2023 Mucus Ql (Urine sed) 0 SEEN /hpf [facility] Nitrite Test strip Ql (U)Ord ered By: Usha Eid on 10-01-2023 Nitrite Ql (U) Negative Negative [facility] Protein Test strip Ql (U)Ord ered By: Usha Eid on 10-01-2023 Protein Ql (U) 15 mg/dl Negative [facility] Squamous epithelial cells de tection in urine sediment by light microscopyOrdered By: Usha Eid on 10-01-2023 Epithelial cells.squamous LM Ql (Urine sed) 0 SEEN /hpf 5-10 [facility] Urine blood detectionOrdered By: Usha Eid on 10-01-2023 RBC Ql (U) Negative Negative [facility] RBC Ql (U) 0 SEEN /hpf 0-5 [facility] Urine clarityOrdered By: Leila Eid on 10-01-2023 Clarity (U) Sl. Cloudy Clear [facility] Urine color determinationOrd ered By: Usha Eid on 10-01-2023 Color (U) Yellow Yellow [facility] Urine glucose detectionOrder ed By: Usha Eid on 10-01-2023 Glucose Ql (U) Normal mg/dl Normal [facility] Urine leukocyte esterase det ection by dipstickOrdered By: Usha Eid on 10-01-2023 Leukocyte esterase Test strip Ql (U) 25 /ul Negative [facility] Urine pHOrdered By: Usha Eid on 10-01-2023 pH (U) 7.0 [pH] 5.0 - 8.0 [facility] Urine sediment bacteria coun t by microscopy (number/high power field)Ordered By: Usha Eid on 10-01-2023 Bacteria LM.HPF (Urine sed) [#/Area] 0 /[HPF] None Seen [facility] Urine specific gravity measu rementOrdered By: Usha Eid on 10-01-2023 Specific gravity (U) [Rel density] 1.010 1.002-1.030 [facility] Urobilinogen Auto test strip Ql (U)Ordered By: Usha Eid on 10-01-2023 Urobilinogen Ql (U) Normal mg/dl Normal [facility] BI TRANSFER OF OUTSIDE FILMS on 09-09-2023 BI TRANSFER OF OUTSIDE FILMS Outside images for comparison or treatment purposes, not interpreted by Radiologists. Normal [facility] Study Interpretation of outs sary studyon 09-09-2023 [...] any future breast imaging appointments, please call [phone] ([phone]). MACRO: None Signed by: Jordyn Dover 09/01/2023 7:56 AM Dictation workstation: [id number] MMODAL Interpreted By: Jordyn Dover, STUDY: BI MAMMO BILATERAL SCREENING TOMOSYNTHESIS; 08/25/2023 2:21 pm ACCESSION NUMBER(S): [id number] ORDERING CLINICIAN: USHA EID INDICATION: Screening. Family [...] SCREENING TOMOSYNTHESIS; 08/25/2023 2:21 pm ACCESSION NUMBER(S): [id number] ORDERING CLINICIAN: USHA EID INDICATION: Screening. Family [...] any future breast imaging appointments, please call [phone] ([phone]). MACRO: None Signed by: Jordyn Dover 09/01/2023 7:56 AM Dictation workstation: [id number] [facility] Work Phone: DBT Breast - bilateralOrdere d By: Jordyn Dover on 09-01-2023 [facility] Work Phone: BI MAMMO BILATERAL SCREENING TOMOSYNTHESISon 08-25-2023 BI MAMMO BILATERAL SCREENING TOMOSYNTHESIS Interpreted By: Jordyn Dover, STUDY: BI MAMMO BILATERAL SCREENING TOMOSYNTHESIS; 08/25/2023 2:21 pm ACCESSION NUMBER(S): [id number] ORDERING CLINICIAN: USHA EID INDICATION: Screening. Family [...] any future breast imaging appointments, please call [phone] ([phone]). MACRO: None Signed by: Jordyn Dover 09/01/2023 7:56 AM Dictation workstation: [id number] [facility] Comment on above: Order Comment: bipin trujillo pt. caresourcsathish ins. prep given. onbase order. DBT Breast - bilateralon Radiology Study observation (narrative) [facility] Work Phone: [place] HEPATOBILIARY W EF AND/OR RXon 08-07-2023 [facility] Cardiac Stress Teston 2022 Cardiac Stress Test [facility], Stress Lab, [address] [place] [address], [address] [address] and Exercise Stress Test Patient Name: CAROLIN BRITO Ordering Physician: Usha Eid CNP Study Date: 06/05/2023 Reading Physician: [id number] Vazquez MD MRN/PID: [id number] Supervising Physician: Gunner Vazquez MD Accession/Order#: [id number] Referring Physician: USHA EID CNP Date of : 1965 PCP: Gender: F Fellow: Admit Date: 06/05/2023 Fellow: Admission Status: Outpatient Tire Fixer: Joslyn Field CVT Height: 157.48 cm Nurse: Guru Julio RN Weight: 72.58 kg Coal Shoveler: N/A BSA: 1.74 m2 Technologist: BMI: 29.26 kg/m2 Additional Staff: Age: 58 years cc report to: Patient Location: [facility] cc report to: Usha Eid CNP Study Type: Cardiac Stress Test Diagnosis/ICD: R07.9-Chest pain, unspecified Indication: Chest Pain Atypical Procedure/CPT: Stress Test Interpretation-9301 8; Stress Test Supervision-[id number] Falls Risk: Low: Patient has a low [...] No exercise associated cardiac symptoms were noted. [id number] Yomaira Vazquez MD Electronically signed on 06/06/2023 at 7:49:54 AM Final Normal [facility] Basophil percentageOrdered B y: Usha Eid on 05-22-2023 Bilirubin [Mass/Vol] 0.40 mg/dL 0.20-1.00 [facility] Comment on above: For patients on eltr ombopag therapy, use of Dimension [place] TBIL is not recommended. Chloride [Moles/Vol] 108 mmol/L 98-107 [facility] Glucose [Mass/Vol] 98 mg/dL 74-106 [facility] Potassium [Moles/Vol] 4.5 mmol/L 3.5-5.1 [facility] Protein [Mass/Vol] 7.9 g/dL 6.4-8.2 [facility] Sodium [Moles/Vol] 139 mmol/L 136-145 [facility] Laboratory - Chemistry and C hemistry - challengeOrdered By: Usha Eid on 05-22-2023 ALP [Catalytic activity/Vol] 87 U/L 45-117 [facility] ALT [Catalytic activity/Vol] 39 U/L 13-56 [facility] CO2 [Moles/Vol] 28.0 mmol/L 21.0-32.0 [facility] Globulin (S) [Mass/Vol] 4.3 g/dL 2.2-4.2 [facility] Lipase [Catalytic activity/Vol] 37 U/L 13-75 [facility] Comment on above: Please note:LIPASE r evised reference range effective 23. New Lipase methodology. Expected to produce lower values than the previous assay method. NEW Reference Range: 13 - 75 U/L Urea nitrogen/Creatinine [Mass ratio] 15.2 mg/mg 10-20 [facility] No Panel InformationOrdered By: Usha Eid on 05-22-2023 Estimated GFR (MDRD) Amer 70 mL/min >60 [facility] Comment on above: GFR Calc Estimated GFR (MDRD) Non-Af Amer 58 mL/min >60 [facility] Comment on above: Non- GFR Calc Insulin Level 12.3 mU/L 2.6-37.6 [facility] Serum or plasma albumin carlos eduardo urement (mass/volume)Ordered By: Usha Eid on 05-22-2023 Albumin [Mass/Vol] 3.6 g/dL 3.2-5.0 [facility] Serum or plasma albumin/glob ulin mass ratioOrdered By: Usha Eid on 05-22-2023 Albumin/Globulin [Mass ratio] 0.8 {ratio} 0.9-2.4 [facility] Serum or plasma calcium carlos eduardo urement (mass/volume)Ordered By: Usha Eid on 05-22-2023 Calcium [Mass/Vol] 9.7 mg/dL 8.5-10.1 [facility] Serum or plasma creatinine m easurement (mass/volume)Ordered By: Usha Eid on 05-22-2023 Creatinine [Mass/Vol] 1.05 mg/dL 0.55-1.02 [facility] Comment on above: The validity of the calculated GFR & GFRAA in patients over 70 years has not been determined. Clinical correlation is essential. Serum or plasma urea nitroge n measurement (mass/volume)Ordered By: Usha Eid on 05-22-2023 Urea nitrogen [Mass/Vol] 16 mg/dL 7-18 [facility] Thin prep Papanicolaou smear with manual screeningOrdered By: Usha Eid on 05-22-2023 Thin prep Papanicolaou smear with manual screening 27 U/L 15-37 [facility] Thin prep Papanicolaou smear with manual screening 3 5-15 [facility] Whole blood hemoglobin A1c/t otal hemoglobin ratio (mass fraction)Ordered By: Usha Eid on 05-22-2023 HbA1c (Bld) [Mass fraction] 5.2 % 3.8-5.6 [facility] Comment on above: Normal < 5.7 % Predi abetic 5.7 - 6.4 % Diabetic >or= 6.5 % Please note range changes. ECHOon 12-18-2022 [facility] PTH INTACT Don 12-11-2022 Parathyrin.intact [Mass/Vol] 40 pg/mL 15 - 65 pg/mL [facility] T3 BLDon 12-11-2022 T3 [Mass/Vol] 121 ng/dL 60 - 180 ng/dL [facility] VITAMIN D 25 HYDROXYon 12-11 25-hydroxyvitamin D3 [Mass/Vol] 45.7 ng/mL >=30.0 ng/mL [facility] Comprehensive metabolic 2000 panelon 12-10-2022 Albumin [Mass/Vol] 4.3 g/dL 3.9 - 4.9 g/dL [facility] ALP [Catalytic activity/Vol] 79 U/L 34 - 123 U/L [facility] ALT With P-5'-P [Catalytic activity/Vol] 20 U/L 7 - 38 U/L [facility] Anion gap [Moles/Vol] 9 mmol/L 9 - 18 mmol/L [facility] AST With P-5'-P [Catalytic activity/Vol] 19 U/L 13 - 35 U/L [facility] Bilirubin [Mass/Vol] 0.3 mg/dL 0.2 - 1 .3 mg/dL [facility] Calcium [Mass/Vol] 9.8 mg/dL 8.5 - 10. 2 mg/dL [facility] Chloride [Moles/Vol] 105 mmol/L 97 - 10 5 mmol/L [facility] CO2 [Moles/Vol] 27 mmol/L 22 - 30 mmol/L [facility] Creatinine [Mass/Vol] 1.00 mg/dL High 0.58 - 0.96 mg/dL [facility] Estimated Glomerular Filtration Rate 67 mL/min/1.73m >=60 mL/min/1.73m [facility] Glucose [Mass/Vol] 104 mg/dL High 74 - 99 mg/dL [facility] Potassium [Moles/Vol] 4.3 mmol/L 3.7 - 5.1 mmol/L [facility] Protein [Mass/Vol] 7.5 g/dL 6.3 - 8.0 g/dL [facility] Sodium [Moles/Vol] 141 mmol/L 136 - 144 mmol/L [facility] Urea nitrogen [Mass/Vol] 18 mg/dL 7 - 21 mg/d L [facility] T4 FREE/FREE THYROXon 2022 Free T4 [Mass/Vol] 1.2 ng/dL 0.9 - 1.7 ng/dL [facility] T4/THYROXINE BLOODon 023 T4 [Mass/Vol] 6.8 ug/dL 5.5 - 10.2 ug/dL [facility] UA DIP, URINE (POC)on 2022 BILIRUBIN UA (POCT) Negative Negative [facility] CLARITY UA (POCT) Clear [facility] COLOR UA (POCT) Yellow [facility] GLUCOSE UA (POCT) Negative Negative mg/dL [facility] HEMOGLOBIN/BLOOD UA (POCT) Large Abnormal Negative [facility] KETONE UA (POCT) Negative Negative mg/dL [facility] LEUKOCYTES UA (POCT) Small Abnormal Negative [facility] NITRITE UA (POCT) Negative Negative [facility] PH UA (POCT) 6.0 4.5 - 8.0 [facility] Protein Ql (U) 100 mg/dL Abnormal Negative mg/dL [facility] SPECIFIC GRAVITY UA (POCT) 1.015 1.005 - 1.030 [facility] UROBILINOGEN UA (POCT) 0.2 E.U./dL Melissa l E.U./dL [facility] ELVER SCREENINGon 05-14-2022 [facility] ECG B/O W INTERP (MED OFFICE ) [facility] Vital Signs Date Time Vital Sign Value Performing Clinician Facility 06-13-2025 07:40-0400 Body height 154.94 cm Usha Queden AUDIO VISUAL EQUIPMENT RENTAL CLERK-C Work Phone: [facility] 06-13-2025 07:40-0400 Body weight 82.55 kg Usha Queden AUDIO VISUAL EQUIPMENT RENTAL CLERK-C Work Phone: [facility] 06-10-2025 07:52-0400 Body mass index (BMI) [Ratio] 34.4 kg/m2 Usha Queden AUDIO VISUAL EQUIPMENT RENTAL CLERK-C Work Phone: [facility] 06-01-2025 10:04-0400 Body height 154.94 cm Usha Queden AUDIO VISUAL EQUIPMENT RENTAL CLERK-C Work Phone: [facility] 06-01-2025 10:04-0400 Body mass index (BMI) [Ratio] 34.4 kg/m2 Usha Queden AUDIO VISUAL EQUIPMENT RENTAL CLERK-C Work Phone: [facility] 06-01-2025 10:04-0400 Body weight 82.55 kg Usha Queden AUDIO VISUAL EQUIPMENT RENTAL CLERK-C Work Phone: [facility] 06-01-2025 10:04-0400 Diastolic blood pressure 85 mm[Hg] Usha Queden AUDIO VISUAL EQUIPMENT RENTAL CLERK-C Work Phone: [facility] 06-01-2025 10:04-0400 Heart rate 58 /min Usha Queden AUDIO VISUAL EQUIPMENT RENTAL CLERK-C Work Phone: [facility] 06-01-2025 10:04-0400 Respiratory rate 14 /min Usha Queden AUDIO VISUAL EQUIPMENT RENTAL CLERK-C Work Phone: [facility] 06-01-2025 10:04-0400 Systolic blood pressure 126 mm[Hg] Usha Queden AUDIO VISUAL EQUIPMENT RENTAL CLERK-C Work Phone: [facility] 05-17-2025 15:42-0400 Body height 154.9 cm Yani Sheets DO Work Phone: [facility] 05-17-2025 15:42-0400 Body mass index (BMI) [Ratio] 34.58 kg/m2 Yani Sheets DO Work Phone: [facility] 05-17-2025 15:42-0400 Body temperature 98.49 [degF] Yani Sheets DO Work Phone: [facility] 05-17-2025 15:42-0400 Body weight 83.01 kg Yani Sheets DO Work Phone: [facility] 05-17-2025 15:42-0400 Diastolic blood pressure 72 mm[Hg] Yani Sheets DO Work Phone: [facility] 05-17-2025 15:42-0400 Heart rate 67 /min Yani Sheets DO Work Phone: [facility] 05-17-2025 15:42-0400 Respiratory rate 16 /min Yani Sheets DO Work Phone: [facility] 05-17-2025 15:42-0400 SaO2% (BldA) [Mass fraction] 96 % Yani Sheets DO Work Phone: [facility] 05-17-2025 15:42-0400 Systolic blood pressure 114 mm[Hg] Yani Sheets DO Work Phone: [facility] 04-29-2024 09:09-0400 Body height 154.9 cm Usha Laceyden EMERGENCY MEDICAL SERVICE MANAGER.ACCOUNT FINANCIAL MANAGER Work Phone: [facility] 04-29-2024 09:09-0400 Body mass index (BMI) [Ratio] 35.14 kg/m2 Usha Queden EMERGENCY MEDICAL SERVICE MANAGER.ACCOUNT FINANCIAL MANAGER Work Phone: [facility] 04-29-2024 09:09-0400 Body temperature 98.01 [degF] Usha Queden EMERGENCY MEDICAL SERVICE MANAGER.ACCOUNT FINANCIAL MANAGER Work Phone: [facility] 04-29-2024 09:09-0400 Body weight 84.37 kg Usha Queden EMERGENCY MEDICAL SERVICE MANAGER.ACCOUNT FINANCIAL MANAGER Work Phone: [facility] 04-29-2024 09:09-0400 Diastolic blood pressure 68 mm[Hg] Usah Queden EMERGENCY MEDICAL SERVICE MANAGER.ACCOUNT FINANCIAL MANAGER Work Phone: [facility] 04-29-2024 09:09-0400 Heart rate 67 /min Usha Queden EMERGENCY MEDICAL SERVICE MANAGER.ACCOUNT FINANCIAL MANAGER Work Phone: [facility] 04-29-2024 09:09-0400 Respiratory rate 16 /min Usha Queden EMERGENCY MEDICAL SERVICE MANAGER.ACCOUNT FINANCIAL MANAGER Work Phone: [facility] 04-29-2024 09:09-0400 SaO2% (BldA) [Mass fraction] 95 % Usha Queden EMERGENCY MEDICAL SERVICE MANAGER.ACCOUNT FINANCIAL MANAGER Work Phone: [facility] 04-29-2024 09:09-0400 Systolic blood pressure 122 mm[Hg] Usha Queden EMERGENCY MEDICAL SERVICE MANAGER.ACCOUNT FINANCIAL MANAGER Work Phone: [facility] 12-31-2023 14:05-0500 Body height 154.9 cm Heather Nael EMERGENCY MEDICAL SERVICE MANAGER.ACCOUNT FINANCIAL MANAGER Work Phone: [facility] 12-31-2023 14:05-0500 Body temperature 100.9 [degF] Heather Nael EMERGENCY MEDICAL SERVICE MANAGER.ACCOUNT FINANCIAL MANAGER Work Phone: [facility] 12-31-2023 14:05-0500 Body weight 85.28 kg Heather Nael EMERGENCY MEDICAL SERVICE MANAGER.ACCOUNT FINANCIAL MANAGER Work Phone: [facility] 12-31-2023 14:05-0500 Diastolic blood pressure 70 mm[Hg] Heather Nael EMERGENCY MEDICAL SERVICE MANAGER.ACCOUNT FINANCIAL MANAGER Work Phone: [facility] 12-31-2023 14:05-0500 Heart rate 89 /min Heather Nael EMERGENCY MEDICAL SERVICE MANAGER.ACCOUNT FINANCIAL MANAGER Work Phone: [facility] 12-31-2023 14:05-0500 Respiratory rate 18 /min Heather Nael EMERGENCY MEDICAL SERVICE MANAGER.ACCOUNT FINANCIAL MANAGER Work Phone: [facility] 12-31-2023 14:05-0500 SaO2% (BldA) [Mass fraction] 95 % Heather Nael EMERGENCY MEDICAL SERVICE MANAGER.ACCOUNT FINANCIAL MANAGER Work Phone: [facility] 12-31-2023 14:05-0500 Systolic blood pressure 110 mm[Hg] Heather Nayak APRN.ACCOUNT FINANCIAL MANAGER Work Phone: [facility] 12-29-2023 13:45-0500 Body height 154.9 cm Chelsea Brunson MD Work Phone: [facility] 12-29-2023 13:45-0500 Body weight 86.18 kg Chelsea Brunson MD Work Phone: [facility] 07-16-2023 10:46-0400 Body height 154.9 cm Guillermo Scherer MD Work Phone: [facility] 07-16-2023 10:46-0400 Body weight 83.46 kg Guillermo Scherer MD Work Phone: [facility] 07-16-2023 10:46-0400 Diastolic blood pressure 67 mm[Hg] Guillermo Scherer MD Work Phone: [facility] 07-16-2023 10:46-0400 Heart rate 75 /min Guillermo Scherer MD Work Phone: [facility] 07-16-2023 10:46-0400 Respiratory rate 18 /min Guillermo Scherer MD Work Phone: [facility] 07-16-2023 10:46-0400 Systolic blood pressure 120 mm[Hg] Guillermo Scherer MD Work Phone: [facility] 07-11-2023 09:20-0400 Body height 154.9 cm Js Pineda MD Work Phone: [facility] 07-11-2023 09:20-0400 Body weight 84.37 kg Js Pineda MD Work Phone: [facility] 07-11-2023 09:20-0400 Diastolic blood pressure 82 mm[Hg] Js Pineda MD Work Phone: [facility] 07-11-2023 09:20-0400 Heart rate 63 /min Js Pineda MD Work Phone: [facility] 07-11-2023 09:20-0400 Respiratory rate 18 /min Js Pineda MD Work Phone: [facility] 07-11-2023 09:20-0400 SaO2% (BldA) [Mass fraction] 99 % Js Pineda MD Work Phone: [facility] 07-11-2023 09:20-0400 Systolic blood pressure 122 mm[Hg] Js Pineda MD Work Phone: [facility] 05-19-2023 15:58-0400 Body height 156.2 cm Usha Queden EMERGENCY MEDICAL SERVICE MANAGER.ACCOUNT FINANCIAL MANAGER Work Phone: [facility] 05-19-2023 15:58-0400 Body temperature 98.2 [degF] Usha Queden EMERGENCY MEDICAL SERVICE MANAGER.ACCOUNT FINANCIAL MANAGER Work Phone: [facility] 05-19-2023 15:58-0400 Body weight 87.09 kg Usha Queden EMERGENCY MEDICAL SERVICE MANAGER.ACCOUNT FINANCIAL MANAGER Work Phone: [facility] 05-19-2023 15:58-0400 Diastolic blood pressure 74 mm[Hg] Usha Queden EMERGENCY MEDICAL SERVICE MANAGER.ACCOUNT FINANCIAL MANAGER Work Phone: [facility] 05-19-2023 15:58-0400 Heart rate 74 /min Usha Queden EMERGENCY MEDICAL SERVICE MANAGER.ACCOUNT FINANCIAL MANAGER Work Phone: [facility] 05-19-2023 15:58-0400 Respiratory rate 18 /min Usha Queden EMERGENCY MEDICAL SERVICE MANAGER.ACCOUNT FINANCIAL MANAGER Work Phone: [facility] 05-19-2023 15:58-0400 SaO2% (BldA) [Mass fraction] 94 % Usha Queden EMERGENCY MEDICAL SERVICE MANAGER.ACCOUNT FINANCIAL MANAGER Work Phone: [facility] 05-19-2023 15:58-0400 Systolic blood pressure 120 mm[Hg] Usha Queden EMERGENCY MEDICAL SERVICE MANAGER.ACCOUNT FINANCIAL MANAGER Work Phone: [facility] 12-10-2022 10:18-0500 Body height 156.2 cm Usha Queden EMERGENCY MEDICAL SERVICE MANAGER.ACCOUNT FINANCIAL MANAGER Work Phone: [facility] 12-10-2022 10:18-0500 Body temperature 98.2 [degF] Usha Queden EMERGENCY MEDICAL SERVICE MANAGER.ACCOUNT FINANCIAL MANAGER Work Phone: [facility] 12-10-2022 10:18-0500 Body weight 87.09 kg Usha Queden EMERGENCY MEDICAL SERVICE MANAGER.ACCOUNT FINANCIAL MANAGER Work Phone: [facility] 12-10-2022 10:18-0500 Diastolic blood pressure 70 mm[Hg] Usha Queden EMERGENCY MEDICAL SERVICE MANAGER.ACCOUNT FINANCIAL MANAGER Work Phone: [facility] 12-10-2022 10:18-0500 Heart rate 64 /min Usha Queden EMERGENCY MEDICAL SERVICE MANAGER.ACCOUNT FINANCIAL MANAGER Work Phone: [facility] 12-10-2022 10:18-0500 Respiratory rate 18 /min Usha Queden EMERGENCY MEDICAL SERVICE MANAGER.ACCOUNT FINANCIAL MANAGER Work Phone: [facility] 12-10-2022 10:18-0500 SaO2% (BldA) [Mass fraction] 95 % Usha Queden EMERGENCY MEDICAL SERVICE MANAGER.ACCOUNT FINANCIAL MANAGER Work Phone: [facility] 12-10-2022 10:18-0500 Systolic blood pressure 126 mm[Hg] Usha Queden EMERGENCY MEDICAL SERVICE MANAGER.ACCOUNT FINANCIAL MANAGER Work Phone: [facility] 12-06-2022 11:32-0500 Body height 156.2 cm Harman Mendosa MD Work Phone: [facility] 12-06-2022 11:32-0500 Body weight 83.92 kg Harman Mendosa MD Work Phone: [facility] 12-06-2022 11:32-0500 Diastolic blood pressure 82 mm[Hg] Harman Mendosa MD Work Phone: [facility] 12-06-2022 11:32-0500 Systolic blood pressure 134 mm[Hg] Harman Mendosa MD Work Phone: [facility] 06-17-2022 09:44-0400 Body height 155.6 cm Lvie Short MD Work Phone: [facility] 06-17-2022 09:44-0400 Body temperature 97.3 [degF] Live Short MD Work Phone: [facility] 06-17-2022 09:44-0400 Body weight 83.92 kg Live Short MD Work Phone: [facility] 06-17-2022 09:44-0400 Diastolic blood pressure 76 mm[Hg] Live Short MD Work Phone: [facility] 06-17-2022 09:44-0400 Heart rate 76 /min Live Short MD Work Phone: [facility] 06-17-2022 09:44-0400 Respiratory rate 16 /min Live Short MD Work Phone: [facility] 06-17-2022 09:44-0400 SaO2% (BldA) [Mass fraction] 97 % Live Short MD Work Phone: [facility] 06-17-2022 09:44-0400 Systolic blood pressure 133 mm[Hg] Live Short MD Work Phone: [facility] Encounters Encounter Date Encounter Type Care Provider Facility Start: 06-28-2025 ambulatory Yani Sloan Facilit y:[facility] Start: 06-22-2025 ambulatory Usha Eid AUDIO VISUAL EQUIPMENT RENTAL CLERK Facil ity:[facility] Start: 06-14-2025 End: 06-14-2025 Telephone encounter Usha Eid EMERGENCY MEDICAL SERVICE MANAGER.ACCOUNT FINANCIAL MANAGER Work Phone: [facility] Comment on above: Billing question Start: 06-13-2025 Non-patient / Non-visit Sofia Rich frederick -[facility] Work Phone: Start: 06-13-2025 End: 06-13-2025 Admission to same day surgery center Dr. Fabio Wilburn MD -[facility] Presser/Special Procedures Work Phone: Start: 06-13-2025 End: 06-13-2025 ambulatory Usha Eid AUDIO VISUAL EQUIPMENT RENTAL CLERK-C Work Phone: -[facility] Presser/Special Procedures Start: 06-01-2025 End: 06-01-2025 ambulatory Usha Eid AUDIO VISUAL EQUIPMENT RENTAL CLERK-C Work Phone: -Radiology [facility] Start: 06-01-2025 End: 06-01-[address] Yani Sloan DO -Radiology [facility] Work Phone: Start: 06-01-2025 End: 06-01-[address] Fabio Wilburn MD -[facility] Work Phone: Start: 06-01-2025 End: 06-01-2025 ambulatory Usha Eid AUDIO VISUAL EQUIPMENT RENTAL CLERK-C Work Phone: -[facility] Start: 06-01-2025 End: 06-01-2025 ambulatory Yani Sloan Facility:[facility] Start: 05-19-2025 End: 05-19-2025 ambulatory USHA EID Facility:[facility] Start: 05-18-2025 End: 05-20-2025 ambulatory Yani Sloan DO Work Phone: [facility] Start: 05-18-2025 End: 05-20-2025 Patient encounter procedure Yani Sloan DO Work Phone: [facility] Comment on above: Referral Start: 05-17-2025 End: 05-17-2025 Patient encounter procedure Yani Sloan DO Work Phone: [facility] Comment on above: Other chest pain (Pr imary Dx); Bicuspid aortic valve (HCC); Fatty liver; Class 1 obesity with body mass index (BMI) of 34.0 to 34.9 in adult, unspecified obesity type, unspecified whether serious comorbidity present; Heart murmur Start: 05-17-2025 End: 05-17-2025 ambulatory YANI SLOAN Facility:[facility] Start: 05-16-2025 End: 05-17-2025 ambulatory Usha Eid EMERGENCY MEDICAL SERVICE MANAGERAlexandroACCOUNT FINANCIAL MANAGER Work Phone: [facility] Comment on above: Incident Start: 10-12-2024 End: 10-15-2024 ambulatory Usha Marc Laceyden EMERGENCY MEDICAL SERVICE MANAGER.ACCOUNT FINANCIAL MANAGER Work Phone: [facility] Start: 10-12-2024 End: 10-15-2024 Home visit Ushadylan Laceyden EMERGENCY MEDICAL SERVICE MANAGER.ACCOUNT FINANCIAL MANAGER Work Phone: [facility] Start: 05-31-2024 ambulatory Usha A Qued en EMERGENCY MEDICAL SERVICE MANAGER.ACCOUNT FINANCIAL MANAGER Work Phone: [facility] Comment on above: [place] Start: 05-12-2024 Refill Usha Marc Qued en EMERGENCY MEDICAL SERVICE MANAGER.ACCOUNT FINANCIAL MANAGER Work Phone: [facility] Comment on above: Refill Request Start: 04-29-2024 End: 04-29-2024 Patient encounter procedure Usha Laceyden EMERGENCY MEDICAL SERVICE MANAGER.ACCOUNT FINANCIAL MANAGER Work Phone: [facility] Comment on above: Urinary frequency (P rimary Dx); Right flank pain; Mid back pain on left side; History of kidney stones; Essential hypertension; Headaches at night Start: 01-17-2024 End: 01-17-2024 ambulatory [facility] Work Phone: Start: 01-17-2024 End: 01-17-2024 Patient encounter procedure [facility] Work Phone: Start: 01-01-2024 Telephone encounter Usha Laceyden EMERGENCY MEDICAL SERVICE MANAGER.ACCOUNT FINANCIAL MANAGER Work Phone: [facility] Comment on above: Results Start: 12-31-2023 End: 12-31-2023 Patient encounter procedure Heather Nayak EMERGENCY MEDICAL SERVICE MANAGER.ACCOUNT FINANCIAL MANAGER Work Phone: [facility] Comment on above: Flu-like symptoms (P rimary Dx); Body aches; Urinary frequency Start: 12-29-2023 End: 12-29-2023 ambulatory Chelsea Brunson MD Work Phone: [facility] Comment on above: Class 2 obesity (Vera yeison Dx); Vitamin D deficiency; Essential hypertension; Dietary counseling and surveillance; Body mass index (BMI) of 35.0-35.9 in adult; Bicuspid aortic valve Start: 12-29-2023 End: 12-29-2023 Telemedicine consultation with patient Chelsea Brunson MD Work Phone: [facility] Start: 10-14-2023 Telephone encounter Usha Eid EMERGENCY MEDICAL SERVICE MANAGER.ACCOUNT FINANCIAL MANAGER Work Phone: [facility] Comment on above: Results Start: 10-01-2023 End: 10-01-2023 ambulatory [facility] Work Phone: Start: 10-01-2023 End: 10-01-2023 Patient encounter procedure [facility] Work Phone: Start: 09-23-2023 ambulatory Usha Maldonado en EMERGENCY MEDICAL SERVICE MANAGER.ACCOUNT FINANCIAL MANAGER Work Phone: [facility] Comment on above: UTI Start: 09-09-2023 End: 09-09-2023 Subsequent hospital visit by physician Rad External Film EF RAD EXTERNAL FILM VIRTUAL Start: 09-09-2023 End: 09-09-2023 ambulatory [facility] Start: 08-25-2023 End: 08-25-2023 ambulatory [facility] Start: 08-25-2023 End: 08-25-2023 Subsequent hospital visit by physician [facility] Mobile [facility] Comment on above: Encounter for screen ing mammogram for malignant neoplasm of breast Start: 08-07-2023 End: 08-07-2023 Subsequent hospital visit by physician [facility] Work Phone: Molecular Imaging Comment on above: Cholecystitis [K81.9 ] Start: 07-16-2023 End: 07-16-2023 Patient encounter procedure Guillermo Scherer MD Work Phone: [facility] Comment on above: Gallbladder polyp (P rimary Dx); RUQ pain; Obesity, Class II, BMI 35-39.9; Cholecystitis Start: 07-11-2023 End: 07-11-2023 Patient encounter procedure Js Pineda MD Work Phone: [facility] [place] Comment on above: Nonrheumatic aortic (valve) stenosis (Primary Dx); Essential hypertension; Hypercholesteremia; History of cardiac murmur; Obesity, Class II, BMI 35-39.9; Bicuspid aortic valve Start: 06-05-2023 ambulatory Ms. Usha Eid Facility:[id number] Start: 06-04-2023 Telephone encounter Gogo Hunt EMERGENCY MEDICAL SERVICE MANAGER.ACCOUNT FINANCIAL MANAGER Work Phone: [facility] Comment on above: Orders (Stress test) Start: 05-27-2023 ambulatory Usha Tran Joel en EMERGENCY MEDICAL SERVICE MANAGER.ACCOUNT FINANCIAL MANAGER Work Phone: [facility] Comment on above: bloodwork results Start: 05-22-2023 End: 05-22-2023 ambulatory [facility] Work Phone: Start: 05-22-2023 End: 05-22-2023 Patient encounter procedure [facility] Work Phone: Start: 05-21-2023 ambulatory Usha Tran Joel en EMERGENCY MEDICAL SERVICE MANAGER.ACCOUNT FINANCIAL MANAGER Work Phone: [facility] Start: 05-21-2023 Patient encounter procedure Usha Eid EMERGENCY MEDICAL SERVICE MANAGER.ACCOUNT FINANCIAL MANAGER Work Phone: [facility] Comment on above: Stress Test Referral Start: 05-20-2023 End: 05-20-2023 Subsequent hospital visit by physician [facility] Comment on above: RUQ pain [R10.11] Start: 05-19-2023 End: 05-19-2023 Patient encounter procedure Usha Eid EMERGENCY MEDICAL SERVICE MANAGER.ACCOUNT FINANCIAL MANAGER Work Phone: [facility] Comment on above: RUQ pain (Primary Dx ); Common bile duct dilatation; Unable to lose weight; Elevated blood sugar Start: 04-07-2023 Refill Gogo fox EMERGENCY MEDICAL SERVICE MANAGER.ACCOUNT FINANCIAL MANAGER Work Phone: [facility] Comment on above: Refill Request Start: 12-21-2022 Telephone encounter Usha Eid APRN.ACCOUNT FINANCIAL MANAGER Work Phone: [facility] Comment on above: Results; Consult Start: 12-18-2022 End: 12-18-2022 Subsequent hospital visit by physician Card/Pulm Lab [facility] CARDIO PULMONARY TESTING Comment on above: Aortic valve stenosi s, etiology of cardiac valve disease unspecified [I35.0] Start: 12-10-2022 End: 12-10-2022 Patient encounter procedure Usha Eid APRN.ACCOUNT FINANCIAL MANAGER Work Phone: [facility] Comment on above: Calculus of kidney ( Primary Dx); Aortic valve stenosis, etiology of cardiac valve disease unspecified; Mitral valve prolapse; History of cardiac murmur; Chest pain, unspecified type; Migraine without status migrainosus, not intractable, unspecified migraine type; Asymptomatic postmenopausal status; Screening for depression Start: 12-06-2022 End: 12-06-2022 Patient encounter procedure Harman Mendosa MD Work Phone: [facility] Comment on above: Renal calculi (Prima ry Dx) Start: 11-29-2022 Telephone encounter Harman Mendosa MD Work Phone: [facility] Comment on above: Assembler Garment Form - H ospital Follow Up Start: 11-20-2022 Telephone encounter Harman Mendosa MD Work Phone: Urology Comment on above: Patient Question Start: 11-19-2022 ambulatory Shruthi Rayshawn amin [facility] Start: 11-19-2022 Telephone encounter Harman Mendosa MD Work Phone: [facility] Comment on above: Surgery Scheduled Transition Of Care ( [facility] discharge 11/15/2022 TCM encounter ) Start: 11-14-2022 Telephone encounter Usha Eid APRN.ACCOUNT FINANCIAL MANAGER Work Phone: [facility] Comment on above: Abdominal Pain Assembler Garment Form - H ospital Follow Up Start: 07-02-2022 End: 07-02-2022 Subsequent hospital visit by physician [facility] Comment on above: Family history of ov ana cancer [Z80.41] Start: 06-17-2022 End: 06-17-2022 Patient encounter procedure Live Short MD Work Phone: [facility] Obstetrics & Gynecology Comment on above: Encounter for annual routine gynecological examination (Primary Dx); Encounter for Papanicolaou smear for cervical cancer screening; Family history of ovarian cancer Start: 05-14-2022 Documentation procedure Mammog miles Coordinator [facility] Start: 05-14-2022 Letter encounter Mammography Coordinator [facility] ANCILLARY AREA NOT LISTED Start: 05-14-2022 End: 05-14-2022 Subsequent hospital visit by physician Mammo/Bone Density [facility] Comment on above: Breast screening [Z1 2.39] Start: 05-06-2022 Orders Only Live Short MD Work Phone: [facility] Obstetrics & Gynecology Comment on above: Breast screening (Pr imary Dx) Start: 05-01-2022 Telephone encounter Live Short MD Work Phone: [facility] Obstetrics and Gynecology Comment on above: Orders Start: 04-16-2022 End: 04-16-2022 Subsequent hospital visit by physician Mammo[facility]Bone Density [facility] Start: 03-20-2022 Refill Usha Maldonado en EMERGENCY MEDICAL SERVICE MANAGER.ACCOUNT FINANCIAL MANAGER Work Phone: [facility] [facility] Comment on above: Refill Request Procedures Date Procedure Procedure Detail Performing Clinician Start: 06-01-2025 X-ray of chest, PA and lateral views Usha Eid AUDIO VISUAL EQUIPMENT RENTAL CLERK-C Work Phone: Start: 05-19-2025 Lipid 1996 panel - Serum or Plasma Yani Sheets DO Work Phone: Start: 05-17-2025 Ecg routine ecg w/least 12 lds w/i&r Yani C Sheets DO Work Phone: Start: 04-29-2024 Urnls dip stick/tablet rgnt auto w/o microscopy Usha Eid EMERGENCY MEDICAL SERVICE MANAGER.ACCOUNT FINANCIAL MANAGER Work Phone: Start: 12-31-2023 Urnls dip stick/tablet rgnt auto w/o microscopy Heather Nayak APRN.ACCOUNT FINANCIAL MANAGER Work Phone: Start: 09-09-2023 BI TRANSFER OF OUTSIDE FILMS USHA EID Start: 09-09-2023 End: 09-09-2023 Study Interpretation of outside study Usha Eid EMERGENCY MEDICAL SERVICE MANAGER-ACCOUNT FINANCIAL MANAGER Work Phone: Start: 08-25-2023 BI MAMMO BILATERAL SCREENING TOMOSYNTHESIS USHA EID Start: 08-25-2023 End: 08-25-2023 Mammography Usha Eid EMERGENCY MEDICAL SERVICE MANAGER-ACCOUNT FINANCIAL MANAGER Work Phone: Start: 08-07-2023 Hepatobil syst imag inc gb w/pharma intervenj Guillermo Scherer MD Work Phone: Start: 07-11-2023 Ecg routine ecg w/least 12 lds w/i&r Js Pineda MD Work Phone: Start: 12-18-2022 Echo tthrc r-t 2d w/wom-mode compl spec&colr d Usha Tran Stanton MERRILL.ACCOUNT FINANCIAL MANAGER Work Phone: Start: 12-06-2022 Urnls dip stick/tablet rgnt auto w/o microscopy Harman Mendosa MD Work Phone: Start: 05-14-2022 End: 05-14-2022 Screening mammography bi 2-view breast inc cad Live Short MD Work Phone: Start: 10-13-2021 Lipid 1996 panel - Serum or Plasma [facility] Work Phone: Start: 03-14-2021 Adult depression screening assessment Usha Eid ACCOUNT FINANCIAL MANAGER Work Phone: Start: 04-13-2019 Mammography Usha Laceyqueta STEPHENSONACCOUNT FINANCIAL MANAGER Work Phone: H/O: tubal ligation Hx of tubal ligation Plan of Treatment Date Care Activity Detail Author Start: 05-19-2030 Lipid panel Lipid Screening [facility] Start: 05-19-2028 Diabetes Screening Diabetes Screenin g [facility] Start: 06-17-2027 HPV TESTING HPV TESTING [facility] Start: 06-17-2027 PAP TESTING PAP TESTING [facility] Start: 06-17-2027 Screening for malign ant neoplasm of cervix [facility] Start: 10-13-2026 Lipid 1996 panel - S janee or Plasma Lipid Screening [facility] Start: 10-13-2026 Lipid panel Lipid Screening [facility] Start: 10-13-2026 LIPID SCREEN LIPID SCREEN [facility] Start: 05-17-2026 Annual PCP Team Real Estate Appraiser Supervisor dina Disease Visit Annual PCP Team Chronic Disease Visit [facility] Start: 05-13-2026 DTaP/Tdap/Td Vaccine s (3 - Td or Tdap) DTaP/Tdap/Td Vaccines (3 - Td or Tdap) [facility] Start: 05-13-2026 Urine microalbumin profile [facility] Start: 12-10-2025 [facility]AB[facility] Start: 12-10-2025 Diabetes Screening Diabetes Screenin g [facility] Start: 11-15-2025 DIABETES SCREEN DIABETES SCREEN [facility] Start: 07-25-2025 Influenza vaccination C [facility] Start: 06-13-2025 [facility] Start: 05-17-2025 End: 05-17-2025 Patient encounter procedure 05/17/2025 3:40 PM EDT Office Visit [facility] [address] [place] [address] Yani Sloan, [address] [place] [address] chest tightness rt arm pain [facility] Comment on above: chest tightness rt a rm pain Start: 05-17-2025 End: 08-16-2025 CBC panel - Blood by Automated count COMPLETE BLOOD COUNT Lab Routine Other chest pain Expected: 05/17/2025, Expires: 08/16/2025 [facility] Comment on above: Expected: 05/17/2025 , Expires: 08/16/2025 Start: 05-17-2025 End: 08-16-2025 Comprehensive metabolic 2000 panel - Serum or Plasma COMPREHENSIVE METABOLIC PANEL Lab Routine Other chest pain Expected: 05/17/2025, Expires: 08/16/2025 [facility] Comment on above: Expected: 05/17/2025 , Expires: 08/16/2025 Start: 05-17-2025 End: 08-16-2025 Fibrin D-dimer FEU [Mass/volume] in Platelet poor plasma D-DIMER Lab Routine Other chest pain Expected: 05/17/2025, Expires: 08/16/2025 [facility] Comment on above: Expected: 05/17/2025 , Expires: 08/16/2025 Start: 05-17-2025 End: 08-16-2025 Lipid 1996 panel - Serum or Plasma LIPID PANEL, FASTING Lab Routine Other chest pain Expected: 05/17/2025, Expires: 08/16/2025 [facility] Comment on above: Expected: 05/17/2025 , Expires: 08/16/2025 Start: 05-17-2025 End: 08-16-2025 Magnesium [Mass/volume] in Serum or Plasma MAGNESIUM Lab Routine Other chest pain Expected: 05/17/2025, Expires: 08/16/2025 [facility] Comment on above: Expected: 05/17/2025 , Expires: 08/16/2025 Start: 05-02-2025 COLORECTAL CANCER SCREENING COLORECTAL CANCER SCREENING [facility] Comment on above: Postponed from 05/04 (Postponed To Appropriate Date) Start: 05-02-2025 Screening for malign ant neoplasm of colon Colorectal Cancer Screening [facility] Comment on above: Postponed from 05/04 (Postponed To Appropriate Date) Start: 04-29-2025 Annual PCP Team Real Estate Appraiser Supervisor dina Disease Visit Annual PCP Team Chronic Disease Visit [facility] Start: 04-29-2025 BP Controlled (<130/80) BP Controlle d (<130/80) [facility] Start: 03-13-2025 PAP TESTING PAP TESTING [facility] Start: 12-31-2024 Annual PCP Team Real Estate Appraiser Supervisor dina Disease Visit Annual PCP Team Chronic Disease Visit [facility] Start: 12-31-2024 BP Controlled (<130/80) BP Controlle d (<130/80) [facility] Start: 11-22-2024 HPV TESTING HPV TESTING [facility] Start: 10-13-2024 DIABETES SCREEN DIABETES SCREEN [facility] Start: 08-25-2024 BP Controlled (<130/80) BP Controlle d (<130/80) [facility] Start: 08-25-2024 Screening for malign ant neoplasm of [facility] Start: 07-25-2024 Covid-19 Vaccine ( season) Covid-19 Vaccine () [facility] Start: 07-25-2024 Influenza vaccination C [facility] Start: 07-16-2024 BP CONTROLLED (<130/80) BP CONTROLLE D (<130/80) [facility] Start: 05-19-2024 ANNUAL PCP TEAM STATE GAME WARDEN DINA DISEASE VISIT ANNUAL PCP TEAM CHRONIC DISEASE VISIT [facility] Start: 05-19-2024 BP CONTROLLED (<130/80) BP CONTROLLE D (<130/80) [facility] Start: 12-29-2023 End: 03-29-2024 25-hydroxyvitamin D3 [Mass/volume] in Serum or Plasma VITAMIN D 25 HYDROXY Lab Routine Dietary counseling and surveillance Class 2 obesity Body mass index (BMI) of 35.0-35.9 in adult Expected: 12/29/2023, Expires: 03/29/2024 [facility] Work Phone: Comment on above: Expected: 12/29/2023 , Expires: 03/29/2024 Start: 12-29-2023 End: 03-29-2024 Cobalamin (Vitamin B12) [Mass/volume] in Serum or Plasma VITAMIN B12 BLOOD Lab Routine Dietary counseling and surveillance Class 2 obesity Body mass index (BMI) of 35.0-35.9 in adult Expected: 12/29/2023, Expires: 03/29/2024 [facility] Work Phone: Comment on above: Expected: 12/29/2023 , Expires: 03/29/2024 Start: 12-29-2023 End: 03-29-2024 Comprehensive metabolic 2000 panel - Serum or Plasma COMP METABOLIC PANEL Lab Routine Dietary counseling and surveillance Class 2 obesity Body mass index (BMI) of 35.0-35.9 in adult Expected: 12/29/2023, Expires: 03/29/2024 [facility] Work Phone: Comment on above: Expected: 12/29/2023 , Expires: 03/29/2024 Start: 12-29-2023 End: 03-29-2024 Hemoglobin A1c in Blood HGB A1C Lab Routine Dietary counseling and surveillance Class 2 obesity Body mass index (BMI) of 35.0-35.9 in adult Expected: 12/29/2023, Expires: 03/29/2024 [facility] Work Phone: Comment on above: Expected: 12/29/2023 , Expires: 03/29/2024 Start: 12-29-2023 End: 03-29-2024 Insulin [Units/volume] in Serum or Plasma INSULIN ASSAY BLOOD Lab Routine Dietary counseling and surveillance Class 2 obesity Body mass index (BMI) of 35.0-35.9 in adult Expected: 12/29/2023, Expires: 03/29/2024 [facility] Work Phone: Comment on above: Expected: 12/29/2023 , Expires: 03/29/2024 Start: 12-10-2023 ANNUAL PCP TEAM STATE GAME WARDEN DINA DISEASE VISIT ANNUAL PCP TEAM CHRONIC DISEASE VISIT [facility] Start: 12-10-2023 BP CONTROLLED (<130/80) BP CONTROLLE D (<130/80) [facility] Start: 12-10-2023 COVID-19 VACCINE (#1) COVID-19 VACCI NE (#1) [facility] Comment on above: Postponed from 11/03 (Declined at this time) Start: 12-10-2023 SHINGRIX VACCINE (1 of 2) VALERA GRIX VACCINE (1 of 2) [facility] Comment on above: Postponed from 05/04 (Declined at this time) Start: 11-24-2023 Behavioral Health Screening Behavioral Health Screening [facility] Start: 11-24-2023 Depression Assessment Depression Ass essment [facility] Start: 09-23-2023 End: 12-23-2023 Urinalysis complete panel - Urine URINALYSIS WITH MICROSCOPIC, REFLEX CULTURE Lab Routine Urinary frequency Expected: 09/23/2023, Expires: 12/23/2023 [facility] Work Phone: Comment on above: Expected: 09/23/2023 , Expires: 12/23/2023 Start: 07-25-2023 Covid-19 Vaccine () Covid-19 Vaccine () [facility] Start: 07-25-2023 Influenza vaccination C [facility] Start: 05-23-2023 Influenza vaccination INFLUENZA (#1) [facility] Comment on above: Postponed from 07/25 (Declined at this time) Start: 05-19-2023 End: 07-19-2023 Comprehensive metabolic 2000 panel - Serum or Plasma COMP METABOLIC PANEL Lab Routine RUQ pain Expected: 05/19/2023, Expires: 07/19/2023 [facility] Work Phone: Comment on above: Expected: 05/19/2023 , Expires: 07/19/2023 Start: 05-19-2023 End: 07-19-2023 Hemoglobin A1c in Blood HGB A1C Lab Routine Unable to lose weight Elevated blood sugar Expected: 05/19/2023, Expires: 07/19/2023 [facility] Work Phone: Comment on above: Expected: 05/19/2023 , Expires: 07/19/2023 Start: 05-19-2023 End: 07-19-2023 Insulin [Units/volume] in Serum or Plasma INSULIN ASSAY BLOOD Lab Routine Unable to lose weight Elevated blood sugar Expected: 05/19/2023, Expires: 07/19/2023 [facility] Work Phone: Comment on above: Expected: 05/19/2023 , Expires: 07/19/2023 Start: 05-19-2023 End: 07-19-2023 Lipase [Enzymatic activity/volume] in Serum or Plasma LIPASE BLD Lab Routine RUQ pain Expected: 05/19/2023, Expires: 07/19/2023 [facility] Work Phone: Comment on above: Expected: 05/19/2023 , Expires: 07/19/2023 Start: 05-14-2023 Mammography [facility] Start: 05-14-2023 Screening for malign ant neoplasm of breast Mammogram Screening [facility] Start: 12-06-2022 End: 02-05-2023 [facility]INK CKD [facility] Lab Routine Renal calculi Expected: 12/06/2022, Expires: 02/05/2023 [facility] Work Phone: Comment on above: Expected: 12/06/2022 , Expires: 02/05/2023 Start: 11-24-2022 DEPRESSION ASSESSMENT DEPRESSION ASS ESSMENT [facility] Start: 10-12-2022 ANNUAL PCP TEAM STATE GAME WARDEN DINA DISEASE VISIT ANNUAL PCP TEAM CHRONIC DISEASE VISIT [facility] Start: 10-12-2022 BP CONTROLLED (<130/80) BP CONTROLLE D (<130/80) [facility] Start: 10-12-2022 COVID-19 VACCINE (#1) COVID-19 VACCI NE (#1) [facility] Comment on above: Postponed from 05/04 (Declined at this time) Postponed from 11/03 (Declined at this time) Start: 10-12-2022 COVID-19 VACCINE (1) COVID-19 VACCIN E (1) [facility] Comment on above: Postponed from 05/04 (Declined at this time) Start: 10-12-2022 SHINGRIX VACCINE (1 of 2) VALERA GRIX VACCINE (1 of 2) [facility] Comment on above: Postponed from 05/04 (Declined at this time) Start: 07-25-2022 Influenza vaccination C [facility] Start: 03-14-2022 Adult depression scr eening assessment DEPRESSION SCREENING [facility] Start: 11-24-2021 DEPRESSION ASSESSMENT DEPRESSION ASS ESSMENT [facility] Start: 04-13-2020 Mammography MAMMOGRAM [facility] Start: 03-09-2020 FECAL OCCULT BLOOD FECAL OCCULT BLOO D [facility] Start: 03-09-2020 Screening for malign ant neoplasm of colon [facility] Start: 2017 Pneumococcal Vaccine : 50+ (1 of 1 - PCV) Pneumococcal Vaccine: 50+ (1 of 1 - PCV) [facility] Start: 2017 SHINGRIX VACCINE (1 of 2) VALERA GRIX VACCINE (1 of 2) [facility] Start: 2017 Zoster Vaccines (1 of 2) Zoste r Vaccines (1 of 2) [facility] Start: 2012 COLOGUARD (FIT-DNA) COLOGUARD (FIT-D NA) [facility] Start: 2012 Colonoscopy COLONOSCOPY [facility] Start: [address] COLONOGRAPHY [facility] Start: 2012 Screening for malign ant neoplasm of colon [facility] Start: 2012 SIGMOIDOSCOPY SIGMOIDOSCOPY [facility] Start: 1988 Screening for malign ant neoplasm of cervix [facility] Start: 1986 Hepatitis B Vaccine (1 of 3 - 19+ 3-dose series) Hepatitis B Vaccine (1 of 3 - 19+ 3-dose series) [facility] Start: 1985 Anxiety Screening Anxiety Screening [facility] Start: 1985 BP CONTROLLED (<130/80) BP CONTROLLE D (<130/80) [facility] Start: 1985 Depression Screening Depression Scre ening [facility] Start: 1985 Hepatitis C screening Hepatitis C Sc [facility] Start: 1973 Pneumococcal Vaccine : Pediatrics (0 to 5 Years) and At-Risk Patients (6 to 64 Years) (1 - PCV) Pneumococcal Vaccine: Pediatrics (0 to 5 Years) and At-Risk Patients (6 to 64 Years) (1 - PCV) [facility] Start: 1968 MMR Vaccines (1 of 1 - Standard series) MMR Vaccines (1 of 1 - Standard series) [facility] Start: 1967 COVID-19 VACCINE (#1) COVID-19 VACCI NE (#1) [facility] Start: 1967 HEPATITIS B (1 of 3 - 3-dose series) HEPATITIS B (1 of 3 - 3-dose series) [facility] Start: 1967 Hepatitis B Vaccine (1 of 3 - 3-dose series) Hepatitis B Vaccine (1 of 3 - 3-dose series) [facility] Start: 1967 Hepatitis B Vaccines (1 of 3 - 3-dose series) Hepatitis B Vaccines (1 of 3 - 3-dose series) [facility] Start: 1967 HIV screening HIV Screening [facility] Start: 1967 Lipid panel Lipid Panel [facility] Start: 1967 Screening for malign ant neoplasm of colon [facility] Start: 1967 Yearly Adult Physical Yearly Adult P hysical [facility] Catheterization of l eft heart [facility] COVID & INFLUENZA A/ B & RSV NAAT, ROUTINE COVID & INFLUENZA A/B & RSV NAAT, ROUTINE Microbiology Routine Body aches Flu-like symptoms 12/31/2023 2:58 PM EST [facility] Work Phone: CT Chest W contrast IV [facility] Cysto w/simple remov al stone & stent CYSTO W/URETER STENT EXTRACT Procedures Routine Renal calculi Ordered: 12/06/2022 [facility] Work Phone: Comment on above: Ordered: 12/06/2022 End: 11-11-2025 DBT Breast - bilateral screening ELVER SCREENING [place] Radiology Routine Encounter for screening mammogram for breast cancer 1 Occurrences starting 10/12/2024 until 11/11/2025 [facility] Work Phone: Comment on above: 1 Occurrences starti ng 10/12/2024 until 11/11/2025 End: 01-09-2024 DXA-AXIAL SKELETON DXA-AXIAL SKELETON Radiology Routine Asymptomatic postmenopausal status Calculus of kidney 1 Occurrences starting 12/10/2022 until 01/09/2024 [facility] Work Phone: Comment on above: 1 Occurrences starti ng 12/10/2022 until 01/09/2024 End: 12-10-2023 Echocardiography ECHO Cardiology Routine Aortic valve stenosis, etiology of cardiac valve disease unspecified Mitral valve prolapse History of cardiac murmur 1 Occurrences starting 12/10/2022 until 12/10/2023 [facility] Work Phone: Comment on above: 1 Occurrences starti ng 12/10/2022 until 12/10/2023 End: 12-21-2023 EXERCISE STRESS ECG (WITHOUT IMAGING) EXERCISE STRESS ECG (WITHOUT IMAGING) Cardiology Routine Aortic valve stenosis, etiology of cardiac valve disease unspecified 1 Occurrences starting 12/21/2022 until 12/21/2023 [facility] Work Phone: Comment on above: 1 Occurrences starti ng 12/21/2022 until 12/21/2023 End: 06-04-2024 EXERCISE STRESS ECG (WITHOUT IMAGING) EXERCISE STRESS ECG (WITHOUT IMAGING) Cardiology Routine Chest pain, unspecified type 1 Occurrences starting 06/04/2023 until 06/04/2024 [facility] Work Phone: Comment on above: 1 Occurrences starti ng 06/04/2023 until 06/04/2024 End: 08-14-2024 Hepatobil syst imag inc gb w/pharma intervenj NM HEPATOBILIARY W EF AND/OR RX Radiology Routine Cholecystitis 1 Occurrences starting 07/16/2023 until 08/14/2024 [facility] Work Phone: Comment on above: 1 Occurrences starti ng 07/16/2023 until 08/14/2024 End: 01-09-2024 NM CARDIAC PERF STRESS/EXERCISE NM CARDIAC PERF STRESS/EXERCISE Radiology Routine Chest pain, unspecified type 1 Occurrences starting 12/10/2022 until 01/09/2024 [facility] Work Phone: Comment on above: 1 Occurrences starti ng 12/10/2022 until 01/09/2024 PAP FLUID CERVICAL SCREENING PAP FLUID CERVICAL SCREENING Lab Routine Encounter for Papanicolaou smear for cervical cancer screening Ordered: 06/17/2022 [facility] Work Phone: Comment on above: Ordered: 06/17/2022 End: 06-05-2023 Screening mammography bi 2-view breast inc cad ELVER SCREENING Radiology Routine Breast screening 1 Occurrences starting 05/06/2022 until 06/05/2023 [facility] Work Phone: Comment on above: 1 Occurrences starti ng 05/06/2022 until 06/05/2023 End: 05-17-2026 STRESS ECHO TREADMILL STRESS ECHO TREADMILL Cardiology Routine Other chest pain 1 Occurrences starting 05/17/2025 until 05/17/2026 [facility] Work Phone: Comment on above: 1 Occurrences starti ng 05/17/2025 until 05/17/2026 UA DIP B/O UA DIP B/O Lab R outine Urinary frequency Ordered: 12/31/2023 [facility] Work Phone: Comment on above: Ordered: 12/31/2023 End: 06-17-2024 US ABD RIGHT UPPER QUADRANT US ABD RIGHT UPPER QUADRANT Radiology Routine RUQ pain 1 Occurrences starting 05/19/2023 until 06/17/2024 [facility] Work Phone: Comment on above: 1 Occurrences starti ng 05/19/2023 until 06/17/2024 End: 05-20-2023 US ABD RIGHT UPPER QUADRANT [facility] Work Phone: Comment on above: 1 Occurrences starti ng 05/20/2023 until 05/20/2023 US Heart [facility] End: 07-17-2023 Us transvaginal US FEMALE PELVIS TRANSVAG Radiology Routine Family history of ovarian cancer 1 Occurrences starting 06/17/2022 until 07/17/2023 [facility] Work Phone: Comment on above: 1 Occurrences starti ng 06/17/2022 until 07/17/2023 End: 07-02-2022 Us transvaginal [facility] Work Phone: Comment on above: 1 Occurrences starti ng 07/02/2022 until 07/02/2022 End: 06-16-2026 XR Chest PA and Lateral XR CHEST 2V FRONTAL/LAT Radiology Routine Other chest pain 1 Occurrences starting 05/17/2025 until 06/16/2026 [facility] Comment on above: 1 Occurrences starti ng 05/17/2025 until 06/16/2026 [facility] Immunizations Immunization Date Immunization Notes Care Provider Beti fry 05-13-2016 tetanus toxoid, redu la diphtheria toxoid, and acellular pertussis vaccine, adsorbed Usha Eid EMERGENCY MEDICAL SERVICE MANAGER.ACCOUNT FINANCIAL MANAGER Work Phone: [facility] 11-24-2013 tetanus toxoid, redu la diphtheria toxoid, and acellular pertussis vaccine, adsorbed Usha Eid EMERGENCY MEDICAL SERVICE MANAGER.ACCOUNT FINANCIAL MANAGER Work Phone: [facility] Payers Date Payer Category Payer Self-pay [id number] 2020 [facility] [id number] 2020 Unknown RACQUEL GUERRA OSIEL [id number] 2020-Present [phone] [address] [place] [id number] Indemnity [id number] 2020 Unknown [id number] 2020 Unknown [id number] 1967 Unknown [id number] 1967 Unknown [id number] 1967 Unknown [id number] 1967 Unknown [id number] Unknown [id number] Unknown [id number] Unknown [id number] Unknown [id number] Unknown [id number] Unknown [id number] Unknown [id number] Unknown [id number] Social History Date Type Detail Facility Start: 01-13-2017 End: 11-14-2022 Tobacco smoking status NHIS Never smoked tobacco [facility] Work Phone: Start: 01-13-2017 End: 11-14-2022 Tobacco use and exposure Smokeless tobacco non-user [facility] Work Phone: Start: 10-12-2021 End: 05-17-2025 Alcohol intake Current drinker of alcohol (finding) [facility] Start: 10-29-2020 End: 10-12-2021 Alcohol intake [facility] Work Phone: Start: 03-14-2021 History SDOH Alcohol Frequency 4 [facility] Start: 03-14-2021 History SDOH Alcohol Std Drinks 1 [facility] Start: 03-14-2021 History SDOH Social Connections Phone 3 [facility] Start: 03-14-2021 History SDOH Physica l Activity MPS 2 [facility] Start: 03-14-2021 History SDOH Financial 5 [facility] Start: 03-14-2021 Education 16 [facility] Start: 1965 Sex Assigned At Not on file C [facility] Start: 04-02-2022 End: 08-25-2023 Exposure to SARS-CoV-2 (event) Not sure [facility] Start: 11-14-2022 Alcohol Comment daily, a glass of red wine [facility] Start: 05-16-2020 End: 05-16-2020 Tobacco smoking status NHIS Unknown if ever smoked [facility] Start: 03-18-2018 Occasional [facility] Start: 03-18-2018 None [facility] Start: 05-16-2020 Non-smoker [facility] Start: 1965 Sex Assigned At Female [facility] Start: 10-29-2020 End: 05-19-2023 Tobacco use panel [facility] Work Phone: Adult Depression Screening Assessment 0 [facility] Work Phone: Do you belong to any clubs or organizations such as bahai groups, unions, fraternal or athletic groups, or school groups? Yes [facility] Are you now , , , , never or living with a partner? [facility] [facility] How often to you hav e a drink containing alcohol? 2-3 time sa week [facility] How many standard dr inks containing alcohol do you have on a typical day? 1 or 2 [facility] How often do you hav e 6 or more drinks on 1 occasion? Never [facility] Do you feel stress - tense, restless, nervous, or anxious, or unable to sleep at night because your mind is troubled all the time - these days [OSQ] Only a little [facility] (I/We) worried michele er (my/our) food would run out before (I/we) got money to buy more. Never true [facility] In the past 12 month s, was there a time when you were not able to pay the mortgage or rent on time? No [facility] Medical Equipment Procedure Code Equipment Code Equipment Origin al Text Equipment Identifier Dates Stent Bard Inlay 6fr 2 Pigtail Curve Blue Hydrophilic 24cm Ureteral - [id number] Start: 11-29-2022 Functional Status Date Assessment Result Facility 10-03-2020 Are you deaf, or do you have serious difficulty hearing No 10/03/2020 5:24 PM Cielo Marsh RN No [facility] 10-03-2020 Are you blind, or do you have serious difficulty seeing, even when wearing glasses No 10/03/2020 5:24 PM Cielo Marsh RN No [facility] 10-03-2020 Do you have serious difficulty walking or climbing stairs No 10/03/2020 5:24 PM Cielo Marsh RN No [facility] 10-03-2020 Do you have difficul ty dressing or bathing No 10/03/2020 5:24 PM Cielo Marsh RN No [facility] 10-03-2020 Because of a physica l, mental, or emotional condition, do you have difficulty doing errands alone such as visiting a physician's office or shopping No 10/03/2020 5:24 PM Cielo Marsh RN No [facility] Mental Status Date Assessment Result Facility 10-03-2020 Because of a physica l, mental, or emotional condition, do you have serious difficulty concentrating, remembering, or making decisions No 10/03/2020 5:24 PM Cielo Marsh RN No [facility] Clinical Notes 04-06-2018 to 06-14-2025 Telephone Encounter - Yani Sloan DO - 06/14/2025 11:47 AM EDTTelephone Encounter - Yani Sloan DO - 06/14/2025 11:47 AM EDT Note Date & Type Note Facility 06-14-2025 Telephone encounter Note This is an error. I read the EKG, it was not sent to an outside physician to read. Thanks Yani Sloan DO [facility] 06-14-2025 Miscellaneous Notes This is an error. I read the EKG, it was not sent to an outside physician to read. Thanks Yani Sloan DO Patient called she got an EKG done in at our office but it got denied by insurance because she states that they told her we sent it to another Doctor to be read. Joel Servin MA documented in this encounter [facility] 06-14-2025 Telephone encounter Note Patient called she got an EKG done in at our office but it got denied by insurance because she states that they told her we sent it to another Doctor to be read. Joel Servin MA [facility] 06-01-2025 Radiology Diagnostic study note [facility] Imaging Services [address] [place], [place] [address] Chest PA and Lateral MR#: [id number] Acct: [id number] Name: CAROLIN BRITO Rep #: [id number] : [id number] F 60 From: Angelina Herrera MD PCP: NANCY Gomez Status: REG C Study:Chest PA and Lateral Date of Exam: 06/01/25 Exam# [id number] Ordering Dr: Jerome Sloan DO EXAM: XR Chest, 2 Views CLINICAL INDICATION: OTHER CP TECHNIQUE: Frontal and lateral views of the chest. COMPARISON: No relevant prior studies available. FINDINGS: LUNGS AND PLEURAL SPACES: Unremarkable. No consolidation. No pneumothorax. HEART: Unremarkable. No cardiomegaly. MEDIASTINUM: Unremarkable. Normal mediastinal contour. BONES/JOINTS: Unremarkable. No acute fracture. RAD/Chest PA and Lateral IMPRESSION: No acute cardiopulmonary process. [facility] CC: AUDIO VISUAL EQUIPMENT RENTAL CLERK-C Usha Eid; Dr. Yani Sloan DO ~ Probation Manager: Signed [facility] 06-01-2025 Evaluation note Diagnosis Onset Date Resolution Aortic stenosis acute June 01, 2025 10:03am Hypercholesteremia acute June 012024 10:03am HTN (hypertension) chronic June 012024 10:03am [facility] Work Phone: 1(614) 199-588306-24-2025 NoteHNO ID: [id number] Author: YANI SLOAN, DO Service: ? Author Type: Physician Type: [...] dyspnea; Carolin had difficulty speaking to the eight arm operator. - Pain subsided during the 911 [...] to severe stenosis. - Last seen by french teacher Dr. Js Pineda in June 2023; stress test performed at [facility] prior to that visit. - Data Officer recommended annual follow-up and repeat echocardiogram, which [...] no abdominal tenderness. Mu (more content not included)...[facility]06-24-2025 History of Present illness Narrative* Yani Sloan DO - 05/17/2025 3:54 PM EDT Subjective HPI aCrolin Brito is a 60-year-old female with a [...] dyspnea; Carolin had difficulty speaking to the eight arm operator. - Pain subsided during the 911 [...] to severe stenosis. - Last seen by french teacher Dr. Js Pineda in June 2023; stress test performed at [facility] prior to that visit. - Data Officer recommended annual follow-up and repeat echocardiogram, which [...] blood draw. - Referred patient back to french teacher Dr. Adele Bell for further evaluation and [...] CONSULT TO CARDIOLOGY - Last seen by french teacher Dr. Js Lawson in June 2023; follow-up [...] obesity type, unspecified whether serious comorbidity present (E66.811) - Discussed the importance of weight management in reducing cardiovascular risk. - Patient reports regular physical activity and adherence to a healthy diet. - Will monitor BMI and provide further dietary and lifestyle recommendations as needed. Yani Sloan DO The patient consented to the use of [employer] software for draft documentation of the visit consistent with [facility] s Notice of Privacy Practices. documented in this encounterPromedica [facility]11-19-2024 NotePatient Outreach (AGACM) CAROLIN BRITO ([id number]) 1965 F Date Time Provider Department 10/12/24 USHA EID AGA During your visit today, we recorded the following information about you: Allergies As of Date: 10/12/2024 Noted Allergy Reaction AMOXICILLIN 01/13/2017 9 - Itching Date Reviewed: 04/29/2024 Reviewed by: Usha Eid APRN.ACCOUNT FINANCIAL MANAGER - Fully Assessed Visit Diagnosis:Encounter for screening mammogram for breast cancer [Z12.31] Order(s):[facility] SCREEN[facility] [place] [[id number]] Order #: [id number] FUTURE Prescriptions as of 10/15/2024 - losartan [...] aortic valve [Q23.81] 07/11/2023 Encounter Status:Closed by EventBug Odyssey AirlinesUSER on 10/15/24[facility]06-19-2024 Telephone encounter Note* Telephone Encounter - Yolanda [...] Please review and advise. Yolanda Taylor MA [facility]06-19-2024 Miscellaneous Notes* Telephone Encounter - Yolanda [...] advise. Yolanda Taylor MA documented in this encounterPromedica [facility]06-06-2024 Instructions* Patient Instructions* Usha Eid APRN.CNP - 04/29/2024 9:31 AM EDT Images from the original note were not included. Back Exercises: Hold for 15 - 30 seconds. sets X daily documented in this encounterPromedica [facility]06-06-2024 History of Present illness Narrative* Usha [...] reviewed. She follows with Dr. Lawrence in [place] for Urology. Wanted her to go to [...] requirements were given to patient. Usha Eid APRN.CNP documented in this encounterPromedica [facility]02-08-2024 Miscellaneous Notes* Telephone Encounter - Huong Anders MA - 01/01/2024 4:17 PM EST Called pt let her know the results and to make sure she stays well hydrated. Huong Anders MA * Telephone Encounter - Huong Anders MA - 01/01/2024 4:16 PM EST ----- Message from Heather Nayak APRN.CNP sent at 01/01/2024 4:11 PM EST ----- Pt tested positive for flu A Please review symptom relief measures and to stay hydrated. If worsening symptoms go to ER. documented in this encounterPromedica [facility]02-07-2024 Instructions* Patient Instructions* Heather Nayak APRN.CNP - 12/31/2023 2:48 PM EST Patient information: Flu (The Basics) What is the flu? -- The flu is an infection that can cause fever, cough, body aches, and other symptoms. There are different forms of the flu, including the seasonal flu, the 5428-1060 pandemic H1N1 flu (also called the swine [...] Information obtained from UpToDate documented in this encounterPromedica [facility]02-07-2024 History of Present illness Narrative* Heather Nayak APRN.MAHESH - 12/31/2023 2:27 PM EST This note was created using WP Fail-Saferiter. Subjective Carolin Brito is a 58 year old female patient of VIKI Eid here today for acute visit for complaints [...] folic acid 800 mcg tablet rizatriptan (MAXALT RN CLINICAL DOCUMENTATION SPECIALIST) 5 mg disintegrating tablet Take 1 tablet [...] injection (DEFINITY) INTRAVENOUS DIRECTED PRN Usha Eid APRN.CNP sodium chloride 0.9 % (flush) 10 mL (BD POSIFLUSH) 10 mL INTRAVENOUS DIRECTED PRN Usha Eid APRN.CNP ACTIVE PROBLEM LIST History of Cardiac Murmur [...] - UA DIP, URINE (POC) Heather Nayak APRN.ACCOUNT FINANCIAL MANAGER documented in this encounterPromedica [facility]02-05-2024 Instructions* Patient Instructions* Chelsea Brunson MD [...] per day. Low-carbohydrate diet -- Low- and cwmd-cti-cwuaetlysojr diets (eg, Atkins diet, Apollidon diet) have become popular ways to lose weight quickly. With a ktqk-ufu-khbywkotxoyz diet, you eat between 0 and 60 [...] do not contain carbohydrates. Side effects of mzrw-ccg-yobqyhezluca diets can include constipation, headache, bad breath, [...] and arenot recommended. A doctor, nurse, or pin chaser can help you find a safe and effective way to lose weight and keep it off. Adapted from [facility] My opinion 3 hour Rule: -last [...] as visual guide to low carb food: Https://www.dietdoctor.com/ ( visual guide for low carb diet) [...] like a plant based meal replacement called Innotrieve Nutrition - can mix w froz berries [...] Good examples of appsto track calories are MyLa Maison InteriorsPAL, LOSE IT. Some patient have found FOODUCATE [...] at or call local emergency services at 874. What other information should I know? Keep all appointments with your doctor and the laboratory. Do not let anyone else take your medication. Topiramate use needs to be monitored closely. Prescriptions may be refilled only a limited number of times. Keep a written list of all of your prescription and nonprescription (rjsb-huq-gyuwovp) medicines, in addition to vitamins, minerals, or [...] for a missed one. Sources Pubmed Health: http://www.ncbi.nlm.nih.gov/pubmedhealth/UAP7351882/ Drugs.com http://www.drugs.com/pro/topiramate.html PHENTERMINE Rule 4731-09-27 was amended and in effect as of 01/21/23 making phentermine longterm Rx for obesity. Monthly visits will no longer be required. -- Please start phentermine low dose (1/2 tablet) in the morning everyday as discussed. We can adjust the dose if needed, that is if you are feeling some side effects you can either stop all togetheror decrease to 1/4 tablet. But we can review its effect when you return. Per [place] Medical Board: patient need to demonstrate 5% [...] Phentermine was approved by the FDA in 1958 for short term weight loss. It works [...] at or call local emergency services at 889. What other information should I know? Keep all appointments with your doctor and the laboratory. Do not let anyone else take your medication. Phentermine is a controlled substance. It is FDA approved for up to 3 months. Prescriptions may be refilled only a limited number of times. Keep a written list of all of your prescription and nonprescription (dcgd-oiu-hclzygs) medicines, in addition to vitamins, minerals, or [...] make up for a missed one. Sources [facility] Consumer Medication Info: http://www.ncbi.nlm.nih.gov/pubmedhealth/VMR8703151/ AMA patient handouts: http://www.amaassn.org/ama1/pub/upload/mm/433/phrxsurgery.pdf Drugs.com: http://www.drugs.com/pro/phentermine.html documented in this encounterPromedica [facility]02-05-2024 History of Present illness Narrative* Chelsea Brunson MD - 12/29/2023 2:00 PM EST Images from the original note were not included. Chelsea Brunson MD [address], [facility] [address] [place] [phone] This Team Access Model visit is a virtual visit. It required patient-provider interaction for the medical decision making as documented below. Consent was obtained to complete today's Feedzaiit. I have communicated my name and active licensure. The patient's identity and physical location wereverified at the time of this visit. Either the patient or their legal client relations representative has been informed of the risks [...] regarding bariatric surgery option but patient is IS:[id number]} interested in bariatric surgery. Age at onset [...] composite complication rate of , unstable angina, PR, DVT, PE, renal failure, and stroke occurred [...] not taking: Reported on 07/11/2023) rizatriptan (MAXALT RN CLINICAL DOCUMENTATION SPECIALIST) 5 mg disintegrating tablet Take 1 tablet [...] is increasing Discussed behavior and pharmacological interventions. Carolin has been struggling with increasing weight gain despite making positive changes. Today we discussed several medication options. Due to recent kidney stones I am holding off on topiramate. She does have a history of bicuspid valve with aortic stenosis has seen french teacher and has been cleared. She has METS [...] - ICD9: 746.4, ICD10: Q23.1 Has seen french teacher. Recommend follow-up with them. Chelsea Brunson MD [...] as visual guide to low carb food: [employer] Limit carb consumption to 80- 100 grams [...] Good examples of appsto track calories are iTaggedPAL, LOSE IT. Some patient have found FOODUCATE [...] like a plant based meal replacement called Innotrieve Nutrition - can mix w froz berries and almond milk) This note was partially generated using [employer]ixion Software voice recognition system, and there may be some incorrect words, spellings, and punctuation that were not noted in checking the note before saving documented in this encounterPromedica [facility] Hospital11-21-2023 Miscellaneous Notes* Telephone Encounter - Joel Servin MA - 10/14/2023 2:08 PM EST Patient is requesting results from her blood work that she completed at [facility], she is having them faxit. I will keep an eye out for the fax Joel Servin MA documented in this encounterPromedica [facility]08-23-2023 History of Present illness Narrative* Guillermo [...] kit multivitamin (DAILY VITAMIN ORAL) rizatriptan (MAXALT RN CLINICAL DOCUMENTATION SPECIALIST) 5 mg disintegrating tablet Take 1 tablet [...] Guillermo Scherer M.D., F.A.C.S. documented in this encounterPromedica [facility] Hospital08-23-2023 Instructions* Patient Instructions* Guillermo Scherer MD - 07/16/2023 11:33 AM EDT Thank you for coming to see me today. It is my pleasure to take care of you. If you have any questions regarding your visit, please don't hesitate to contact us. documented in this encounterPromedica [facility] Hospital08-18-2023 History of Present illness Narrative* Js Pineda MD - 07/11/2023 9:28 AM EDT Cardiology Ambulatory Clinic Note PCP: Usha Eid APRN.ACCOUNT FINANCIAL MANAGER Chief Complaint Patient presents with: CARD New [...] stenosis. 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 [...] kit multivitamin (DAILY VITAMIN ORAL) rizatriptan (MAXALT RN CLINICAL DOCUMENTATION SPECIALIST) 5 mg disintegrating tablet Take 1 tablet [...] injection (DEFINITY) INTRAVENOUS DIRECTED PRN Usha Eid APRN.CNP sodium chloride 0.9 % (flush) 10 mL (BD POSIFLUSH) 10 mL INTRAVENOUS DIRECTED PRN Usha Eid APRN.MAHESH REVIEW OF SYSTEMS: GENERAL: Negative for:Weight loss [...] to correct any errors. documented in this encounterPromedica [facility] Hospital08-18-2023 Nurse Note* Tea Salvador MA - 07/11/2023 9:19 AM EDT Patient complains of palpitations, and pain in her (R) arms that travel up and down at random times. documented in this encounterPromedica [facility] Hospital07-12-2023 Miscellaneous Notes* Telephone Encounter - Yolanda Taylor MA - 06/04/2023 1:09 PM EDT All information has been faxed. Yolanda Taylor MA * Telephone Encounter - Gogo Hunt APRN.CNP - 06/04/2023 1:03 PM EDT cardiac testing MITCHELL Leroy called about stress test orders. Diagnosis code was aortic stenosis. The order was for regular exercise stress test. Patient had ECHO done Usha ordered regular stress test, looks like it was for chest pain. Will change code to chest pain Please fax new orders along with last OV note to [phone] [facility] direct number - [phone] Gogo Hunt APRN.MAHESH documented in this encounterPromedica [facility]06-29-2023 Miscellaneous Notes* Telephone Encounter - Joel Servin MA - 05/22/2023 8:41 AM EDT Patient called and left a message that they need to know exactly what type of stress test this is Joel Servin MA documented in this encounterPromedica [facility] Hospital06-27-2023 History of Present illness Narrative* RT Jessica(R) - 05/20/2023 11:00 AM EDT Radiology Service [...] 20, 2023 11:32 AM documented in this encounterPromedica [facility]iance [facility] Hospital06-26-2023 Instructions* Patient Instructions* Usha Eid APRN.CNP - 05/19/2023 4:[address] Lynn Lanza [facility] Medical Office Building [address] [place] [address] Appointment:[phone] Dr. Guillermo Scherer [place] [phone] Appointment:[phone] [place] [address] Appointment:[phone] documented in this encounterPromedica [facility] Hospital06-26-2023 History of Present illness Narrative* Usha [...] history is provided by the patient. No occupational therapy asst was used. Abdominal Pain This is a [...] VITAMIN D3-VITAMIN K2, MK4, ORAL rizatriptan (MAXALT RN CLINICAL DOCUMENTATION SPECIALIST) 5 mg disintegrating tablet Take 1 tablet [...] injection (DEFINITY) INTRAVENOUS DIRECTED PRN Usha Eid, EMERGENCY MEDICAL SERVICE MANAGER.ACCOUNT FINANCIAL MANAGER sodium chloride 0.9 % (flush) 10 mL (BD POSIFLUSH) 10 mL INTRAVENOUS DIRECTED PRN Usha Eid APRN.MAHESH Review of Systems Constitutional: Positive for [...] ultrasound - Increase fiber in diet - [place] low-fat diet - Follow up in 2 weeks or sooner if worsening of symptoms - COMP METABOLIC PANEL - LIPASE BLD - CONSULT TO GENERAL SURGERY - US ABD RIGHT UPPER QUADRANT - TRAMADOL 50 MG TABLET PDMP website checked and validated. All prescriptions have been APPROPRIATELY filled. No suspiciousactivity was identified. 05/19/2023 by Usha Eid APRN.CNP 2. Common bile duct dilatation - [...] requirements were given to patient. Usha Eid APRN.CNP documented in this encounterPromedica [facility] Hospital05-15-2023 Miscellaneous Notes* Telephone Encounter - Joel [...] advise. Joel Servin MA documented in this encounterPromedica [facility] Hospital01-30-2023 Miscellaneous Notes* Telephone Encounter - Yeison [...] that she will have to complete at [place]. Cardiology: Dr. Guru Hathaway DO or Dr. Nick Patel [facility] Medical Office Building [address] [place] [address] documented in this encounterPromedica [facility] Hospital01-19-2023 History of Past illness Narrative* Problem [...] left eye 05/13/201704/27 Persistent dry cough 05/13/2017 04/19/2 019 Hypertension, essential 05/13/2017 05/0 02/2018 Hypertension 01/13/2017 07/11/2023 Undiagnosed cardiac murmurs 06/27/2015 07/11/2023 documented as of this encounter (statuses as of 07/11/2023) [facility]01-19-[facility] History of Past illness Narrative* Problem [...] of this encounter (statuses as of 07/17/2023) [facility]01-19-[facility] History of Past illness Narrative* Problem [...] of this encounter (statuses as of 08/08/2023) [facility]01-19-[facility] History of Past illness Narrative* Problem [...] of this encounter (statuses as of 09/24/2023) [facility]01-19-[facility] History of Past illness Narrative* Problem [...] of this encounter (statuses as of 10/15/2023) [facility]01-19-[facility] History of Past illness Narrative* Problem [...] of this encounter (statuses as of 12/30/2023) [facility]01-19-[facility] History of Past illness Narrative* Problem [...] of this encounter (statuses as of 01/01/2024) [facility]01-19-[facility] History of Past illness Narrative* Problem [...] of this encounter (statuses as of 01/02/2024) [facility]01-17-2023 Instructions* Patient Instructions* Usha Eid APRN.ACCOUNT FINANCIAL MANAGER - 12/10/2022 10:32 AM EST DIETARY MANAGEMENT [...] (1/2 cup) Broccoli, steamed 1 (1/2 cup) Elton jelly 1 (1 Tbsp) Apple, raw 0.7 (1 fruit) [place] flakes 0.6 (1 cup) BONE MINERAL DENSITY [...] your usual activities immediately. documented in this encounterPromedica [facility] Hospital01-17-2023 History of Present illness Narrative* Usha Eid EMERGENCY MEDICAL SERVICE MANAGER.ACCOUNT FINANCIAL MANAGER - 12/10/2022 10:21 AM EST CHIEF COMPLAINT: Carolin Brito is a 57 year old female who presents for follow up for urethral stent removal. I reviewed past medical, surgical, social, and family histories today and updated chart. Allergies, chronic medications, and supplements were also reviewed. Came to the ER for flank pain on 10/25/23 and was transferred to [facility] and had lithotripsy and stent placement. [...] history is provided by the patient. No occupational therapy asst was used. PAST MEDICAL HISTORY Diagnosis Date [...] TURMERIC ORAL Take by mouth. rizatriptan (MAXALT RN CLINICAL DOCUMENTATION SPECIALIST) 5 mg disintegrating tablet Take 1 tablet [...] injection (DEFINITY) INTRAVENOUS DIRECTED PRN Usha Eid APRN.ACCOUNT FINANCIAL MANAGER sodium chloride 0.9 % (flush) 10 mL (BD POSIFLUSH) 10 mL INTRAVENOUS DIRECTED PRN Usha Eid APRN.ACCOUNT FINANCIAL MANAGER hydrocortisone topical cream 2.5% TOPICAL BID Yani [...] patient. Usha Eid APRN.MAHESH documented in this encounterPromedica [facility] Hospital01-13-2023 Instructions* Patient Instructions* Harman Mendosa MD - 12/06/2022 11:52 AM EST INSTRUCTIONS FROM DR. MENDOSA: Perform the Litholink/24-hour urine study when you get it in the mail and send it back in as it cantake time to get the results, so try to have it in at least 4 weeks prior to follow-up for appointment PATIENT INFORMATION: [facility] Department of Urology After your Cystoscopy You [...] with drinking extra fluids. documented in this encounterPromedica [facility]iance [facility] Hospital01-13-2023 Procedure note* Harman Mendosa MD - 12/06/2022 11:47 AM ESTProcedure(s): CYSTO W/SIMPLE REMOVAL STONE & STENT Pre-Procedure Diagnose(s): Encounter for removal of ureteral stent Post-Procedure Diagnose(s): Encounter for removal of ureteral stent CYSTOSCOPY/stent removal- PROCEDURE NOTE: Cysto/stent remove-[id number] Dx:z46.6 Carolin Brito is a 57 year old female who presents for a cystoscopy and stent removal Pt ID verified with patient: yes Procedure verified with patient: cystoscopy/stent remove-yes Procedure confirmed with physician and community support specialist: yes Special equipment-cystoscope and grasping [...] plans Harman Mendosa MD documented in this encounterPromedica [facility]01-13-2023 History of Present illness Narrative* Harman [...] Past Urology Hx: November 14, 2022-admitted to [facility]- 57 year old female presenting as a direct admit from [place] for 1cm left proximal ureteral stone withhydronephrosis. [...] Date Value 11/14/2022 1+ 05/13/2017 neg Specific [place], Ur (no units) Date Value 11/14/2022 1.015 [...] once daily.^Disp: 30 tablet^Rfl: 11 rizatriptan (MAXALT RN CLINICAL DOCUMENTATION SPECIALIST) 5 mg disintegrating tablet^Take 1 tablet by [...] atorvastatin (LIPITOR) 40 mg tablet^40 mg.^Disp: ^Rfl: caxztdr-aldknprl-tigdynapwi (FIORINAL) capsule^Take by mouth.^Disp: ^Rfl: inulin-chromium picolinate [...] PROGRAM - CYSTO W/URETER STENT EXTRACT Harman Mendosa Please note: This note has been produced using speech recognition software and may contain errors related to that system including grammar, punctuation, spelling, gender and words and phrases that may be inappropriate. documented in this encounterPromedica [facility]01-09-2023 Miscellaneous Notes* Telephone Encounter - Jenny Fraga - 12/02/2022 9:32 AM EST Pt was called and scheduled * Telephone Encounter - Harman Mendosa MD - 11/29/2022 3:04 PM EST /p Cystoscopy, retrograde pyelograms, left ureteroscopy, laser lithotripsy, left ureteral stent placement P: cysto, stent remove next fri documented in this [facility]12-30-2022 Miscellaneous Notes* Telephone Encounter - Rosamaria Rushing Cma - 11/22/2022 9:16 AM EST Patient advised, and agreed. Rosamaria Burgessangel Mchugh * Telephone Encounter - Rosamaria Rushing Cma - 11/22/2022 8:25 AM EST Left message for patient to return call to office. Rosamaria Сергей Mchugh * Telephone Encounter - Harman Mendosa MD [...] Anything else I should be doing? Rosamaria Сергей Mchugh * Telephone Encounter - Harman Mendosa MD [...] advise Manuel Bal MA documented in this encounterPromedica Defiance [facility] Hospital12-27-2022 Miscellaneous Notes* Telephone Encounter - Joel MARTINEZ - 11/19/2022 11:04 AM EST Pt is scheduled for C&P, Lt ULL and stent with Dr Mendosa at [facility] on 11/29/22 @ 1:30 (11:30 arrival). Pt given date, time, prep and arrival instructions over the phone on 11/19/22. I-frontdesk message sentalso. Joel MARTINEZ documented in this encounterPromedica Defiance Regional Hospital12-27-2022 History of Present illness Narrative* Shruthi Valenzuela LPN - 11/19/2022 10:25 AM EST TRANSITIONAL CARE MANAGEMENT (TCM) COMMUNITY MONITORING PROGRAM - [place] Provider Action/FYI: SUMMARY: Pt discharged from [facility] on 11/15/2022. Admitted for: abdominal pain, kidney [...] patient: Yes Hi my name is Shruthi Luaaveryjerome and I am calling from the [facility] on behalf of your PCP, Usha Eid APRN.ACCOUNT FINANCIAL MANAGER I understand you were recently in the [...] like to speak with a social work steamship agent to help give you support for any [...] I will send your request to a energy scheduler who will contact and assist you with [...] possible). Shruthi Valenzuela LPN documented in this encounterPromedica Defiance [facility] Hospital12-23-2022 Miscellaneous Notes* Telephone Encounter - Joel [...] stent placement 12/04/22 at documented in this encounterPromedica Defiance [facility] Hospital12-22-2022 Miscellaneous Notes* Telephone Encounter - Yolanda Taylor MA - 11/14/2022 3:06 PM EST Patient in ER. Yolanda Taylor MA * Telephone Encounter - Yani Sloan DO - 11/14/2022 10:52 AM EST Please [...] takenanything. Joel Servin MA documented in this encounterPromedica Defiance [facility] Hospital07-25-2022 History and physical note * Live Short MD - 06/17/2022 9:46 AM EDT Carolin Brito is a 57 year old female who presents for annual exam. Seeing Usha Eid for routine exams. 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 Pap 3 years ago showed ASCUS [...] atorvastatin (LIPITOR) 40 mg tablet 40 mg. ribmbqa-sshkdjzv-evcwbtsepn (FIORINAL) capsule Take by mouth. inulin-chromium picolinate (F[employer]ER SELECT GUMMIES) 2-100 gram-mcg chew Take by mouth. rizatriptan (MAXALT RN CLINICAL DOCUMENTATION SPECIALIST) 5 mg disintegrating tablet Take 1 tablet [...] and pelvic exam BREAST - without masses. PRODUCT AMBASSADOR: Vulva - normal, Vagina - normal - [...] baseline Live Short MD documented in this encounterPromedica Defiance [facility] Hospital06-21-2022 Miscellaneous Notes* Letter - Mammography Coordinator - 05/14/2022 12:31 PM EDT [address] [address] May 14, 2022 PID: [id number] Carolin Brito [facility] [address] Dear Ms. Brito, We are pleased to [...] report will be kept on file at [facility] as part of your permanent medical record and are available for your continuing care. Thank you for allowing us to help in meeting your health care needs. Sincerely, Dr. Dudley Interpreting Radiologist [facility] (Normal over 40) documented in this encounterPromedica Defiance Regional Hospital06-21-2022 History of Present illness Narrative* RT [...] 14, 2022 9:38 AM documented in this encounterPromedica Defiance [facility] Hospital06-13-2022 Miscellaneous Notes* Telephone Encounter - Maddy Garces RN - 05/06/2022 1:[address] Short ordered elver himself. Maddy Garces RN * Telephone Encounter - Maddy Garces RN - 05/01/2022 9:51 AM EDT Called for elver order-pended. Thanks, Maddy Garces RN documented in this encounterPromedica Defiance [facility] Hospital04-27-2022 Miscellaneous Notes* Telephone Encounter - Yeison [...] advise. Yeison Carrera MA documented in this encounterPromedica Defiance [facility] Hospital05-14-2018 History of Past illness Narrative* Problem [...] of this encounter (statuses as of 03/20/2022) [facility] of [facility] illness Narrative* Problem [...] of this encounter (statuses as of 04/19/2022) [facility] of [facility] Narrative* Problem [...] of this encounter (statuses as of 05/06/2022) [facility] of [facility] Narrative* Problem [...] of this encounter (statuses as of 05/06/2022) [facility] Narrative* Problem [...] of this encounter (statuses as of 05/15/2022) [facility] of [facility] Narrative* Problem [...] of this encounter (statuses as of 05/16/2022) [facility] Narrative* Problem [...] of this encounter (statuses as of 06/17/2022) [facility] Narrative* Problem [...] of this encounter (statuses as of 07/03/2022) [facility] Narrative* Problem [...] of this encounter (statuses as of 11/15/2022) [facility] Narrative* Problem [...] of this encounter (statuses as of 11/17/2022) [facility] Narrative* Problem [...] of this encounter (statuses as of 11/24/2022) [facility] Narrative* Problem [...] of this encounter (statuses as of 11/25/2022) [facility] Narrative* Problem [...] of this encounter (statuses as of 11/27/2022) [facility] Narrative* Problem [...] of this encounter (statuses as of 12/06/2022) [facility] Narrative* Problem [...] of this encounter (statuses as of 12/12/2022) [facility] Narrative* Problem [...] of this encounter (statuses as of 12/19/2022) [facility] Narrative* Problem [...] of this encounter (statuses as of 12/22/2022) [facility] Narrative* Problem [...] of this encounter (statuses as of 12/23/2022) [facility] Narrative* Problem [...] of this encounter (statuses as of 04/07/2023) [facility] Narrative* Problem [...] of this encounter (statuses as of 05/21/2023) [facility] Narrative* Problem [...] of this encounter (statuses as of 05/21/2023) [facility] Narrative* Problem [...] of this encounter (statuses as of 05/23/2023) [facility] Narrative* Problem [...] of this encounter (statuses as of 05/30/2023) [facility] Narrative* Problem [...] of this encounter (statuses as of 06/05/2023) [facility]* Diagnosis Essential hypertension Unspecified essential hypertension documented in this encounter [facility]* Diagnosis Breast screening- Primary Breast screening, unspecified documented in this encounter [facility]* Diagnosis Encounter for screening mammogram for malignant neoplasm of breast- Primary Other screening mammogram documented in this encounter [facility]* Diagnosis Breast screening Breast screening, unspecified documented in this encounter [facility]* Diagnosis Encounter for annual routine gynecological examination- Primary Encounter for Papanicolaou smear for cervical cancer screening Family history of ovarian cancer Family history of malignant neoplasm of ovary documented in this encounter [facility]* Diagnosis Family history of ovarian cancer Family history of malignant neoplasm of ovary documented in this encounter [facility]* Diagnosis Renal calculi- Primary Calculus of kidney documented in this encounter [facility]* Diagnosis Calculus of kidney- Primary Aortic valve stenosis, etiology of cardiac valve disease unspecified Mitral valve prolapse Mitral valve disorders History of cardiac murmur Personal history of other diseases of circulatory system Chest pain, unspecified type Migraine without status migrainosus, not intractable, unspecified migraine type Asymptomatic postmenopausal status Screening for depression documented in this encounter [facility]* Diagnosis Aortic valve stenosis, etiology of cardiac valve disease unspecified Mitral valve prolapse Mitral valve disorders History of cardiac murmur Personal history of other diseases of circulatory system documented in this encounter [facility]* Diagnosis Aortic valve stenosis, etiology of cardiac valve disease unspecified- Primary documented in this encounter [facility]* Diagnosis Essential hypertension Unspecified essential hypertension documented in this encounter [facility]* Diagnosis RUQ pain- Primary Abdominal pain, right upper quadrant Common bile duct dilatation Other specified disorders of biliary tract Unable to lose weight Other symptoms concerning nutrition, metabolism, and development Elevated blood sugar Other abnormal glucose [facility] encounter [facility]* Diagnosis RUQ pain Abdominal pain, right upper quadrant documented in this encounter [facility] noteNo assessment information availableWSalem Regional [facility] Work Phone: Evaluation note* Diagnosis Chest pain, unspecified type- Primary documented in this encounter [facility] note* Diagnosis Nonrheumatic aortic (valve) stenosis- Primary Essential hypertension Unspecified essential hypertension Hypercholesteremia Pure hypercholesterolemia History of cardiac murmur Personal history of other diseases of circulatory system Obesity, Class II, BMI 35-39.9 Obesity, unspecified Bicuspid aortic valve Congenital insufficiency of aortic valve documented [facility]* Diagnosis Gallbladder polyp- Primary Cholesterolosis of gallbladder RUQ pain Abdominal pain, right upper quadrant Obesity, Class II, BMI 35-39.9 Obesity, unspecified Cholecystitis Cholecystitis, unspecified documented in this encounter [facility] note* Diagnosis Cholecystitis Cholecystitis, unspecified documented in this encounter [facility] note* Diagnosis Urinary frequency- Primary documented in this encounter [facility] note* Diagnosis Encounter for screening mammogram for malignant neoplasm of breast documented in this encounter [facility] Work Phone: Evaluation note* Diagnosis Class 2 obesity- Primary Vitamin D deficiency Unspecified vitamin D deficiency Essential hypertension Unspecified essential hypertension Dietary counseling and surveillance Dietary surveillance and counseling Body mass index (BMI) of 35.0-35.9 in adult Body Mass Index 35.0-35.9, adult Bicuspid aortic valve Congenital insufficiency of aortic valve documented [facility] this [facility]* Diagnosis Flu-like symptoms- Primary Other general symptoms Body aches Generalized pain Urinary frequency documented in this encounter [facility] note* Diagnosis Urinary frequency- Primary Right flank pain Abdominal pain, unspecified site Mid back pain on left side Pain in thoracic spine History of kidney stones Personal history of urinary calculi Essential hypertension Unspecified essential hypertension Headaches at night documented in this encounter [facility]* Diagnosis Essential hypertension Unspecified essential hypertension documented in this encounter [facility]* Diagnosis Essential hypertension Unspecified essential hypertension documented in this encounter [facility] note* Diagnosis Encounter for screening mammogram for breast cancer documented in this encounter [facility]* Diagnosis Other chest pain- Primary Bicuspid aortic valve (HCC) Congenital insufficiency of aortic valve Fatty liver Other chronic nonalcoholic liver disease Class 1 obesity with body mass index (BMI) of 34.0 to 34.9 in adult, unspecified obesity type, unspecified whether serious comorbidity present Heart murmur Undiagnosed cardiac murmurs documented in this encounter [facility] for referral (narrative)* Diagnostic Procedure Only (Routine) - Pending Review Specialty Diagnoses / Procedures Referred By Contac t Referred To Contact [facility] Diagnoses Breast screening Procedures ELVER SCREENING SCREENING MAMMOGRAPHY BI 2-VIEW BREAST INC CAD Pap, Live Garvey MD [address] [place] [address] [facility] [address] [place] [address] Referral ID Status Reason Start Date Expiration Date Visits Requested Visits Authorized [id number] Pending Review Auto-Generat ed Referral 05/06/2022 06/05/2023 1 1 [facility] for referral (narrative)* Diagnostic Procedure Only (Routine) - Closed Specialty Diagnoses / Procedures Referred By Contac t Referred To Contact BR IMAGING Diagnoses Breast screening Procedures ELVER SCREENING SCREENING MAMMOGRAPHY BI 2-VIEW BREAST INC CAD Pap, Live Garvey MD [address] [place] [address] [facility] [address] [place] [address] Referral ID Status Reason Start Date Expiration Date V isits Requested Visits Authorized [id number] Closed Auto-Generate d Referral 05/06/2022 06/05/2023 1 1 T [facility] for referral (narrative)* Diagnostic Procedure Only (Routine) - Pending Review Specialty Diagnoses / Procedures Referred By Contac t Referred To Contact US IMAGING Diagnoses Family history of ovarian cancer Procedures US FEMALE PELVIS TRANSVAG US TRANSVAGINAL Live Short MD [address] [place] [address] [facility] Referral ID Status Reason Start Date Expiration Date Visits Requested Visits Authorized [id number] Pending Review Auto-Generat ed Referral 06/17/2022 07/17/2023 1 1 [facility] for referral (narrative)* Diagnostic Procedure Only (Routine) - Closed Specialty Diagnoses / Procedures Referred By Karanac t Referred To Contact US IMAGING Diagnoses Family history of ovarian cancer Procedures US FEMALE PELVIS TRANSVAG US TRANSVAGINAL Deja, Live Garvey MD [address] [place] [address] [facility] Imaging Referral ID Status Reason Start Date Expiration Date V isits Requested Visits Authorized [id number] Closed Auto-Generate d Referral 06/17/2022 07/17/2023 1 1 [facility] for referral (narrative)* Diagnostic Procedure Only (Routine) - Pending Review Specialty Diagnoses / Procedures [facility] To Contact [facility] FUNCTIONAL IMAGING Diagnoses Chest pain, unspecified type Procedures NM CARDIAC PERF STRESS/EXERCISE MYOCARDIAL SPECT MULTIPLE STUDIES Usha Eid, EMERGENCY MEDICAL SERVICE MANAGER.ACCOUNT FINANCIAL MANAGER [address] [place] [address] [facility] [address] [place] [address] Referral ID Status Reason Start Date Expiration Date Visits Requested Visits Authorized [id number] Pending Review Auto-Generat ed Referral 12/10/2022 01/09/2024 1 1 * Outpatient Procedure (Routine) - Open Specialty Diagnoses / Procedures Referred By Contac t Referred To Contact [facility] Diagnoses Aortic valve stenosis, etiology of cardiac valve disease unspecified Mitral valve prolapse History of cardiac murmur Procedures ECHO ECHO TTHRC R-T 2D W/WOM-MODE COMPL SPEC&COLR D Usha Eid APRN.ACCOUNT FINANCIAL MANAGER [address] [place] [address] [facility] [address] [place] [address] Referral ID Status Reason Start Date Expiration Date V isits Requested Visits Authorized [id number] Open Auto-Generate d Referral 12/10/2022 12/10/2023 1 1 [facility] for referral (narrative)* Outpatient Procedure (Routine) - Closed Specialty Diagnoses / Procedures [facility] Diagnoses Aortic valve stenosis, etiology of cardiac valve disease unspecified Mitral valve prolapse History of cardiac murmur Procedures ECHO ECHO TTHRC R-T 2D W/WOM-MODE COMPL SPEC&COLR D Usha Eid APRN.ACCOUNT FINANCIAL MANAGER [address] [place] [address] [facility] [place] [address] [place] [address] Referral ID Status Reason Start Date Expiration Date V isits Requested Visits Authorized [id number] Closed Auto-Generate d Referral 12/13/2022 02/11/2023 1 1 [facility] for referral (narrative)* Diagnostic Procedure Only (Routine) - Closed Specialty Diagnoses / Procedures Referred By [facility] Referred To Contact US IMAGING Diagnoses RUQ pain Procedures US ABD RIGHT UPPER QUADRANT US ABDOMINAL REAL TIME W/IMAGE LIMITED Usha Eid APRN.ACCOUNT FINANCIAL MANAGER [address] [place] [address] Us Imaging Referral ID Status Reason Start Date Expiration Date V isits Requested Visits Authorized [id number] Closed Auto-Generate d Referral 11/24/2022 11/23/2023 1 1 [facility] for referral (narrative)* Diagnostic Procedure Only (Routine) - Pending Review Specialty Diagnoses / Procedures [facility] Referred To Contact [facility]ULAR [facility] FUNCTIONAL IMAGING Diagnoses Cholecystitis Procedures NM HEPATOBILIARY W EF AND/OR RX HEPATOBIL SYST IMAG INC GB W/PHARMA INTERVGuillermo Hurt MD [address] [address] Molecular [facility] [address] [place], [place] [id number] Referral ID Status Reason Start Date Expiration Date Visits Requested Visits Authorized [id number] Pending Review Auto-Generat ed Referral 07/16/2023 08/14/2024 1 1 [facility] for referral (narrative)* Diagnostic Procedure Only (Routine) - Closed Specialty Diagnoses / Procedures Referred By Contac t Referred To Contact [facility]LECULAR [facility] FUNCTIONAL IMAGING Diagnoses Cholecystitis Procedures NM HEPATOBILIARY W EF AND/OR RX HEPATOBIL SYST IMAG INC GB W/PHARMA INTERVENJ Guillermo Scherer MD [address] [address] [facility] [address] [place], [place] [id number] Referral ID Status Reason Start Date Expiration Date V isits Requested Visits Authorized [id number] Closed Auto-Generate d Referral 11/24/2022 11/23/2023 1 1 [facility] for referral (narrative)* Diagnostic Procedure Only (Routine) - New Request Specialty Diagnoses / Procedures Referred By Contac t Referred To Contact [facility] Diagnoses Encounter for screening mammogram for breast cancer Procedures ELVER SCREENING W [place] SCREENING DIGITAL BREAST TOMOSYNTHESIS BI SCREENING MAMMOGRAPHY BI 2-VIEW BREAST INC CAD Usha Eid, EMERGENCY MEDICAL SERVICE MANAGER.ACCOUNT FINANCIAL MANAGER [address] [place] [address] [facility] [address] [place] [address] Referral ID Status Reason Start Date Expiration Date Visits Requested Visits Authorized [id number] New Request Auto-Generat ed Referral 11/11/2025 1 1 Electronically signed by Usha Eid EMERGENCY MEDICAL SERVICE MANAGER.ACCOUNT FINANCIAL MANAGER at 10/12/2024 9:57 AM [facility] for referral (narrative)No reason for referral information availableBloomington Medical Services Work Phone: [facility] Narrative* Diagnostic Procedure Only (Routine) - Closed Specialty Diagnoses / Procedures Referred By Karanac t Referred To Contact [facility] Diagnoses Breast screening [Z12.39] Procedures SCREENING MAMMOGRAPHY BI 2-VIEW BREAST INC CAD ELVER SCREENING [[id number]] Pap, Live Garvey MD [address] [place] [address] [facility] [address] [place] [address] Referral ID Status Reason Start Date Expiration Date V isits Requested Visits Authorized [id number] Closed OON/Self Pay Override Financial Clearance Required - OON Payor Patient Cleared - INN Insurance Found 11/24/2021 11/23/2022 1 1 [facility] for visit Narrative* (Routine) - Open Specialty Diagnoses / Procedures Referred By Nabeel t Referred To Contact US IMAGING Diagnoses Family history of ovarian cancer Procedures US TRANSVAGINAL Pap, Live Garvey MD [address] [place] [address] Us Imaging Referral ID Status Reason Start Date Expiration Date V isits Requested Visits Authorized [id number] Open OON/Self Pay Override 06/17/2022 08/16/2022 1 1 [facility] for visit Narrative* Outpatient Procedure (Routine) - Closed Specialty Diagnoses / Procedures Referred By Nabeel t Referred To Contact [facility] Diagnoses Aortic valve stenosis, etiology of cardiac valve disease unspecified Mitral valve prolapse History of cardiac murmur Procedures ECHO ECHO TTHRC R-T 2D W/WOM-MODE COMPL SPEC&COLR D Usha Eid, EMERGENCY MEDICAL SERVICE MANAGER.ACCOUNT FINANCIAL MANAGER [address] [place] [address] [facility] [address] [place] [address] Referral ID Status Reason Start Date Expiration Date V isits Requested Visits Authorized [id number] Closed Auto-Generate d Referral 12/13/2022 02/11/2023 1 1 [facility] for visit Narrative* Outpatient Procedure (Routine) - Closed Specialty Diagnoses / Procedures Referred By Contac t Referred To Contact [facility] Diagnoses Right upper quadrant pain Procedures ULTRASOUND-ABDOMINAL PC US ABDOMINAL REAL TIME W/IMAGE LIMITED Usha Eid, EMERGENCY MEDICAL SERVICE MANAGER.ACCOUNT FINANCIAL MANAGER [address] [place] [address] [facility] [address] [place] [address] Referral ID Status Reason Start Date Expiration Date V isits Requested Visits Authorized [id number] Closed OON/Self Pay Override 11/24/2022 11/23/2023 1 1 [facility] for visit Narrative* Diagnostic Procedure Only (Routine) - Closed Specialty Diagnoses / Procedures Referred By Contac t Referred To Contact [facility] Diagnoses Cholecystitis, unspecified Cholecystitis [K81.9] Procedures RADIOLOGIC EXAM ESOPHAGUS SINGLE CONTRAST STUDY Usha Eid, EMERGENCY MEDICAL SERVICE MANAGER.ACCOUNT FINANCIAL MANAGER [address] [place] [address] [place] [address] Referral ID Status Reason Start Date Expiration Date V isits Requested Visits Authorized [id number] Closed OON/Self Pay Override Financial Clearance Not Required 07/16/2023 01/12/2024 1 1 [facility] Advance Directives No Advanced Directives Records FoundDocuments on File Type Date Recorded Patient Stone Gluer Expl anation Advance Directive(s) 10/01/2020 6:59 PM Advance Directive(s) 09/30/2020 11:54 PM Documents on File Type Date Recorded Patient Stone Gluer Expl anation Advance Directive(s) 10/01/2020 6:59 PM Advance Directive(s) 09/30/2020 11:54 PM Advance Directive Response Recorded Date/ Time Living Will No May 16, 2020 12:57pm Power of Psychiatry Physician No May 16 0 12:57pm Advance Directive Response Recorded Date/ Time Living Will No May 16, 2020 11:57am Power of Psychiatry Physician No May 16 0 11:57am Advance Directive Response Recorded Date/ Time Advance Directives on File No June 13, 2025 7:40am Living Will No June 13, 2025 7:40am Do you have a Healthcare Power of Psychiatry Physician? Yes June 13, 2025 7:40am Name of Medical Power of Psychiatry Physician Spouse June 13, 2025 7:40am Advance Directives No June 13 7:40am Health Concerns Infection Onset Date Last Indicated [...] disease unspecified Procedures CONSULT TO CARDIOLOGY OFFICE/OUTPATIENT [facility] MDM 60-74 MINUTES Usha Eid APRN.ACCOUNT FINANCIAL MANAGER [address] [place] [address] Referral ID Status Reason Start Date Expiration Date Visits Requested Visits Authorized [id number] Pending Review PCP Requested Referral 12/21/2022 12/21/2023 1 1 Specialty Diagnoses / Procedures Referred By Nabeel kong Referred To Contact Diagnoses RUQ pain Usha Eid APRN.ACCOUNT FINANCIAL MANAGER [address] [place] [address] Referral ID Status Reason Start Date Expiration Date Visits Re quested Visits Authorized [id number] Closed 1 1 Specialty Diagnoses / Procedures Referred By Nabeel kong Referred To Contact [facility] Diagnoses RUQ pain Procedures US ABD RIGHT UPPER QUADRANT US ABDOMINAL REAL TIME W/IMAGE LIMITED Usha Eid APRN.ACCOUNT FINANCIAL MANAGER [address] [place] [address] [facility] Referral ID Status Reason Start Date Expiration Date V isits Requested Visits Authorized [id number] Closed Auto-Generate d Referral 11/24/2022 11/23/2023 1 1 Specialty Diagnoses / Procedures Referred By Contac t Referred To Contact General Surgery / [facility] Department Diagnoses RUQ pain Procedures CONSULT TO GENERAL SURGERY OFFICE/OUTPATIENT [facility] 60-74 MINUTES Usha Eid APRN.ACCOUNT FINANCIAL MANAGER [address] [place] [address] Lynn Lanza MD [address] [address] Referral ID Status Reason Start Date Expiration Date Visits Requested Visits Authorized [id number] Pending Review PCP Requested Referral 05/19/2023 05/18/2024 1 1 Specialty Diagnoses / Procedures Referred By Contac t Referred To Contact Radiology Diagnoses Encounter for screening mammogram for malignant neoplasm of breast Procedures BI mammo bilateral screening tomosynthesis Usha Eid APRN-ACCOUNT FINANCIAL MANAGER [address] [place] [address] Referral ID Status Reason Start Date Expiration Date Visits Requested Visits Authorized [id number] Authorized Perform Procedure 08/07/2023 02/03/2024 1 1 Specialty Diagnoses / Procedures Referred By Contac t Referred To Contact [facility] Diagnoses Urinary frequency Right flank pain Calculus of kidney Procedures CONSULT TO UROLOGY OFFICE/OUTPATIENT [facility] 60 MINUTES Usha Eid APRN.ACCOUNT FINANCIAL MANAGER [address] [place] [address] Jordyn Lawrence [address] [facility] [address] [place] [address] Referral ID Status Reason Start Date Expiration Date Visits Requested Visits Authorized [id number] Pending Review PCP Requested Referral 04/29/2024 04/29/2025 1 1 Family History No Family History Records Found Relationship Condition Age at Onset Recorded Date/T rtent mother Arthritis Unknown Osteoporosis Unknown Cerebrovascular accident [...] HTN (hypertension) June 01, 2025 10:03 am Chief Complaint Admit Date AORTIC STENOSIS (SHEETS) June 01, 2025 10:03am Nonrheumatic aortic (valve) stenosis Neno 2024 7:16am Amb Documentation June 13, 2025 7:17 am Additional Source Comments Source Comments (unrecognize d section and content) In the event this informatio n is protected by the Federal Confidentiality of Alcohol and Drug Abuse Patient Records regulations: The Federal rules restrict any use of the information to criminally investigate or prosecute any alcohol or drug abuse patient.[facility] the event this information is protected by the Federal Confidentiality of Alcohol and Drug Abuse Patient Records regulations: The Federal rules restrict any use of the information to criminally investigate or prosecute any alcohol or drug abuse patient.[facility] the event this information is protected by the Federal Confidentiality of Alcohol and Drug Abuse Patient Records regulations: The Federal rules restrict any use of the information to criminally investigate or prosecute any alcohol or drug abuse patient.[facility] the event this information is protected by the Federal Confidentiality of Alcohol and Drug Abuse Patient Records regulations: The Federal rules restrict any use of the information to criminally investigate or prosecute any alcohol or drug abuse patient.[facility] the event this information is protected by the Federal Confidentiality of Alcohol and Drug Abuse Patient Records regulations: The Federal rules restrict any use of the information to criminally investigate or prosecute any alcohol or drug abuse patient.[facility] the event this information is protected by the Federal Confidentiality of Alcohol and Drug Abuse Patient Records regulations: The Federal rules restrict any use of the information to criminally investigate or prosecute any alcohol or drug abuse patient.[facility] the event this information is protected by the Federal Confidentiality of Alcohol and Drug Abuse Patient Records regulations: The Federal rules restrict any use of the information to criminally investigate or prosecute any alcohol or drug abuse patient.[facility] the event this information is protected by the Federal Confidentiality of Alcohol and Drug Abuse Patient Records regulations: The Federal rules restrict any use of the information to criminally investigate or prosecute any alcohol or drug abuse patient.[facility] the event this information is protected by the Federal Confidentiality of Alcohol and Drug Abuse Patient Records regulations: The Federal rules restrict any use of the information to criminally investigate or prosecute any alcohol or drug abuse patient.[facility] the event this information is protected by the Federal Confidentiality of Alcohol and Drug Abuse Patient Records regulations: The Federal rules restrict any use of the information to criminally investigate or prosecute any alcohol or drug abuse patient.[facility] the event this information is protected by the Federal Confidentiality of Alcohol and Drug Abuse Patient Records regulations: The Federal rules restrict any use of the information to criminally investigate or prosecute any alcohol or drug abuse patient.[facility] the event this information is protected by the Federal Confidentiality of Alcohol and Drug Abuse Patient Records regulations: The Federal rules restrict any use of the information to criminally investigate or prosecute any alcohol or drug abuse patient.[facility] the event this information is protected by the Federal Confidentiality of Alcohol and Drug Abuse Patient Records regulations: The Federal rules restrict any use of the information to criminally investigate or prosecute any alcohol or drug abuse patient.[facility] the event this information is protected by the Federal Confidentiality of Alcohol and Drug Abuse Patient Records regulations: The Federal rules restrict any use of the information to criminally investigate or prosecute any alcohol or drug abuse patient.[facility] the event this information is protected by the Federal Confidentiality of Alcohol and Drug Abuse Patient Records regulations: The Federal rules restrict any use of the information to criminally investigate or prosecute any alcohol or drug abuse patient.[facility] the event this information is protected by the Federal Confidentiality of Alcohol and Drug Abuse Patient Records regulations: The Federal rules restrict any use of the information to criminally investigate or prosecute any alcohol or drug abuse patient.[facility] HospitalIn the event this information is protected by the Federal Confidentiality of Alcohol and Drug Abuse Patient Records regulations: The Federal rules restrict any use of the information to criminally investigate or prosecute any alcohol or drug abuse patient.[facility] HospitalIn the event this information is protected by the Federal Confidentiality of Alcohol and Drug Abuse Patient Records regulations: The Federal rules restrict any use of the information to criminally investigate or prosecute any alcohol or drug abuse patient.[facility] HospitalIn the event this information is protected by the Federal Confidentiality of Alcohol and Drug Abuse Patient Records regulations: The Federal rules restrict any use of the information to criminally investigate or prosecute any alcohol or drug abuse patient.[facility] HospitalIn the event this information is protected by the Federal Confidentiality of Alcohol and Drug Abuse Patient Records regulations: The Federal rules restrict any use of the information to criminally investigate or prosecute any alcohol or drug abuse patient.[facility] HospitalIn the event this information is protected by the Federal Confidentiality of Alcohol and Drug Abuse Patient Records regulations: The Federal rules restrict any use of the information to criminally investigate or prosecute any alcohol or drug abuse patient.[facility] HospitalIn the event this information is protected by the Federal Confidentiality of Alcohol and Drug Abuse Patient Records regulations: The Federal rules restrict any use of the information to criminally investigate or prosecute any alcohol or drug abuse patient.[facility] HospitalIn the event this information is protected by the Federal Confidentiality of Alcohol and Drug Abuse Patient Records regulations: The Federal rules restrict any use of the information to criminally investigate or prosecute any alcohol or drug abuse patient.[facility]In the event this information is protected by the Federal Confidentiality of Alcohol and Drug Abuse Patient Records regulations: The Federal rules restrict any use of the information to criminally investigate or prosecute any alcohol or drug abuse patient.[facility] HospitalIn the event this information is protected by the Federal Confidentiality of Alcohol and Drug Abuse Patient Records regulations: The Federal rules restrict any use of the information to criminally investigate or prosecute any alcohol or drug abuse patient.[facility] HospitalIn the event this information is protected by the Federal Confidentiality of Alcohol and Drug Abuse Patient Records regulations: The Federal rules restrict any use of the information to criminally investigate or prosecute any alcohol or drug abuse patient.[facility] HospitalIn the event this information is protected by the Federal Confidentiality of Alcohol and Drug Abuse Patient Records regulations: The Federal rules restrict any use of the information to criminally investigate or prosecute any alcohol or drug abuse patient.[facility] HospitalIn the event this information is protected by the Federal Confidentiality of Alcohol and Drug Abuse Patient Records regulations: The Federal rules restrict any use of the information to criminally investigate or prosecute any alcohol or drug abuse patient.[facility] HospitalIn the event this information is protected by the Federal Confidentiality of Alcohol and Drug Abuse Patient Records regulations: The Federal rules restrict any use of the information to criminally investigate or prosecute any alcohol or drug abuse patient.[facility] HospitalIn the event this information is protected by the Federal Confidentiality of Alcohol and Drug Abuse Patient Records regulations: The Federal rules restrict any use of the information to criminally investigate or prosecute any alcohol or drug abuse patient.[facility] HospitalIn the event this information is protected by the Federal Confidentiality of Alcohol and Drug Abuse Patient Records regulations: The Federal rules restrict any use of the information to criminally investigate or prosecute any alcohol or drug abuse patient.[facility] HospitalIn the event this information is protected by the Federal Confidentiality of Alcohol and Drug Abuse Patient Records regulations: The Federal rules restrict any use of the information to criminally investigate or prosecute any alcohol or drug abuse patient.[facility] HospitalIn the event this information is protected by the Federal Confidentiality of Alcohol and Drug Abuse Patient Records regulations: The Federal rules restrict any use of the information to criminally investigate or prosecute any alcohol or drug abuse patient.[facility] HospitalIn the event this information is protected by the Federal Confidentiality of Alcohol and Drug Abuse Patient Records regulations: The Federal rules restrict any use of the information to criminally investigate or prosecute any alcohol or drug abuse patient.[facility] HospitalIn the event this information is protected by the Federal Confidentiality of Alcohol and Drug Abuse Patient Records regulations: The Federal rules restrict any use of the information to criminally investigate or prosecute any alcohol or drug abuse patient.[facility] HospitalIn the event this information is protected by the Federal Confidentiality of Alcohol and Drug Abuse Patient Records regulations: The Federal rules restrict any use of the information to criminally investigate or prosecute any alcohol or drug abuse patient.[facility] HospitalIn the event this information is protected by the Federal Confidentiality of Alcohol and Drug Abuse Patient Records regulations: The Federal rules restrict any use of the information to criminally investigate or prosecute any alcohol or drug abuse patient.[facility] HospitalIn the event this information is protected by the Federal Confidentiality of Alcohol and Drug Abuse Patient Records regulations: The Federal rules restrict any use of the information to criminally investigate or prosecute any alcohol or drug abuse patient.[facility] HospitalIn the event this information is protected by the Federal Confidentiality of Alcohol and Drug Abuse Patient Records regulations: The Federal rules restrict any use of the information to criminally investigate or prosecute any alcohol or drug abuse patient.[facility] HospitalIn the event this information is protected by the Federal Confidentiality of Alcohol and Drug Abuse Patient Records regulations: The Federal rules restrict any use of the information to criminally investigate or prosecute any alcohol or drug abuse patient.[facility] Reason for Visit (unrecogniz ed section and content) Reason Onset Date Comments Refill Request 03/20/2022 Specialty Diagnoses / Procedures Referred By Nabeel t Referred To Contact [facility] Diagnoses Encounter for screening mammogram for breast cancer screening elver Procedures SCREENING MAMMOGRAPHY BI 2-VIEW BREAST INC CAD mammogram Pap, Live Garvey MD [address] [place] [address] [facility] [address] [place] [address] Referral ID Status Reason Start Date Expiration Date V isits Requested Visits Authorized [id number] Denied OON/Self Pay Override 04/12/2022 06/11/2022 1 0 Reason Comments Orders Reason Comments Yearly Exam Pt presents for saira al exam. Denies any concerns. 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 Reason Comments Surgery Scheduled Reason Onset Date Comments Transition Of Care 11/19/2022 [facility] discharg e 11/15/2022 TCM encounter Reason Comments Patient Question Reason Comments Cystoscopy-1 Specialty Diagnoses / Procedures Referred By Nabeel kong Referred To Contact UROLOGY Diagnoses S/P cystoscopy Procedures CYSTO W/SIMPLE REMOVAL STONE & STENT REFERRAL TO [facility] FINANCIAL COUNSELOR Harman Mendosa MD [address] [place] [address] [employer] [address] [place] [address] Referral ID Status Reason Start Date Expiration Date Visits Requested Visits Authorized [id number] Pending Review OON/Self Pay Override Financial Clearance Required - OON Payor OON Notification Letter Patient Cleared - Admin/Design Coordinator/D irector advise to proceed 3 03/05/2023 3 3 Reason Comments Follow up for stent removal Specialty Diagnoses / Procedures Referred By Nabeel Referred To Contact FAMILY MEDICINE Diagnoses follow up appt Procedures est pt Self Usha Eid, EMERGENCY MEDICAL SERVICE MANAGER.ACCOUNT FINANCIAL MANAGER [address] [place] [address] Referral ID Status Reason Start Date Expiration Date Visits Requested Visits Authorized [id number] Outside PCP OON/Self Pay Override 12/02/2022 05/31/2023 1 1 Reason Onset Date Comments 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 Gallbladder Pain scale: 5Duration: 9:00 yesterday morningDescription: Sharp shooting occ. And nagging painTreatment: tylenol Specialty Diagnoses / Procedures Referred By Nabeel Referred To Contact FAMILY MEDICINE Diagnoses Follow-up exam Procedures OFFICE/OUTPATIENT ESTABLISHED MOD MDM 30-39 MIN Usha Eid, EMERGENCY MEDICAL SERVICE MANAGER.ACCOUNT FINANCIAL MANAGER [address] [place] [address] [address] Referral ID Status Reason Start Date Expiration Date Visits Requested Visits Authorized [id number] Pending Review OON/Self Pay Override 12/10/2022 11/15/2023 1 1 Reason Comments Orders Stress test Reason Comments CARD New Patient Consult Aortic valve st enosis Specialty Diagnoses / Procedures [facility] To Contact [facility] Diagnoses Chest pain, unspecified type [R07.9] Procedures nm cardiac perf stress teest Usha Eid EMERGENCY MEDICAL SERVICE MANAGER.ACCOUNT FINANCIAL MANAGER [address] [place] [address] [facility] [address] [place] [address] Referral ID Status Reason Start Date Expiration Date V isits Requested Visits Authorized [id number] Closed OON/Self Pay Override 12/13/2022 09/17/2023 1 1 Reason Comments New Patient GB Specialty Diagnoses / Procedures Referred By Contac t Referred To Contact GENERAL SURGERY Diagnoses Cholelithiasis Procedures OFFICE/OUTPATIENT NEW MODERATE MDM 45-59 MINUTES Usha Eid EMERGENCY MEDICAL SERVICE MANAGER.ACCOUNT FINANCIAL MANAGER [address] [place] [address] [address] [facility] [address] [place] [address] Referral ID Status Reason Start Date Expiration Date Visits Requested Visits Authorized [id number] Pending Review OON/Self Pay Override 05/21/2023 11/17/2023 1 1 Specialty Diagnoses / Procedures Referred By Contac t Referred To Contact Radiology Diagnoses Encounter for screening mammogram for malignant neoplasm of breast Procedures BI mammo bilateral screening tomosynthesis Usha Eid EMERGENCY MEDICAL SERVICE MANAGER-ACCOUNT FINANCIAL MANAGER [address] [place] [address] Referral ID Status Reason Start Date Expiration Date Visits Requested Visits Authorized [id number] Authorized Perform Procedure 08/07/2023 02/03/2024 1 1 Reason Comments Results Reason Comments New Patient Specialty Diagnoses / Procedures Referred By Contac t Referred To Contact INTERNAL MEDICINE Diagnoses headahce fever fatigue lost of appitite Procedures established pt Self [place] [address] [place] [address] Referral ID Status Reason Start Date Expiration Date Visits Requested Visits Authorized [id number] Outside PCP OON/Self Pay Override 12/31/2023 04/09/2025 1 1 Reason Comments Kidney Infection Has been having head aches, mid back pain, has history of kidney stone Specialty Diagnoses / Procedures Referred By Contac t Referred To Contact [facility]PARTMENT Diagnoses Kidney stone Procedures EST PT LEVEL 5 Usha Eid EMERGENCY MEDICAL SERVICE MANAGER.ACCOUNT FINANCIAL MANAGER [address] [place] [address] [place] [address] Referral ID Status Reason Start Date Expiration Date Visits Requested Visits Authorized [id number] Pending Review OON/Self Pay Override 04/28/2024 07/24/2024 [...] arm pain Procedures PC EST Usha Eid, EMERGENCY MEDICAL SERVICE MANAGER.ACCOUNT FINANCIAL MANAGER [address] [place] [address] Phone: tel: fax: Yani Sloan DO [address] [place] [address] Phone: tel: fax: Referral ID Status Reason Start Date Expiration Date Visits Requested Visits Authorized [id number] New Request OON/Self Pay Override 05/17/2025 11/23/2025 5 5 Reason Comments Billing question Care Teams (unrecognized sec tion and content) Analyst Business Analysis Relationship Specialty Start Date End Date Usha Eid, EMERGENCY MEDICAL SERVICE MANAGER.ACCOUNT FINANCIAL MANAGER [address] [place] [address] PCP - General Family Practice 10/04/20 Analyst Business Analysis Relationship Specialty Start Date End Date Usha Eid, EMERGENCY MEDICAL SERVICE MANAGER.ACCOUNT FINANCIAL MANAGER [address] [place] [address] PCP - General Family Practice 10/04/20 Analyst Business Analysis Relationship Specialty Start Date End Date Usha Eid, EMERGENCY MEDICAL SERVICE MANAGER.ACCOUNT FINANCIAL MANAGER [address] [place], [place] [id number] PCP - General Family Practice 10/04/20 Analyst Business Analysis Relationship Specialty Start Date End Date Usha Eid, EMERGENCY MEDICAL SERVICE MANAGER.ACCOUNT FINANCIAL MANAGER [address] [place] [address] PCP - General Family Practice 10/04/20 Analyst Business Analysis Relationship Specialty Start Date End Date Usha Eid, EMERGENCY MEDICAL SERVICE MANAGER.ACCOUNT FINANCIAL MANAGER [address] [place] [address] PCP - General Family Practice 10/04/20 Analyst Business Analysis Relationship Specialty Start Date End Date Usha Eid, EMERGENCY MEDICAL SERVICE MANAGER.ACCOUNT FINANCIAL MANAGER [address] [place] [address] PCP - General Family Practice 10/04/20 Analyst Business Analysis Relationship Specialty Start Date End Date Usha Eid, EMERGENCY MEDICAL SERVICE MANAGER.ACCOUNT FINANCIAL MANAGER [address] [place] [place] [address] PCP - General Family Practice 10/04/20 Analyst Business Analysis Relationship Specialty Start Date End Date Usha Eid, EMERGENCY MEDICAL SERVICE MANAGER.ACCOUNT FINANCIAL MANAGER [address] [place] [place] [address] PCP - General Family Medicine 10/04/20 Analyst Business Analysis Relationship Specialty Start Date End Date Usha Eid, EMERGENCY MEDICAL SERVICE MANAGER.ACCOUNT FINANCIAL MANAGER [address] [place] [address] PCP - General Family Medicine 10/04/20 Analyst Business Analysis Relationship Specialty Start Date End Date Usha Eid, EMERGENCY MEDICAL SERVICE MANAGER.ACCOUNT FINANCIAL MANAGER [address] [place] [address] PCP - General Family Medicine 10/04/20 Analyst Business Analysis Relationship Specialty Start Date End Date Usha Eid, EMERGENCY MEDICAL SERVICE MANAGER.ACCOUNT FINANCIAL MANAGER [address] [place] [address] PCP - General Family Medicine 10/04/20 Analyst Business Analysis Relationship Specialty Start Date End Date Usha Eid, EMERGENCY MEDICAL SERVICE MANAGER.ACCOUNT FINANCIAL MANAGER [address] [place] [address] PCP - General Family Medicine 10/04/20 Analyst Business Analysis Relationship Specialty Start Date End Date Usha Eid, EMERGENCY MEDICAL SERVICE MANAGER.ACCOUNT FINANCIAL MANAGER [address] [place] [place] [address] PCP - General Family Medicine 10/04/20 Analyst Business Analysis Relationship Specialty Start Date End Date Usha Eid, EMERGENCY MEDICAL SERVICE MANAGER.ACCOUNT FINANCIAL MANAGER [address] [place] [place] [address] PCP - General Family Medicine 10/04/20 Analyst Business Analysis Relationship Specialty Start Date End Date Usha Eid, EMERGENCY MEDICAL SERVICE MANAGER.ACCOUNT FINANCIAL MANAGER [address] [place] [address] PCP - General Family Medicine 10/04/20 Analyst Business Analysis Relationship Specialty Start Date End Date Usha Eid, EMERGENCY MEDICAL SERVICE MANAGER.ACCOUNT FINANCIAL MANAGER [address] [place] [place] [address] PCP - General Family Medicine 10/04/20 Analyst Business Analysis Relationship Specialty Start Date End Date Usha Eid, EMERGENCY MEDICAL SERVICE MANAGER.ACCOUNT FINANCIAL MANAGER [address] [place] [place] [address] PCP - General Family Medicine 10/04/20 Analyst Business Analysis Relationship Specialty Start Date End Date Usha Eid, EMERGENCY MEDICAL SERVICE MANAGER.ACCOUNT FINANCIAL MANAGER [address] [place] [place] [address] PCP - General Family Medicine 10/04/20 Team Status: Active Member Role Status Dates Emery LAROSE Family Provider Active Usha Eid AUDIO VISUAL EQUIPMENT RENTAL CLERK, AUDIO VISUAL EQUIPMENT RENTAL CLERK-C Primary Care Provider Active Team Status: Inactive Member Role Status Dates Usha Eid AUDIO VISUAL EQUIPMENT RENTAL CLERK, AUDIO VISUAL EQUIPMENT RENTAL CLERK-C Primary Care Pro vider, Attending Provider, Referring Provider Active Analyst Business Analysis Relationship Specialty Start Date End Date Usha Eid, EMERGENCY MEDICAL SERVICE MANAGER.ACCOUNT FINANCIAL MANAGER [address] [place] [place] [address] PCP - General Family Medicine 10/04/20 Analyst Business Analysis Relationship Specialty Start Date End Date Usha Eid, EMERGENCY MEDICAL SERVICE MANAGER.ACCOUNT FINANCIAL MANAGER [address] [place] [address] PCP - General Family Medicine 10/04/20 Analyst Business Analysis Relationship Specialty Start Date End Date Usha Eid EMERGENCY MEDICAL SERVICE MANAGER.ACCOUNT FINANCIAL MANAGER [address] [place] [address] PCP - General Family Medicine 10/04/20 Analyst Business Analysis Relationship Specialty Start Date End Date Usha Eid EMERGENCY MEDICAL SERVICE MANAGER.ACCOUNT FINANCIAL MANAGER [address] [place] [address] PCP - General Family Medicine 10/04/20 Analyst Business Analysis Relationship Specialty Start Date End Date Usha Eid EMERGENCY MEDICAL SERVICE MANAGER.ACCOUNT FINANCIAL MANAGER [address] [place] [address] PCP - General Family Medicine 10/04/20 Analyst Business Analysis Relationship Specialty Start Date End Date Usha Eid EMERGENCY MEDICAL SERVICE MANAGER.ACCOUNT FINANCIAL MANAGER [address] [place] [address] PCP - General Family Medicine 10/04/20 Team Status: Inactive Member Role Status Dates Usha Eid AUDIO VISUAL EQUIPMENT RENTAL CLERK, AUDIO VISUAL EQUIPMENT RENTAL CLERK-C Primary Care Provider, Attendi ng Provider Active Analyst Business Analysis Relationship Specialty Start Date End Date Usha Eid EMERGENCY MEDICAL SERVICE MANAGER-ACCOUNT FINANCIAL MANAGER [address] [place] [address] PCP - General 06/05/23 Analyst Business Analysis Relationship Specialty Start Date End Date Usha Eid EMERGENCY MEDICAL SERVICE MANAGER-ACCOUNT FINANCIAL MANAGER [address] [place] [address] PCP - General 06/05/23 Analyst Business Analysis Relationship Specialty Start Date End Date Usha Eid, EMERGENCY MEDICAL SERVICE MANAGER.ACCOUNT FINANCIAL MANAGER [address] [place] [address] PCP - General Family Medicine 10/04/20 Analyst Business Analysis Relationship Specialty Start Date End Date Usha Eid, EMERGENCY MEDICAL SERVICE MANAGER.ACCOUNT FINANCIAL MANAGER [address] [place], [place] [id number] PCP - General Family Medicine 10/04/20 Analyst Business Analysis Relationship Specialty Start Date End Date Usha Eid, EMERGENCY MEDICAL SERVICE MANAGER.ACCOUNT FINANCIAL MANAGER [address] [place], [place] [id number] PCP - General Family Medicine 10/04/20 Analyst Business Analysis Relationship Specialty Start Date End Date Usha Eid, EMERGENCY MEDICAL SERVICE MANAGER.ACCOUNT FINANCIAL MANAGER [address] [place] [address] PCP - General Family Medicine 10/04/20 Team Status: Inactive Member Role Status Dates Usha Eid AUDIO VISUAL EQUIPMENT RENTAL CLERK, AUDIO VISUAL EQUIPMENT RENTAL CLERK-C Primary Care Provider Active JOSE A BUSTAMANTE Attending Provider, Referring Provider Active Analyst Business Analysis Relationship Specialty Start Date End Date Usha Eid, EMERGENCY MEDICAL SERVICE MANAGER.ACCOUNT FINANCIAL MANAGER [address] [place] [address] PCP - General Family Medicine 10/04/20 Analyst Business Analysis Relationship Specialty Start Date End Date Usha Eid, EMERGENCY MEDICAL SERVICE MANAGER.ACCOUNT FINANCIAL MANAGER [address] [place], [place] [id number] PCP - General Family Medicine 10/04/20 Analyst Business Analysis Relationship Specialty Start Date End Date Usha Eid, EMERGENCY MEDICAL SERVICE MANAGER.ACCOUNT FINANCIAL MANAGER [address] [place], [place] [id number] PCP - General Family Medicine 10/04/20 Analyst Business Analysis Relationship Specialty Start Date End Date Usha Eid A, EMERGENCY MEDICAL SERVICE MANAGER.ACCOUNT FINANCIAL MANAGER [address] [facility] [place] [id number] PCP - General Family Medicine 10/04/20 Analyst Business Analysis Relationship Specialty Start Date End Date QuedenUsha A, EMERGENCY MEDICAL SERVICE MANAGER.ACCOUNT FINANCIAL MANAGER [address] [facility], [place] [id number] PCP - General Family Medicine 10/04/20 Analyst Business Analysis Relationship Specialty Start Date End Date AbhijitdenUsha A, EMERGENCY MEDICAL SERVICE MANAGER.ACCOUNT FINANCIAL MANAGER [address] [facility], [place] [id number] PCP - General Family Medicine 10/04/20 Analyst Business Analysis Relationship Specialty Start Date End Date Usha Eid, EMERGENCY MEDICAL SERVICE MANAGER.ACCOUNT FINANCIAL MANAGER [address] [facility], [place] [id number] PCP - General Family Medicine 10/04/20 Team Status: Active Member Role/Relationship Status Dates Usha Eid AUDIO VISUAL EQUIPMENT RENTAL CLERK, AUDIO VISUAL EQUIPMENT RENTAL CLERK-C Primary Care Provider Active Team Status: Inactive Member Role/Relationship Status Dates Usha Eid AUDIO VISUAL EQUIPMENT RENTAL CLERK, AUDIO VISUAL EQUIPMENT RENTAL CLERK-C Primary Care Provider Active Start: June 01, 2025 End: June 01, 2025 Usha Eid AUDIO VISUAL EQUIPMENT RENTAL CLERK, AUDIO VISUAL EQUIPMENT RENTAL CLERK-C Referring Provider Active Start: June 01, 2025 End: June 01, 2025 Dr. Fabio Wilburn MD Attending Provider Active S tart: June 01, 2025 End: June 01, 2025 Team Status: Inactive Member Role/Relationship Status Dates Usha Eid AUDIO VISUAL EQUIPMENT RENTAL CLERK, AUDIO VISUAL EQUIPMENT RENTAL CLERK-C Primary Care Provider Active Start: June 01, 2025 End: June 01, 2025 Dr. Yani Sloan DO Attending Provider Active Start: June 01, 2025 End: June 01, 2025 Dr. Yani Sloan DO Referring Provider Active Start: June 01, 2025 End: June 01, 2025 Team Status: Inactive Member Role/Relationship Status Dates Usha Eid AUDIO VISUAL EQUIPMENT RENTAL CLERK, AUDIO VISUAL EQUIPMENT RENTAL CLERK-C Primary Care Provider Active Start: June 13, 2025 End: June 13, 2025 Dr. Fabio Wilburn MD Attending Provider Active S tart: June 13, 2025 End: June 13, 2025 Dr. Fabio Wilburn MD Referring Provider Active S tart: June 13, 2025 End: June 13, 2025 Team Status: Active Member Role/Relationship Status Dates Usha Eid AUDIO VISUAL EQUIPMENT RENTAL CLERK, AUDIO VISUAL EQUIPMENT RENTAL CLERK-C Primary Care Provider Active Start: June 13, 2025 Sofia Romero Attending Provider Active Start: June 13, 2025 Analyst Business Analysis Relationship Specialty Start Date End Date Usha Eid, EMERGENCY MEDICAL SERVICE MANAGER.ACCOUNT FINANCIAL MANAGER [address] [place] [address] PCP - General Family Medicine 10/04/20 Goals (unrecognized section and content) Goals may be documented in a n alternate sectionGoals may be documented in an alternate sectionGoals may be documented in an alternate sectionGoals may be documented in an alternate sectionGoals may be documented in an alternate sectionGoals may be documented in an alternate section INFORMATION SOURCE (unrecogn ized section and content) DATE CREATED AUTHOR 06/07/2023 [facility] DATE CREATED AUTHOR AUTHOR'S ORGANIZ ATION 06/28/2024 [facility] DATE CREATED AUTHOR AUTHOR'S ORGANIZ ATION 05/20/2025 [facility] DATE CREATED AUTHOR AUTHOR'S ORGANIZ ATION 06/13/2025 [facility] DATE CREATED AUTHOR AUTHOR'S ORGANIZ ATION 06/16/2025 [facility] FOR RECORDS PERTAINING TO PATIENTS WHO [...] BE BASED ON THE PRIMARY CLINICAL RECORDS. [facility] [employer] provides no warranty or guarantee of the accuracy or completeness of information in this document.
--- NOTE | 2025-06-22 07:07 | CT_ITS ---
PROCEDURE: CHEST WITH CONTRAST 06/22/2025 REASON FOR EXAM: Preoperative evaluation for aortic stenosis. TECHNIQUE: CHEST WITH CONTRAST Coronal and Sagittal reconstruction series were provided. CONTRAST: Isovue 370 VOLUME: 100 mL One or more dose reduction techniques were used (e.g., Automated exposure control, adjustment of the mA and/or kV according to patient size, use of iterative reconstruction technique). RADIATION DOSE SUMMARY: CTDlvol: 12 mGy DLP: 392.12 mGycm COMPARISON: None FINDINGS: Hardware: None Lymph nodes: Small benign-appearing bilateral axillary lymph nodes. Heart and Vasculature: The heart is not enlarged. Calcification in the aortic valve. No coronary artery calcification. Lungs and Airways: The lungs are clear. No pulmonary mass or consolidation is seen. Pleura: No pleural effusion. Upper Abdomen: Unremarkable Bones: Degenerative changes of the thoracic spine. CT/Chest WITH Contrast IMPRESSION: Coronary artery calcification (CAC) is is absent Calcification of the aortic valve. Reading Location: [id number]
--- NOTE | 2025-06-22 07:07 | ECHOD_ITS ---
Reason For Study Reason For Study: BICUSPID AORTIC VALVE Procedure This was a 2D Doppler, Color Flow transthoracic echocardiogram. Exam performed in department. Left Ventricle Normal LV size. Left ventricular systolic function is normal. The left ventricular ejection fraction is 60 %. Stage 1 diastolic dysfunction. No regional wall motion abnormalities noted. Right Ventricle Normal RV size. Normal systolic function. Atria Normal left atrium. Normal right atrium. Mitral Valve Normal mitral valve. Tricuspid Valve Normal tricuspid valve. Mild (1+) tricuspid valve insufficiency. Pulmonary artery systolic pressure is 29 mmHg. Aortic Valve Bicuspid aortic valve. Mean aortic valve gradient 49 mmHg. Peak aortic valve gradient 80 mmHg. Severe aortic stenosis. Pulmonic Valve Normal pulmonic valve. Great Vessels Normal aortic root. The pulmonary artery is normal size. Inferior vena cava collapse with respiration. Pericardium/Pleural No pericardial effusion. MMode/2D Measurements & Calculations LVIDd: 4.7 cm IVSd: 1.2 cm LVOT diam: 1.9 cm LVIDs: 2.9 cm LVPWd: 1.1 cm LVOT area: 2.9 cm2 RVDd: 3.1 cm FS: 37.3 % Ao root diam: 3.5 cm LAV(MOD-bp): 51.2 ml LA A4 area: 15.5 cm2 LAV(MOD-bp) Indexed: 28.2 ml/m2 LAV(MOD-sp2): 58.5 ml LAV(MOD-sp4): 41.4 ml LA dimension(2D): 3.8 cm TAPSE: 1.8 cm RA A4 area: 12.9 cm2 Time Measurements MV dec time: 0.23 sec Doppler Measurements & Calculations MV E max art: 70.8 cm/sec Lat Peak E' Art: 7.2 cm/sec Med Peak E' Art: 7.5 cm/sec MV A max art: 74.9 cm/sec E/E' lat: 9.8 E/E' med: 9.4 MV E/A: 0.95 MV V2 max: 76.7 cm/sec MV P1/2t max art: 76.7 cm/sec Ao V2 max: 445.7 cm/sec MV max P.4 mmHg MV P1/2t: 60.8 msec Ao max P.6 mmHg MV V2 mean: 41.5 cm/sec MV dec slope: 369.6 cm/sec2 Ao V2 mean: 334.2 cm/sec MV mean P.81 mmHg Ao mean P.8 mmHg MV V2 VTI: 26.2 cm MVA(P1/2t): 3.6 cm2 Ao V2 VTI: 120.8 cm MVA(VTI): 3.3 cm2 AV (velocity ratio): 0.25 DULCE(I,D): 0.72 cm2 DULCE(V,D): 0.65 cm2 LV V1 max: 101.0 cm/sec SV(LVOT): 86.7 ml PA V2 max: 95.0 cm/sec LV V1 max P.1 mmHg PA V2 mean: 64.7 cm/sec LV V1 mean P.4 mmHg LV V1 mean: 71.3 cm/sec LV V1 VTI: 30.4 cm TR max art: 256.0 cm/sec TR max P.2 mmHg ECHO/Echo Complete Interpretation Summary Normal LV size. Left ventricular systolic function is normal. The left ventricular ejection fraction is 60 %. Stage 1 diastolic dysfunction. Bicuspid aortic valve. Mean aortic valve gradient 49 mmHg. Severe aortic stenosis. Mild (1+) tricuspid valve insufficiency. Ordering Physician: Fabio Wilburn Referring Physician: Usha Eid Performed By: Telma Tran, RDCS, RVT
== END | disposition home or self-care (01) ==
PROVIDERS: PCP Nurse Practitioner Family; Referring Provider Internal Medicine Cardiovascular Disease; Visit Provider Internal Medicine Cardiovascular Disease
DX: I35.0 Nonrheumatic aortic (valve) stenosis (principal)
CPT/HCPCS: 71260; 93306; Q9967; A4216